=== PATIENT | female | born 1965 | race Caucasian/White ===

== ENCOUNTER → 2017-12-05 08:17 | Outpatient (CLI) | payer OTHER, SELFPAY ==
--- NOTE | 2017-12-05 08:19 | BI_ITS ---
MAMMOGRAPHY - BILATERAL SCREENING REASON FOR EXAM: Female, 52 years old. Routine annual screening examination. PERTINENT HISTORY: Non-contributory. TECHNIQUE: Digital bilateral breast wilbert (3D mammographic acquisition) in the CC and MLO projections. 2-D mediolateral oblique (MLO) and craniocaudad (CC) views of both breasts were obtained. CAD: Full Field Digital Mammography with Computer Added Detection was performed. COMPARISON: Comparison is made with prior abdomen examination dated May 12, 2016. FINDINGS: Breast Composition: The breasts are heterogeneously dense, which may obscure small masses. There are no dominant masses or suspicious calcifications. Stable bilateral benign-appearing axillary lymph nodes. No other significant abnormalities are identified. There has been no significant change since the prior study. BI/SCREENING MAMM (CAD), BILAT IMPRESSION: Stable bilateral screening mammogram. Yearly follow-up mammogram recommended. (A) ASSESSMENT CATEGORY: BIRADS Category 2: Benign. A letter regarding these results will be sent to the patient by the facility within 30 days. Approximately 10% of breast cancers are not detected by mammography. A normal mammogram should not delay biopsy of a clinically suspicious abnormality. [id number] Electronically Signed: Sylvester Coronel MD at 9:24 EDT Tel [phone], Service support ,
== END ==
PROVIDERS: Family Provider Internal Medicine; PCP Internal Medicine; Visit Provider Obstetrics & Gynecology
DX: Z12.31 Encounter for screening mammogram for malignant neoplasm of breast (principal)
CPT/HCPCS: 77063; 77067

== ENCOUNTER → 2018-09-09 13:57 | Outpatient (CLI) | payer OTHER, SELFPAY ==
--- NOTE | 2018-09-09 14:01 | BI_ITS ---
MAMMOGRAPHY - BILATERAL DIAGNOSTIC REASON FOR EXAM: Female, 53 years old. BILAT DX FOR RT BREAST PAIN PERTINENT HISTORY: TECHNIQUE: Digital bilateral breast wilbert (3D mammographic acquisition) in the CC and MLO projections. 2-D mediolateral oblique (MLO) and craniocaudad (CC) views of both breasts were obtained. CAD: Full Field Digital Mammography with Computer Added Detection was performed. COMPARISON: NO FAM HX - RT LOQ SORENESS/PAIN X 1 MONTH OCCASIONAL . FINDINGS: Breast Composition: The breasts are heterogeneously dense, which may obscure small masses. There is an asymmetric density in the upper outer aspect of the right breast for which further evaluation by ultrasound was performed. There are no suspicious calcifications. No other significant abnormalities are identified. BI/DIAG MAMM W/CAD, BILAT IMPRESSION: Stable bilateral diagnostic mammogram. One year follow-up recommended. (A) ASSESSMENT CATEGORY: BIRADS Category 0: Incomplete. Need additional imaging evaluation. A letter regarding these results will be sent to the patient by the facility within 30 days. Approximately 10% of breast cancers are not detected by mammography. A normal mammogram should not delay biopsy of a clinically suspicious abnormality. Electronically Signed: Yoselin Dixon, at 16:49 EDT Tel , Service support ,
--- NOTE | 2018-09-09 14:01 | US_ITS ---
STUDY: ULTRASOUND BREAST - RIGHT REASON FOR EXAM: Female, 53 years old. RT BREAST PAIN LOQ - PER EDI LATERAL ASPECT Tamp; MEDIAL DENSITY TECHNIQUE: Axial and longitudinal images of the RIGHT breast were performed with a high resolution ultrasound transducer. COMPARISON: None. FINDINGS: RIGHT Breast: There is a lesion #1 in the lower medial quadrant. The lesion measures 0.7 x 0.7 x 0.7 cm in size. Clock notation: 3 o'clock position. Distance from nipple: 0.5 cm. Posterior Enhancement: Yes. Posterior Shadowing: None. Margins: Sharp and smooth. Echogenicity: Anechoic. Compression effect on Shape: No change. There is a lesion #2 in the upper outer quadrant. The lesion measures 0.6 x 0.5 x 0.7 cm in size. Clock notation: 10 o'clock position. Distance from nipple: 8 cm. Posterior Enhancement: No. Posterior Shadowing: None. Margins: Indistinct but smooth. Echogenicity: Mixed echogenicity. Compression effect on Shape: No change. US/Breast Limited Unilateral IMPRESSION: There is a lesion #1 is a cyst. There is a lesion #2 is a probably benign lesion. Follow-up in 6 months is recommended. ASSESSMENT CATEGORY: BIRADS Category 3: Probably Benign - Short-Interval Follow-up Suggested. A letter regarding these results will be sent to the patient by the facility within 30 days. Electronically Signed: Yoselin Dixon, at 16:39 EDT Tel , Service support ,
== END ==
PROVIDERS: Family Provider Internal Medicine; PCP Internal Medicine; Referring Provider Obstetrics & Gynecology; Visit Provider Obstetrics & Gynecology
DX: N64.4 Mastodynia (principal)
CPT/HCPCS: 76642; 77066

== ENCOUNTER → 2018-11-25 07:45 | Outpatient (CLI) | payer OTHER, SELFPAY ==
--- NOTE | 2018-11-25 07:47 | US_ITS ---
STUDY: ULTRASOUND TRANSVAGINAL CLINICAL: Female, 53 years old. Dysfunctional uterine bleeding TECHNIQUE: Transvaginal COMPARISON: None. FINDINGS: Normal uterine size measuring 10.2 x 6.8 x 5.5 cm. There are no myometrial masses. Uterus is diffusely heterogeneous in echogenicity. The endometrium is thickened, measuring up to 17 mm. The endometrium is echogenic. There is a complex endometrial cystic focus extending into the myometrium of the fundus. . There is a cervical nabothian cyst. Normal right ovary, measuring 3.0 x 2.2 x 1.7 cm. There is a 2.3 x 1.4 x 1.5 cm right ovarian cyst. The left ovary was not visualized. There is no free fluid in the pelvis. Polycystic ovary disease: No. US/Transvaginal Non- IMPRESSION: Heterogeneously echogenic uterus. The endometrium is thickened, measuring up to 17 mm. There is an ill-defined complex cystic focus of the endometrium extending into the fundal myometrium. Finding is of unknown etiology or significance. There is a 2.3 x 1.4 x 1.5 cm right ovarian cyst. The left ovary was not visualized. Electronically Signed: Ricardo Khan MD at 20:44 EDT , Service support ,
--- NOTE | 2018-11-25 07:47 | US_ITS ---
STUDY: ULTRASOUND TRANSVAGINAL CLINICAL: Female, 53 years old. Dysfunctional uterine bleeding TECHNIQUE: Transvaginal COMPARISON: None. FINDINGS: Normal uterine size measuring 10.2 x 6.8 x 5.5 cm. There are no myometrial masses. Uterus is diffusely heterogeneous in echogenicity. The endometrium is thickened, measuring up to 17 mm. The endometrium is echogenic. There is a complex endometrial cystic focus extending into the myometrium of the fundus. . There is a cervical nabothian cyst. Normal right ovary, measuring 3.0 x 2.2 x 1.7 cm. There is a 2.3 x 1.4 x 1.5 cm right ovarian cyst. The left ovary was not visualized. There is no free fluid in the pelvis. Polycystic ovary disease: No. US/Pelvic (Non ) IMPRESSION: Heterogeneously echogenic uterus. The endometrium is thickened, measuring up to 17 mm. There is an ill-defined complex cystic focus of the endometrium extending into the fundal myometrium. Finding is of unknown etiology or significance. There is a 2.3 x 1.4 x 1.5 cm right ovarian cyst. The left ovary was not visualized. Electronically Signed: Ricardo Khan MD at 20:44 EDT , Service support ,
== END ==
PROVIDERS: Family Provider Internal Medicine; PCP Internal Medicine; Referring Provider Obstetrics & Gynecology; Visit Provider Obstetrics & Gynecology
DX: N93.8 Other specified abnormal uterine and vaginal bleeding (principal)
CPT/HCPCS: 76830; 76856; 93976

== ENCOUNTER → 2018-12-13 15:32 | Outpatient (CLI) | payer OTHER, SELFPAY ==
[2018-12-13 15:29] VITALS: BMI 31.0
[2018-12-13 17:19] LABS: Absolute Lymphocyte Count 1.37 X10^3/ul (0.83-4.51); Absolute Neutrophil Count 5.3 X10^3/uL (2.0-7.7); Basophil# 0.02 X10^3/uL; Basophil% 0.3 % (0-1); Eosinophil# 0.12 X10^3/uL; Eosinophils% 1.6 % (0-5); Hematocrit 36.7 % (37-47); Hemoglobin 12.6 g/dl (12.0-15.0); Lymphocyte # 1.37 X10^3/ul (4.0); Lymphocyte % 18.8 % (19-41); Mean Corp Hgb Conc 34.3 g/gl (32-36); Mean Corpuscular Volume 84.6 fL (81-99); Mean Platelet Vol. 9.4 fl (6.2-12.0); Monocyte# 0.51 X10^3/uL; Neutrophil # 5.26 X10^3/uL (2.7-7.7); Neutrophil % 72.2 % (47-70); POSITIVE COUNT NO; POSITIVE DIFFERENTIAL NO; POSITIVE MORPHOLOGY NO; Platelet Count 402 K/mm3 (150-450); RBC Distribution Width CV 12.9 % (11.6-14.6); RBC Distribution Width SD 39.2 fl (35.1-43.9); Red Blood Count 4.34 M/mm3 (4.2-5.4); White Blood Count 7.3 K/mm3 (4.4-11.0)
[2018-12-13 18:02] LABS: Thyroid Stim Hormone (TSH) 0.53 uIU/mL (0.358-3.74)
== END ==
PROVIDERS: Family Provider Internal Medicine; PCP Internal Medicine; Referring Provider Obstetrics & Gynecology; Visit Provider Obstetrics & Gynecology
DX: N92.0 Excessive and frequent menstruation with regular cycle (principal)
CPT/HCPCS: 36415; 84443; 85025

== ENCOUNTER 2019-01-20 09:56 | Day surgery (SDC) | payer OTHER, SELFPAY ==
[2018-12-13 15:29] VITALS: BMI 31.0
[2019-01-11 08:24] VITALS: BMI 31.0
--- NOTE | 2019-01-13 23:47 | HP.PCM_ITS ---
- Problem List (1) Abnormal uterine bleeding Status: Chronic Comment: plan d and c hysteroscopy symphion possible alyssa ablation History and Physical Date of Admission: 01/20/19 Intake Vital Signs 01/11/19 Height 5 ft 4.5 in 01/11/19 Weight: 181 lb 8 oz 01/11/19 Body Mass Index (BMI) 30.7 01/11/19 Blood Pressure 132/70 H Intake Visit Reasons: pre op-soap/folder Gardening Manager Required: No Is patient in pain?: No Allergies No Known Allergies Allergy (Verified 01/11/19 08:02) Medications hydrochlorothiazide 25 mg tablet 25 mg PO QDAY 07/08/17 [History Confirmed 01/11/19] naproxen 500 mg tablet 500 mg PO Q12H #30 tab 12/27/18 [Rx Confirmed 01/11/19] norethindrone acetate 5 mg tablet 5 mg PO BID #40 tab 01/10/19 [Rx Confirmed 01/11/19] Post menopausal: No Patient : No : No PFSH Surgical History H/O foot surgery (Acute) H/O mitral valve repair (Acute) History of tonsillectomy (Acute) Family History Mother Heart disease auto immune disease Grandfather Cancer stomach Social History (Updated 01/11/19 @ 08:24 by Rachna Kelly MD) Smoking Status: Never smoker alcohol intake: current details: social substance use type: does not use caffeine: Yes frequency: 3-4 times per week seatbelt use: always do you feel safe at home: Yes additional 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 she has heavy persistent bleeding. she has tried a mirena in the past and is on aygestin currently. Female Reproductive History Cycle Length: <21 Bleeding Duration: 10 Menopausal Symptoms: No night sweats Pregancy History 1 Elective abortions Hx Para 1 Spontaneous abortions Hx # Term Pregnancies Ectopic pregnancies Hx # Pregnancies Multiple births # of living children Past Pregnancies Del. Date Name GA/Weeks Outcome Route Bth Weight Gen Labor Lgth Anesthesia Del Locatn Provider FOB Unknown 1995 Vickie HERNANDEZ Const Constitutional: Denies fatigue, night sweats, weight gain or weight loss ENT ENT: Reports system reviewed and no additional complaints, except as docu Cardio Card: Denies chest pain Resp Resp: Denies cough or dyspnea GI GI: Reports as per HPI; denies abdominal pain, constipation, nausea or vomiting : Denies nipple discharge, urinary frequency, urinary incontinence, urinary hesitancy, urinary urgency, vaginal discharge, vaginal dryness, vaginal odor or vaginal itching Musc Musc: Denies joint pain, back pain or muscle weakness Skin Skin/Breast: Denies hair loss, change in hair, dry skin, breast lump, breast pain, breast skin changes or nipple discharge Neuro Neuro: Reports system reviewed and no additional complaints, except as docu Psych Psych: Reports system reviewed and no additional complaints, except as docu Endo Endo: Denies cold intolerance, excessive sweating, heat intolerance or increased thirst Yariel/Lymph Hematologic/Lymphatic: Denies easy bleeding, Denies easy bruising, Denies enlarged lymph nodes Exam Const General: cooperative, healthy appearing, comfortable, no acute distress, well developed Orientation: alert [facility] Head: normal to inspection, normocephalic Ears: hearing grossly normal bilaterally, external ears normal Nose: external nose normal, nares normal Face and sinus: normal facial exam Neck Neck: normal visual inspection, no lymphadenopathy Thyroid: thyroid normal Chest Chest palpation & inspection: normal inspection of the chest Resp Effort & Inspection: normal respiratory effort Auscultation: clear to auscultation bilaterally Cardio Rate: regular rate Rhythm: regular rhythm Heart Sounds: S1 normal, S2 normal GI Inspection: normal to inspection, non-distended Palpation: soft, no hepatosplenomegaly Musc Other: gross motor intact no deficits, full bilateral strength Skin General: no rashes or lesions noted Neuro General: alert, awake, moves all extremities, no focal motor deficits Motor: muscle tone normal throughout Extrem General: normal to inspection, no pedal edema Psych Appearance: grossly normal Mental Status: mental status grossly normal Affect: normal affect Speech and Movement: speech and movement normal Assessment & Plan Problems 1. Abnormal uterine bleeding N93.9 plan d and c hysteroscopy symphion possible alyssa ablation Plan plan d and c hysteroscopy discussed surgical risks including risks of anesthesia, infection, bleeding, injury to bowel, bladder or blood vessels, and patient wishes to proceed with surgery. discussed if abnormal pathology may need further surgery Coding Level of Care Code No Charge Diagnoses Abnormal uterine bleeding N93.9 UPDATE- I have seen the patient and performed any clinically relevant updates to the history and physical exam. Rachna Kelly MD
[2019-01-20] VITALS (7 sets, daily range): BP systolic 90–143; BP diastolic 56–69; PULSE 59–79; RESP 16; TEMP 36.5–37.4; O2SAT 92–99; BMI 30.8
[2019-01-20 11:03] LABS: Internal QC Validated? YES +Cl - CLEAR BKGD; Pregnancy, Serum, hCG Quali. NEGATIVE Negative
--- NOTE | 2019-01-20 11:41 | PCM.OPRPT ---
Problem List (1) Abnormal uterine bleeding Status: Chronic Comment: plan d and c hysteroscopy symphion possible hailey ablation Report of Operation Date of Procedure: 01/20/19 Pre-Operative Diagnosis: aub Post-Operative Diagnosis: same Surgery/Procedure Performed:: d and c hysteroscopy hailey ablation Description of Surgical Findings:: thickened lining Type of Anesthesia:: Local MAC Special Medications: none Specimen's removed: emc Drains: none Estimated Blood Loss (mL): 25 Fluids Replaced: crystalloid Description of Procedure: Patient was prepped and draped in a normal sterile fashion under MAC anesthesia. A weighted speculum was placed in the vagina and the anterior lip of the cervix was grasped with a single-tooth tenaculum. A paracervical block was placed with 1% lidocaine. Cervix was progressively dilated to allow passage of a 5 mm hysteroscope. The lining was fully visualized and noted to have thickened lining. Uterine sounded to 10 cm. Curettage was performed and moderate amount of tissue was removed, sent to pathology. The Hailey device was opened and the cavity length was found to be 5.5 cm. Device was inserted into the uterus and balloon inflated and device deployed. Integrity of the cavity was confirmed and a 2 minute treatment cycle was completed without complication. All instruments were removed from the vagina and excellent hemostasis was noted. Patient was awoken and taken to recovery in stable condition. Grafts/Implants Used: none - Complications none - Admit VTE Documentation VTE Present on Admission: No Multi Select Codes - Urinary/Genital Urinary/Genital CPT Codes: Other Procedure See Report - 12517
--- NOTE | 2019-01-20 11:55 | EMB_PTH ---
PATIENT: ARON JORGE LOC: [facility] U#:[id number] AGE/SX: 53/F ROOM: RE01/20/[address]: Dr. Rachna Kelly MD : 1965 BED: DIS: 01/20/2019 SPEC #: [id number] RECD: 01/20/19 12:24 STATUS: CRISTINA OPHELIA #: [id number] AV: 01/20/19 11:[address]: Rachna Kelly DEPT: SURGICAL PATHOLOGY RECD BY: Jonathan Mora ENTERED: 01/20/19 13:34 SP TYPE: ENDOM BX/C DEL DR: Dr. Janine Padilla MD Tissues: Endometrium, NOS Procedures: Surgery Specimen Level IV HEADER OPERATION: Hysteroscopy, D & C, Hailey ablation PRE-OP DIAGNOSIS: Abnormal uterine bleeding TISSUE SUBMITTED: Endometrial curettings MICROSCOPIC DIAGNOSIS Endometrium, curettings: Proliferative endometrium with simple hyperplasia without atypia. Rare fragments of polypoid endocervical tissue. Scant strips of benign superficial ectocervix. Chronic endometritis. AM:gail 01/21/19 MICROSCOPIC DESCRIPTION Slides are reviewed. GROSS DESCRIPTION Received in fixative is one container labeled with the patient's name and designated endometrial curettings. The specimen consists of multiple fragments of hemorrhagic soft tissue that in aggregate measure 7.5 x 3 x 0.3 cm. The entire specimen is submitted in three cassettes. / SJ:gail 01/20/19 TC: CPT: 26444
--- NOTE | 2019-01-20 12:03 | DCINST_ITS ---
Discharge Diet: No Restrictions Discharge Activity: Return to Normal Activity, May Shower, May Take a Tub Bath Allergies/Adverse Reactions: Allergies No Known Allergies Allergy (Verified 01/11/19 08:02) Medications to take at Discharge hydrochlorothiazide 25 mg tablet 25 mg PO QDAY 07/08/17 norethindrone acetate 5 mg tablet 5 mg PO BID #40 tab 01/10/19 Naproxen 500 mg PO Q12H PRN 01/13/19 Primary Care Physician: Janine Padilla MD [Primary Care Provider] - Test Results: Test results from this visit will be discussed in further detail at your follow- up appointment, if applicable. Please Follow Up With: Rachna Kelly MD - [phone]
== END 2019-01-20 13:59 | disposition home or self-care (01) ==
LOC: SDC 09:59 → AC 09:59
PROVIDERS: Family Provider Internal Medicine; PCP Internal Medicine; Referring Provider Obstetrics & Gynecology; Visit Provider Obstetrics & Gynecology
PROC: 0U5B8ZZ Destruction of Endometrium, Via Natural or Artificial Opening Endoscopic (ICD-10-PCS; CPT 58558; principal; 2019-01-20 11:40)
DX: N85.01 Benign endometrial hyperplasia (principal); N93.9 Abnormal uterine and vaginal bleeding, unspecified; I10 Essential (primary) hypertension; K21.9 Gastro-esophageal reflux disease without esophagitis; Z79.899 Other long term (current) drug therapy
CPT/HCPCS: 58353; 36415; 84703; 86850; 86900; 88305; J7120; J2405

== ENCOUNTER → 2019-08-22 16:46 | Outpatient (CLI) | payer OTHER, SELFPAY ==
--- NOTE | 2019-08-22 | EMB_PTH ---
PATIENT: ARON JORGE LOC: [facility] U#:[id number] AGE/SX: 59/F ROOM: RE08/22/[address]: RINA Olivier : 1965 BED: DIS: SPEC #: [id number] RECD: 08/22/19 16:32 STATUS: CRISTINA OPHELIA #: [id number] AV: 08/22/19 00:[address]: Nano Hercules NP DEPT: SURGICAL PATHOLOGY RECD BY: Jonathan Mora ENTERED: 08/23/19 08:11 SP TYPE: ENDOM BX/C DEL DR: Dr. Janine Padilla MD Tissues: Endometrium, NOS Procedures: Surgery Specimen Level IV HEADER OPERATION: Endometrial biopsy PRE-OP DIAGNOSIS: Abnormal uterine bleeding TISSUE SUBMITTED: Endometrial biopsy MICROSCOPIC DIAGNOSIS Endometrial biopsy: Scant strip of benign endometrial epithelium and superficial fragment of inactive endometrial tissue and mucous. Negative for hyperplasia. See comment. SJ:gail 08/24/19 COMMENT The specimen predominantly consists of mucoid tissue. Please make reference to previous specimen ([id number]) endometrium, curettings with diagnosis of proliferative endometrium with simple hyperplasia without atypia and rare fragments of polypoid endocervical tissue. MICROSCOPIC DESCRIPTION Slides are reviewed. GROSS DESCRIPTION Received is one container labeled with the patient's name and not further designated. The specimen consists of multiple irregular fragments of buchanan mucoid tissue that in aggregate measure 3 x 2.5 x 0.3 cm. The specimen is totally submitted in one cassette. / SJ:gail 08/23/19 TC:4 CPT: 71056
[2019-08-22 08:09] VITALS: BMI 30.2
== END ==
PROVIDERS: PCP Internal Medicine; Referring Provider Nurse Practitioner Women's Health; Visit Provider Nurse Practitioner Women's Health
DX: N93.9 Abnormal uterine and vaginal bleeding, unspecified (principal)
CPT/HCPCS: 88305

== ENCOUNTER → 2020-04-19 | Outpatient (CLI) | payer OTHER, SELFPAY ==
[2020-04-19 14:24] VITALS: BMI 30.6
--- NOTE | 2020-04-19 14:40 | EMB_PTH ---
PATIENT: ARON JORGE LOC: [facility] U#:[id number] AGE/SX: 54/F ROOM: RE04/19/[address]: RINA Olivier : 1965 BED: DIS: 04/19/2020 SPEC #: [id number] RECD: 04/19/20 16:11 STATUS: CRISTINA RERod #: [id number] AV: 04/19/20 14:[address]: Nano Hercules NP DEPT: SURGICAL PATHOLOGY RECD BY: Shaniqua Celestin ENTERED: 04/20/20 06:32 SP TYPE: ENDOM BX/C DEL DR: Dr. Janine Padilla MD Tissues: Endometrium, NOS Procedures: Surgery Specimen Level IV HEADER OPERATION: Endometrial biopsy PRE-OP DIAGNOSIS: PMB TISSUE SUBMITTED: Endometrial biopsy MICROSCOPIC DIAGNOSIS Endometrium, biopsy: Scant fragments of benign superficial endometrium and endocervix. AM:gail 04/23/20 MICROSCOPIC DESCRIPTION Slides are reviewed. GROSS DESCRIPTION Received is one container labeled with the patient's name and not further designated. The specimen consists of multiple fragments of hemorrhagic soft tissue that in aggregate measure 1 x 1 x 0.1 cm. The specimen is totally submitted in one cassette. / SJ:gail 04/20/20 TC:5 CPT: 43381
[2020-04-25 14:18] LABS: HPV APTIMA, High Risk Negative (Negative)
== END | disposition home or self-care (01) ==
LOC: LABSPEC 16:27
PROVIDERS: PCP Internal Medicine; Visit Provider Nurse Practitioner Women's Health
DX: Z12.4 Encounter for screening for malignant neoplasm of cervix (principal); N95.0 Postmenopausal bleeding
CPT/HCPCS: 87624; 88175; 88305; G0145

== ENCOUNTER → 2020-04-27 09:25 | Outpatient (CLI) | payer OTHER, SELFPAY ==
[2019-08-22 08:09] VITALS: BMI 30.2
[2020-04-19 14:24] VITALS: BMI 30.6
--- NOTE | 2020-04-27 09:26 | BI_ITS ---
MAMMOGRAPHY - BILATERAL DIAGNOSTIC REASON FOR EXAM: Female, 54 years old. Breast tenderness. PERTINENT HISTORY: Non-contributory. TECHNIQUE: Digital bilateral breast wilbert (3D mammographic acquisition) in the CC and MLO projections. 2-D mediolateral oblique (MLO) and craniocaudad (CC) views of both breasts were obtained. CAD: Full Field Digital Mammography with Computer Added Detection was performed. COMPARISON: Comparison is made with prior examination dated 09/09/2018. FINDINGS: Breast Composition: The breasts are heterogeneously dense, which may obscure small masses. There is a 1.1 cm x 1 cm well-defined nodule in the anterior slightly inferior medial region of the right breast. Correlation with ultrasound is recommended. Stable benign appearing bilateral axillary lymph nodes. No other significant abnormalities are identified. BI/DIAG MAMM W/CAD, BILAT IMPRESSION: 1.1 cm x 1 cm well-defined nodule in the right breast as described. Correlation with ultrasound is recommended. ASSESSMENT CATEGORY: BIRADS Category 0: Incomplete. Need additional imaging evaluation. A letter regarding these results will be sent to the patient by the facility within 30 days. Approximately 10% of breast cancers are not detected by mammography. A normal mammogram should not delay biopsy of a clinically suspicious abnormality. Electronically Signed: Sylvester Coronel, at 10:36 EST , Service support ,
--- NOTE | 2020-04-27 09:26 | US_ITS ---
STUDY: ULTRASOUND BREAST - right REASON FOR EXAM: Female, 54 years old. Abnormal screening mammogram. TECHNIQUE: Axial and longitudinal images of the breast were performed with a high resolution ultrasound transducer. # OF IMAGES: 31 COMPARISON: Comparison is made with prior mammogram dated 04/27/2020 and prior ultrasound of the right breast dated 09/09/2018. FINDINGS: Right Breast: There is a 1 cm x 1 cm x 0.7 cm cyst at the 3 o''clock position of the breast adjacent to the nipple. There is a 7 mm x 5 mm x 5 mm slightly irregular nodule with mixed echogenicity at the 10 o''clock position the breast at 7 cm from the nipple. Peripheral vascularity is seen. A biopsy is recommended for further evaluation. US/Breast Limited Unilateral IMPRESSION: 1 cm x 1 cm x 0.7 cm cyst adjacent to the areola. 7 mm x 5 mm x 5 mm slightly irregular nodule with vascularity at the 10 o''clock position of the breast at 7 cm from the nipple. A biopsy is recommended. ASSESSMENT CATEGORY: BIRADS Category 4: Suspicious - Biopsy Should Be Considered. A letter regarding these results will be sent to the patient by the facility within 30 days. Electronically Signed: Sylvester Coronel, at 11:38 EST , Service support ,
== END ==
PROVIDERS: PCP Internal Medicine; Referring Provider Nurse Practitioner Women's Health; Visit Provider Nurse Practitioner Women's Health
DX: N64.4 Mastodynia (principal); N63.10 Unspecified lump in the right breast, unspecified quadrant; N60.01 Solitary cyst of right breast
CPT/HCPCS: 76642; 77062; 77066; G0279

== ENCOUNTER → 2020-05-14 11:05 | Outpatient (CLI) | payer OTHER, SELFPAY ==
[2020-05-03 13:17] VITALS: BMI 30.3
--- NOTE | 2020-05-14 11:07 | US_ITS ---
ULTRASOUND GUIDED CORE BIOPSY REASON FOR EXAM: Female, 54 years old. RT BREAST MASS PERTINENT HISTORY: Questionable mass in the right breast COMPARISON: None. TECHNIQUE: (All elements of maximal sterile barrier technique followed, including US elements as applicable) Upon arrival to the breast imaging department the patient''s identification was confirmed and the RIGHT breast was marked according to time-out protocol. Ultrasound guided core biopsy and clip placement, to include potential risks and complications, was explained in full to the patient. Written and verbal consent were obtained prior to initiation of the procedure. The RIGHT breast was prepped and draped in standard sterile fashion and local anesthesia was obtained with 1% buffered lidocaine. A small dermatotomy was then made to introduce the core biopsy needle. Under ultrasound guidance multiple core samples were obtained and submitted in formalin for pathology. A titanium clip was then deployed into the biopsy cavity under ultrasound guidance. Upon completion of the procedure hemostasis was obtained and sterile dressing was applied. The patient tolerated the entire procedure without immediate complication and was discharged from the breast imaging department in good condition. US/US Breast Biopsy 1st Lesion IMPRESSION: Ultrasound guided core biopsy of a mass in the RIGHT breast without complication. Electronically Signed: Vikram Montana, at 13:36 EST Tel , Service support ,
--- NOTE | 2020-05-14 12:00 | BRBX_PTH ---
PATIENT: ARON JORGE LOC: [facility]#:[id number] AGE/SX: 59/F ROOM: RE05/14/[address]: Dr. Teresa Amin MD : 1965 BED: DIS: SPEC #: [id number] RECD: 05/14/20 13:22 STATUS: CRISTINA RERod #: [id number] AV: 05/14/20 12:[address]: Teresa Amin DEPT: SURGICAL PATHOLOGY RECD BY: Shaniqua Celestin ENTERED: 05/14/20 13:51 SP TYPE: BREAST BX OTHR DR: Dr. Janine Padilla MD Tissues: A - Breast, NOS Procedures: Surgery Specimen Level IV HEADER OPERATION: Right breast biopsy PRE-OP DIAGNOSIS: Right breast mass TISSUE SUBMITTED: Right breast biopsy ISCHEMIC TIME: 30 seconds FIXATION TIME: 7.5 hours MICROSCOPIC DIAGNOSIS Right breast mass, core biopsy: Fibrocystic change. Focal intraductal hyperplasia without atypia. No evidence of malignancy. AM:gail 05/15/20 MICROSCOPIC DESCRIPTION Slides are reviewed. GROSS DESCRIPTION Received in fixative is one container labeled with the patient's name and designated right breast. The specimen consists of multiple irregular fragments of buchanan soft tissue that in aggregate measure 2 x 1.5 x 0.2 cm. The specimen is totally submitted in one cassette. / AM:gail 05/14/20 TC:5 CPT: 29077
--- NOTE | 2020-05-14 12:32 | BI_ITS ---
MAMMOGRAPHY - UNILATERAL DIAGNOSTIC: RIGHT BREAST REASON FOR EXAM: Female, 54 years old. RT POST U/S BX CLIP PLACEMENT 2D MAMM PERTINENT HISTORY: Non-contributory. TECHNIQUE: Digital examination. Mediolateral oblique (MLO) and craniocaudad (CC) views of the breast were obtained. CAD: COMPARISON: Previous mammogram obtained on 04/27/2020 FINDINGS: Breast Composition: Dense There are no dominant masses or suspicious calcifications. No other significant abnormalities are identified. A biopsy localization clip is noted in the right breast at the 3 o''clock position BI/DIAG MAMM W/CAD, UNILAT IMPRESSION: Note noted is a localization clip in the lateral right breast at the 9 o''clock position from a recent ultrasound directed right breast biopsy. ASSESSMENT CATEGORY: Recently biopsied lesion awaiting biopsy results FOLLOW-UP RECOMMENDATION: Approximately 10% of breast cancers are not detected by mammography. A normal mammogram should not delay biopsy of a clinically suspicious abnormality. Electronically Signed: Vikram Montana, at 15:52 EST Tel , Service support ,
--- NOTE | 2020-05-14 12:41 | OP.PCM_ITS ---
Report of Operation Date of Procedure: 05/14/20 Pre-Operative Diagnosis: Right breast mass at 9:00 7 cm from the nipple Post-Operative Diagnosis: Same Surgery/Procedure Performed:: Ultrasound-guided right breast biopsy Type of Anesthesia:: Local Specimen's removed: Right breast mass 9 o'clock 7 cm from the nipple Estimated Blood Loss (mL): Minimal Description of Procedure: Procedure: Right ultrasound-guided core biopsy Indications: 54 year-old female with mixed echogenicity nodule at 9:00 in the right breast 7 centimeters from the nipple. Risk benefits were discussed the patient and she elected to proceed with ultrasound guided core biopsy with clip placement Description of procedure: Patient was brought into the ultrasound room in the right breast was marked. A timeout was completed verifying correct patient, procedure, site, specially, prior to beginning procedure. The right breast was prepped and draped in usual sterile fashion and using local anesthesia was obtained with 1% lidocaine with epi. The lesion was located with the ultrasound. Small incision was made with 11 blade to introduced the mammotome through the skin. Under ultrasound guidance multiple core samples were obtained using then 13-gauge mammotome and sent in formalin for pathology. The mammotome mammostar clip was then deployed into the biopsy cavity under ultrasound agnieszka nce and a picture was taken. Upon completion procedure hemostasis was obtained and a Steri-Strip and OpSite were placed. Patient was then taken to the mammography suite for clip verification. The clip was verified. The patient tolerated the procedure well and was discharged from the breast imaging department good condition. complications: none - Complications none
== END ==
PROVIDERS: PCP Internal Medicine; Referring Provider Surgery; Visit Provider Surgery
DX: N62 Hypertrophy of breast (principal); N63.10 Unspecified lump in the right breast, unspecified quadrant; N63.15 Unspecified lump in the right breast, overlapping quadrants
CPT/HCPCS: 19083; 77065; 88305

== ENCOUNTER 2020-10-15 08:14 | Outpatient (RCR) | payer OTHER, SELFPAY ==
[2020-05-03 13:17] VITALS: BMI 30.3
== END 2020-10-19 23:59 ==
LOC: NS 08:14
PROVIDERS: PCP Internal Medicine; Visit Provider Internal Medicine
DX: Z71.3 Dietary counseling and surveillance (principal); E66.9 Obesity, unspecified; Z68.30 Body mass index [BMI] 30.0-30.9, adult
CPT/HCPCS: 97802

== ENCOUNTER 2020-11-13 11:15 | Outpatient (RCR) | payer OTHER, SELFPAY ==
[2020-05-03 13:17] VITALS: BMI 30.3
== END 2020-11-19 23:59 ==
LOC: NS 11:15
PROVIDERS: PCP Internal Medicine; Visit Provider Internal Medicine
DX: Z71.3 Dietary counseling and surveillance (principal); E66.9 Obesity, unspecified; Z68.30 Body mass index [BMI] 30.0-30.9, adult
CPT/HCPCS: 97803

== ENCOUNTER 2020-12-18 08:30 | Outpatient (RCR) | payer OTHER, SELFPAY ==
[2020-05-03 13:17] VITALS: BMI 30.3
== END 2020-12-19 23:59 ==
LOC: NS 08:30
PROVIDERS: PCP Internal Medicine; Visit Provider Internal Medicine
DX: Z71.3 Dietary counseling and surveillance (principal); E66.9 Obesity, unspecified; Z68.30 Body mass index [BMI] 30.0-30.9, adult
CPT/HCPCS: 97803

== ENCOUNTER 2021-01-01 16:04 | Outpatient (RCR) | payer OTHER, SELFPAY ==
[2020-05-03 13:17] VITALS: BMI 30.3
== END 2021-01-19 23:59 ==
LOC: NS 16:04
PROVIDERS: PCP Internal Medicine; Visit Provider Internal Medicine
DX: Z71.3 Dietary counseling and surveillance (principal); E66.9 Obesity, unspecified; Z68.30 Body mass index [BMI] 30.0-30.9, adult
CPT/HCPCS: 97803

== ENCOUNTER 2021-02-11 08:30 | Outpatient (RCR) | payer OTHER, SELFPAY ==
[2020-05-03 13:17] VITALS: BMI 30.3
== END 2021-02-19 23:59 ==
LOC: NS 08:30
PROVIDERS: PCP Internal Medicine; Visit Provider Internal Medicine
DX: Z71.3 Dietary counseling and surveillance (principal); E66.9 Obesity, unspecified; Z68.30 Body mass index [BMI] 30.0-30.9, adult
CPT/HCPCS: 97803

== ENCOUNTER 2021-03-04 09:45 | Outpatient (RCR) | payer OTHER, SELFPAY ==
[2021-02-20 00:33] VITALS: BMI 30.3
== END 2021-03-21 23:59 ==
LOC: NS 09:45
PROVIDERS: PCP Internal Medicine; Visit Provider Internal Medicine
DX: Z71.3 Dietary counseling and surveillance (principal); E66.9 Obesity, unspecified; Z68.30 Body mass index [BMI] 30.0-30.9, adult
CPT/HCPCS: 97803

== ENCOUNTER → 2021-03-19 07:31 | Outpatient (CLI) | payer OTHER, SELFPAY ==
--- NOTE | 2021-03-19 07:34 | BI_ITS ---
MAMMOGRAPHY - BILATERAL SCREENING REASON FOR EXAM: Female, 55 years old. Routine annual screening examination. PERTINENT HISTORY: Grandmother with breast cancer. Prior right ultrasound-guided breast biopsy. TECHNIQUE: Digital bilateral breast ana maria (3D mammographic acquisition) in the CC and MLO projections. 2-D mediolateral oblique (MLO) and craniocaudad (CC) views of both breasts were obtained. CAD: Full Field Digital Mammography with Computer Added Detection was performed. COMPARISON: Comparison is made with prior study dated 05/14/2020 and 04/27/2020. FINDINGS: Breast Composition: The breasts are heterogeneously dense, which may obscure small masses. Stable 1.2 cm x 1.1 cm well-defined nodule in the slightly inferior medial retroareolar region of the right breast. A tissue clip marker is seen in the slightly upper lateral aspect of the right breast. No other significant abnormalities are identified. There has been no significant change since the prior study. BI/SCRN MAMM (CAD)W/ANA MARIA BILAT IMPRESSION: Stable bilateral screening mammogram. Yearly follow-up mammogram recommended. (A) ASSESSMENT CATEGORY: BIRADS Category 2: Benign. A letter regarding these results will be sent to the patient by the facility within 30 days. Approximately 10% of breast cancers are not detected by mammography. A normal mammogram should not delay biopsy of a clinically suspicious abnormality. [id number] Electronically Signed: Sylvester Coronel MD at 8:31 EDT , Service support ,
== END ==
PROVIDERS: PCP Internal Medicine; Referring Provider Obstetrics & Gynecology; Visit Provider Obstetrics & Gynecology
DX: Z12.31 Encounter for screening mammogram for malignant neoplasm of breast (principal)
CPT/HCPCS: 77063; 77067

== ENCOUNTER → 2021-04-03 | Outpatient (CLI) | payer OTHER, SELFPAY | END | disposition home or self-care (01) | LOC: LABSPEC 16:20 | PROVIDERS: PCP Internal Medicine; Referring Provider Nurse Practitioner Women's Health; Visit Provider Nurse Practitioner Women's Health | DX: N95.2 Postmenopausal atrophic vaginitis (principal) | CPT/HCPCS: 87070; 87205 ==

== ENCOUNTER 2021-04-16 10:30 | Outpatient (RCR) | payer OTHER, SELFPAY ==
[2021-03-22 00:26] VITALS: BMI 30.3
== END 2021-04-21 23:59 ==
LOC: NS 10:30
PROVIDERS: PCP Internal Medicine; Visit Provider Internal Medicine
DX: Z71.3 Dietary counseling and surveillance (principal); E66.9 Obesity, unspecified; Z68.30 Body mass index [BMI] 30.0-30.9, adult
CPT/HCPCS: 97803

== ENCOUNTER 2021-05-20 08:30 | Outpatient (RCR) | payer OTHER, SELFPAY ==
[2021-04-22 00:22] VITALS: BMI 30.3
== END 2021-05-21 23:59 ==
LOC: NS 08:30
PROVIDERS: PCP Internal Medicine; Visit Provider Internal Medicine
DX: Z71.3 Dietary counseling and surveillance (principal); E66.9 Obesity, unspecified; Z68.30 Body mass index [BMI] 30.0-30.9, adult
CPT/HCPCS: 97803

== ENCOUNTER 2021-06-11 09:27 | Outpatient (RCR) | payer OTHER, SELFPAY ==
[2021-05-22 00:27] VITALS: BMI 30.3
== END 2021-06-21 23:59 ==
LOC: NS 09:27
PROVIDERS: PCP Internal Medicine; Visit Provider Internal Medicine
DX: Z71.3 Dietary counseling and surveillance (principal); E66.9 Obesity, unspecified; Z68.30 Body mass index [BMI] 30.0-30.9, adult
CPT/HCPCS: 97803

== ENCOUNTER 2021-07-10 08:54 | Outpatient (CLI) | payer OTHER, SELFPAY ==
--- NOTE | 2021-07-10 09:03 | US_ITS ---
STUDY: ULTRASOUND BREAST - RIGHT REASON FOR EXAM: Female, 55 years old. Bilateral axillary prominence. TECHNIQUE: Axial and longitudinal images of the RIGHT breast were performed with a high resolution ultrasound transducer. # OF IMAGES: 23 COMPARISON: Comparison is made with prior mammogram done earlier today. FINDINGS: RIGHT Breast: There is a 9 mm x 14 mm x 2 mm benign-appearing lymph node in the right axilla. IMPRESSION: There is a 9 mm x 14 mm x 2 mm benign-appearing lymph node in the right axilla. ASSESSMENT CATEGORY: BIRADS Category 2: Benign. A letter regarding these results will be sent to the patient by the facility within 30 days. Electronically Signed: Sylvester Coronel MD at 10:36 EST , Service support , STUDY: ULTRASOUND BREAST - LEFT REASON FOR EXAM: Female, 55 years old. Palpable lump left breast. TECHNIQUE: Axial and longitudinal images of the LEFT breast were performed with a high resolution ultrasound transducer. # OF IMAGES: 23 COMPARISON: Comparison is made with prior mammogram done earlier today. FINDINGS: LEFT Breast: The palpable adenopathy in the left axilla corresponds to a 3.1 cm x 0.7 cm x 1.1 cm lymph node. Increased vascularity is seen. Biopsy recommended. US/Breast Limited Unilateral IMPRESSION: 3.1 cm x 0.7 cm x 1.1 cm left axillary lymph node. Biopsy is recommended. ASSESSMENT CATEGORY: BIRADS Category 4: Suspicious - Biopsy Should Be Considered. A letter regarding these results will be sent to the patient by the facility within 30 days. Electronically Signed: Sylvester Coronel MD at 10:37 EST , Service support ,
--- NOTE | 2021-07-10 09:03 | BI_ITS ---
MAMMOGRAPHY - BILATERAL DIAGNOSTIC REASON FOR EXAM: Female, 55 years old. Bilateral axillary swelling. PERTINENT HISTORY: Grandmother with breast cancer. The patient has history of prior ultrasound guided biopsy in the right breast. TECHNIQUE: Digital bilateral breast wilbert (3D mammographic acquisition) in the CC and MLO projections. 2-D mediolateral oblique (MLO) and craniocaudad (CC) views of both breasts were obtained. CAD: Full Field Digital Mammography with Computer Added Detection was performed. COMPARISON: Comparison is made with prior mammogram dated 03/19/2021 and 04/27/2020. FINDINGS: Breast Composition: The breasts are heterogeneously dense, which may obscure small masses. There are no dominant masses or suspicious calcifications. The previously seen well-defined nodule in the anterior slightly inferior medial aspect of the right breast has decreased in size. It presently measures 6 mm. Stable bilateral axillary lymph nodes. No other significant abnormalities are identified. BI/DIAG MAMM W/CAD, BILAT IMPRESSION: Interval decrease in size of the previously seen nodule in the inferior medial aspect of the right breast. With the patient''s history of bilateral axillary swelling, correlation with ultrasound is recommended. ASSESSMENT CATEGORY: BIRADS Category 0: Incomplete. Need additional imaging evaluation. A letter regarding these results will be sent to the patient by the facility within 30 days. Approximately 10% of breast cancers are not detected by mammography. A normal mammogram should not delay biopsy of a clinically suspicious abnormality. Electronically Signed: Sylvester Coronel MD at 9:59 EST , Service support ,
== END 2021-07-10 23:59 | disposition short-term general hospital (02) ==
LOC: OPBI 08:58
PROVIDERS: PCP Internal Medicine; Referring Provider Clinical Nurse Specialist; Visit Provider Clinical Nurse Specialist
DX: R92.8 Other abnormal and inconclusive findings on diagnostic imaging of breast (principal); R59.1 Generalized enlarged lymph nodes
CPT/HCPCS: 76642; 77062; 77066; G0279

== ENCOUNTER 2021-07-17 14:00 | Outpatient (RCR) | payer OTHER, SELFPAY ==
[2021-06-22 00:26] VITALS: BMI 30.3
== END 2021-07-22 23:59 ==
LOC: NS 14:00
PROVIDERS: PCP Internal Medicine; Visit Provider Internal Medicine
DX: Z71.3 Dietary counseling and surveillance (principal); E66.9 Obesity, unspecified; Z68.30 Body mass index [BMI] 30.0-30.9, adult
CPT/HCPCS: 97803

== ENCOUNTER 2021-08-07 10:25 | Outpatient (CLI) | payer OTHER, SELFPAY | END 2021-08-07 23:59 | disposition home or self-care (01) | LOC: LABSPEC 10:26 | PROVIDERS: PCP Internal Medicine; Visit Provider Physician Assistant | DX: R30.9 Painful micturition, unspecified (principal) | CPT/HCPCS: 87086; 87088; 87186 ==

== ENCOUNTER 2021-09-09 13:14 | Outpatient (RCR) | payer OTHER, SELFPAY ==
[2021-07-23 00:33] VITALS: BMI 30.3
== END 2021-09-09 14:46 | disposition home or self-care (01) ==
LOC: NS 13:14
PROVIDERS: PCP Internal Medicine; Referring Provider Internal Medicine; Visit Provider Internal Medicine
DX: Z71.3 Dietary counseling and surveillance (principal); E66.9 Obesity, unspecified; Z68.30 Body mass index [BMI] 30.0-30.9, adult
CPT/HCPCS: 97803

== ENCOUNTER 2022-03-15 10:07 | Inpatient (IN) | payer OTHER, SELFPAY ==
[2022-03-15] VITALS (25 sets, daily range): BP systolic 81–155; BP diastolic 60–112; PULSE 68–241; RESP 15–30; TEMP 36.6–36.7; O2SAT 93–99; BMI 30.6; BMI 29.6
--- NOTE | 2022-03-15 10:10 | NURSING ---
NO OLD EKGS
--- NOTE | 2022-03-15 10:18 | EKG12_ITS ---
Test Reason : RAPID HR Blood Pressure : / mmHG Vent. Rate : 161 BPM Atrial Rate : 161 BPM P-R Int : 000 ms QRS Dur : 098 ms QT Int : 248 ms P-R-T Axes : 000 012 150 degrees QTc Int : 405 ms Undetermined rhythm :Consider Atrial Fibrillation with PVC's Nonspecific ST abnormality Abnormal ECG Confirmed by GENEVA FLORES, DONTA ([id number]), editor continuity and script LORNE VAZQUEZ ([id number]) on 03/19/2022 9:23:11 AM Referred By: Confirmed By:DONTA BEAN MD
--- NOTE | 2022-03-15 10:19 | RAD_ITS ---
STUDY: X-RAY CHEST REASON FOR EXAM: Female, 56 years old. Atypical chest pain TECHNIQUE: Single AP portable view of the chest. COMPARISON: None. FINDINGS: EKG leads overlie the chest The lungs are clear and expanded. There is no demonstrated pleural abnormality. Sternal cerclage wires are present from a prior sternotomy. Normal mediastinum and mamie. Normal visualized pulmonary arteries. Normal visualized aortic arch and descending thoracic aorta. Normal visualized thoracic spine. Normal visualized ribs, clavicles, and shoulders. There is no demonstrated abnormality of the visualized soft tissue structures of the upper abdomen. RAD/Chest 1 View (Portable) IMPRESSION: No acute pulmonary process Electronically Signed: Davonte Alberts MD at 11:15 EDT ,
--- NOTE | 2022-03-15 10:19 | EKG12_ITS ---
Test Reason : RAPID HR Blood Pressure : / mmHG Vent. Rate : 123 BPM Atrial Rate : 123 BPM P-R Int : 048 ms QRS Dur : 100 ms QT Int : 332 ms P-R-T Axes : 000 003 203 degrees QTc Int : 475 ms Atrial fibrillation with PVC's Left ventricular hypertrophy with repolarization abnormality Inferior infarct , age undetermined Abnormal ECG Confirmed by ALKA FLORES, MORTEZA ([id number]), food expeditor LORNE VAZQUEZ ([id number]) on 03/18/2022 8:13:37 AM Referred By: Confirmed By:MORTEZA RUCKER MD
--- NOTE | 2022-03-15 10:20 | EKG12_ITS ---
Test Reason : RAPID HR Blood Pressure : / mmHG Vent. Rate : 210 BPM Atrial Rate : 116 BPM P-R Int : 000 ms QRS Dur : 122 ms QT Int : 194 ms P-R-T Axes : 000 008 259 degrees QTc Int : 362 ms Atrial fibrillation with periods of aberrancy Inferior infarct , age undetermined Abnormal ECG Confirmed by ALKA FLORES, MORTEZA ([id number]), slot editor LORNE VAZQUEZ ([id number]) on 03/18/2022 8:14:41 AM Referred By: Confirmed By:MORTEZA RUCKER MD
--- NOTE | 2022-03-15 10:34 | EDS_ITS ---
HPI History of Present Illness Chief Complaint: Shortness of Breath Informant: patient and spouse/S.O. Narrative Narrative: 56-year-old female presenting to the emergency room with a chief complaint of palpitations and sweating. Patient notes that she has felt some palpitations over the past 3 days. She has felt diaphoretic and weak with exertion. She notes that many years ago she had a mitral valve repair. She states that she has a history of hypertension and is on HCTZ. She has no history of dysrhythmias. No syncope or chest pain. [facility] Medical History Heart disease HTN (hypertension) Simple endometrial hyperplasia without atypia Urinary tract infection with hematuria Home Medications hydrochlorothiazide 25 mg tablet 25 mg PO QDAY 07/08/17 [History Last Taken 03/15/22] ascorbic acid (vitamin C) 500 mg tablet (Vitamin C) 1,000 mg PO DAILY 03/15/22 [History Last Taken 03/14/22] cholecalciferol (vitamin D3) 50 mcg (2,000 unit) capsule (Vitamin D3) 50 mcg PO DAILY 03/15/22 [History Last Taken 03/14/22] escitalopram oxalate 5 mg tablet 5 mg PO DAILY 03/15/22 [History Last Taken 03/15/22] tumeric 100 mg-guerline 150 mg-olive 50 mg-oreg 150 mg-caprylate capsule 1 cap PO DAILY 03/15/22 [History Last Taken 03/14/22] Allergy/AdvReac Type Severity Reaction Status Date / Time No Known Allergies Allergy Verified 04/03/21 13:17 Family History Mother Heart disease auto immune disease Grandfather Cancer stomach Grandmother Breast cancer Surgical History H/O dilation and curettage H/O foot surgery H/O mitral valve repair History of tonsillectomy Social History Smoking Status: Former smoker alcohol intake: current details: social substance use type: does not use caffeine: Yes frequency: 3-4 times per week seatbelt use: always do you feel safe at home: Yes additional social history: 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 [employer] ED Constitutional Constitutional ED: Denies chills or weight loss Eyes Eyes: Denies change in vision or diplopia ENT ENT ED: Denies ear pain, rhinorrhea or sore throat Cardiovascular Cardiovascular: Reports racing heartbeat; Denies chest pain, orthopnea or palpitations Respiratory/Chest Respiratory/Chest: Denies cough, dyspnea or orthopnea Gastrointestinal Gastrointestinal: Denies abdominal pain, diarrhea, nausea or vomiting Genitourinary Genitourinary ED: Denies dysuria, hematuria or urinary frequency Musculoskeletal Musculoskeletal: Denies arthralgias or myalgias Integumentary Denies abscess or rash Neurologic Neurologic: Denies headache(s) or weakness Psychiatric Psychiatric: Denies anxiety, depression, suicidal ideation or suicidal thoughts Endocrine Endocrinology: Denies polydipsia, polyphagia or polyuria Allergic/Immunologic Allergic/Immunologic ED: Denies mouth swelling, tongue swelling or urticaria EXAM Physical Exam Narrative Exam Narrative: Vital signs noted for heart rate of 241 Const Vital Signs: 03/15/22 10:08 03/15/22 10:10 03/15/22 10:12 Temperature 97.9 F Temperature Source Temporal Pulse Rate 241 H 223 H Respiratory Rate 30 H Respiratory Effort Normal Non-Labored Short of Breath Respiratory Depth Respiratory Pattern Tachypnea Blood Pressure 155/112 H Blood Pressure Mean 126 Pulse Ox 98 Oxygen Delivery Method Room Air 03/15/22 10:20 03/15/22 11:11 03/15/22 11:07 Temperature Temperature Source Pulse Rate 102 H 110 H Respiratory Rate 18 16 Respiratory Effort Normal Non-Labored Respiratory Depth Normal Respiratory Pattern Normal Blood Pressure 133/82 H 110/86 H Blood Pressure Mean 99 94 Pulse Ox 95 Oxygen Delivery Method Room Air Room Air 03/15/22 11:43 03/15/22 12:00 03/15/22 12:14 Temperature Temperature Source Pulse Rate 121 H 120 H 120 H Respiratory Rate 22 H 18 18 Respiratory Effort Respiratory Depth Respiratory Pattern Blood Pressure 110/86 H 119/60 119/60 Blood Pressure Mean 94 79 79 Pulse Ox 94 Oxygen Delivery Method Room Air Positive well nourished and well developed General Appearance ED: well developed HEENT Reports normocephalic, head/scalp atraumatic and moist mucous membranes Eyes PERRL and EOMs intact bilaterally Neck no lymphadenopathy, supple and no JVD Resp normal respiratory effort and clear to auscultation bilaterally Cardio regular rate and no murmurs Rate: tachycardic GI normal to inspection, nondistended, normoactive bowel sounds and non-tender Palpation: soft Back/Spine no CVA tenderness and normal ROM Extremity normal to inspection General Extremety ED: Negative for edema General Extremity: Negative for edema Neuro oriented x3 and CN's II-XII intact bilaterally Sensorium / Orientation: alert Motor Exam: strength 5/5 throughout Psych mental status grossly normal Mood & Affect: Negative for depressed or tearful Skin no rashes or lesions noted and no wounds Skin Narrative: Diaphoretic MDM MDM MDM Narrative Medical decision making narrative: CBC is normal. CMP shows a glucose of 111. Troponin is 12. TSH is 0.77. Magnesium 2 and potassium is 3.4. The patient was given Cardizem and aspirin. She was placed on a Cardizem drip. She is currently appears to be in atrial fibrillation with a ventricular rate of around 110 bpm. The patient will be administered Lovenox. Patient will be admitted into the hospital for further care return if worsening or concerns Lab Data Attestation: I reviewed the patient's lab results. Labs: Laboratory Results - last 24 hr 03/15/22 03/15/22 10:11 10:11 WBC 7.8 RBC 5.12 Hgb 15.4 H Hct 43.7 MCV 85.4 MCH 30.1 MCHC 35.2 RDW Std Deviation 38.2 RDW Coeff of Rachael 12.2 Plt Count 421 MPV 9.1 Immature Gran % (Auto) 0.300 Neut % (Auto) 49.1 Lymph % (Auto) 38.3 Lincoln % (Auto) 8.6 Eos % (Auto) 3.2 Baso % (Auto) 0.5 Absolute Neuts (auto) 3.8 Absolute Lymphs (auto) 2.97 Nucleated RBC % 0 Sodium 142 Potassium 3.4 L Chloride 106 Carbon Dioxide 27.0 Anion Gap 9 BUN 18 Creatinine 0.95 Estim Creat Clear Calc 57.78 Est GFR (MDRD) Af Amer 78 Est GFR (MDRD) Non-Af 65 BUN/Creatinine Ratio 18.9 Glucose 111 H Calcium 9.7 Magnesium 2.0 Total Bilirubin 0.50 AST 16 ALT 32 Alkaline Phosphatase 87 Troponin I High Sens 12 Total Protein 8.1 Albumin 4.1 Globulin 4.0 Albumin/Globulin Ratio 1.0 TSH 0.77 Radiography Diagnostic Testing: Clinical Impression(s) from Imaging Studies Chest X-Ray 03/15/22 10:19 IMPRESSION: No acute pulmonary process Electronically Signed: Davonte Alberts MD at 11:15 EDT Reading Location ID and State: [address] [place] [address] , Service support , EKG Initial EKG: Attestation: I personally reviewed and interpreted this EKG as follows: Comments: Supraventricular rhythm at a rate of 210 bpm. It is polymorphic in nature. Follow-up EKG: Attestation: I personally reviewed and interpreted this EKG as follows: Comments: Tachycardic rhythm with a ventricular rate of 123 bpm with PVCs noted. Discharge Plan Dx/Rx/DC Orders Clinical Impression: Atrial fibrillation, new onset, H/O mitral valve repair, HTN (hypertension) Disposition Disposition: Acute Care Hospital [facility]
[2022-03-15 10:41] LABS: Absolute Lymphocyte Count 2.97 X10^3/uL (0.83-4.51); Absolute Neutrophil Count 3.8 X10^3/uL (2.0-7.7); Basophil# 0.04 X10^3/uL; Basophil% 0.5 % (0-1); Eosinophil# 0.25 X10^3/uL; Eosinophils% 3.2 % (0-5); Hematocrit 43.7 % (37-47); Hemoglobin 15.4 g/dL (12.0-15.0); Lymphocyte # 2.97 X10^3/ul (0.83-4.51); Lymphocyte % 38.3 % (19-41); Mean Corp Hgb Conc 35.2 g/dL (32-36); Mean Corpuscular Hgb 30.1 pg (27.0-32.0); Mean Corpuscular Volume 85.4 fL (81-99); Mean Platelet Vol. 9.1 fl (6.2-12.0); Monocyte# 0.67 X10^3/uL; Monocyte% 8.6 % (0-10); NRBC Flagged by Analyzer 0 % (0-5); Neutrophil # 3.81 X10^3/uL (2.7-7.7); Neutrophil % 49.1 % (47-70); Platelet Count 421 K/mm3 (150-450); RBC Distribution Width CV 12.2 % (11.6-14.6); RBC Distribution Width SD 38.2 fl (35.1-43.9); Red Blood Count 5.12 M/mm3 (4.2-5.4); White Blood Count 7.8 K/mm3 (4.4-11.0)
[2022-03-15] MEDS: dilTIAZem 25 MG/5 ML Vial 10 MG IV BOLUS (10:45)
[2022-03-15] MEDS: Aspirin 325 MG Tablet PO (10:49)
[2022-03-15 11:01] LABS: AST(SGOT) 16 U/L (15-37); Alanine Aminotransfer ALT/SGPT 32 U/L (13-56); Albumin, Serum 4.1 g/dL (3.2-5.0); Alkaline Phosphatase 87 U/L (45-117); Anion Gap 9 (5-15); BUN 18 mg/dL (7-18); BUN/Creat Ratio 18.9 RATIO (10-20); Calcium,Total 9.7 mg/dL (8.5-10.1); Chloride 106 mmol/L (98-107); Creatinine, Serum 0.95 mg/dL (0.55-1.02); EST Glomerular Filtration Rate 65 mL/min (>60); Est Glom Filt Rate - Afr Amer 78 mL/min (>60); Estimated Creatinine Clearance 57.78 ml/min; Glucose 111 mg/dL (74-106); Potassium 3.4 mmol/L (3.5-5.1); Protein, Total 8.1 g/dL (6.4-8.2); Sodium Level 142 mmol/L (136-145); Thyroid Stim Hormone (TSH) 0.77 uIU/mL (0.358-3.74); Troponin-I HS 12 pg/mL (3.0-54.0)
--- NOTE | 2022-03-15 11:45 | EKG12_ITS ---
Test Reason : REPEAT Blood Pressure : / mmHG Vent. Rate : 120 BPM Atrial Rate : 122 BPM P-R Int : 000 ms QRS Dur : 104 ms QT Int : 332 ms P-R-T Axes : 188 000 -89 degrees QTc Int : 469 ms Atrial fibrillation with PVC's Inferior infarct , age undetermined Abnormal ECG Confirmed by ALKA FLORES, MORTEZA ([id number]), script editor LORNE VAZQUEZ ([id number]) on 03/18/2022 8:15:05 AM Referred By: Confirmed By:MORTEZA RUCKER MD
--- NOTE | 2022-03-15 13:15 | HP.PCM.HOS_ITS ---
HPI - General General Date of Admission: 03/15/22 Date of Service: 03/15/22 Chief Complaint: shortness of breath, palpitations HPI Narrative ARON JORGE, is a 56 F with a PMH as outlined who presents via the ED on 03.15.2022 with a complaitn of shortness of breath and palpitations. She had noted the palpitations over the past 3 days and had associated sweating and diaphoresis. SHe denied any dizziness, fever or chills, nausea, vomiting or diarrhea. Review of systems was otherwise negative. Heart rate in the ED was initially in the 220s and she was found to be in SVT. She received adenosine and ended to the Valsalva maneuver. Heart rate subsequently came downwards and she was found to be in A. fib. Vitals in the ED at time of review were BP of 119/60, MN of 120, and RR of 18. She was saturating at 94% on room air. CBC was unremarkable, and BMP was significant for potassium of 3.4. CXR showed no acute cardiopulmonary process and EKG showed afib with HR of 110. She is being admitted to be managed for new onset afib. She was started on Cardizem drip in the ED. [facility] Medical History Heart disease HTN (hypertension) Simple endometrial hyperplasia without atypia Urinary tract infection with hematuria Home Medications hydrochlorothiazide 25 mg tablet 25 mg PO QDAY 07/08/17 [History Last Taken 03/15/22] ascorbic acid (vitamin C) 500 mg tablet (Vitamin C) 1,000 mg PO DAILY 03/15/22 [History Last Taken 03/14/22] cholecalciferol (vitamin D3) 50 mcg (2,000 unit) capsule (Vitamin D3) 50 mcg PO DAILY 03/15/22 [History Last Taken 03/14/22] escitalopram oxalate 5 mg tablet 5 mg PO DAILY 03/15/22 [History Last Taken 03/15/22] tumeric 100 mg-guerline 150 mg-olive 50 mg-oreg 150 mg-caprylate capsule 1 cap PO DAILY 03/15/22 [History Last Taken 03/14/22] Allergy/AdvReac Type Severity Reaction Status Date / Time No Known Allergies Allergy Verified 04/03/21 13:17 Family History Mother Heart disease auto immune disease Grandfather Cancer stomach Grandmother Breast cancer Surgical History H/O dilation and curettage H/O foot surgery H/O mitral valve repair History of tonsillectomy Social History Smoking Status: Former smoker alcohol intake: current details: social substance use type: does not use caffeine: Yes frequency: 3-4 times per week seatbelt use: always do you feel safe at home: Yes 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 [employer] Review of Systems ROS Unobtainable: Denies due to encephalopathy Constitutional Constitutional: Denies anorexia, chills, fatigue, fever(s), malaise or weakness Eyes Eyes: Denies change in vision ENT HEENT: Denies dysphagia, ear pain or headache(s) Cardiovascular Cardiovascular: Reports chest pain, dyspnea on exertion, palpitations and rapid heart rate; Denies edema, lightheadedness, orthopnea, paroxysmal nocturnal dyspnea or syncope Respiratory/Chest Respiratory/Chest: Reports dyspnea, shortness of breath at rest and shortness of breath with exertion; Denies cough, excessive phlegm production, hemoptysis, productive cough or wheezing Gastrointestinal Gastrointestinal: Denies abdominal pain, nausea or vomiting Genitourinary Genitourinary: Denies burning urination Musculoskeletal Musculoskeletal: Denies arthralgias Neurologic Neurologic: Denies confusion, focal weakness, headache(s), seizures or syncope Psychiatric Psychiatric: Denies anxiety Vital Signs Vital Signs Vital Signs: 03/15/22 10:08 03/15/22 10:10 03/15/22 10:12 Temperature 97.9 F Temperature Source Temporal Pulse Rate 241 H 223 H Respiratory Rate 30 H Respiratory Effort Normal Non-Labored Short of Breath Respiratory Depth Respiratory Pattern Tachypnea Blood Pressure 155/112 H Blood Pressure Mean 126 Pulse Ox 98 Oxygen Delivery Method Room Air 03/15/22 10:20 03/15/22 11:11 03/15/22 11:07 Temperature Temperature Source Pulse Rate 102 H 110 H Respiratory Rate 18 16 Respiratory Effort Normal Non-Labored Respiratory Depth Normal Respiratory Pattern Normal Blood Pressure 133/82 H 110/86 H Blood Pressure Mean 99 94 Pulse Ox 95 Oxygen Delivery Method Room Air Room Air 03/15/22 11:43 03/15/22 12:00 03/15/22 12:14 Temperature Temperature Source Pulse Rate 121 H 120 H 120 H Respiratory Rate 22 H 18 18 Respiratory Effort Respiratory Depth Respiratory Pattern Blood Pressure 110/86 H 119/60 119/60 Blood Pressure Mean 94 79 79 Pulse Ox 94 Oxygen Delivery Method Room Air Weight Weight: 178 lb 5.663 oz Body Mass Index (BMI) 30.6 Physical Exam Const alert, oriented x3, no apparent distress, average body habitus, healthy appearing and well nourished General Appearance: cooperative HEENT normocephalic, head/scalp atraumatic, hearing grossly normal bilaterally and moist oral mucous membranes Mouth: oral and palatal mucosa normal Eyes PERRL, EOMs intact bilaterally and conjunctivae normal Neck no lymphadenopathy and supple Resp normal respiratory effort, no retractions, no use of accessory muscles and clear to auscultation bilaterally Cardio S1 normal heart sound, S2 normal heart sound and no murmurs Cardio Narrative: afib with RVR GI normal to inspection, nondistended, normoactive bowel sounds, soft to palpation and non-tender Extremity normal to inspection, full ROM and no clubbing, cyanosis or edema Neuro oriented x3, CN's II-XII intact bilaterally, moves all extremities and no focal motor deficits Sensorium / Orientation: awake and alert Psych affect normal Results Lab / Micro Data Result Diagrams: 03/15/22 10:11 03/15/22 10:11 Labs: Laboratory Results - last 24 hr 03/15/22 10:11: WBC 7.8, RBC 5.12, Hgb 15.4 H, Hct 43.7, MCV 85.4, MCH 30.1, MCHC 35.2, RDW Std Deviation 38.2, RDW Coeff of Rachael 12.2, Plt Count 421, MPV 9.1, Immature Gran % (Auto) 0.300, Neut % (Auto) 49.1, Lymph % (Auto) 38.3, [place] % (Auto) 8.6, Eos % (Auto) 3.2, Baso % (Auto) 0.5, Absolute Neuts (auto) 3.8, Absolute Lymphs (auto) 2.97, Nucleated RBC % 0 03/15/22 10:11: Sodium 142, Potassium 3.4 L, Chloride 106, Carbon Dioxide 27.0, Anion Gap 9, BUN 18, Creatinine 0.95, Estim Creat Clear Calc 57.78, Est GFR (MDRD) Af Amer 78, Est GFR (MDRD) Non-Af 65, BUN/Creatinine Ratio 18.9, Glucose 111 H, Calcium 9.7, Magnesium 2.0, Total Bilirubin 0.50, AST 16, ALT 32, Alkaline Phosphatase 87, Troponin I High Sens 12, Total Protein 8.1, Albumin 4.1, Globulin 4.0, Albumin/Globulin Ratio 1.0, TSH 0.77 Radiology Impression Chest X-Ray 03/15/22 10:19 IMPRESSION: No acute pulmonary process Electronically Signed: Davonte Alberts MD at 11:15 EDT Reading Location ID and State: [address] [place] [address] , Service support , Assessment & Plan Assessment/Plan (1) Atrial fibrillation, new onset: PLAN: Plan #New onset afib * HR was in the 200s on admission; was initially in SVT, and had a valsalva maneuver with HR coming down to the 80s and 90s * EKG showed new onset afib with RVR> Had mitral valve repair ~ 20-25 years ago due to leaking valve * was given a dose of lovenox in the ED * check TSH and magnesium * check 2D echo * start on PO metoprolol * anticoagulate with therapeutic lovenox for now * titrate cardizem dose to maintain HR <110 * #Hypertension;on HCTZ #History of mitral valve repair * ~ 20-25 years ago due to leaking valve * 2D echo ordered to evaluate for mitral stenosis contributing to new onset afib * #Depression: on escitalopram DVT prophylaxis: lovenox-therapeutic Code status: full code * Patient counseled extensively about different types of CODE STATUS including full code, DNR CCA and DNR CCA. Patient elects to be full code. * Total [id number] time 16 minutes. Charges/Coding Visit Charges Inpatient E&M: 03449 Init Hosp L3 Procedures Hospitalists Procedures: 02087 Advncd Care Plan 30 Min
[2022-03-15] MEDS: Enoxaparin 80 MG/0.8 ML Syringe SC (13:48)
--- NOTE | 2022-03-15 14:09 | ECHOD_ITS ---
Reason For Study: Afib/Flutter Procedure This was a 2D Doppler, Color Flow transthoracic echocardiogram. Exam performed portable in patient room. Left Ventricle Normal LV size. The estimated ejection fraction is 35 %. There is moderate global hypokinesis of the left ventricle. Right Ventricle Normal RV size. Normal systolic function. Atria The left atrium is moderately enlarged. Normal right atrium. Mitral Valve Status post mitral valve repair with annuloplasty ring. Tricuspid Valve Normal tricuspid valve. Mild tricuspid valve insufficiency. Pulmonary artery systolic pressure is 25 mmHg. Aortic Valve Trisinus/trileaflet aortic valve. Pulmonic Valve Normal pulmonic valve. Great Vessels Normal aortic root. The pulmonary artery is normal size. Normal inferior vena cava. Pericardium/Pleural No pericardial effusion. MMode/2D Measurements & Calculations LVIDd: 4.6 cm IVSd: 1.2 cm Ao root diam: 3.0 cm LVIDs: 3.2 cm LVPWd: 1.0 cm LA dimension: 4.8 cm RVDd: 3.0 cm FS: 30.4 % LAV(MOD-bp): 114.5 ml LA A4 area: 28.0 cm2 RA A4 area: 22.0 cm2 LAV(MOD-bp) Indexed: 62.4 ml/m2 LAV(MOD-sp2): 119.0 ml LAV(MOD-sp4): 95.3 ml Doppler Measurements & Calculations MV E max dinh: 139.6 cm/sec Lat Peak E' Dinh: 66.5 cm/sec Ao V2 max: 103.7 cm/sec E/E' lat: 2.1 Ao max P.4 mmHg LV V1 max: 63.2 cm/sec MR max dinh: 473.4 cm/sec PA V2 max: 85.9 cm/sec LV V1 max P.6 mmHg MR max P.6 mmHg MR mean dinh: 366.2 cm/sec MR mean P.9 mmHg MR VTI: 136.1 cm TR max dinh: 236.6 cm/sec TR max P.7 mmHg ECHO/Echo Complete Interpretation Summary Status post mitral valve repair with annuloplasty ring. Normal LV size. The estimated ejection fraction is 35 %. There is moderate global hypokinesis of the left ventricle. The left atrium is moderately enlarged. Ordering Physician: Fabi Arora Referring Physician: Janine Padilla Performed By: Antelmo Rebolledo RCS
[2022-03-15 15:04] LABS: Troponin-I HS 14 pg/mL (3.0-54.0)
[2022-03-15] MEDS: Potassium Chloride Oral Tablet 20 MEQ 40 MEQ PO (15:34)
[2022-03-15 16:52] LABS: Troponin-I HS 15 pg/mL (3.0-54.0)
[2022-03-16] VITALS (17 sets, daily range): BP systolic 88–121; BP diastolic 62–99; PULSE 60–120; RESP 16–20; TEMP 36.6–37.1; O2SAT 92–96
[2022-03-16] MEDS: Enoxaparin 80 MG/0.8 ML Syringe SC ×2 (05:11→18:20)
[2022-03-16 05:50] LABS: Absolute Neutrophil Count 3.2 X10^3/uL (2.0-7.7); Basophil# 0.03 X10^3/uL; Basophil% 0.5 % (0-1); Eosinophils% 3.3 % (0-5); Hematocrit 38.3 % (37-47); Hemoglobin 12.7 g/dL (12.0-15.0); Lymphocyte % 36.2 % (19-41); Mean Corp Hgb Conc 33.2 g/dL (32-36); Mean Corpuscular Hgb 28.7 pg (27.0-32.0); Mean Corpuscular Volume 86.5 fL (81-99); Monocyte# 0.46 X10^3/uL; Monocyte% 7.6 % (0-10); NRBC Flagged by Analyzer 0 % (0-5); Neutrophil # 3.16 X10^3/uL (2.7-7.7); Neutrophil % 52.1 % (47-70); Platelet Count 332 K/mm3 (150-450); RBC Distribution Width CV 12.4 % (11.6-14.6); RBC Distribution Width SD 39.1 fl (35.1-43.9); Red Blood Count 4.43 M/mm3 (4.2-5.4); White Blood Count 6.1 K/mm3 (4.4-11.0)
[2022-03-16 07:04] LABS: Anion Gap 9 (5-15); BUN 15 mg/dL (7-18); BUN/Creat Ratio 20.9 RATIO (10-20); Calcium,Total 9.1 mg/dL (8.5-10.1); Chloride 107 mmol/L (98-107); Creatinine, Serum 0.72 mg/dL (0.55-1.02); EST Glomerular Filtration Rate 90 mL/min (>60); Est Glom Filt Rate - Afr Amer 109 mL/min (>60); Estimated Creatinine Clearance 76.24 ml/min; Glucose 92 mg/dL (74-106); Potassium 3.7 mmol/L (3.5-5.1); Sodium Level 139 mmol/L (136-145)
[2022-03-16] MEDS: 0.9% Saline Lock 10 ML Syringe IV (08:15)
[2022-03-16] MEDS: Cholecalciferol (VIT D3) 25 MCG TABLET (1,000 UNITS) 50 MCG PO (08:17)
[2022-03-16] MEDS: Metoprolol Tartrate 25 MG Tablet PO ×2 (08:17→20:10)
[2022-03-16] MEDS: Ascorbic Acid 500 MG Tablet 1000 MG PO (08:18)
[2022-03-16] MEDS: hydroCHLOROthiazide 25 MG Tablet PO (08:18)
[2022-03-16] MEDS: Escitalopram Oxalate 10 MG Tablet 5 MG PO (08:19)
--- NOTE | 2022-03-16 10:02 | PN.HOSP_ITS ---
Subjective Subjective Patient seen and examined. She felt well and had no complaints. was by her bedside. Palpitations have resolved, and she denies any chest pain, dizziness, lightheadedness, nausea or vomiting. Review of systems is otherwise negative. Objective Data Objective Data Vital Signs: Vital Signs Temp Pulse Resp BP Pulse Ox O2 Del Method 98.6 F 90 17 121/99 H 96 Room Air 03/16/22 05:00 03/16/22 08:17 03/16/22 08:00 03/16/22 08:00 03/16/22 08:00 03/16/22 08:00 Oxygen Delivery Method Room Air Weight: 172 lb 9.951 oz Body Mass Index (BMI) 29.6 Intake & Output: Intake and Output for Last 24 Hours 03/14/22 03/15/22 03/16/22 23:59 23:59 23:59 Intake Total 774.34 / 1194.34 491.17 / 491.17 Balance 774.34 / 1194.34 491.17 / 491.17 Lab / Micro Data Result Diagrams: 03/16/22 04:50 03/16/22 04:50 Labs: Laboratory Results - last 24 hr 03/15/22 10:11: WBC 7.8, RBC 5.12, Hgb 15.4 H, Hct 43.7, MCV 85.4, MCH 30.1, MCHC 35.2, RDW Std Deviation 38.2, RDW Coeff of Rachael 12.2, Plt Count 421, MPV 9.1, Immature Gran % (Auto) 0.300, Neut % (Auto) 49.1, Lymph % (Auto) 38.3, [place] % (Auto) 8.6, Eos % (Auto) 3.2, Baso % (Auto) 0.5, Absolute Neuts (auto) 3.8, Absolute Lymphs (auto) 2.97, Nucleated RBC % 0 03/15/22 10:11: Sodium 142, Potassium 3.4 L, Chloride 106, Carbon Dioxide 27.0, Anion Gap 9, BUN 18, Creatinine 0.95, Estim Creat Clear Calc 57.78, Est GFR (M DRD) Af Amer 78, Est GFR (MDRD) Non-Af 65, BUN/Creatinine Ratio 18.9, Glucose 111 H, Calcium 9.7, Magnesium 2.0, Total Bilirubin 0.50, AST 16, ALT 32, Alkaline Phosphatase 87, Troponin I High Sens 12, Total Protein 8.1, Albumin 4.1, Globulin 4.0, Albumin/Globulin Ratio 1.0, TSH 0.77 03/15/22 10:11: TSH Cancelled 03/15/22 14:35: Troponin I High Sens 14 03/15/22 16:08: Troponin I High Sens 15 03/16/22 04:50: WBC 6.1, RBC 4.43, Hgb 12.7, Hct 38.3, MCV 86.5, MCH 28.7, MCHC 33.2 D, RDW Std Deviation 39.1, RDW Coeff of Rachael 12.4, Plt Count 332, MPV 9.0, Immature Gran % (Auto) 0.300, Neut % (Auto) 52.1, Lymph % (Auto) 36.2, [place] % (Auto) 7.6, Eos % (Auto) 3.3, Baso % (Auto) 0.5, Absolute Neuts (auto) 3.2, Absolute Lymphs (auto) 2.20, Nucleated RBC % 0 03/16/22 04:50: Sodium 139, Potassium 3.7, Chloride 107, Carbon Dioxide 23.0, Anion Gap 9, BUN 15, Creatinine 0.72, Estim Creat Clear Calc 76.24, Est GFR (MDRD) Af Amer 109, Est GFR (MDRD) Non-Af 90, BUN/Creatinine Ratio 20.9 H, Glucose 92, Calcium 9.1 Radiography Diagnostic Testing: Radiology Impression Chest X-Ray 03/15/22 10:19 IMPRESSION: No acute pulmonary process Electronically Signed: Davonte Alberts MD at 11:15 EDT Reading Location ID and State: [facility] , Service support , Physical Exam Const alert, oriented x3, no apparent distress, average body habitus, healthy appearing and well nourished General Appearance: cooperative HEENT normocephalic, head/scalp atraumatic, hearing grossly normal bilaterally and moist oral mucous membranes Eyes PERRL, EOMs intact bilaterally and conjunctivae normal Neck no lymphadenopathy and supple Resp normal respiratory effort, no retractions, no use of accessory muscles and clear to auscultation bilaterally Cardio regular rate, regular rhythm, S1 normal heart sound, S2 normal heart sound and no murmurs GI normal to inspection, nondistended, normoactive bowel sounds, soft to palpation and non-tender Extremity normal to inspection, full ROM and no clubbing, cyanosis or edema Neuro oriented x3, CN's II-XII intact bilaterally, moves all extremities and no focal motor deficits Sensorium / Orientation: awake and alert Motor Exam: strength 5/5 throughout Psych affect normal Assessment & Plan Assessment/Plan (1) Atrial fibrillation, new onset: PLAN: Plan #New onset afib * now converted to NSR. * dc cardizem drip * start on PO metoprolol 25mg bid * continue therapeutic lovenox * 2D echo ordered and pending- to be done tomorrow * #Hypertension;on HCTZ #History of mitral valve repair * ~ 20-25 years ago due to leaking valve * 2D echo ordered to evaluate for mitral stenosis contributing to new onset afib * #Depression: on escitalopram DVT prophylaxis: lovenox-therapeutic Code status: full code * Anticipate dc home tomorrow after echo has been reviewed Charges/Coding Visit Charges Inpatient E&M: 10986 Subs Hosp L2
[2022-03-16] MEDS: FLU VACC QS2022-23(6MOS UP)/PF 60 MCG/0.5 ML SYRINGE IM (10:46)
[2022-03-17 03:00] VITALS: BP 114/88; PULSE 105; RESP 18; TEMP 36.6; O2SAT 97
[2022-03-17 04:08] VITALS: PULSE 102
[2022-03-17 05:25] LABS: Absolute Lymphocyte Count 1.54 X10^3/uL (0.83-4.51); Absolute Neutrophil Count 3.7 X10^3/uL (2.0-7.7); Basophil# 0.04 X10^3/uL; Basophil% 0.6 % (0-1); Eosinophil# 0.26 X10^3/uL; Eosinophils% 4.2 % (0-5); Hematocrit 38.8 % (37-47); Hemoglobin 13.2 g/dL (12.0-15.0); Lymphocyte # 1.54 X10^3/ul (0.83-4.51); Mean Corpuscular Hgb 28.9 pg (27.0-32.0); Mean Corpuscular Volume 84.9 fL (81-99); Mean Platelet Vol. 8.7 fl (6.2-12.0); Monocyte# 0.56 X10^3/uL; Monocyte% 9.1 % (0-10); NRBC Flagged by Analyzer 0 % (0-5); Neutrophil # 3.74 X10^3/uL (2.7-7.7); Neutrophil % 60.8 % (47-70); Platelet Count 307 K/mm3 (150-450); RBC Distribution Width CV 12.1 % (11.6-14.6); RBC Distribution Width SD 36.9 fl (35.1-43.9); Red Blood Count 4.57 M/mm3 (4.2-5.4); White Blood Count 6.2 K/mm3 (4.4-11.0)
[2022-03-17] MEDS: Enoxaparin 80 MG/0.8 ML Syringe SC (05:42)
[2022-03-17 05:56] LABS: Anion Gap 9 (5-15); BUN 16 mg/dL (7-18); BUN/Creat Ratio 20.2 RATIO (10-20); Calcium,Total 9.1 mg/dL (8.5-10.1); Chloride 106 mmol/L (98-107); Creatinine, Serum 0.79 mg/dL (0.55-1.02); EST Glomerular Filtration Rate 80 mL/min (>60); Est Glom Filt Rate - Afr Amer 96 mL/min (>60); Estimated Creatinine Clearance 69.48 ml/min; Glucose 99 mg/dL (74-106); Potassium 3.9 mmol/L (3.5-5.1); Sodium Level 141 mmol/L (136-145)
[2022-03-17 07:34] VITALS: PULSE 118
[2022-03-17 08:20] VITALS: BP 118/98; PULSE 118; RESP 16; TEMP 37.2; O2SAT 95
[2022-03-17 08:21] VITALS: BP 118/98; PULSE 118
[2022-03-17] MEDS: Cholecalciferol (VIT D3) 25 MCG TABLET (1,000 UNITS) 50 MCG PO (08:21)
[2022-03-17] MEDS: Metoprolol Tartrate 25 MG Tablet PO (08:21)
[2022-03-17] MEDS: Escitalopram Oxalate 10 MG Tablet 5 MG PO (08:21)
[2022-03-17] MEDS: Ascorbic Acid 500 MG Tablet 1000 MG PO (08:21)
[2022-03-17] MEDS: hydroCHLOROthiazide 25 MG Tablet PO (08:22)
--- NOTE | 2022-03-17 09:37 | EKG12_ITS ---
Test Reason : Blood Pressure : / mmHG Vent. Rate : 115 BPM Atrial Rate : 000 BPM P-R Int : 000 ms QRS Dur : 104 ms QT Int : 344 ms P-R-T Axes : 000 007 -86 degrees QTc Int : 475 ms Atrial fibrillation with PVC's Nonspecific ST and T wave abnormality Abnormal ECG When compared with ECG of 15-MAR-2022 11:51, MANUAL COMPARISON REQUIRED, DATA IS UNCONFIRMED Confirmed by ALKA FLORES, MORTEZA ([id number]), script editor LORNE VAZQUEZ ([id number]) on 03/18/2022 1:08:42 PM Referred By: Confirmed By:MORTEZA RUCKER MD
--- NOTE | 2022-03-17 10:56 | DCINST_ITS ---
Discharge Instructions Diet Discharge Diet: Low fat / Low cholesterol Activity Discharge Activity: Return to Normal Activity Dressing / Incision Call your doctor if you observe: Shortness of breath, Dizziness, Chest pain and Increased palpitations (irregular heartbeat) Follow Up Care Test Results: Test results from this visit will be discussed in further detail at your follow- up appointment, if applicable. Discharge Plan Admission Admit Date/Time: 03/15/22 13:23 Primary Reason for Your Visit: New onset a.fib Attending Provider: Jonathon Dallas Primary Care Provider: Janine Padilla Consulting Providers: Fabi Arora Discharge Orders/Prescriptions Prescriptions: New metoprolol tartrate 25 mg Tablet 25 mg PO BID 30 Days Qty: 60 0RF Eliquis 5 mg tablet 5 mg PO BID Qty: 60 0RF lisinopril 10 mg tablet 10 mg PO DAILY Qty: 30 0RF Continued escitalopram oxalate 5 mg tablet 5 mg PO DAILY Label Comments: Take 1 tablet by mouthConce daily. ascorbic acid (vitamin C) [Vitamin C] 500 mg Tablet 1,000 mg PO DAILY cholecalciferol (vitamin D3) [Vitamin D3] 50 mcg (2,000 unit) Capsule 50 mcg PO DAILY hrbvcxv-ezju-jbgdq-oreg-capryl 100 mg-150 mg- 50 mg-150 mg Capsule 1 cap PO DAILY Discontinued hydrochlorothiazide 25 mg tablet 25 mg PO QDAY Referrals / Follow Up: Wilber Serrato [Other] - Within 2 Weeks (Cardiology [facility]) Janine Padilla MD [Primary Care Provider] - In 1 Week Disposition Disposition (needs filled in before D/C Order can be placed): Home, Self Care
--- NOTE | 2022-03-17 11:10 | CASEMGMT ---
RN CM Face to Face with patient for initial transition planning/care coordination assessment. RN CM introduced self and role at [facility]. Patient lying in bed, alert and oriented. Patient willing to participate in assessment and is able to answer all questions appropriately. Care providers, pharmacy, and demographics verified. Patient wishes to discharge home, denies need for home health at this time. Patient states she has no further needs or concerns at this time. CM to follow for discharge planning needs that may arise. PCP: Valerie Specialists: Jhonathan [place] [facility] Preferred Pharmacy: [facility] Insurance: [employer] Prescription Benefit: yes Living Will/HPOA: yes, Jontahon Morris LNOK: Living Arrangements: Patient lives with in a single story home with 2 steps to enter. Patient states she is independent at home. Transportation: self, DME/HHC: patient denies DME or previous HHC. Disposition Plan: Patient to discharge home with family support and follow-up plans in place. Awilda NIX, RN, CM
--- NOTE | 2022-03-17 11:43 | PHA.DC.MC ---
Addendum entered and electronically signed by Idalmis Delgadillo 03/17/22 14:39: Additional medications started at discharge. StudentDianna, returned to room to primary counselor on following medications. Hydrochlorothiazide discontinued. 1. APIXABAN 5MG PO BID 2. LISINOPRIL 10MG PO DAILY Original Note: Pharmacy Service has performed discharge medication reconciliation and counseling for this patient. 1. METOPROLOL TARTRATE 25MG PO BID The patient's discharge medication list was reviewed for discrepancies and discrepancies were resolved. Home Medications hydrochlorothiazide 25 mg tablet 25 mg PO QDAY 07/08/17 ascorbic acid (vitamin C) 500 mg tablet (Vitamin C) 1,000 mg PO DAILY 03/15/22 cholecalciferol (vitamin D3) 50 mcg (2,000 unit) capsule (Vitamin D3) 50 mcg PO DAILY 03/15/22 escitalopram oxalate 5 mg tablet 5 mg PO DAILY 03/15/22 tumeric 100 mg-guerline 150 mg-olive 50 mg-oreg 150 mg-caprylate capsule 1 cap PO DAILY 03/15/22 metoprolol tartrate 25 mg tablet 25 mg PO BID 30 days #60 tabs 03/17/22 The patient was counseled on the following discharge medications and changes in medications for homegoing were reviewed. The Reason for Use, instructions for use, and potential side effects were reviewed for all new medications. The patient's questions regarding all of their medications were answered. The patient was able to verbally demonstrate an understanding of their discharge medications. Patient counseled by pharmacy general managerDianna.
[2022-03-17 13:50] VITALS: BP 150/93; PULSE 112; RESP 16; TEMP 36.4; O2SAT 96
--- NOTE | 2022-03-17 14:17 | DS.PCM_ITS ---
Documented by User: Winifred López NP, MARKELL-C 03/17/22 14:22 Providers Date of Admission: 03/15/22 Date of Discharge: 03/17/22 Primary Care Physician: Dr. Janine Padilla MD Reason For Visit: NEW ONSET AFIB Diagnosis Discharge Diagnosis (1) Atrial fibrillation, new onset: Status: Acute Code(s): I48.91 - Unspecified atrial fibrillation Medications at Discharge Home Medications ascorbic acid (vitamin C) 500 mg tablet (Vitamin C) 1,000 mg PO DAILY 03/15/22 cholecalciferol (vitamin D3) 50 mcg (2,000 unit) capsule (Vitamin D3) 50 mcg PO DAILY 03/15/22 escitalopram oxalate 5 mg tablet 5 mg PO DAILY 03/15/22 tumeric 100 mg-guerline 150 mg-olive 50 mg-oreg 150 mg-caprylate capsule 1 cap PO DAILY 03/15/22 apixaban 5 mg tablet (Eliquis) 5 mg PO BID #60 tabs 03/17/22 lisinopril 10 mg tablet 10 mg PO DAILY #30 tabs 03/17/22 metoprolol tartrate 25 mg tablet 25 mg PO BID 30 days #60 tabs 03/17/22 Hospital Course Operations None Procedures 2-D Echocardiogram Summary of Care Provided Hospital Course: Patient is a 56-year-old female admitted 03/15/2022 due to palpitations. 1. New onset atrial fibrillation-initially placed on Cardizem drip. Converted to normal sinus rhythm. Enzymes negative. TSH normal. Continue metoprolol 25 mg twice daily. Initiated on Eliquis 5 mg twice daily. Follow-up with primary high school social studies tutor as outpatient. 2. Cardiomyopathy-likely related to A. fib. Echo with EF 35%. Prior echo 2 years ago with EF 64%. Continue lisinopril and beta-balbina at discharge. Patient spoke with her primary high school social studies tutor, Dr. Wilber Serrato at [facility] who will continue follow-up as outpatient. 3. Hypertension-hydrochlorothiazide discontinued. Continue lisinopril, metoprolol. 4. History of mitral valve repair-appears stable per echo. Patient's primary high school social studies tutor at [facility] states patient can be on Eliquis which was initiated per above. 5. Depression-on escitalopram. Patient seen and examined prior to discharge. Physical assessment as noted below. Patient is stable for discharge with follow up recommendations as noted above. This patient was seen by RINA Quiroga under the supervision of Dr. Dallas. Time spent examining patient, reviewing data and subsequent management of care: 26 minutes Physical Exam Const alert, oriented x3 and no apparent distress Orientation / Consciousness: awake, oriented to person, oriented to place and oriented to time HEENT normocephalic and moist oral mucous membranes Eyes PERRL, EOMs intact bilaterally and conjunctivae normal Neck no lymphadenopathy Resp normal respiratory effort and clear to auscultation bilaterally Cardio regular rate, regular rhythm and no murmurs Peripheral Pulses: pulses 2+ throughout GI normal to inspection, nondistended, normoactive bowel sounds, non-tender and non-distended Extremity normal to inspection Skin no rashes or lesions noted Lesions: no lesions Rashes: no rashes Trauma: no lacerations or abrasions Neuro CN's II-XII intact bilaterally, no focal motor deficits, no sensory deficits noted and deep tendon reflexes 2+ bilaterally Psych mental status grossly normal and affect normal Weight / BMI Weight Weight: 172 lb 9.951 oz Body Mass Index (BMI) 29.6 ABG / Lab / Microbiology Data Result Diagrams: 03/17/22 05:03 03/17/22 05:03 Laboratory: Laboratory Results - last 24 hr 03/17/22 05:03: WBC 6.2, RBC 4.57, Hgb 13.2, Hct 38.8, MCV 84.9, MCH 28.9, MCHC 34.0, RDW Std Deviation 36.9, RDW Coeff of Rachael 12.1, Plt Count 307, MPV 8.7, Immature Gran % (Auto) 0.300, Neut % (Auto) 60.8, Lymph % (Auto) 25.0, [place] % (Auto) 9.1, Eos % (Auto) 4.2, Baso % (Auto) 0.6, Absolute Neuts (auto) 3.7, Absolute Lymphs (auto) 1.54, Nucleated RBC % 0 03/17/22 05:03: Sodium 141, Potassium 3.9, Chloride 106, Carbon Dioxide 26.0, Anion Gap 9, BUN 16, Creatinine 0.79, Estim Creat Clear Calc 69.48, Est GFR (MDRD) Af Amer 96, Est GFR (MDRD) Non-Af 80, BUN/Creatinine Ratio 20.2 H, Glucose 99, Calcium 9.1 Radiography Diagnostic Testing: Radiology Impression Echocardiogram 03/15/22 14:09 Interpretation Summary Status post mitral valve repair with annuloplasty ring. Normal LV size. The estimated ejection fraction is 35 %. There is moderate global hypokinesis of the left ventricle. The left atrium is moderately enlarged. Ordering Physician: Fabi Arora Referring Physician: Janine Padilla Performed By: Antelmo Rebolledo RCS D/C Instructions Discharge Diet: Low fat / Low cholesterol Call your doctor if you observe: Shortness of breath, Dizziness, Chest pain and Increased palpitations (irregular heartbeat) Meaningful Use Info Meaningful Use Diagnoses (Choose all that apply): None applicable Discharge Plan Admission Admit Date/Time: 03/15/22 13:23 Primary Reason for Your Visit: New onset a.fib Attending Provider: Jonathon Dallas Primary Care Provider: Janine Padilla Consulting Providers: Fabi Aorra Discharge Orders/Prescriptions Prescriptions: New metoprolol tartrate 25 mg Tablet 25 mg PO BID 30 Days Qty: 60 0RF Eliquis 5 mg tablet 5 mg PO BID Qty: 60 0RF lisinopril 10 mg tablet 10 mg PO DAILY Qty: 30 0RF Continued escitalopram oxalate 5 mg tablet 5 mg PO DAILY Label Comments: Take 1 tablet by mouthConce daily. ascorbic acid (vitamin C) [Vitamin C] 500 mg Tablet 1,000 mg PO DAILY cholecalciferol (vitamin D3) [Vitamin D3] 50 mcg (2,000 unit) Capsule 50 mcg PO DAILY kyguvpw-vudg-tqcmy-oreg-capryl 100 mg-150 mg- 50 mg-150 mg Capsule 1 cap PO DAILY Discontinued hydrochlorothiazide 25 mg tablet 25 mg PO QDAY Referrals / Follow Up: Wilber Serrato [Other] - Within 2 Weeks (Cardiology [facility]) Janine Padilla MD [Primary Care Provider] - In 1 Week Disposition Disposition (needs filled in before D/C Order can be placed): Home, Self Care Documented by User: Dr. Jonathon Dallas DO 03/17/22 19:04 Providers Date of Admission: 03/15/22 Reason For Visit: NEW ONSET AFIB Diagnosis Discharge Diagnosis (1) Atrial fibrillation, new onset: Status: Acute Code(s): I48.91 - Unspecified atrial fibrillation Medications at Discharge Home Medications ascorbic acid (vitamin C) 500 mg tablet (Vitamin C) 1,000 mg PO DAILY 03/15/22 cholecalciferol (vitamin D3) 50 mcg (2,000 unit) capsule (Vitamin D3) 50 mcg PO DAILY 03/15/22 escitalopram oxalate 5 mg tablet 5 mg PO DAILY 03/15/22 tumeric 100 mg-guerline 150 mg-olive 50 mg-oreg 150 mg-caprylate capsule 1 cap PO DAILY 03/15/22 apixaban 5 mg tablet (Eliquis) 5 mg PO BID #60 tabs 03/17/22 lisinopril 10 mg tablet 10 mg PO DAILY #30 tabs 03/17/22 metoprolol tartrate 25 mg tablet 25 mg PO BID 30 days #60 tabs 03/17/22 ABG / Lab / Microbiology Data Result Diagrams: 03/17/22 05:03 03/17/22 05:03 Discharge Plan Admission Admit Date/Time: 03/15/22 13:23 Primary Reason for Your Visit: New onset a.fib Attending Provider: Jonathon Dallas Primary Care Provider: Janine Padilla Consulting Providers: Fabi Arora Discharge Orders/Prescriptions Prescriptions: New metoprolol tartrate 25 mg Tablet 25 mg PO BID 30 Days Qty: 60 0RF Eliquis 5 mg tablet 5 mg PO BID Qty: 60 0RF lisinopril 10 mg tablet 10 mg PO DAILY Qty: 30 0RF Continued escitalopram oxalate 5 mg tablet 5 mg PO DAILY Label Comments: Take 1 tablet by mouthConce daily. ascorbic acid (vitamin C) [Vitamin C] 500 mg Tablet 1,000 mg PO DAILY cholecalciferol (vitamin D3) [Vitamin D3] 50 mcg (2,000 unit) Capsule 50 mcg PO DAILY vosjayo-jgsm-jfula-oreg-capryl 100 mg-150 mg- 50 mg-150 mg Capsule 1 cap PO DAILY Discontinued hydrochlorothiazide 25 mg tablet 25 mg PO QDAY Referrals / Follow Up: Wilber Serrato [Other] - Within 2 Weeks (Cardiology [facility]) Janine Padilla MD [Primary Care Provider] - In 1 Week Disposition Disposition (needs filled in before D/C Order can be placed): Home, Self Care Charges/Coding Addendum Addendum: Patient was seen and examined independently of Winifred López today, her echocardiogram resulted in showing a decreased ejection fraction today, this was discussed with the patient, she would prefer to follow-up with her current high school social studies tutor as an outpatient. On examination she appeared in good health and spirits, she does not appear to be in any distress. Vital signs as documented. Skin warm and dry and without overt rashes. Neck without JVD, thyroid appears normal, trachea is midline, neck is supple. Lungs clear, normal air movement was noted. Heart exam notable for regular rhythm, normal sounds and absence of murmurs, rubs or gallops. Abdomen unremarkable and without evidence of organomegaly, masses, or abdominal aortic enlargement, bowel sounds are present in all 4 quadrants, no abdominal tenderness was noted. Extremities nonedematous, no cyanosis was noted, no clubbing was noted. Neuro: Cranial nerves II through XII are grossly intact, no focal motor deficits were noted, sensation to light touch and pinprick is intact, motor exam 5/5 throughout. Psych: Patient is alert and oriented x3, she does not appear anxious or depressed, she does not appear agitated. 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 Total clinical time spent by myself addressing the patient's medical issues, reviewing the data, and collaborating with patient's care team: 45-minute Visit Charges Inpatient E&M: [id number] Disch Hosp
--- NOTE | 2022-03-17 14:30 | CASEMGMT ---
Pt to be sent home on Eliquis at discharge and call to [facility] to check coverage/co-pay. Per pharmacist, pt's co-pay is $150.76. This RN CM to room to speak with pt regarding same and she was already discharged. Message left with pt's personal cell VM regarding access to coupon cards or to call this RN CM back for any further questions/concerns. SStconnie CRAIG CM
== END 2022-03-17 14:36 | disposition home or self-care (01) | DRG 310 ==
LOC: ED 12:33 → PCU 14:00
PROVIDERS: Admitting Provider Student in an Organized Health Care Education/Training Program; Emergency Provider Emergency Medicine; PCP Internal Medicine; Visit Provider Internal Medicine
DX: I48.91 Unspecified atrial fibrillation (principal); I42.9 Cardiomyopathy, unspecified; I47.1 Supraventricular tachycardia; I10 Essential (primary) hypertension; F32.A Depression, unspecified; Z23 Encounter for immunization; Z79.01 Long term (current) use of anticoagulants; Z79.899 Other long term (current) drug therapy; Z87.891 Personal history of nicotine dependence
CPT/HCPCS: 36415; 71045; 80048; 80053; 83735; 84443; 84484; 85025; 93005; 93306; 99285; 90686; A4216; J0153

== ENCOUNTER → 2022-07-31 | Outpatient (CLI) | payer BC, OTHER, SELFPAY ==
--- NOTE | 2022-07-31 10:17 | BI_ITS ---
MAMMOGRAPHY - BILATERAL SCREENING REASON FOR EXAM: Female, 56 years old. Routine annual screening examination. PERTINENT HISTORY: Grandmother with breast cancer. Prior right ultrasound-guided breast biopsies. TECHNIQUE: Digital bilateral breast ana maria (3D mammographic acquisition) in the CC and MLO projections. 2-D mediolateral oblique (MLO) and craniocaudad (CC) views of both breasts were obtained. CAD: Full Field Digital Mammography with Computer Added Detection was performed. COMPARISON: Comparison is made with prior study dated 03/11/2021 and 07/10/2021. FINDINGS: Breast Composition: The breasts are heterogeneously dense, which may obscure small masses. There are no dominant masses or suspicious calcifications. The previously seen nodular density in the inferior medial aspect of the right breast is not seen at this time. Stable benign appearing axillary lymph nodes. No other significant abnormalities are identified. BI/SCRN MAMM (CAD)W/ANA MARIA BILAT IMPRESSION: Stable bilateral screening mammogram. Yearly follow-up mammogram recommended. (A) ASSESSMENT CATEGORY: BIRADS Category 2: Benign. A letter regarding these results will be sent to the patient by the facility within 30 days. Approximately 10% of breast cancers are not detected by mammography. A normal mammogram should not delay biopsy of a clinically suspicious abnormality. [id number] Electronically Signed: Sylvester Coronel MD at 12:19 EST ,
== END | disposition home or self-care (01) ==
PROVIDERS: PCP Internal Medicine; Visit Provider Obstetrics & Gynecology
DX: Z12.31 Encounter for screening mammogram for malignant neoplasm of breast (principal)
CPT/HCPCS: 77063; 77067

== ENCOUNTER → 2023-10-21 | Outpatient (CLI) | payer BC, SELFPAY ==
--- NOTE | 2023-10-21 07:26 | BI_ITS ---
MAMMOGRAPHY - BILATERAL SCREENING REASON FOR EXAM: Female, 58 years old. Routine annual screening examination. PERTINENT HISTORY: Grandmother with breast cancer. Prior right ultrasound-guided breast biopsy. TECHNIQUE: Digital bilateral breast ana maria (3D mammographic acquisition) in the CC and MLO projections. 2-D mediolateral oblique (MLO) and craniocaudad (CC) views of both breasts were obtained. CAD: Full Field Digital Mammography with Computer Added Detection was performed. COMPARISON: Comparison is made with prior study dated July 31, 2022 and July 10, 2021. FINDINGS: Breast Composition: The breasts are heterogeneously dense, which may obscure small masses. There are no dominant masses or suspicious calcifications. A tissue clip marker is once again seen in the upper lateral aspect of the right breast. Stable benign-appearing bilateral axillary lymph nodes. No other significant abnormalities are identified. There has been no significant change since the prior study. BI/SCRN MAMM (CAD)W/ANA MARIA BILAT IMPRESSION: Stable bilateral screening mammogram. Yearly follow-up mammogram recommended. (A) ASSESSMENT CATEGORY: BIRADS Category 2: Benign. A letter regarding these results will be sent to the patient by the facility within 30 days. Approximately 10% of breast cancers are not detected by mammography. A normal mammogram should not delay biopsy of a clinically suspicious abnormality. [id number] Electronically Signed: Sylvester Coronel MD at 8:41 EDT ,
== END | disposition home or self-care (01) ==
LOC: OPBI 07:26
PROVIDERS: PCP Internal Medicine; Referring Provider Obstetrics & Gynecology; Visit Provider Obstetrics & Gynecology
DX: Z12.31 Encounter for screening mammogram for malignant neoplasm of breast (principal)
CPT/HCPCS: 77063; 77067

== ENCOUNTER → 2025-06-06 | Outpatient (CLI) | payer OTHER, SELFPAY ==
--- NOTE | 2025-06-06 15:30 | BI_ITS ---
EXAM: SCRN MAMM (CAD)W/ANA MARIA BILAT DATE: 06/06/2025 CLINICAL HISTORY: F, Age 59 y/o , SCREEN FOR BREAST CANCER Grandmother with breast cancer. Prior right ultrasound-guided breast biopsy. TECHNIQUE: Procedure Code: [id number] Modality: MG Procedure: SCRN MAMM (CAD)W/ANA MARIA BILAT COMPARISON: Prior exam(s) dated October 21, 2023.. FINDINGS: TISSUE DENSITY: The breasts are heterogeneously dense, which may obscure small masses. Bilateral Breast Mammographic Findings: No significant masses, calcifications or other abnormalities are identified. A tissue clip marker is once again seen in the upper lateral aspect of the right breast. Stable small fat containing bilateral axillary lymph nodes. No suspicious masses, areas of developing architectural distortion, or suspicious calcifications. There has been no significant interval change. BI/SCRN MAMM (CAD)W/ANA MARIA BILAT IMPRESSION: Stable bilateral screening mammogram. OVERALL FINAL ASSESSMENT BI-RADS 2: BENIGN RECOMMENDATION: Routine annual follow-up in 1 Year Additional Recommendation none A letter with findings and recommendations will be mailed to the patient. Reading Location: [id number]
--- OUTSIDE RECORDS SUMMARY | 2025-06-06 20:23 | XMS RPT_ITS | CCD ---
Author Organization [facility] Care Team Providers Care Protection Manager Name Role Phone Marvel Edwards MD Primary Care Provider Wilber Serrato MD Unavailable Dr. Marvel Edwards Primary Care Provider Dr. Marvel Edwards Referring Provider SAGRARIO Rees Attending Provider Dr. Will Mireles Emergency Provider Dr. Fabi Arora Admit Provider Dr. Fabi Arora Attending Provider Dr. Fabi Arora Other Provider Dr. Dilip Munson Attending Provider Marvel Edwards MD Primary Care Provider Wilber Serrato MD L Unavailable Marvel Edwards MD Primary Care Provider Wilber Serrato MD L Unavailable Rojelio FLORES Wilber L Unavailable Marvel Edwards MD Primary Care Provider Korina Orellana PA-C Unavailable [phone] Older PAINT STRIPPER.KELLEE, Maddison Unavailable Fransisca Rust PA-C Unavailable MoVitaliy bermeo Attending Unavailable Marvel Edwards Referring Unavailable Marvel Edwards Primary Care Unavailable Marvel Edwards Primary Care Unavailable Elisa Alarcon Attending Unavailable Marvel Edwards Referring Unavailable WILBER SERRATO Attending Unavailable WILBER SERRATO Referring Unavailable GANTA, MARVEL Primary Care Unavailable WILBER SERRATO Referring Unavailable GANTA, MARVEL Primary Care Unavailable WILBER SERRATO Referring Unavailable GANTA, MARVEL Primary Care Unavailable GANTA, MARVEL Primary Care Unavailable WILBER SERRATO Referring Unavailable GANTA, MARVEL Referring Unavailable GANTA, MARVEL Primary Care Unavailable GANTA, MARVEL Primary Care Unavailable GANTA, MARVEL Attending Unavailable GANTA, MARVEL Attending Unavailable GANTA, MARVEL Primary Care Unavailable GANTA, MARVEL Attending Unavailable GANTA, MARVEL Primary Care Unavailable SELF Referring Unavailable GANTA, MARVEL Attending Unavailable GANTA, MARVEL Primary Care Unavailable Allergies Allergy Classification Reported Allergen(s) Allergy Type Date of Onset Reaction(s) Facility (20 sources) environmental [Other] Propensity to adverse reactions [facility] Work Phone: (19 sources) Seasonal allergy; Translations: [SEASONAL ALLERGIES] Allergy to substance Other: See Comments [facility] Work Phone: Medications Current Medications Medication Drug Class(es) Dates Sig (Normalized) Sig (Original) acetaminophen 325 mg oral tablet (19 sources) Start: 04-04-2022 End: 09-21-2023 take 2 tablets by mouth every six hours as needed acetaminophen (TYLENOL) 325 mg tablet Take 2 tablets by mouth every 6 hours as needed for pain. 0 04/04/2022 09/21/2023 Discontinued Comment on above: Take 2 tablets by mo [facility] every 6 hours as needed for pain. albendazole 200 mg oral tablet (2 sources) Antihelminthic Start: 11-23-2024 albendazole (ALBENZA) 200 mg tablet Take 2 pills with food. Repeat in 2-3 weeks to kill all the eggs, all household contacts to be treated. May crush or chew. 6 tablet 2 11/23/2024 Active amoxicillin 500 mg oral capsule (20 sources) Penicillin-class Antibacterial Start: 10-24-2022 amoxicillin (AMOXIL) 500 mg capsule TAKE 4 CAPSULES BY MOUTH 1/2 TO 1 HOUR PRIOR TO DENTAL APPOINTMENT 10/24/2022 Active Comment on above: TAKE 4 CAPSULES BY M OUTH 1/2 TO 1 HOUR PRIOR TO DENTAL APPOINTMENT amoxicillin 875 mg / clavulanate 125 mg oral tablet (5 sources) Penicillin-class Antibacterial Start: 02-09-2023 End: 02-16-2023 take 1 tablet by mouth twice daily amoxicillin-clavul anic acid (AUGMENTIN) 875-125 mg per tablet Indications: Otitis media, unspecified laterality, unspecified otitis media type Take 1 tablet by mouth twice daily for 7 days. 14 tablet 0 02/09/2023 02/16/2023 Active Start: 04-03-2019 End: 04-13-2019 take 1 tablet by mouth twice daily Amoxicillin-Pot Clavulanate (Augmentin) 875-125 mg tablet Discontinued 1 TABLET PO TWICE A DAY 10 04April 03, 2019 12:00am April 13, 2019 12:07am Comment on above: Take 1 tablet by marilee twice daily for 7 days. apixaban 5 mg oral tablet (20 sources) Factor Xa Inhibitor Start: 03-17-2022 End: 03-03-2024 take 1 tablet by mouth twice daily apixaban (ELIQUIS) 5 mg tab(s) Take 1 tablet by mouth two times a day. 180 tablet 3 03/03/2024 Active Comment on above: Take 5 mg by mouth t wice daily. Take 1 tablet by amrilee twice daily. ascorbic acid 500 mg oral tablet (8 sources) Vitamin C Start: 03-15-2022 take 2 tablets by mouth once daily Ascorbic Acid (Vitamin C) (Vitamin C) 500 mg Tablet Active 1000 MG PO DAILY March 15, 2022 12:00am take 500 mg by mouth once daily Ascorbic Acid (VITAMIN C) 500 mg chew Take 500 mg by mouth once daily. 0 Suspended Comment on above: Take 500 mg by mouth once daily. carvedilol 6.25 mg oral tablet (14 sources) alpha-Adrenergi c Shayna, beta-Adrenergic Shayna Start: 03-03-20 End: 11-24-19 take 1 tablet by mouth twice daily carvedilol (COREG) 6.25 mg tablet TAKE 1 TABLET BY MOUTH TWICE A DAY 180 tablet 2 11/23/2024 Active cholecalciferol 0.05 mg oral capsule (20 sources) Vitamin D Start: 03-15-20 take 1 capsule by mouth once daily Cholecalciferol (Vitamin D3) (Vitamin D3) 50 mcg (2,000 unit) Capsule Active 50 MCG PO DAILY March 15, 2022 12:00am End: 08-21-2023 take 1 tablet by mouth once daily cholecalciferol (VITAMIN D3) 50 mcg (2,000 unit) tablet Take 2,000 Units by mouth once daily. 0 08/21/2023 Discontinued cholecalciferol (D3 DOTS) 50 mcg (2,000 unit) tablet Take 2,000 Units by mouth once daily. 0 Suspended Comment on above: Take 2,000 Units by mouth once daily. eszopiclone 1 mg oral tablet (1 source) Start: 2021 End: 2021 take 1 tablet by mouth once daily at bedtime eszopiclone (LUNESTA) 1 mg tab Indications: Adjustment insomnia Take 1 tablet by mouth daily at bedtime for 14 days. 14 tablet 0 11/15/2021 11/29/2021 Active Comment on above: Take 1 tablet by marilee th daily at bedtime for 14 days. glucosamine sulfate 500 mg oral capsule (1 source) Start: 2022 take 500 mg by mouth once daily Glucosamine Sulfate Active 500 MG PO DAILY September 16, 2022 12:00am administer with a meal hydroCHLOROthiazide 12.5 mg oral capsule (20 sources) Thiazide Diuretic Start: 2023 End: 2024 take 1 capsule by mouth once daily hydroCHLOROthiazide 12.5 mg capsule Take 1 capsule by mouth once daily. 90 capsule 3 11/23/2024 Active Start: 07-08-2017 End: 03-17-2022 take 25 mg by mouth once daily Hydrochlorothiazide Discontinued 25 MG PO daily July 08, 2017 1:00am March 17, 2022 2:15pm Comment on above: Take 1 tablet by marilee th once daily. Take 1 capsule by mo [facility] once daily. lactobacillus combination no.4 (PROBIOTIC) 3 billion cell cap (3 sources) Start: 03-10-2023 End: 08-21-2023 lactobacillus combination no.4 (PROBIOTIC) 3 billion cell cap Indications: Yeast infection Take by mouth. 0 03/10/2023 08/21/2023 Discontinued Start: 03-10-2023 lactobacillus combination no.4 (PROBIOTIC) 3 billion cell cap Indications: Yeast infection Take by mouth. 0 03/10/2023 Active Comment on above: Take by mouth. pantoprazole 20 mg delayed release oral tablet (13 sources) Proton Pump Inhibitor Start: 2 End: 3 take 1 tablet by mouth once daily Pantoprazole (Protonix) 20 mg tablet,delayed release (DR/EC) Active 20 MG PO DAILY September 16, 2022 12:00am Start: 04-04-2022 take 1 tablet by marilee th once daily pantoprazole DR (PROTONIX) 40 mg tablet Take 1 tablet by mouth once daily. 45 tablet 0 04/04/2022 Active Comment on above: Take 1 tablet by marilee th once daily. perflutren lipid microspheres 1.3 mL in NaCl (PF) 0.9% 10 mL injection (DEFINITY) (20 sources) Start: 10-17-2022 End: 01-16-2024 perflutren lipid microspheres 1.3 mL in NaCl (PF) 0.9% 10 mL injection (DEFINITY) Start: 07-24-2022 End: 10-23-2023 perflutren lipid microsphere s 1.3 mL in NaCl (PF) 0.9% 10 mL injection (DEFINITY) rosuvastatin calcium 5 mg oral tablet (14 sources) HMG-CoA Reductase Inhibitor Start: 03-03-2024 End: 10-03-2024 take 0.5 tablet by mouth once daily at bedtime rosuvastatin (CRESTOR) 5 mg tablet Take 0.5 tablets by mouth daily at bedtime. 60 tablet 3 10/03/2024 Active semaglutide (OZEMPIC) 0.25 mg or 0.5 mg (2 mg/3 mL) pen (6 sources) Start: 07-04-2024 End: 10-02-2024 inject 0.5 mg by subcutaneous injection every week semaglutide (OZEMPIC) 0.25 mg or 0.5 mg (2 mg/3 mL) pen Inject 0.5 mg subcutaneously one time a week. 9 mL 07/04/2024 10/02/2024 Active Start: 03-28-2024 End: 07-04-2024 semaglutide (OZEMPIC) 0.25 m g or 0.5 mg (2 mg/3 mL) pen Indications: Class 1 obesity without serious comorbidity with body mass index (BMI) of 31.0 to 31.9 in adult, unspecified obesity type Inject 0.25 mg subcutaneously one time a week. 3 mL 2 03/28/2024 07/04/2024 Discontinued Start: 03-28-2024 End: 09-24-2024 semaglutide (OZEMPIC) 0.25 m g or 0.5 mg (2 mg/3 mL) pen Indications: Class 1 obesity without serious comorbidity with body mass index (BMI) of 31.0 to 31.9 in adult, unspecified obesity type Inject 0.25 mg subcutaneously one time a week. 3 mL 2 03/28/2024 09/24/2024 Active semaglutide (OZEMPIC) 1 mg/dose (4 mg/3 mL) pen (6 sources) Start: 10-03-2024 End: 04-01-2025 inject 1 mg by subcutaneous injection every week semaglutide (OZEMPIC) 1 mg/dose (4 mg/3 mL) pen Inject 1 mg subcutaneously one time a week. 9 mL 1 10/03/2024 04/01/2025 Active 125 ml sodium chloride 9 mg/ml prefilled syringe (20 sources) Start: 07-24-2022 End: 01-16-2024 sodium chloride 0.9 % (flush) 10 mL (BD POSIFLUSH) tirzepatide (MOUNJARO) 2.5 mg/0.5 mL pen injector (4 sources) Start: 05-25-2023 End: 08-21-2023 inject 2.5 mg by subcutaneous injection every week tirzepatide (MOUNJARO) 2.5 mg/0.5 mL pen injector Inject 2.5 mg subcutaneously one time a week. 4 Each 2 05/25/2023 08/21/2023 Discontinued Start: 05-25-2023 inject 2.5 mg by sub cutaneous injection every week tirzepatide (MOUNJARO) 2.5 mg/0.5 mL pen injector Inject 2.5 mg subcutaneously one time a week. 4 Each 2 05/25/2023 Active Start: 03-17-2023 End: 05-24-2023 inject 2.5 mg by subcutaneous injection every week tirzepatide (MOUNJARO) 2.5 mg/0.5 mL pen injector Inject 2.5 mg subcutaneously one time a week. 4 Each 2 03/17/2023 05/24/2023 Discontinued Start: 03-17-2023 inject 2.5 mg by sub cutaneous injection every week tirzepatide (MOUNJARO) 2.5 mg/0.5 mL pen injector Inject 2.5 mg subcutaneously one time a week. 4 Each 2 03/17/2023 Active Comment on above: Inject 2.5 mg subcut aneously one time a week. triamcinolone acetonide 1 mg/ml topical cream (7 sources) Corticosteroid Start: 07-30-19 End: 08-21-19 triamcinolone acetonide (KENALOG) 0.1 % cream Indications: Dermatitis Apply 1 application to affected area three times daily. Apply to affected area. 80 g 0 07/30/2022 08/21/2023 Discontinued Comment on above: Apply 1 application to affected area three times daily. Apply to affected area. Rkoqsyg-Jhja-Uqqup-Or eg-Capryl (3 sources) Start: 03-15-20 take 1 capsule by mouth once daily Vjygqkg-Rvlq-Hmows-O reg-Capryl Active 1 CAP PO DAILY March 14, 2022 11:00pm Start: 03-15-2022 take 1 capsule by mouth once daily Sdvkity-Lawj-Renat-Oreg-Capryl Active 1 CAP PO DAILY March 15, 2022 12:00am Completed/Discontinued Medications Medication Drug Class(es) Dates Sig (Normalized) Sig (Original) doxycycline hyclate 50 mg oral tablet (4 sources) Tetracycline-cla ss Drug Start: 07-08-2017 End: 12-13-2018 take 50 mg by mouth once Doxycycline Hyclate Discontinued 50 MG PO ONCE July 08, 2017 1:00am December 13, 2018 2:57pm escitalopram 5 mg oral tablet (20 sources) Serotonin Reuptake Inhibitor Start: 11-15-2021 End: 12-18-2022 take 5 mg by mouth once daily Escitalopram Oxalate Discontinued 5 MG PO DAILY March 15, 2022 12:00am September 16, 2022 1:33pm Comment on above: Take 1 tablet by marilee th once daily. estradiol 0.1 mg/ml vaginal cream (4 sources) Estrogen Start: 04-03-2021 End: 05-27-2021 Estradiol Discontinued 0 VAGINAL .COMPLEX 42.5 April 03, 2021 12:00am May 27, 2021 10:47am small amount as directed vaginal every other day X 4 weeks then twice a week; furosemide 20 mg oral tablet (2 sources) Loop Diuretic Start: 04-09-2022 take 1 tablet by mouth once daily furosemide (LASIX) 20 mg tablet Take 1 tablet by mouth once daily. Take for 3 days 3 tablet 0 04/09/2022 Active Comment on above: Take 1 tablet by marilee once daily. Take for 3 days iv contrast (will be provided with radiology test) (14 sources) Start: 03-28-2022 End: 12-18-2022 iv contrast (will be provided with radiology test) MRI Cardiac w/Qflow Inject, intravenously, once for 1 dose. No IV access, insert saline lock prior to the beginning of sedation, infusion, injection of imaging exam. Discontinue saline lock post exam. If Pt has a central line or IVAD, may access for administration according to line specific nursing protocol. Once exam is complete flush line and de-access according to line specific nursing protocol in the MR contrast administration guidelines link 1 Each 0 03/28/2022 12/18/2022 Discontinued (Course of therapy completed) Start: 03-28-2022 iv contrast (w ill be provided with radiology test) MRI Cardiac w/Qflow Inject, intravenously, once for 1 dose. No IV access, insert saline lock prior to the beginning of sedation, infusion, injection of imaging exam. Discontinue saline lock post exam. If Pt has a central line or IVAD, may access for administration according to line specific nursing protocol. Once exam is complete flush line and de-access according to line specific nursing protocol in the MR contrast administration guidelines link 1 Each 0 03/28/2022 Suspended Start: 03-28-2022 iv contrast (w ill be provided with radiology test) MRI Cardiac w/Qflow Inject, intravenously, once for 1 dose. No IV access, insert saline lock prior to the beginning of sedation, infusion, injection of imaging exam. Discontinue saline lock post exam. If Pt has a central line or IVAD, may access for administration according to line specific nursing protocol. Once exam is complete flush line and de-access according to line specific nursing protocol in the MR contrast administration guidelines link 1 Each 0 03/28/2022 Active Comment on above: MRI Cardiac w/Qflow Inject, intravenously, once for 1 dose. No IV access, insert saline lock prior to the beginning of sedation, infusion, injection of imaging exam. Discontinue saline lock post exam. If Pt has a central line or IVAD, may access for administration according to line specific nursing protocol. Once exam is complete flush line and de-access according to line specific nursing protocol in the MR contrast administration guidelines link Lactobacillus Combination No.8 (Adult Probiotic) 3 billion cell capsule (4 sources) Start: End: take 3 capsules by mouth once daily Lactobacillus Combination No.8 (Adult Probiotic) 3 billion cell capsule Discontinued 3000 MMU CELLS PO DAILY May 03, 2020 12:00am April 03, 2021 12:17pm administer with a meal Start: 05-03-2020 End: 04-03-2021 take 3 capsules by mouth once daily Lactobacillus Combination No.8 (Adult Probiotic) 3 billion cell capsule Discontinued 3000 MMU CELLS PO DAILY May 03, 2020 1:00am April 03, 2021 1:17pm administer with a meal levonorgestrel 0.096216 mg/hr intrauterine system (4 sources) Progestin, Progestin-containing Intrauterine Device Start: 2017 End: 12-13-2018 Levonorgestrel (Mirena) 20 mcg/24 hr (5 years) intrauterine device Discontinued 1 INSERT INTRA-UTER ONCE 2017 1:00am December 13, 2018 2:57pm lisinopril 10 mg oral tablet (7 sources) Angiotensin Converting Enzyme Inhibitor Start: 03-17-2022 End: 09-16-2022 take 10 mg by mouth once daily Lisinopril Discontinued 10 MG PO DAILY March 17, 2022 12:00am September 16, 2022 1:33pm Comment on above: Take 10 mg by mouth once daily. 24 hr metoprolol succinate 25 mg extended release oral tablet (20 sources) beta-Adrenergic Shayna Start: 04-04-2022 End: 03-28-2024 take 1 tablet by mouth twice daily metoprolol succinate ER (TOPROL XL) 25 mg 24 hr tablet Take 1 tablet by mouth two times a day. 180 tablet 3 02/09/2024 03/28/2024 Discontinued (Other) Start: 03-17-2022 take 25 mg by mouth twice arminda y Metoprolol Tartrate Active 25 MG PO TWICE A DAY 60 30 Leyla 26th, 2022 12:00am Comment on above: Take 25 mg by mouth twice daily. Take 1 tablet by marilee th twice daily. Take 1 tablet by marilee th two times a day. Multivitamin preparation (4 sources) Start: 05-03-2020 End: 04-03-2021 take 1 tablet by mouth once daily Multivitamin Discontinued 1 TABLET PO DAILY May 03, 2020 12:00am April 03, 2021 12:17pm Start: 05-03-2020 End: 04-03-2021 take 1 tablet by mouth once daily Multivitamin Discontinued 1 TABLET PO DAILY May 03, 2020 1:00am April 03, 2021 1:17pm naproxen 500 mg oral tablet (8 sources) Nonsteroidal Anti-inflammatory Drug Start: 12-27-2018 End: 02-07-2019 take 500 mg by mouth every twelve hours at mealtime Naproxen Discontinued 500 MG PO Q12H January 13, 2019 11:04am February 07, 2019 10:19am administer with food or milk nitrofurantoin, macrocrystals 25 mg / nitrofurantoin, monohydrate 75 mg oral capsule (4 sources) Nitrofuran Antibacterial Start: 08-07-2021 End: 08-12-2021 take 1 capsule by mouth every twelve hours at mealtime Nitrofurantoin Monohyd/M-Cryst (Macrobid) 100 mg capsule Discontinued 100 MG PO Q12H 10 August 07, 2021 1:00am August 12, 2021 1:03am must administer with a meal/food norethindrone 0.35 mg oral tablet (20 sources) Start: 02-07-2019 End: 04-19-2020 take 1 tablet by mouth once daily Norethindrone (Contraceptive) (Scarlet) 0.35 mg tablet Discontinued 0.35 MG PO daily February 07, 2019 12:00am April 19, 2020 2:23pm start day 1 of menstrual cycle Start: 2017 End: 02-07-2019 take 1 tablet by mouth twice daily Norethindrone Acetate (Aygestin) 5 mg tablet Discontinued 5 MG PO TWICE A DAY 40 January 10, 2019 8:45am February 07, 2019 10:19am potassium chloride 10 meq extended release oral tablet (2 sources) Start: 04-09-2022 take 1 tablet by mouth once daily potassium chloride (K-TAB) 10 mEq tablet Take 1 tablet by mouth once daily. 3 tablet 0 04/09/2022 Active Comment on above: Take 1 tablet by mouth once daily. tranexamic acid 650 mg oral tablet (4 sources) Antifibrinolytic Agent Start: 11-10-2018 End: 12-13-2018 Tranexamic Acid (Lysteda) 650 mg tablet Discontinued 1300 MG PO THREE TIMES A DAY November 10, 2018 12:00am December 13, 2018 2:58pm Ujhhyoyi-Pbpa-La joj-Flcf-Dqzsj (1 source) Start: 03-15-2022 End: 09-16-2022 take 1 capsule by mouth once daily Jdyfgsrv-Aokf-Zcqg f-Xjqz-Urvsp Discontinued 1 CAP PO DAILY March 15, 2022 12:00am September 16, 2022 1:31pm Problems Active Problems Problem Classification Problem Date Documented Da te Episodic/Chronic Adjustment disorders (20 sources) Adjustment disorder with anxious mood; Translations: [Adjustment disorder with anxiety] Onset: 2 Chronic Allergic reactions (1 source) Inflammatory dermatosis; Translations: [Dermatitis, unspecified] Episodic Anxiety disorders (1 source) Mixed anxiety and depressive disorder; Translations: [Other specified anxiety disorders] Chronic Cardiac dysrhythmias (20 sources) Atrial fibrillation; Translations: [Unspecified atrial fibrillation] Onset: 2 Chronic Digestive congenital anomalies (20 sources) 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; Translations: [Anomalies of gallbladder, bile ducts, and liver] Onset: 5 12-19-2004 Chronic Disorders of lipid metabolism (5 sources) Hyperlipidemia; Translations: [Hyperlipidemia, unspecified] Onset: 5 Chronic Esophageal disorders (20 sources) Gastroesophageal reflux disease; Translations: [Gastro-esophageal reflux disease without esophagitis] Onset: 1 08-19-2010 Chronic Essential hypertension (20 sources) Benign essential hypertension; Translations: [Essential (primary) hypertension] Onset: 7 Chronic Gastritis and duodenitis (6 sources) Gastritis; Translations: [Gastritis, unspecified, without bleeding] Episodic Headache; including migraine (20 sources) Migraine; Translations: [Migraine] Onset: 0 11-09-2003 Chronic Heart valve disorders (20 sources) Rheumatic mitral valve disease, unspecified; Translations: [Mitral valve disorders] Onset: 4 11-09-2003 Chronic Immunizations and screening for infectious disease (3 sources) Viral screening status; Translations: [Encounter for screening for other viral diseases] Onset: 5 03-28-2024 Episodic Menopausal disorders (4 sources) Atrophic vaginitis; Translations: [Postmenopausal atrophic vaginitis] 04-03-2021 Chronic Mood disorders (20 sources) Depressive disorder; Translations: [Depression] Onset: 2 04-02-2022 Chronic Other and ill-defined heart disease (4 sources) Heart disease; Translations: [Heart disease, unspecified] 05-14-2020 Chronic Other female genital disorders (4 sources) Simple endometrial glandular hyperplasia without atypia; Translations: [Benign endometrial hyperplasia] 05-14-2020 Chronic Other female genital disorders (4 sources) Abnormal uterine bleeding; Translations: [Abnormal uterine and vaginal bleeding, unspecified] 02-13-2019 Chronic Other gastrointestinal disorders (20 sources) Dysphagia, unspecified; Translations: [Dysphagia, unspecified] 01-16-2009 Episodic Other infections; including parasitic (1 source) Helminth infection; Translations: [Helminthiasis, unspecified] 11-23-2024 Episodic Other inflammatory condition of skin (2 sources) Pruritus ani; Translations: [Pruritus ani] 11-04-2024 Episodic Other inflammatory condition of skin (1 source) Anogenital pruritus, unspecified; Translations: [Perineal itching, female] Onset: 5 Episodic Other nutritional; endocrine; and metabolic disorders (3 sources) Obesity; Translations: [Class 1 obesity without serious comorbidity with body mass index (BMI) of 31.0 to 31.9 in adult, unspecified obesity type] 03-28-2024 Chronic Other nutritional; endocrine; and metabolic disorders (1 source) Obese class I; Translations: [Obesity (BMI 30.0-34.9)] 10-03-2024 Chronic Other nutritional; endocrine; and metabolic disorders (1 source) Body mass index (BMI) 33.0-33.9, adult; Translations: [Class 1 obesity with serious comorbidity and body mass index (BMI) of 33.0 to 33.9 in adult, unspecified obesity type] Onset: 5 Chronic Other nutritional; endocrine; and metabolic disorders (1 source) Weight gain; Translations: [Abnormal weight gain] 01-27-2023 Episodic Other screening for suspected conditions (not mental disorders or infectious disease) (7 sources) Patient encounter status; Translations: [Encounter for screening for lipoid disorders] 01-27-2023 Episodic Other upper respiratory infections (1 source) Upper respiratory infection; Translations: [Acute upper respiratory infection, unspecified] 01-27-2023 Episodic Otitis media and related conditions (2 sources) Dysfunction of bilateral eustachian tubes; Translations: [Unspecified Eustachian tube disorder, bilateral] 01-27-2023 Episodic Lena-; endo-; and myocarditis; cardiomyopathy (except that caused by tuberculosis or sexually transmitted disease) (3 sources) Cardiomyopathy; Translations: [Cardiomyopathy, unspecified] Chronic Lena-; endo-; and myocarditis; cardiomyopathy (except that caused by tuberculosis or sexually transmitted disease) (1 source) Idiopathic myocarditis; Translations: [Isolated myocarditis] Episodic Residual codes; unclassified (4 sources) History of operative procedure on foot; Translations: [Other specified postprocedural states] 05-03-2020 Episodic Residual codes; unclassified (3 sources) Other specified postprocedural states; Translations: [Personal history of surgery to heart and great vessels, presenting hazards to health] Onset: 5 Episodic Thyroid disorders (20 sources) Non-toxic uninodular goiter; Translations: [Nontoxic single thyroid nodule] Onset: 9 03-05-2009 Chronic Unclassified (1 source) Class 1 obesity with serious comorbidity and body mass index (BMI) of 33.0 to 33.9 in adult, unspecified obesity type; Translations: [Class 1 obesity with serious comorbidity and body mass index (BMI) of 33.0 to 33.9 in adult, unspecified obesity type] Onset: 5 Urinary tract infections (4 sources) Urinary tract infectious disease; Translations: [Urinary tract infection, site not specified] 08-07-2021 Episodic Past or Other Problems Problem Classification Problem Date Documented Da te Episodic/Chronic Fluid and electrolyte disorders (20 sources) Hypokalemia; Translations: [Hypokalemia] Onset: 07-04-2019 07-04-2019 Episodic Miscellaneous mental health disorders (20 sources) Acute insomnia; Translations: [Adjustment insomnia] Onset: 12-13-2021 Episodic Other aftercare (1 source) Other halfway (current) drug therapy; Translations: [Medication management] Onset: 06-30-2024 Episodic Other gastrointestinal disorders (20 sources) Dysphagia; Translations: [Dysphagia] Onset: 09-23-2006 09-23-2006 Episodic Other infections; including parasitic (1 source) Helminthiasis, unspecified; Translations: [Worm infection] Onset: 11-23-2024 Episodic Other inflammatory condition of skin (1 source) Pruritus ani; Translations: [Anal itching] Onset: 11-23-2024 Episodic Other skin disorders (20 sources) Acne; Translations: [Other acne] Onset: 09-23-2006 09-23-2006 Episodic Residual codes; unclassified (20 sources) History of repair of mitral valve; Translations: [Other specified postprocedural states] Onset: 04-02-2022 04-02-2022 Episodic Unclassified (1 source) Patient encounter status 08-09-2024 Results Test Name Value Interpretation Reference Range Facility [facility] 03-29-2025 CNOV Office Visit (INTMWS ) ARON JORGE ([id number]) 1965 F Date Time Provider Department 03/29/25 8:00 AM MARVEL EDWARDS INTMWS During your visit today, we recorded the following information about you: Pulse Respiration Blood pressure Weight 83/minute 16/minute 120/82 77.4 kg Marvel Edwards MD 03/29/2025 8:33 AM Signed We discussed your blood pressure: - Your junior designer increased your Carvedilol (Coreg) dosage from 6.25 mg to 12.5 mg to better manage your blood pressure. Please continue taking this medication as prescribed. - Your blood pressure readings have improved, and you are tolerating the new dosage well so far. Monitor for any side effects such as fatigue or sluggishness, and let me know if you experience any issues. We discussed your weight loss and exercise: - You have lost 20 pounds, going from 187 lbs to 168 lbs, which is excellent progress. This weight loss is likely contributing to your improved health. - Continue using semaglutide (Ozempic) as prescribed. A refill has been sent to your pharmacy. - Keep up your running routine as you train for your 5K. Incorporating strength training into your exercise regimen is also recommended to build muscle. We discussed your perineal itching: - The itching has improved since your last visit, and there are no signs of parasites. Hydrocortisone cream has been helping when needed. - I recommend discussing this issue with your lead cashier during your upcoming appointment. Mention that we treated for parasites but suspect the itching may be related to lichen sclerosus or menopause. - If your lead cashier does not prescribe estrogen cream, I can send a prescription for you. A pea-sized amount applied locally may help with perineal itching and vaginal dryness. We discussed your ear: - I examined your ear and found no wax buildup or other issues. A small hair may have been causing irritation, but your ears are otherwise healthy. We discussed your medications: - Continue taking Eliquis, Coreg, hydrochlorothiazide, and Crestor as prescribed. - Your migraines have resolved, which may be a benefit of menopause. Next steps: - Follow up with your lead cashier to address the perineal itching and discuss the potential use of estrogen cream. - Continue monitoring your blood pressure and overall health. Let me know if you experience any new or worsening symptoms. Marvel Edwards MD 03/29/2025 10:23 AM Signed Reason for Visit Follow up LISA Rivera is a 59-year-old female with a history of HTN, presenting for evaluation of back pain and pruritus. Aron reports experiencing back pain for the past 2 months, which she attributes to wearing a non-custom white coat at work. She believes the coat's design causes uneven weight distribution, leading to strain on her shoulders and trapezius muscles. The pain typically begins about 2 hours after wearing the coat and subsides when she removes it. She denies any associated neck pain. She also reports perianal pruritus, which she initially suspected was due to a parasitic infection. She was previously treated with albendazole, but the pruritus persists, albeit less severe. She denies observing any worms and notes that the pruritus is not constant, sometimes not bothering her at all during the night. She occasionally applies hydrocortisone cream for relief. Aron has a history of HTN and recently had a follow-up with her junior designer, who increased her carvedilol dosage from 6.25 mg to 12.5 mg due to elevated blood pressure readings. She has been on the new dosage for 2 days and reports her blood pressure is great today. She denies any side effects from the medication change. She is also on Eliquis, hydrochlorothiazide, and Crestor. She has lost 20 lbs with the help of semaglutide and is currently training for a 5K run. She expresses a desire to maintain her weight loss and reports increased energy levels. She denies any current issues with migraines, attributing their resolution to menopause. She also mentions experiencing vaginal dryness. SOCIAL HISTORY[1] Past medical history, appointments, medications, allergies reviewed. Pertinent Lab/Diagnostic Studies are reviewed and discussed today Current Outpatient Medications: carvedilol (COREG) 12.5 mg tablet hydroCHLOROthiazide 12.5 mg capsule rosuvastatin (CRESTOR) 5 mg tablet apixaban (ELIQUIS) 5 mg tab(s) semaglutide (OZEMPIC) 1 mg/dose (4 mg/3 mL) pen albendazole (ALBENZA) 200 mg tablet amoxicillin (AMOXIL) 500 mg capsule Health Maintenance HIV Screening Pneumococcal Vaccine: 50+(1 of 1 - PCV) Mammogram Screening Influenza Vaccine(1)@ Review Of Systems Constitutional: (+) weight loss Neck: (-) neck pain Genitourinary: (+) perineal pruritus, (+) vaginal dryness Musculoskeletal: (+) back pain, (+) shoulder pain Neurological: (- (more content not included)... Normal [facility] CNOVon 03-27-2025 CNOV Office Visit (MICHAEL ) ARON JORGE ([id number]) 1965 F Date Time Provider Department 03/27/25 1:15 PM WILBER SERRATO During your visit today, we recorded the following information about you: Pulse Respiration Blood pressure Weight 85/minute 16/minute 147/89 76.3 kg Height 1.626 m Wilber Serrato MD 03/27/2025 5:38 PM Signed [facility] Department of Cardiovascular Medicine SECTION OF CARDIOVASCULAR IMAGING OUTPATIENT VISIT DATE 03/27/2025 OUTPATIENT VISIT TYPE ESTABLISHED Recording using Cocodril[employer] Dog software for draft documentation of the visit was discussed with the patient/authorized phlebotomy services representative; all questions welcomed and answered. Patient/authorized phlebotomy services representative agreed to proceed PRIMARY CARE PHYSICIAN: Marvel Edwards [address] [place] [id number] CHIEF COMPLAINT: HISTORY OF PRESENT ILLNESS: The patient is a 59-year-old female with a history of hypertension and atrial flutter presenting for routine follow-up. Hypertension: She reports that her blood pressure remains higher than she would like, with recent home readings around 130-132 mmHg. She mentions losing 20 pounds and taking Ozempic, although she is unsure why her blood pressure has not lowered further. She confirms she takes carvedilol and continues to wonder if she should remain on hydrochlorothiazide. She is currently training for a 5K at the end of March in [place] after a long break from running, using an balbina to pace herself. She states she feels well during her training. Post flutter ablation approximately three years ago and says her atrial flutter has been ?pretty good.? She remains on Eliquis for stroke prevention and does not describe any recent worsening of her flutter symptoms. She believes her symptoms have improved over time and is hopeful that continued exercise will help maintain that improvement. PAST CARDIAC HISTORY: She has been seen in the past for MVP s/p Mvr (1999), paroxsymal afib/AFL s/p ablation (03/2022). PAST MEDICAL HISTORY Diagnosis Date Allergic rhinitis, cause unspecified Allergic rhinitis Atrial flutter (HCC) Dysphagia, unspecified(237.20) Essential hypertension, benign Migraine, unspecified, without mention of intractable migraine without mention of status migrainosus History of Migraines Mitral valve disorders(424.0) PAST SURGICAL HISTORY Procedure Laterality Date DELIVERY ONLY , low cervical COLONOSCOPY FLX DX W/COLLJ SPEC WHEN PFRMD 02/08/2018 Colonoscopy EGD TRANSORAL BIOPSY SINGLE/MULTIPLE 03/30/09 GASTROESOPHAG REFLX TEST W/TELEMTRY PH ELTRD 03/30/09 pyloritek negative HEART SURGERY HX HYSTEROSCOPY WBX WWO D AND C ANDOR POLYPECTOMY 01/20/2019 INSERTION OF IUD 06/10/2011 PAST SURGICAL HISTORY OF 1999 Mitral valve repair-1999 SCOPE, PLANTAR FASCIOTOMY 06/2012 THYROID LEFT FINE NEEDLE ASPIRATION 03/26/09 U/S FNA left lobe thyroid TONSILLECTOMY PRIMARY/SECONDARY Tonsillectomy SOCIAL HISTORY SOCIAL HISTORY[1] FAMILY HISTORY Problem Relation Age of Onset Osteoporosis Mother Asthma Mother Heart Mother 71 Hypertension Father ALLERGIES: ALLERGIES Allergen Reactions Seasonal Allergies Other: See Comments Environmental- Sinus symptoms MEDICATIONS: hydroCHLOROthiazide 12.5 mg capsule Take 1 capsule by mouth once daily. semaglutide (OZEMPIC) 1 mg/dose (4 mg/3 mL) pen Inject 1 mg subcutaneously one time a week. rosuvastatin (CRESTOR) 5 mg tablet Take 0.5 tablets by mouth daily at bedtime. apixaban (ELIQUIS) 5 mg tab(s) Take 1 tablet by mouth two times a day. carvedilol (COREG) 12.5 mg tablet Take 1 tablet by mouth two times a day. albendazole (ALBENZA) 200 mg tablet Take 2 pills with food. Repeat in 2-3 weeks to kill all the eggs, all household contacts to be treated. May crush or chew. (Patient not taking: Reported on 03/27/2025) amoxicillin (AMOXIL) 500 mg capsule TAKE 4 CAPSULES BY MOUTH 1/2 TO 1 HOUR PRIOR TO DENTAL APPOINTMENT (Patient not taking: Reported on 03/27/2025) PHYSICAL EXAMINATION: BP 147/89 (BP Site: Right Arm, BP Position: Sitting, BP Cuff Size: Regular Adult) Pulse 85 Resp 16 Ht 162.6 cm (5' 4) Wt 76.3 kg (168 lb 4.8 oz) LMP 06/07/2011 SpO2 98% BMI 28.89 kg/m? General: Well appearing, in no acute distress, speaking in complete sentences. Lungs: Clear to auscultation bilaterally, no wheezing or rhonchi. Heart: Regular rhythm, PMI not displaced, S1, S2 normal, no S3, no S4, no heaves, no rub and no murmur. Abdomen: Soft, nontender, bowel sounds normal, no palpable organomegaly, no bruits. Extremities: No peripheral edema . Grade 2/4 distal pulses bilaterally. Neuro: Oriented to person, place and time, alert, cooperative, gait coordinated. CARDIOVASCULAR MEDICINE TEST (more content not included)... Normal [facility] ECHOon 03-27-2025 Echocardiography Echocardiography Report: Transthoracic Echo [facility] J1-5 Date of service: 03/27/2025 9:44:58 AM CARE PROVIDER Ordering physician: WILBER SERRATO Exam indication: MV repair 07/02/1999 Technologist: Lena Hartley RDCS Fellow: Anthony Lugo MD Interpreting physician: Jozef Leal MD PATIENT: Name: ARON JORGE : 1965 Age: 59 years Gender: F Previous cardiovascular interventions: Mitral valve repair (07/02/1999) Primary rhythm: sinus. Secondary rhythm: PVC. Height: 163.80 cm BSA: 1.89 m Weight: 78.29 kg BMI: 29.2 kg/m Heart rate 76 bpm Blood pressure 145/89 mmHg Color Doppler was utilized to interrogate the cardiac valves assessed and spectral Doppler was utilized to determine the flow velocities and pressure gradients reported in this exam. MEASUREMENTS: Value Indexed Normal Max aortic dimension 3.3 cm Ao < 3.8 Left atrial volume 132 ml (biplane A-L) 72 ml/m Jannie <= 34 LV ID (diastole) 4.6 cm (2D) 2.46 cm/m LV ID (systole) 3.1 cm (2D) 1.65 cm/m IVS, leaflet tips 1.4 cm (2D) Posterior wall thickness 1.3 cm (2D) Left ventricular mass 239 g (2D) 126 g/m LV stroke volume 64 ml (2D biplane) LV end diastolic volume 115 ml (2D biplane) 61.0 ml/m 29<=EDVi<62 LV end systolic volume 51 ml (2D biplane) 26.9 ml/m Ejection Fraction 56 % (2D biplane) EF > 54 FINDINGS: LEFT VENTRICLE The left ventricle is normal in size. Left ventricular systolic function is normal. Left ventricular diastolic function was not evaluated due to mitral valve surgery. Wall Motion: The basal inferior segment and basal inferoseptal segment are mildly hypokinetic. All remaining scored segments are normal. RIGHT VENTRICLE The right ventricle is normal in size. Right ventricular systolic function is normal. RV systolic tissue Doppler velocity is 9.0 cm/s. Tricuspid annular displacement is 1.3 cm. Estimated right ventricular systolic pressure is 27 mmHg consistent with normal pulmonary artery pressures. Estimated right atrial pressure is 3 mmHg based on IVC assessment. LEFT ATRIUM The left atrial cavity is severely dilated. Pulmonary Veins: The pulmonary venous pattern showed normal systolic flow. RIGHT ATRIUM The right atrial cavity is normal in size (RA area = 18.6 cm ). Inferior Vena Cava: The inferior vena cava appears normal measuring 1.50 cm. The vessel decreases greater than 50 percent with inspiration. MITRAL VALVE Post mitral valve repair. Norberto Mitral Ring size #36. There is moderate mitral annular calcification observed posterior. There is mild (1+) mitral valve regurgitation. The peak valve gradient is 10 mmHg. The mean valve gradient is 4 mmHg. TRICUSPID VALVE There is mild (1+) tricuspid valve regurgitation. There is no thickening. The hepatic venous pattern showed blunted systolic flow. AORTIC VALVE There is no aortic valve regurgitation. Tricuspid aortic valve. There is mild thickening. PULMONIC VALVE The pulmonic valve cusps are structurally normal. There is trace (trace - 1+) pulmonic valve regurgitation. AORTA The visualized aorta is normal in size. Measurements - Sinus: 3.3 cm. Mid ascending aorta 3.3 cm. PULMONARY ARTERIES The pulmonary arteries are unseen or not interrogated. INTERATRIAL SEPTUM There is no evidence of intracardiac shunting as detected by Doppler. INTERVENTRICULAR SEPTUM There is abnormal motion of the interventricular septum secondary to prior cardiac surgery. There is no flow through the interventricular septum as detected by Doppler. PERICARDIUM There is no pericardial effusion. There is an epicardial fat pad. CONCLUSIONS: - Exam indication: MV repair 07/02/1999 - The left ventricle is normal in size. Left ventricular systolic function is normal. EF = 56 5% (2D biplane) - The right ventricle is normal in size. Right ventricular systolic function is normal. - The left atrial cavity is severely dilated. - Post mitral valve repair. Norberto Mitral Ring (size #36). There is mild (1+) mitral valve regurgitation. The peak gradient is 10 mmHg and the mean gradient is 4 mmHg. HR= 74 bpm. Prior peak/mean gradients were 9/3 mmHg, HR= 70 bpm. Resection of left lateral posterior scallop of the posterior mitral leaflet and sliding posterior leaflet annuloplasty as well as annuloplasty with a 36mm Norberto ring. - Exam was compared with the prior echocardiographic exam performed on 03/03/2024. Stable mitral valve gradients. * * * Final * * * [facility] Image : [id number] ISUID Normal [facility] Lipid 1996 panelon 5 Cholesterol [Mass/Vol] 172 mg/dL Normal <200 [facility] Comment on above: Order Comment: Speci men Type: BLOOD SPECIMENOrdering Facility: [facility] Address: [address] [place] [address] Result Comment: <200 mg/dL, Desirable 200-239 mg/dL, Borderline high >239 mg/dL, High Performed By: #### 2 4331-1 ####[facility] [id number] [address] [address] [place] Cholesterol in HDL [Mass/Vol] 49 mg/dL Normal >39 [facility] Comment on above: Order Comment: Speci men Type: BLOOD SPECIMENOrdering Facility: [facility] Address: [address] [place] [address] Result Comment: 40-5 9 mg/dL, Acceptable >59 mg/dL, High: Negative risk factor for coronary heart disease <40 mg/dL, Low: Positive risk factor for coronary heart disease Performed By: #### 2 4331-1 ####[facility] [id number] [address] [address] [place] Cholesterol in LDL [Mass/Vol] 88 mg/dL Normal <100 [facility] Comment on above: Order Comment: Speci men Type: BLOOD SPECIMENOrdering Facility: [facility] Address: [address] [place] [address] Result Comment: <100 mg/dL, Optimal 100-129 mg/dL, Near optimal/above optimal 130-159 mg/dL, Borderline high 160-189 mg/dL, High >189 mg/dL, Very high Secondary prevention optimal LDL Cholesterol levels are recommended to be <70 mg/dL LDL cholesterol is calculated using the Glez-NIH equation. Performed By: #### 2 4331-1 ####[facility] [id number] [address] [place] Cholesterol in LDL/Cholesterol in HDL [Mass ratio] 1.80 {ratio} Normal <2.54 [facility] Comment on above: Order Comment: Speci men Type: BLOOD SPECIMENOrdering Facility: [facility] Address: [address] [place] [address] Result Comment: Dave duenas: 1. National Cholesterol Education Program ATP III Guideline At-A-Glance Quick Desk Reference: National Heart, Lung, and Blood Luke. National Institutes of Health. 2001: NIH Publication No. 01-3305. 2. An International Atherosclerosis Society position paper: global recommendations for the management of dyslipidemia: executive summary, Atherosclerosis. 2014: 232(2):410-413. Performed By: #### 2 4331-1 ####[facility] [id number] [place] [address] [place] Cholesterol in VLDL [Mass/Vol] 33 mg/dL High <30 [facility] Comment on above: Order Comment: Speci men Type: BLOOD SPECIMENOrdering Facility: [facility] Address: [address] [place] [address] Performed By: #### 2 4331-1 ####[facility] [id number] [place] [id number] [place] Cholesterol non HDL [Mass/Vol] 123 mg/dL Normal <130 [facility] Comment on above: Order Comment: Speci men Type: BLOOD SPECIMENOrdering Facility: [facility] Address: [address] [place] [address] Result Comment: <130 mg/dL, Optimal 130-159 mg/dL, Near optimal/above optimal 160-189 mg/dL, Borderline high 190-219 mg/dL, High >219 mg/dL, Very high Secondary prevention optimal non HDL Cholesterol levels are recommended to be <100 mg/dL Performed By: #### 2 4331-1 ####[facility] [id number] [place] [address] [place] Cholesterol.total/Cho lesterol in HDL [Mass ratio] 3.51 {ratio} Normal <5.10 [facility] Comment on above: Order Comment: Speci men Type: BLOOD SPECIMENOrdering Facility: [facility] Address: [address] [place] [address] Performed By: #### 2 4331-1 ####[facility] [id number] [address] [place] FASTING TIME 12 hrs Normal [facility] Comment on above: Order Comment: Speci men Type: BLOOD SPECIMENOrdering Facility: [facility] Address: [address] [place] [address] Performed By: #### 2 4331-1 ####[facility] [id number] [place] [address] [place] Triglyceride [Mass/Vol] 209 mg/dL High <150 [facility] Comment on above: Order Comment: Speci men Type: BLOOD SPECIMENOrdering Facility: [facility] Address: [address] [place] [address] Result Comment: <150 mg/dL, Normal 150-199 mg/dL, Borderline high 200-499 mg/dL, High >499 mg/dL, Very high Performed By: #### 2 4331-1 ####[facility] [id number] [place] [id number] [facility] Bette 01-17-2025 CNPN Telephone (JDIMN) ARON JORGE ([id number]) 1965 F Date Time Provider Department 01/17/25 ANIRUDH SERRATO During your visit today, we recorded the following information about you: Brionna Dukes 01/17/2025 4:50 PM Signed [employer] APPROVAL: Allergies As of Date: 01/17/2025 Noted Allergy Reaction SEASONAL ALLERGIES 08/21/2023 14 - Other: See Comments Comments: Environmental- Sinus symptoms Date Reviewed: 11/23/2024 Reviewed by: Lali Ortega LPN - Fully Assessed Prescriptions as of 01/17/2025 - carvedilol (COREG) 6.25 mg tablet TAKE 1 TABLET BY MOUTH TWICE A DAY - albendazole (ALBENZA) 200 mg tablet Take 2 pills with food. Repeat in 2-3 weeks to kill all the eggs, all household contacts to be treated. May crush or chew. - hydroCHLOROthiazide 12.5 mg capsule Take 1 capsule by mouth once daily. - semaglutide (OZEMPIC) 1 mg/dose (4 mg/3 mL) pen Inject 1 mg subcutaneously one time a week. - rosuvastatin (CRESTOR) 5 mg tablet Take 0.5 tablets by mouth daily at bedtime. - apixaban (ELIQUIS) 5 mg tab(s) Take 1 tablet by mouth two times a day. 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] 03/05/2009 GERD (gastroesophageal reflux disease) [K21.9] 08/19/2010 Hypokalemia [E87.6] 07/04/2019 Adjustment disorder with anxious mood [F43.22] 12/13/2021 Adjustment insomnia [F51.02] 12/13/2021 Atrial fibrillation (HCC) [I48.91] 03/31/2022 Atrial flutter (HCC) [I48.92] 04/02/2022 Depression [F32.A] 04/02/2022 S/P MVR (mitral valve repair) [Z98.890] 04/02/2022 Encounter Status:Closed by BRIONNA DUKES on 01/17/25 [facility] CNOVon 11-23-2024 CNOV Office Visit (INTMWS ) ARON JORGE ([id number]) 1965 F Date Time Provider Department 11/23/24 8:00 AM MARVEL EDWARDS INTMWS During your visit today, we recorded the following information about you: Pulse Blood pressure Weight Height 98/minute 135/82 78.3 kg 1.638 m Marvel Edwards MD 11/23/2024 4:01 PM Signed Reason for Visit Follow up anal bp , weight and anal itching HPI Aron is a 59-year-old female with a history of HTN, obesity, and atrial fibrillation, presenting for follow-up. Aron reports resuming hydrochlorothiazide 12.5 mg approximately 4 weeks ago using a previous prescription. She has been monitoring her blood pressure and notes readings consistently around 130/80 mmHg. She expresses concern about her blood pressure and mentions feeling stressed about it. She is currently on semaglutide 1 mg and has lost 15 lbs over the past 6 months. She reports increased energy levels and is engaging in regular exercise, walking 3 days a week with her . She denies any significant side effects from semaglutide, except for occasional diarrhea when consuming unhealthy foods such as hot dogs and jordanian fries. Aron is also on Crestor 5 mg for cholesterol management and Eliquis for atrial fibrillation. She reports that her atrial fibrillation is well-controlled and not as bothersome as before her ablation. She denies any current episodes of atrial fibrillation. Additionally, Aron reports experiencing pruritus ani, particularly at night, for which she submitted a stool sample for testing approximately 2 weeks ago. She denies any bleeding or significant hemorrhoids, but mentions occasional hemorrhoids without regular bleeding. She has 3 indoor cats. Social History Tobacco Use Smoking status: Former Current packs/day: 0.00 Average packs/day: 1.5 packs/day for 6.0 years (9.0 ttl pk-yrs) Types: Cigarettes Start date: 11/08/1982 Quit date: 11/08/1988 Years since quittin.0 Smokeless tobacco: Never Vaping Use Vaping status: Never Used Substance Use Topics Alcohol use: Yes Comment: OCCASIONALLY Drug use: No Past medical history, appointments, medications, allergies reviewed. Pertinent Lab/Diagnostic Studies are reviewed and discussed today Current Outpatient Medications: semaglutide (OZEMPIC) 1 mg/dose (4 mg/3 mL) pen rosuvastatin (CRESTOR) 5 mg tablet carvedilol (COREG) 6.25 mg tablet apixaban (ELIQUIS) 5 mg tab(s) albendazole (ALBENZA) 200 mg tablet hydroCHLOROthiazide 12.5 mg capsule amoxicillin (AMOXIL) 500 mg capsule Health Maintenance HIV Screening Pneumococcal Vaccine: 50+(1 of 1 - PCV) BP Controlled (<130/80) Mammogram Screening@ Review Of Systems Constitutional: (+) weight loss, (+) increased energy Gastrointestinal: (+) diarrhea, (+) anal pruritus, (-) rectal bleeding, (-) constipation, (-) painful defecation, (-) rectal mass sensation Psychiatric: (+) anxiety Physical Exam BP 135/82 Pulse 98 Ht 163.8 cm (5' 4.5) Wt 78.3 kg (172 lb 9.6 oz) LMP 06/07/2011 SpO2 98% BMI 29.17 kg/m? GENERAL: NAD, alert and oriented. SKIN: Unremarkable, no rash or skin lesions. HEAD: Normocephalic. EYES: PERRLA, EOMI, conjunctiva clear. EARS: External ears normal, canals clear, TM's normal. NOSE/SINUSES: Nares normal. Septum midline. OROPHARYNX: Lips, mucosa, and tongue normal, good dentition. No oral lesions noted. NECK: Supple, no lymphadenopathy, normal thyroid, no carotid bruits. LUNGS: Clear to auscultation bilaterally, no wheezes/rhonchi/rales. HEART: Regular rate and rhythm, no murmurs. No ectopy. EXTREMITIES: Normal, no deformities, no skin discoloration, no edema. ABDOMEN: Soft, non-tender, no masses. Normal bowel sounds. RECTAL: Good rectal tone, no hemorrhoids, excoriations noted at the 12 o'clock position of the anal verge. NEURO: Awake, alert and oriented x3, cranial nerves II-XII grossly intact, normal gait, no involuntary motions. Labs: (June) Lipid panel: No abnormalities noted. Assessment and Plan 1. Essential hypertension, benign (I10) Blood pressure readings have stabilized around 130-135/80-82 mmHg after resuming hydrochlorothiazide 12.5 mg daily. - Continue hydrochlorothiazide 12.5 mg daily; refill provided. - Monitor hydration status due to diuretic use. - Follow-up in 4 months. - Ordered BMP to monitor electrolytes, particularly potassium and sodium levels, to be done within the next 3 months. 2. Class 1 obesity with serious comorbidity and body mass index (BMI) of 33.0 to 33.9 in adult, unspecified obesity type (E66.811) Weight loss of 15 lbs over 6 months with semaglutide 1 mg and regular exercise. BMI has decreased, contributing to improved blood pressure control. - Continue semaglutide 1 mg. - Maintain current exercise regimen. 3. Paroxysmal atrial fibrillation (HCC) (I48.0) Currently asympto (more content not included)... Normal [facility] O+P Spec Microon 11-19-2024 Ova and parasites identified LM Nom (Unsp spec) OVA AND PARASITE EXAM: No Parasites Seen Normal [facility] Comment on above: Performed By: #### 6 73-4 ####[facility] LABCLIA [id number] [place] [id number] [facility] [place] CNPTerri 11-03-2024 CNPN Telephone (INTMWS) ARON JORGE ([id number]) 1965 F Date Time Provider Department 11/03/24 MARVEL EDWARDS INTWS During your visit today, we recorded the following information about you: Cynthia Hopson, RAFA 11/03/2024 1:22 PM Signed Pt called in and reports she has had anal itching for a while now, but it only happens at night. She states she went on to trips to [place] one in the summer and one in the fall and a cruise in April. She wanted to know if the provider could do a test to rule out parasites before her appointment on 11/23/24. Please call and advise. Marvel Edwards MD 11/04/2024 10:12 AM Signed Please notify that labs are ordered for stool She needs to get then done Marvel Baum MD, Jane, MA 11/04/2024 11:22 AM Signed Patient notified. Adam Grace 11/21/2024 5:22 PM Signed Addended by: ADAM GRACE on: 11/21/2024 05:22 PM Modules accepted: Orders Adam Grace 11/21/2024 5:26 PM Signed Addended by: ADAM GRACE on: 11/21/2024 05:26 PM Modules accepted: Orders Allergies As of Date: 11/03/2024 Noted Allergy Reaction SEASONAL ALLERGIES 08/21/2023 14 - Other: See Comments Comments: Environmental- Sinus symptoms Date Reviewed: 10/03/2024 Reviewed by: Cathleen Rodriguez MA - Fully Assessed Reason for Visit: Patient Update [1234] Patient Question [1477] Orders [681] Primary Visit Diagnosis:Anal itching [L29.0] Order(s):OVA + PARA MICROSCOPIC [SQOVAP] Order #: [id number]. #:[id number] EXTRA ECOFIX CONTAINER PERFORMABLE [[id number]] Order #: [id number] FUTURE EXTRA JESUS-BEN CONTAINER PERFORMABLE [[id number]] Order #: [id number] FUTURE EXTRA JESUS-BEN CONTAINER PERFORMABLE [[id number]] Order #: [id number]. #:[id number] STERILE CONTAINER PERFORMABLE [[id number]] Order #: [id number] FUTURE STERILE CONTAINER PERFORMABLE [[id number]] Order #: [id number]. #:[id number] Prescriptions as of 11/21/2024 - semaglutide (OZEMPIC) 1 mg/dose (4 mg/3 mL) pen Inject 1 mg subcutaneously one time a week. - rosuvastatin (CRESTOR) 5 mg tablet Take 0.5 tablets by mouth daily at bedtime. - carvedilol (COREG) 6.25 mg tablet Take 1 tablet by mouth two times a day. - apixaban (ELIQUIS) 5 mg tab(s) Take 1 tablet by mouth two times a day. 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] 03/05/2009 GERD (gastroesophageal reflux disease) [K21.9] 08/19/2010 Hypokalemia [E87.6] 07/04/2019 Adjustment disorder with anxious mood [F43.22] 12/13/2021 Adjustment insomnia [F51.02] 12/13/2021 Atrial fibrillation (HCC) [I48.91] 03/31/2022 Atrial flutter (HCC) [I48.92] 04/02/2022 Depression [F32.A] 04/02/2022 S/P MVR (mitral valve repair) [Z98.890] 04/02/2022 Encounter Status:Closed by LAUREN OCHOA on 11/04/24 [facility] CNOVon 10-03-2024 CNOV Office Visit (INTMWS ) ARON JORGE ([id number]) 1965 F Date Time Provider Department 10/03/24 9:00 AM MARVEL EDWARDS INTJosé MiguelWS During your visit today, we recorded the following information about you: Pulse Respiration Blood pressure Weight 90/minute 16/minute 147/90 81.1 kg Marvel Edwards MD 10/03/2024 9:37 AM Signed Reason for Visit Weight management HPI Aron is a 59-year-old female with a history of obesity and HTN, presenting for follow-up on weight management and blood pressure control. Aron is currently on Ozempic 0.5 mg for weight management and reports stabilization of her weight. She notes a side effect of occasional constipation, which she manages by increasing water intake. She also observes a decrease in appetite for the first 5 days after each injection, followed by an increase in hunger during the last 2 days of the week. To address this, she has been monitoring her diet more closely for the past 2 weeks, ensuring adequate protein intake in the morning and increasing vegetable consumption. She denies any other side effects from Ozempic. Aron is also on carvedilol for blood pressure management and reports home readings typically around 130 mmHg. She attributes any fluctuations to her stressful job and expresses a preference for medication management over lifestyle changes until she retires in approximately 5 years. Social History Tobacco Use Smoking status: Former Current packs/day: 0.00 Average packs/day: 1.5 packs/day for 6.0 years (9.0 ttl pk-yrs) Types: Cigarettes Start date: 11/08/1982 Quit date: 11/08/1988 Years since quittin.9 Smokeless tobacco: Never Vaping Use Vaping status: Never Used Substance Use Topics Alcohol use: Yes Comment: OCCASIONALLY Drug use: No Past medical history, appointments, medications, allergies reviewed. Pertinent Lab/Diagnostic Studies are reviewed and discussed today Current Outpatient Medications: carvedilol (COREG) 6.25 mg tablet rosuvastatin (CRESTOR) 5 mg tablet apixaban (ELIQUIS) 5 mg tab(s) amoxicillin (AMOXIL) 500 mg capsule semaglutide (OZEMPIC) 1 mg/dose (4 mg/3 mL) pen Health Maintenance Anxiety Screening HIV Screening Pneumococcal Vaccine: 50+(1 of 1 - PCV) BP Controlled (<130/80) Mammogram Screening@ Review Of Systems Gastrointestinal: (+) constipation Physical Exam BP 147/90 Pulse 90 Resp 16 Wt 81.1 kg (178 lb 12.8 oz) LMP 06/07/2011 SpO2 96% BMI 30.22 kg/m? GENERAL: NAD, alert and oriented. SKIN: Unremarkable, no rash or skin lesions. HEAD: Normocephalic. EYES: PERRLA, EOMI, conjunctiva clear. EARS: External ears normal, canals clear, TM's normal. NOSE/SINUSES: Nares normal. Septum midline. OROPHARYNX: Lips, mucosa, and tongue normal, good dentition. No oral lesions noted. NECK: Supple, no lymphadenopathy, normal thyroid, no carotid bruits. LUNGS: Clear to auscultation bilaterally, no wheezes/rhonchi/rales. HEART: Regular rate and rhythm, no murmurs. No ectopy. EXTREMITIES: Normal, no deformities, no skin discoloration, no edema. NEURO: Awake, alert and oriented x3, cranial nerves II-XII grossly intact, normal gait, no involuntary motions. Assessment and Plan 1. Essential hypertension, benign (I10) Blood pressure readings are slightly elevated today. Patient is currently on carvedilol for blood pressure management and reports home readings around 130 mmHg. Stress from work is a contributing factor. - Continue carvedilol. - Monitor blood pressure at home regularly. - Recheck blood pressure during next visit in 3 months. 2. Obesity (BMI 30.0-34.9) (E66.811) Currently on Ozempic 0.5 mg with stabilized weight. Reports mild constipation as a side effect. Patient has been monitoring diet, focusing on protein and vegetables. - Increase Ozempic to 1 mg. - Consider Metamucil for constipation management. - Follow-up in 3 months to assess weight and side effects. 3. Encounter for screening examination for other mental health and behavioral disorders (Z13.39) Voice recognition software was used to compose this office note. Please excuse any unintended typographical errors. Recording using [employer] software for draft documentation of the visit was discussed with the patient/authorized phlebotomy services representative; all questions welcomed and answered. Patient/authorized phlebotomy services representative agreed to proceed Marvel Diamond MD, MD 10/03/2024 9:29 AM Signed We discussed your weight management and use of Ozempic: - You are currently taking Ozempic 0.5 mg weekly. We decided to increase the dose to 1 mg weekly to support further weight loss. This prescription has been sent to your pharmacy for a 6-month supply. - You mentioned occasional constipation as a side effect. To help manage this, you can try increasing your water intake and consider using Metamucil if needed. (more content not included)... Normal [facility] Urgent Care Visit Reporton 0 08-25-2024 Urgent Care Visit Report [facility] [address], [address] [place] [address] OFFICE VISIT Date of Service: 08/25/24 MR#: [id number] Acct: [id number] Name: ARON JORGE Rep #: [id number] : 1965 Provider: RINA Avila Age/Sex: 59/F Location: [facility] Status: Signed Intake Vital Signs 09/16/22 13:35 08/25/24 09:45 Height 5 ft 4 in 5 ft 4 in Weight: 180 lb 6 oz BMI 30.9 BP 122/76 H Position Sitting Pulse 82 Temp 98.2 F Temp Source Oral Pulse Oximetry (%) 98 Oxygen Delivery Method room air Intake Visit Reasons: CONCERN FOR FLU Accompanied by: Self Allergies No Known Allergies Allergy (Verified 08/25/24 09:53) Medications ???Medication ???Instructions ???Recorded ???Confirmed ???Type apixaban 5 mg tablet (Eliquis) 5 mg PO BID #60 tabs 03/17/2212/14 Rx benzonatate 100 mg capsule 200 mg (2 x 100 mg) PO TID PRN PRN 08/25/24 08/25/24 Rx cough 4 days #18 caps carvedilol 6.25 mg tablet 6.25 mg PO BID 08/25/24 08/25/24 H istory rosuvastatin 5 mg tablet 2.5 mg PO QHS 08/25/24 08/25/24 Hi story Nurse's Note: Patient has slight fever, head is stuffed up, Candido ear pain and fatigue. Patient also has BA and coughing some with a RN. Patient states this started at the end of the weekend. [facility] Medical History (Updated 08/25/24 @ 10:02 by RINA Coon) Flu-like symptoms Atrial fibrillation, new onset Urinary tract infection with hematuria Heart disease HTN (hypertension) Simple endometrial hyperplasia without atypia Surgical History (Updated 09/16/22 @ 13:35 by Winifred Hendrickson) H/O cardiac radiofrequency ablation H/O dilation and curettage H/O foot surgery History of tonsillectomy H/O mitral valve repair Family History Mother Heart disease auto immune disease Grandfather Cancer stomach Grandmother Breast cancer Social History Smoking Status: Former smoker alcohol intake: current details: social substance use type: does not use caffeine: Yes frequency: 3-4 times per week seatbelt use: always do you feel safe at home: Yes additional social history: 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 ROS: As noted in HPI Physical Exam: VITALS: Reviewed. GEN: Healthy appearing, well-developed, NAD. PSYCH: AOx3. Normal memory, mood, and affect. HEENT -Eyes: -No discharge or redness; -Ears: -Mouth and throat: Moist mucous membranes. NECK: CV: Regular rate and rhythm LUNGS: Normal respiratory effort. Lungs clear bilaterally. SKIN: Warm, well perfused. No skin rashes or abnormal lesions noted. MSK: Normal gait. NEURO: Ambulating with no limitations. Normal muscle strength and tone. No focal deficits. Coding Level of Care Code Off vis,est,level 3 Diagnoses Flu-like symptoms R68.89 Assessment and Plan Assessment and Plan (1) Flu-like symptoms: Status: Acute Plan: Discussed with patient that symptoms seem most likely viral in origin, most likely influenza A. As symptoms have been ongoing for 5 days no testing was done at this time. Patient was given a prescription for Tessalon Perles and instructed that symptoms will probably last another 2-4 days. She will otherwise use OTC treatments as needed for symptomatic relief. 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 CNOVon 07-04-2024 CNOV Office Visit (INTMWS ) ARON JORGE ([id number]) 1965 F Date Time Provider Department 07/04/24 8:40 AM MARVEL EDWARDS During your visit today, we recorded the following information about you: Pulse Respiration Blood pressure Weight 87/minute 16/minute 130/80 81.2 kg Marvel Edwards MD 07/04/2024 9:12 AM Signed Reason for Visit Patient presents with: F/U HTN 3 Month: and weight loss rubén Jorge is a 58 year old female who presents here today for Above Complaints.. Health Maintenance Anxiety Screening Hepatitis C Screening HIV Screening BP Controlled (<130/80) Mammogram Screening Influenza Vaccine(1) Covid-19 Vaccine( season) HPI This is a 58-year-old woman with a past medical history of essential hypertension, atrial fibrillation, reflux, hypokalemia, migraine and insomnia. She has a history of hypertension and is currently taking metoprolol and hydrochlorothiazide. 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 She acknowledges the need to manage her stress better and is open to making lifestyle changes. She was changed to coreg 6.25 mgs, she felt a little dizzy initially but did not have too many issues on it later. She is doing fairly well. Her most recent laboratory work was in August, which revealed an LDL level of 169 mg/dL. She is not currently on any lipid-lowering medications but is open to starting treatment if necessary. She has gained weight over the past year and previously took Mounjaro for weight management but discontinued it due to insurance coverage issues. She exercises once a week, including swimming and cycling. She would like to get on the mounjaro for weight loss. 07/04/24: She was started on the Ozempic in March and has lost 5 pounds since then, her bp is better controlled, she feels much much better. Notes the food noise has stopped finally in her. Initially had somegi upset but now that is not a concern to her. No problem-specific Assessment AND Plan notes found for this encounter. PAST MEDICAL HISTORY Diagnosis Date Allergic rhinitis, cause unspecified Allergic rhinitis Atrial flutter (HCC) Dysphagia, unspecified(787.20) Essential hypertension, benign Migraine, unspecified, without mention of intractable migraine without mention of status migrainosus History of Migraines Mitral valve disorders(424.0) PAST SURGICAL HISTORY Procedure Laterality Date DELIVERY ONLY , low cervical COLONOSCOPY FLX DX W/COLLJ SPEC WHEN PFRMD 02/08/2018 Colonoscopy EGD TRANSORAL BIOPSY SINGLE/MULTIPLE 03/30/09 GASTROESOPHAG REFLX TEST W/TELEMTRY PH ELTRD 03/30/09 pyloritek negative HEART SURGERY HX HYSTEROSCOPY WBX WWO D AND C ANDOR POLYPECTOMY 01/20/2019 INSERTION OF IUD 06/10/2011 PAST SURGICAL HISTORY OF 1999 Mitral valve repair-1999 SCOPE, PLANTAR FASCIOTOMY 06/2012 THYROID LEFT FINE NEEDLE ASPIRATION 03/26/09 U/S FNA left lobe thyroid TONSILLECTOMY PRIMARY/SECONDARY Tonsillectomy FAMILY HISTORY Problem Relation Age of Onset Osteoporosis Mother Asthma Mother Heart Mother 71 Hypertension Father Social History Tobacco Use Smoking status: Former Current packs/day: 0.00 Average packs/day: 1.5 packs/day for 6.0 years (9.0 ttl pk-yrs) Types: Cigarettes Start date: 11/08/1982 Quit date: 11/08/1988 Years since quittin.6 Smokeless tobacco: Never Vaping Use Vaping status: Never Used Substance Use Topics Alcohol use: Yes Comment: OCCASIONALLY Drug use: No Past medical history, appointments, medications, allergies reviewed. Pertinent Lab/Diagnostic Studies are reviewed and discussed today Current Outpatient Medications: semaglutide (OZEMPIC) 0.25 mg or 0.5 mg (2 mg/3 mL) pen carvedilol (COREG) 6.25 mg tablet rosuvastatin (CRESTOR) 5 mg tablet apixaban (ELIQUIS) 5 mg tab(s) amoxicillin (AMOXIL) 500 mg capsule Review of Systems CONSTITUTIONAL: No fevers, chills night sweats, unintended weight loss CARDIOVASCULAR: No chest pain, dyspnea, palpitations, orthopnea, PND, ankle edema. PULM: No dyspnea, unexplained cough. GI: No dysphagia/odynophagia, problematic reflux, constipation, diarrhea, changes in stool habits, hematochezia, melena. : No new urinary complaints, including dysuria, gross hematuria or pyuria. NEURO: No new balance problems, peripheral weakness/paresthesias or numbness of concern. Physical Exam BP 130/80 Pulse 87 Resp 16 Wt 81.2 kg (179 lb) LMP 06/07/2011 SpO2 98% BMI 30.25 kg/m? General appearance: Well appearing, alert, in no acute distress, well nourished. Skin: Skin color, texture, turgor normal, no suspicious rashes or lesions Head: Normocephalic, no masses, lesions, tenderness or abnormalities Eyes: Anicteric sclera. Pupils are equally r (more content not included)... Normal [facility] CBC panel Auto (Bld)on 06-30 Erythrocyte distribution width (RBC) [Ratio] 11.9 % Normal 11.5-15.0 [facility] Comment on above: Order Comment: Speci men Type: BLOOD SPECIMENOrdering Facility: [facility] Address: [address] [place] [address] Performed By: #### 5 8410-2 ####[facility] [id number] [address] [place] Hematocrit (Bld) [Volume fraction] 39.8 % Normal 36.0-46.0 [facility] Comment on above: Order Comment: Speci men Type: BLOOD SPECIMENOrdering Facility: [facility] Address: [address] [place] [address] Performed By: #### 5 8410-2 ####[facility] [id number] [address] [place] Hemoglobin (Bld) [Mass/Vol] 13.5 g/dL Normal 11.5-15.5 [facility] Comment on above: Order Comment: Speci men Type: BLOOD SPECIMENOrdering Facility: [facility] Address: [address] [place] [address] Performed By: #### 5 8410-2 ####[facility] [id number] [place] [address] [place] MCH (RBC) [Entitic mass] 28.7 pg Normal 26.0-34.0 [facility] Comment on above: Order Comment: Speci men Type: BLOOD SPECIMENOrdering Facility: [facility] Address: [address] [place] [address] Performed By: #### 5 8410-2 ####[facility] NGUYEN [id number] [place] [address] [place] MCHC (RBC) [Mass/Vol] 33.9 g/dL Normal 30.5-36.0 [facility] Comment on above: Order Comment: Speci men Type: BLOOD SPECIMENOrdering Facility: [facility] Address: [address] [place] [address] Performed By: #### 5 8410-2 ####[facility] ORANGEJOSEPHINERickie [id number] [place] [address] [place] MCV (RBC) [Entitic vol] 84.7 fL Normal 80.0-100.0 [facility] Comment on above: Order Comment: Speci men Type: BLOOD SPECIMENOrdering Facility: [facility] Address: [address] [place] [address] Performed By: #### 5 8410-2 ####[facility] ORANGEJOSEPHINERickie [id number] [place] [address] [place] Nucleated RBC (Bld) [#/Vol] 10*3/uL Normal <0.01 [facility] Comment on above: Order Comment: Speci men Type: BLOOD SPECIMENOrdering Facility: [facility] Address: [address] [place] [address] Performed By: #### 5 8410-2 ####[facility] ORANGENCLIA [id number] [place] [address] [place] Platelet mean volume (Bld) [Entitic vol] 8.6 fL Low 9.0-12.7 [facility] Comment on above: Order Comment: Speci men Type: BLOOD SPECIMENOrdering Facility: [facility] Address: [address] [place] [address] Performed By: #### 5 8410-2 ####[facility] NICOLASAWNCLIA [id number] [place] [address] [place] Platelets (Bld) [#/Vol] 337 10*3/uL Normal 150-400 [facility] Comment on above: Order Comment: Speci men Type: BLOOD SPECIMENOrdering Facility: [facility] Address: [address] [place] [address] Performed By: #### 5 8410-2 ####[facility] ORANGENCLIA [id number] [place] [address] [place] RBC (Bld) [#/Vol] 4.70 10*6/uL Normal 3.90-5.20 [facility] Comment on above: Order Comment: Speci men Type: BLOOD SPECIMENOrdering Facility: [facility] Address: [address] [place] [address] Performed By: #### 5 8410-2 ####[facility] ORANGENCLIA [id number] [place] [address] [place] WBC (Bld) [#/Vol] 6.81 10*3/uL Normal 3.70-11.00 [facility] Comment on above: Order Comment: Speci men Type: BLOOD SPECIMENOrdering Facility: [facility] Address: [address] [place] [address] Performed By: #### 5 8410-2 ####[facility] ORANGENCLIA [id number] [place] [address] [place] Comprehensive metabolic 2000 panelon 06-30-2024 Albumin [Mass/Vol] 4.7 g/dL Normal 3.9-4.9 [facility] Comment on above: Order Comment: Speci men Type: BLOOD SPECIMENOrdering Facility: [facility] Address: [address] [place] [address] Performed By: #### 2 4323-8 ####[facility] ORANGEJOSEPHINELIA [id number] [place] [address] [place] ALP [Catalytic activity/Vol] 86 U/L Normal 34-123 [facility] Comment on above: Order Comment: Speci men Type: BLOOD SPECIMENOrdering Facility: [facility] Address: [address] [place] [address] Performed By: #### 2 4323-8 ####[facility] SYSTEMSWNCLIA [id number] [place] [address] [place] ALT [Catalytic activity/Vol] 22 U/L Normal 7-38 [facility] [facility] Comment on above: Order Comment: Speci men Type: BLOOD SPECIMENOrdering Facility: [facility] Address: [address] [place] [address] Performed By: #### 2 4323-8 ####[facility] ORANGENCLIA [id number] [place] [address] [place] Anion gap [Moles/Vol] 10 mmol/L Normal 8-15 [facility] Comment on above: Order Comment: Speci men Type: BLOOD SPECIMENOrdering Facility: [facility] Address: [address] [place] [address] Performed By: #### 2 4323-8 ####[facility] ORANGENCLIA [id number] [place] [address] [place] AST [Catalytic activity/Vol] 17 U/L Normal 13-35 [facility] Comment on above: Order Comment: Speci men Type: BLOOD SPECIMENOrdering Facility: [facility] Address: [address] [place] [address] Performed By: #### 2 4323-8 ####[facility] ORANGENCLIA [id number] [place] [address] [place] Bilirubin [Mass/Vol] 0.3 mg/dL Normal 0.2-1.3 [facility] Comment on above: Order Comment: Speci men Type: BLOOD SPECIMENOrdering Facility: [facility] Address: [address] [place], [place] [id number] Performed By: #### 2 4323-8 ####[facility] HOMAWNCLIA [id number] [place] [address] [place] Calcium [Mass/Vol] 9.9 mg/dL Normal 8.5-10.2 [facility] Comment on above: Order Comment: Speci men Type: BLOOD SPECIMENOrdering Facility: [facility] Address: [address] [place] [address] Performed By: #### 2 4323-8 ####[facility] ORANGENCLIA [id number] [place] [address] [place] Chloride [Moles/Vol] 103 mmol/L Normal 98-107 [facility] Comment on above: Order Comment: Speci men Type: BLOOD SPECIMENOrdering Facility: [facility] Address: [address] [place] [address] Performed By: #### 2 4323-8 ####[facility] ORANGENCLIA [id number] [place] [address] [place] CO2 [Moles/Vol] 25 mmol/L Normal 22-30 [facility] Comment on above: Order Comment: Speci men Type: BLOOD SPECIMENOrdering Facility: [facility] Address: [address] [place] [address] Performed By: #### 2 4323-8 ####[facility] SYSTEMSWNCLIA [id number] [place] [address] [place] Creatinine [Mass/Vol] 0.73 mg/dL Normal 0.58-0.96 [facility] Comment on above: Order Comment: Speci men Type: BLOOD SPECIMENOrdering Facility: [facility] Address: [address] [place] [address] Performed By: #### 2 4323-8 ####[facility] [id number] [place] [address] [place] Creatinine and Glomerular filtration rate.predicted panel (S/P/Bld) 96 mL/min/1.73m??? Normal >=60 [facility] Comment on above: Order Comment: Kiersten hines Type: BLOOD SPECIMENOrdering Facility: [facility] Address: [address] [place] [address] Result Comment: Shaunna mated Glomerular Filtration Rate (eGFR) is calculated using the 2020 CKD-EPI creatinine equation. This equation utilizes serum creatinine, sex, and age as parameters. The creatinine assay has traceable calibration to isotope dilution-mass spectrometry. Refer to KDIGO guidelines for clinical interpretation. In patients with unstable renal function, e.g. those with acute kidney injury, the eGFR may not accurately reflect actual GFR. Performed By: #### 2 4323-8 ####[facility] [id number] [place] [address] [place] Glucose [Mass/Vol] 101 mg/dL High 74-99 [facility] Comment on above: Order Comment: Kiersten hines Type: BLOOD SPECIMENOrdering Facility: [facility] Address: [address] [place] [address] Result Comment: The [place] Diabetes [employer] (ADA) provides guidance for cutoff values for fasting glucose and random glucose. The ADA defines fasting as no caloric intake for at least 8 hours. Fasting plasma glucose results between 100 to 125 mg/dL indicate increased risk for diabetes (prediabetes). Fasting plasma glucose results greater than or equal to 126 mg/dL meet the criteria for diagnosis of diabetes. In the absence of unequivocal hyperglycemia, results should be confirmed by repeat testing. In a patient with classic symptoms of hyperglycemia or hyperglycemic crisis, random plasma glucose results greater than or equal to 200 mg/dL meet the criteria for diagnosis of diabetes. Reference: Standards of Medical Care in Diabetes 2016, [place] [employer]. Diabetes Care. 2016.39(Suppl 1). Performed By: #### 2 4323-8 ####[facility] [id number] [place] [id number] [place] Potassium [Moles/Vol] 4.3 mmol/L Normal 3.7-5.1 [facility] Comment on above: Order Comment: Speci men Type: BLOOD SPECIMENOrdering Facility: [facility] Address: [address] [place] [address] Performed By: #### 2 4323-8 ####[facility] ORANGENCMIKAYLAA [id number] [place] [address] [place] Protein [Mass/Vol] 7.5 g/dL Normal 6.3-8.0 [facility] Comment on above: Order Comment: Speci men Type: BLOOD SPECIMENOrdering Facility: [facility] Address: [address] [place] [address] Performed By: #### 2 4323-8 ####[facility] ORANGENCLIA [id number] [place] [address] [place] Sodium [Moles/Vol] 138 mmol/L Normal 136-144 [facility] Comment on above: Order Comment: Speci men Type: BLOOD SPECIMENOrdering Facility: [facility] Address: [address] [place] [address] Performed By: #### 2 4323-8 ####[facility] ORANGENCLIA [id number] [place] [address] [place] Urea nitrogen [Mass/Vol] 12 mg/dL Normal 7-21 [facility] Comment on above: Order Comment: Speci men Type: BLOOD SPECIMENOrdering Facility: [facility] Address: [address] [place] [address] Performed By: #### 2 4323-8 ####[facility] ORANGENCLIA [id number] [place] [address] [place] HCV Ab Ser Qlon 06-30-2024 HCV Ab Ql (S) Negative Normal Negative [facility] Comment on above: Order Comment: Speci men Type: BLOOD SPECIMENOrdering Facility: [facility] Address: [address] [place] [address] Result Comment: The result suggests no evidence of active infection with Hepatitis C virus. Should recent infection be suspected, repeat testing may be considered 4-6 weeks after this draw. Performed By: #### 1 6128-1 ####[facility] LABCLIA [id number] [place] [address] [place] Lipid 1996 panelon 5 Cholesterol [Mass/Vol] 155 mg/dL Normal <200 [facility] Comment on above: Order Comment: Speci men Type: BLOOD SPECIMENOrdering Facility: [facility] Address: [address] [place] [address] Result Comment: <200 mg/dL, Desirable 200-239 mg/dL, Borderline high >239 mg/dL, High Performed By: #### 2 4331-1 ####[facility] LABCLIA [id number] [address] [id number] [place] [address] [place] Cholesterol in HDL [Mass/Vol] 52 mg/dL Normal >39 [facility] Comment on above: Order Comment: Speci men Type: BLOOD SPECIMENOrdering Facility: [facility] Address: [address] [place] [address] Result Comment: 40-5 9 mg/dL, Acceptable >59 mg/dL, High: Negative risk factor for coronary heart disease <40 mg/dL, Low: Positive risk factor for coronary heart disease Performed By: #### 2 4331-1 ####[facility] LABCLIA [id number] [address] [id number] [address] Cholesterol in LDL [Mass/Vol] 75 mg/dL Normal <100 [facility] Comment on above: Order Comment: Speci men Type: BLOOD SPECIMENOrdering Facility: [facility] Address: [address] [place] [address] Result Comment: <100 mg/dL, Optimal 100-129 mg/dL, Near optimal/above optimal 130-159 mg/dL, Borderline high 160-189 mg/dL, High >189 mg/dL, Very high Secondary prevention optimal LDL Cholesterol levels are recommended to be < 70 mg/dL Performed By: #### 2 4331-1 ####[facility] LABCLIA [id number] [address] [id number] [place] [address] [place] Cholesterol in LDL/Cholesterol in HDL [Mass ratio] 1.44 {ratio} Normal <2.54 [facility] Comment on above: Order Comment: Lennyi men Type: BLOOD SPECIMENOrdering Facility: [facility] Address: [address] [place] [address] Result Comment: Refe rence: 1. National Cholesterol Education Program ATP III Guideline At-A-Glance Quick Desk Reference: National Heart, Lung, and Blood Luke. National Institutes of Health. 2001: NIH Publication No. 01-3305. 2. An International Atherosclerosis Society position paper: global recommendations for the management of dyslipidemia: executive summary, Atherosclerosis. 2014: 232(2):410-413. Performed By: #### 2 4331-1 ####[facility] LABCLIA [id number] [address] [id number] [place] [address] [place] Cholesterol in VLDL [Mass/Vol] 28 mg/dL Normal <30 [facility] Comment on above: Order Comment: Lennyi men Type: BLOOD SPECIMENOrdering Facility: [facility] Address: [address] [place] [address] Performed By: #### 2 4331-1 ####[facility] LABCLIA [id number] [address] [id number] [address] [facility] Cholesterol non HDL [Mass/Vol] 103 mg/dL Normal <130 [facility] Comment on above: Order Comment: Speci men Type: BLOOD SPECIMENOrdering Facility: [facility] Address: [address] [place] [address] Result Comment: <130 mg/dL, Optimal 130-159 mg/dL, Near optimal/above optimal 160-189 mg/dL, Borderline high 190-219 mg/dL, High >219 mg/dL, Very high Secondary prevention optimal non HDL Cholesterol levels are recommended to be <100 mg/dL Performed By: #### 2 4331-1 ####[facility]CL[facility] [id number] [address] [id number] [place] [address] [place] Cholesterol.total/Cho lesterol in HDL [Mass ratio] 2.98 {ratio} Normal <5.10 [facility] Comment on above: Order Comment: Speci men Type: BLOOD SPECIMENOrdering Facility: [facility] Address: [address] [place] [address] Performed By: #### 2 4331-1 ####[facility] LABCLIA [id number] [address] [id number] [place] [address] [place] FASTING TIME 12 hrs Normal [facility] Comment on above: Order Comment: Speci men Type: BLOOD SPECIMENOrdering Facility: [facility] Address: [address] [place] [address] Performed By: #### 2 4331-1 ####[facility] LABCLIA [id number] [address] [address] [facility] [id number] [address] [place] Triglyceride [Mass/Vol] 139 mg/dL Normal <150 [facility] Comment on above: Order Comment: Speci men Type: BLOOD SPECIMENOrdering Facility: [facility] Address: [facility] [place] [address] Result Comment: <150 mg/dL, Normal 150-199 mg/dL, Borderline high 200-499 mg/dL, High >499 mg/dL, Very high Performed By: #### 2 4331-1 ####[facility] LABCLIA [id number] [address] [id number] [place] [address] [place] Lipid 1996 panelon 4 Cholesterol [Mass/Vol] 262 mg/dL High NINF - 200 mg/dL [facility] Comment on above: <200 mg/dL, Desirabl e 200-239 mg/dL, Borderline high >239 mg/dL, High Cholesterol in HDL [Mass/Vol] 51 mg/dL 39 - PINF mg/dL [facility] Comment on above: 40-59 mg/dL, Accepta ble >59 mg/dL, High: Negative risk factor for coronary heart disease <40 mg/dL, Low: Positive risk factor for coronary heart disease Cholesterol in LDL [Mass/Vol] 180 mg/dL High NINF - 100 mg/dL [facility] Comment on above: <100 mg/dL, Optimal 100-129 mg/dL, Near optimal/above optimal 130-159 mg/dL, Borderline high 160-189 mg/dL, High >189 mg/dL, Very high Secondary prevention optimal LDL Cholesterol levels are recommended to be < 70 mg/dL Cholesterol in LDL/Cholesterol in HDL [Mass ratio] 3.53 {ratio} High NINF - 2.[address] [facility] Comment on above: Reference: 1. National Cholesterol Education Program ATP III Guideline At-A-Glance Quick Desk Reference: National Heart, Lung, and Blood Luke. National Institutes of Health. 2001: [facility] Publication No. 01-3305. 2. An International Atherosclerosis Society position paper: global recommendations for the management of dyslipidemia: executive summary, Atherosclerosis. 2014: 232(2):410-413. Cholesterol in VLDL [Mass/Vol] 31 mg/dL High NINF - 30 mg/dL [facility] Cholesterol non HDL [Mass/Vol] 211 mg/dL High NINF - 130 mg/dL [facility] Comment on above: <130 mg/dL, Optimal 130-159 mg/dL, Near optimal/above optimal 160-189 mg/dL, Borderline high 190-219 mg/dL, High >219 mg/dL, Very high Secondary prevention optimal non HDL Cholesterol levels are recommended to be <100 mg/dL Cholesterol.total/Cho lesterol in HDL [Mass ratio] 5.14 {ratio} High NINF - 5.[address] [facility] Fasting Time [address] [facility] Interpretation and review of laboratory results Abnormal [facility] Triglyceride [Mass/Vol] 157 mg/dL High NINF - 150 mg/dL [facility] Comment on above: <150 mg/dL, Normal 150-199 mg/dL, Borderline high 200-499 mg/dL, High >499 mg/dL, Very high [facility] CBC W Auto Differential pane l (Bld)on 01-27-2023 Basophils (Bld) [#/Vol] 0.03 10*3/uL <0.11 k/uL [facility] Basophils/100 WBC (Bld) 0.4 % [facility] Differential cell count method Nom (Bld) Auto [facility] Eosinophils (Bld) [#/Vol] 0.12 10*3/uL <0.46 k/uL [facility] Eosinophils/100 WBC (Bld) 1.6 % [facility] Erythrocyte distribution width (RBC) [Ratio] 12.4 % 11.5 - 15.0 % [facility] Hematocrit (Bld) [Volume fraction] 39.3 % 36.0 - 46.0 % [facility] Hemoglobin (Bld) [Mass/Vol] 13.5 g/dL 11.5 - 15.5 g/dL [facility] Immature granulocytes (Bld) [#/Vol] 0.04 10*3/uL <0.10 k/uL [facility] Immature granulocytes/100 WBC (Bld) 0.5 % [facility] Lymphocytes (Bld) [#/Vol] 1.01 10*3/uL 1.00 - 4.00 k/uL [facility] Lymphocytes/100 WBC (Bld) 13.3 % [facility] MCH (RBC) [Entitic mass] 29.2 pg 26.0 - 34.[address] [facility] MCHC (RBC) [Mass/Vol] 34.4 g/dL 30.5 - 36.0 g/dL [facility] MCV (RBC) [Entitic vol] 84.9 fL 80.0 - 100.[address] [facility] Monocytes (Bld) [#/Vol] 0.55 10*3/uL <0.87 k/uL [facility] Monocytes/100 WBC (Bld) 7.3 % [facility] Neutrophils (Bld) [#/Vol] 5.82 10*3/uL 1.45 - 7.50 k/uL [facility] Neutrophils/100 WBC (Bld) 76.9 % [facility] Nucleated RBC (Bld) [#/Vol] <0.01 k/uL [facility] Nucleated RBC/100 WBC (Bld) [Ratio] 0.0 /[address] [facility] Platelet mean volume (Bld) [Entitic vol] 9.1 fL 9.0 - 12.[address] [facility] Platelets (Bld) [#/Vol] 305 10*3/uL 150 - 400 k/uL [facility] RBC (Bld) [#/Vol] 4.63 10*6/uL 3.90 - 5.2 0 m/uL [facility] WBC (Bld) [#/Vol] 7.57 10*3/uL 3.70 - 11. 00 k/uL [facility] Comprehensive metabolic 2000 panelon 01-27-2023 Albumin [Mass/Vol] 4.7 g/dL 3.9 - 4.9 g/dL [facility] ALP [Catalytic activity/Vol] 112 U/L 34 - 123 U/L [facility] ALT [Catalytic activity/Vol] 20 U/L 7 - 38 U/L [facility] Anion gap [Moles/Vol] 12 mmol/L 9 - 18 mmol/L [facility] AST [Catalytic activity/Vol] 23 U/L 13 - 35 U/L [facility] Bilirubin [Mass/Vol] 0.4 mg/dL 0.2 - 1 .3 mg/dL [facility] Calcium [Mass/Vol] 9.9 mg/dL 8.5 - 10. 2 mg/dL [facility] Chloride [Moles/Vol] 102 mmol/L 97 - 10 5 mmol/L [facility] CO2 [Moles/Vol] 24 mmol/L 22 - 30 mmol/L [facility] Creatinine [Mass/Vol] 0.74 mg/dL 0.58 - 0.96 mg/dL [facility] Estimated Glomerular Filtration Rate 95 mL/min/1.73m >=60 mL/min/1.73m [facility] Glucose [Mass/Vol] 91 mg/dL 74 - 99 mg/dL [facility] Potassium [Moles/Vol] 4.5 mmol/L 3.7 - 5.1 mmol/L [facility] Protein [Mass/Vol] 7.9 g/dL 6.3 - 8.0 g/dL [facility] Sodium [Moles/Vol] 138 mmol/L 136 - 144 mmol/L [facility] Urea nitrogen [Mass/Vol] 10 mg/dL 7 - 21 mg/dL [facility] Lipid 1996 panelon 3 Cholesterol [Mass/Vol] 262 mg/dL High <200 mg/dL [facility] Cholesterol in HDL [Mass/Vol] 53 mg/dL >39 mg/dL [facility] Cholesterol in LDL [Mass/Vol] 169 mg/dL High <100 mg/dL [facility] Cholesterol in LDL/Cholesterol in HDL [Mass ratio] 3.19 {ratio} High <2.[address] [facility] Cholesterol in VLDL [Mass/Vol] 40 mg/dL High <30 mg/dL [facility] Cholesterol non HDL [Mass/Vol] 209 mg/dL High <130 mg/dL [facility] Cholesterol.total/Cho lesterol in HDL [Mass ratio] 4.94 {ratio} <5.[address] [facility] Fasting Time [address] [facility] Triglyceride [Mass/Vol] 202 mg/dL High <150 mg/dL [facility] TSH BLDon 01-27-2023 TSH Qn 1.110 m[IU]/L 0.270 - 4.200 mIU/L [facility] No Panel Informationon 03-[address] [facility] Absolute lymphocyte counton 03-17-2022 Lymphocytes Auto (Unsp spec) [#/Vol] 1.54 10*3/uL 0.83-4.51 [facility] Work Phone: Basophil percentageon 2021 Basophils/100 WBC (Bld) 0.6 % 0-1 [facility] Work Phone: Chloride [Moles/Vol] 106 mmol/L 98-107 [facility] Work [facility]: [phone] Eosinophils/100 WBC (Bld) 4.2 % 0-5 [facility] Work Phone: Glucose [Mass/Vol] 99 mg/dL 74-106 [facility] Work Phone: [phone] Neutrophils (Bld) [#/Vol] 3.7 10*3/uL 2.0-7.7 [facility] Work Phone: [phone] Neutrophils/100 WBC (Bld) 60.8 % 47-70 [facility] Work Phone: [phone] Potassium [Moles/Vol] 3.9 mmol/L 3.5-5.1 [facility] Work Phone: [phone] Sodium [Moles/Vol] 141 mmol/L 136-145 [facility] Work Phone: [phone] WBC (Bld) [#/Vol] 6.2 10*3/uL 4.4-11.0 [facility] Work Phone: [phone] Blood erythrocytes count (nu mber/volume)on 03-17-2022 RBC (Bld) [#/Vol] 4.57 10*6/uL 4.2-5.4 [facility] Work Phone: [phone] Blood hemoglobin measurement (mass/volume)on 03-17-2022 Hemoglobin (Bld) [Mass/Vol] 13.2 g/dL 12.0-15.0 [facility] Work Phone: [phone] Blood lymphocytes/100 leukoc yteson 03-17-2022 Lymphocytes/100 WBC (Bld) 25.0 % 19-41 [facility] Work Phone: [phone] Blood monocytes/100 leukocyt eson 03-17-2022 Monocytes/100 WBC (Bld) 9.1 % 0-10 [facility] Work Phone: Blood platelet mean volumeon 03-17-2022 Platelet mean volume (Bld) [Entitic vol] 8.7 fL 6.2-12.0 [facility] Work Phone: Determination of erythrocyte mean corpuscular volume (MCV)on 03-17-2022 MCV (RBC) [Entitic vol] 84.9 fL 81-99 [facility] Work Phone: Hematocrit Auto (Bld) [Volum e fraction]on 03-17-2022 Hematocrit (Bld) [Volume fraction] 38.8 % 37-47 [facility] Work Phone: Laboratory - Chemistry and C hemistry - challengeon 03-17-2022 CO2 [Moles/Vol] 26.0 mmol/L 21.0-32.0 [facility] Work Phone: Urea nitrogen/Creatinine [Mass ratio] 20.2 mg/mg 10-20 [facility] Work Phone: Laboratory - Hematology and Cell countson 03-17-2022 Erythrocyte distribution width (RBC) [Entitic vol] 36.9 fL 35.1-43.9 [facility] Work Phone: Erythrocyte distribution width (RBC) [Ratio] 12.1 % 11.6-14.6 [facility] Work Phone: Immature granulocytes/100 WBC (Bld) 0.300 % 0.0-0.9 [facility] Work Phone: Comment on above: IG% - Immature Granu locytes (promyelocytes, myelocytes and metamyelocytes) > 1% indicates that a LEFT SHIFT is Present. MCH (RBC) [Entitic mass] 28.9 pg 27.0-32.0 [facility] Work Phone: Nucleated RBC/100 WBC (Bld) [Ratio] 0 % 0-5 [facility] Work Phone: MCHC Auto (RBC) [Mass/Vol]on 03-17-2022 MCHC (RBC) [Mass/Vol] 34.0 g/dL 32-36 [facility] Work Phone: No Panel Informationon 03-17 Estimated Creatinine Clearance Calc 69.48 ml/min [facility] Work Phone: Estimated GFR (MDRD) Amer 96 mL/min >60 [facility] Work Phone: Comment on above: GFR Calc Estimated GFR (MDRD) Non-Af Amer 80 mL/min >60 [facility] Work Phone: Comment on above: Non- GFR Calc Platelets bldon 03-17-2022 Platelets (Bld) [#/Vol] 307 10*3/uL 150-450 [facility] Work Phone: Serum or plasma calcium renny urement (mass/volume)on 03-17-2022 Calcium [Mass/Vol] 9.1 mg/dL 8.5-10.1 [facility] Work Phone: Serum or plasma creatinine m easurement (mass/volume)on 03-17-2022 Creatinine [Mass/Vol] 0.79 mg/dL 0.55-1.02 [facility] Work Phone: Comment on above: The validity of the calculated GFR & GFRAA in patients over 70 years has not been determined. Clinical correlation is essential. Serum or plasma urea nitroge n measurement (mass/volume)on 03-17-2022 Urea nitrogen [Mass/Vol] 16 mg/dL 7-18 [facility] Work Phone: Thin prep Papanicolaou smear with manual screeningon 03-17-2022 Thin prep Papanicolaou smear with manual screening 9 5-15 [facility] Work Phone: Absolute lymphocyte counton 03-15-2022 Lymphocytes Auto (Unsp spec) [#/Vol] 2.97 10*3/uL 0.83-4.51 [facility] Work Phone: Basophil percentageon 2021 Basophils/100 WBC (Bld) 0.5 % 0-1 [facility] Work Phone: [phone] Bilirubin [Mass/Vol] 0.50 mg/dL 0.20-1.[address] [facility] Work Phone: [phone] Comment on above: For patients on eltr ombopag therapy, use of [facility] TBIL is not recommended. Chloride [Moles/Vol] 106 mmol/L 98-[address] [facility] Work Phone: [phone] Eosinophils/100 WBC (Bld) 3.2 % 0-5 [facility] Work Phone: [phone] Glucose [Mass/Vol] 111 mg/dL 74-106 [facility] Work Phone: Comment on above: Fasting Glucose resu lt from 100 to 125 mg/dL suggests IMPAIRED HOMEOSTASIS per A.D.A. criteria. Neutrophils (Bld) [#/Vol] 3.8 10*3/uL 2.0-7.7 [facility] Work Phone: Neutrophils/100 WBC (Bld) 49.1 % 47-70 [facility] Work Phone: [phone] Potassium [Moles/Vol] 3.4 mmol/L 3.5-5.1 [facility] Work Phone: Protein [Mass/Vol] 8.1 g/dL 6.4-8.2 [facility] Work Phone: [phone] Sodium [Moles/Vol] 142 mmol/L 136-145 [facility] Work Phone: [phone] WBC (Bld) [#/Vol] 7.8 10*3/uL 4.4-11.0 [facility] Work Phone: Blood erythrocytes count (nu mber/volume)on 03-15-2022 RBC (Bld) [#/Vol] 5.12 10*6/uL 4.2-5.4 [facility] Work Phone: Blood hemoglobin measurement (mass/volume)on 03-15-2022 Hemoglobin (Bld) [Mass/Vol] 15.4 g/dL 12.0-15.0 [facility] Work Phone: Blood lymphocytes/100 leukoc yteson 03-15-2022 Lymphocytes/100 WBC (Bld) 38.3 % 19-41 [facility] Work Phone: Blood monocytes/100 leukocyt eson 03-15-2022 Monocytes/100 WBC (Bld) 8.6 % 0-10 [facility] Work Phone: Blood platelet mean volumeon 03-15-2022 Platelet mean volume (Bld) [Entitic vol] 9.1 fL 6.2-12.0 [facility] Work Phone: Determination of erythrocyte mean corpuscular volume (MCV)on 03-15-2022 MCV (RBC) [Entitic vol] 85.4 fL 81-99 [facility] Work Phone: Hematocrit Auto (Bld) [Volum e fraction]on 03-15-2022 Hematocrit (Bld) [Volume fraction] 43.7 % 37-47 [facility] Work Phone: Laboratory - Chemistry and C hemistry - challengeon 03-15-2022 ALP [Catalytic activity/Vol] 87 U/L 45-117 [facility] Work Phone: ALT [Catalytic activity/Vol] 32 U/L 13-56 [facility] Work Phone: CO2 [Moles/Vol] 27.0 mmol/L 21.0-32.0 [facility] Work Phone: Globulin (S) [Mass/Vol] 4.0 g/dL 2.2-4.2 [facility] Work Phone: Magnesium [Mass/Vol] 2.0 mg/dL 1.6-2.[address] [facility] Work Phone: Urea nitrogen/Creatinine [Mass ratio] 18.9 mg/mg 10-20 [facility] Work Phone: Laboratory - Hematology and Cell countson 03-15-2022 Erythrocyte distribution width (RBC) [Entitic vol] 38.2 fL 35.1-43.9 [facility] Work Phone: Erythrocyte distribution width (RBC) [Ratio] 12.2 % 11.6-14.6 [facility] Work Phone: Immature granulocytes/100 WBC (Bld) 0.300 % 0.0-0.9 [facility] Work Phone: Comment on above: IG% - Immature Granu locytes (promyelocytes, myelocytes and metamyelocytes) > 1% indicates that a LEFT SHIFT is Present. MCH (RBC) [Entitic mass] 30.1 pg 27.0-32.0 [facility] Work Phone: Nucleated RBC/100 WBC (Bld) [Ratio] 0 % 0-5 [facility] Work Phone: MCHC Auto (RBC) [Mass/Vol]on 03-15-2022 MCHC (RBC) [Mass/Vol] 35.2 g/dL 32-36 [facility] Work Phone: No Panel Informationon 03-15 Troponin I High Sensitivity 15 pg/mL 3.0-54.0 [facility] Work Phone: Comment on above: Please Note: New Mabel t Units and Gender Specific Reference Ranges. For more information see Policy Stat Procedure [facility] High Sensitivity Troponin (TNIH) and attachments. Estimated Creatinine Clearance Calc 57.78 ml/min [facility] Work Phone: Estimated GFR (MDRD) Amer 78 mL/min >60 [facility] Work Phone: Comment on above: GFR Calc Estimated GFR (MDRD) Non-Af Amer 65 mL/min >60 [facility] Work Phone: Comment on above: Non- GFR Calc Thyroid Stimulating Hormone (TSH) 0.77 uIU/mL 0.358-3.74 [facility] Work Phone: Troponin I High Sensitivity 12 pg/mL 3.0-54.0 [facility] Work Phone: Comment on above: Please Note: New Mabel t Units and Gender Specific Reference Ranges. For more information see Policy Stat Procedure [facility] High Sensitivity Troponin (TNIH) and attachments. Platelets bldon 03-15-2022 Platelets (Bld) [#/Vol] 421 10*3/uL 150-450 [facility] Work Phone: Serum or plasma albumin renny urement (mass/volume)on 03-15-2022 Albumin [Mass/Vol] 4.1 g/dL 3.2-5.0 [facility] Work Phone: Serum or plasma albumin/glob ulin mass ratioon 03-15-2022 Albumin/Globulin [Mass ratio] 1.0 {ratio} 0.9-2.4 [facility] Work Phone: Serum or plasma calcium renny urement (mass/volume)on 03-15-2022 Calcium [Mass/Vol] 9.7 mg/dL 8.5-10.1 [facility] Work Phone: Serum or plasma creatinine m easurement (mass/volume)on 03-15-2022 Creatinine [Mass/Vol] 0.95 mg/dL 0.55-1.02 [facility] Work Phone: Comment on above: The validity of the calculated GFR & GFRAA in patients over 70 years has not been determined. Clinical correlation is essential. Serum or plasma urea nitroge n measurement (mass/volume)on 03-15-2022 Urea nitrogen [Mass/Vol] 18 mg/dL 7-18 [facility] Work Phone: Thin prep Papanicolaou smear with manual screeningon 03-15-2022 Thin prep Papanicolaou smear with manual screening 16 U/L 15-37 [facility] Work Phone: Thin prep Papanicolaou smear with manual screening 9 5-15 [facility] Work Phone: Vital Signs Date Time Vital Sign Value Performing Clinician Facility 11-23-2024 07:59-0400 Body height 163.8 cm Marvel Edwards MD Work Phone: [facility] 11-23-2024 07:59-0400 Body mass index (BMI) [Ratio] 29.17 kg/m2 Marvel Edwarsd MD Work Phone: [facility] 11-23-2024 07:59-0400 Body weight 78.29 kg Marvel Edwards MD Work Phone: [facility] 11-23-2024 07:59-0400 Diastolic blood pressure 82 mm[Hg] Marvel Edwards MD Work Phone: [facility] 11-23-2024 07:59-0400 Heart rate 98 /min Marvel Edwards MD Work Phone: [facility] 11-23-2024 07:59-0400 SaO2% (BldA) [Mass fraction] 98 % Marvel Edwards MD Work Phone: [facility] 11-23-2024 07:59-0400 Systolic blood pressure 135 mm[Hg] Marvel Edwards MD Work Phone: [facility] 10-03-2024 09:05-0400 Diastolic blood pressure 90 mm[Hg] Marvel Edwards MD Work Phone: [facility] 10-03-2024 09:05-0400 Heart rate 90 /min Marvel Edwards MD Work Phone: [facility] 10-03-2024 09:05-0400 Systolic blood pressure 147 mm[Hg] Marvel Edwards MD Work Phone: [facility] 10-03-2024 09:04-0400 Body mass index (BMI) [Ratio] 30.22 kg/m2 Marvel Edwards MD Work Phone: [facility] 10-03-2024 09:04-0400 Body weight 81.1 kg Marvel Edwards MD Work Phone: [facility] 10-03-2024 09:04-0400 Respiratory rate 16 /min Marvel Edwards MD Work Phone: [facility] 10-03-2024 09:04-0400 SaO2% (BldA) [Mass fraction] 96 % Marvel Edwards MD Work Phone: [facility] 07-04-2024 08:40-0500 Body mass index (BMI) [Ratio] 30.25 kg/m2 Marvel Edwards MD Work Phone: [facility] 07-04-2024 08:40-0500 Body weight 81.19 kg Marvel Edwards MD Work Phone: [facility] 07-04-2024 08:40-0500 Diastolic blood pressure 80 mm[Hg] Marvel Edwards MD Work Phone: [facility] 07-04-2024 08:40-0500 Heart rate 87 /min Marvel Edwards MD Work Phone: [facility] 07-04-2024 08:40-0500 Respiratory rate 16 /min Marvel Edwards MD Work Phone: [facility] 07-04-2024 08:40-0500 SaO2% (BldA) [Mass fraction] 98 % Marvel Edwards MD Work Phone: [facility] 07-04-2024 08:40-0500 Systolic blood pressure 130 mm[Hg] Marvel Edwards MD Work Phone: [facility] 03-28-2024 08:31-0400 Body height 163.8 cm Marvel Edwards MD Work Phone: [facility] 03-28-2024 08:31-0400 Body mass index (BMI) [Ratio] 31.6 kg/m2 Marvel Edwards MD Work Phone: [facility] 03-28-2024 08:31-0400 Body weight 84.82 kg Marvel Edwards MD Work Phone: [facility] 03-28-2024 08:31-0400 Diastolic blood pressure 80 mm[Hg] Marvel Edwards MD Work Phone: [facility] 03-28-2024 08:31-0400 Heart rate 76 /min Marvel Edwards MD Work Phone: [facility] 03-28-2024 08:31-0400 Respiratory rate 16 /min Marvel Edwards MD Work Phone: [facility] 03-28-2024 08:31-0400 Systolic blood pressure 134 mm[Hg] Marvel Edwards MD Work Phone: [facility] 03-03-2024 10:37-0400 Diastolic blood pressure 105 mm[Hg] Wilber Serrato MD Work Phone: [facility] Comment on above: hi 03-03-2024 10:37-0400 Heart rate 81 /min Wilber Serrato MD Work Phone: [facility] 03-03-2024 10:37-0400 Systolic blood pressure 160 mm[Hg] Wilber Serrato MD Work Phone: [facility] Comment on above: hi 03-03-2024 10:31-0400 Body height 163.8 cm Wilber Serrato MD Work Phone: [facility] 03-03-2024 10:31-0400 Body mass index (BMI) [Ratio] 30.42 kg/m2 Wilber Serrato MD Work Phone: [facility] 03-03-2024 10:31-0400 Body weight 81.65 kg Wilber Serrato MD Work Phone: [facility] 03-03-2024 10:31-0400 SaO2% (BldA) [Mass fraction] 98 % Wilber Serrato MD Work Phone: [facility] 09-21-2023 07:17-0400 Body height 163.8 cm Korina Orellana PA-C Work Phone: [facility] 09-21-2023 07:17-0400 Body temperature 98.6 [degF] Korina Orellana PA-C Work Phone: [facility] 09-21-2023 07:17-0400 Body weight 83.46 kg Korina Denbow PA-C Work Phone: [facility] 09-21-2023 07:17-0400 Diastolic blood pressure 76 mm[Hg] Korina Denbow PA-C Work Phone: [facility] 09-21-2023 07:17-0400 Heart rate 81 /min Korina Denbow PA-C Work Phone: [facility] 09-21-2023 07:17-0400 Respiratory rate 12 /min Korina Denbow PA-C Work Phone: [facility] 09-21-2023 07:17-0400 SaO2% (BldA) [Mass fraction] 98 % Korina Denbow PA-C Work Phone: [facility] 09-21-2023 07:17-0400 Systolic blood pressure 128 mm[Hg] Korina Denbow PA-C Work Phone: [facility] 08-21-2023 08:32-0500 Diastolic blood pressure 90 mm[Hg] Korina Denbow PA-C Work Phone: [facility] 08-21-2023 08:32-0500 Systolic blood pressure 136 mm[Hg] Korina Denbow PA-C Work Phone: [facility] 08-21-2023 08:00-0500 Body height 163.8 cm Korina Denbow PA-C Work Phone: [facility] 08-21-2023 08:00-0500 Body temperature 98.71 [degF] Korina Denbow PA-C Work Phone: [facility] 08-21-2023 08:00-0500 Body weight 83.46 kg Korina Denbow PA-C Work Phone: [facility] 08-21-2023 08:00-0500 Heart rate 80 /min Korina Denbow PA-C Work Phone: [facility] 08-21-2023 08:00-0500 Respiratory rate 12 /min Korina Denbow PA-C Work Phone: [facility] 08-21-2023 08:00-0500 SaO2% (BldA) [Mass fraction] 98 % Korina Denbow PA-C Work Phone: [facility] 01-27-2023 09:29-0400 Body height 163.8 cm Korina Denbow PA-C Work Phone: [facility] 01-27-2023 09:29-0400 Body temperature 98.49 [degF] Korina Denbow PA-C Work Phone: [facility] 01-27-2023 09:29-0400 Body weight 84.82 kg Korina Denbow PA-C Work Phone: [facility] 01-27-2023 09:29-0400 Diastolic blood pressure 76 mm[Hg] Korina Denbow PA-C Work Phone: [facility] 01-27-2023 09:29-0400 Heart rate 78 /min Korina Denbow PA-C Work Phone: [facility] 01-27-2023 09:29-0400 Respiratory rate 12 /min Korina Denbow PA-C Work Phone: [facility] 01-27-2023 09:29-0400 SaO2% (BldA) [Mass fraction] 97 % Korina Denbow PA-C Work Phone: [facility] 01-27-2023 09:29-0400 Systolic blood pressure 136 mm[Hg] Korina Denbow PA-C Work Phone: [facility] 12-18-2022 09:06-0400 Body height 163.8 cm Wilber Serrato MD Work Phone: [facility] 12-18-2022 09:06-0400 Body weight 83.46 kg Wilber Serrato MD Work Phone: [facility] 12-18-2022 09:06-0400 Diastolic blood pressure 74 mm[Hg] Wilber Serrato MD Work Phone: [facility] 12-18-2022 09:06-0400 Heart rate 88 /min Wilber Serrato MD Work Phone: [facility] 12-18-2022 09:06-0400 Respiratory rate 12 /min Wilber Serrato MD Work Phone: [facility] 12-18-2022 09:06-0400 SaO2% (BldA) [Mass fraction] 98 % Wilber Serrato MD Work Phone: [facility] 12-18-2022 09:06-0400 Systolic blood pressure 122 mm[Hg] Wilber Serrato MD Work Phone: [facility] 07-30-2022 09:23-0500 Diastolic blood pressure 72 mm[Hg] Marvel Edwards MD Work Phone: [facility] 07-30-2022 09:23-0500 Systolic blood pressure 130 mm[Hg] Marvel Edwards MD Work Phone: [facility] 07-30-2022 08:46-0500 Body height 167.6 cm Marvel Edwards MD Work Phone: [facility] 07-30-2022 08:46-0500 Body temperature 98.29 [degF] Marvel Edwards MD Work Phone: [facility] 07-30-2022 08:46-0500 Body weight 82.1 kg Marvel Edwards MD Work Phone: [facility] 07-30-2022 08:46-0500 Heart rate 94 /min Marvel Edwards MD Work Phone: [facility] 07-30-2022 08:46-0500 Respiratory rate 12 /min Marvel Edwards MD Work Phone: [facility] 07-30-2022 08:46-0500 SaO2% (BldA) [Mass fraction] 100 % Marvel Edwards MD Work Phone: [facility] 03-31-2022 13:47-0400 Body height 163.8 cm Mri (I-Stat/1.5t) [facility] 03-31-2022 13:47-0400 Body weight 78.47 kg Mri (I-Stat/1.5t) [facility] 03-31-2022 13:47-0400 Diastolic blood pressure 78 mm[Hg] Mri (I-Stat/1.5t) [facility] 03-31-2022 13:47-0400 Heart rate 90 /min Mri (I-Stat/1.5t) [facility] 03-31-2022 13:47-0400 Systolic blood pressure 130 mm[Hg] Mri (I-Stat/1.5t) [facility] 03-27-2022 08:56-0400 Body weight 78.65 kg Marvel Edwards MD Work Phone: [facility] 03-27-2022 08:56-0400 Diastolic blood pressure 80 mm[Hg] Marvel Edwards MD Work Phone: [facility] 03-27-2022 08:56-0400 Heart rate 94 /min Marvel Edwards MD Work Phone: [facility] 03-27-2022 08:56-0400 Respiratory rate 16 /min Marvel Edwards MD Work Phone: [facility] 03-27-2022 08:56-0400 SaO2% (BldA) [Mass fraction] 96 % Marvel Edwards MD Work Phone: [facility] 03-27-2022 08:56-0400 Systolic blood pressure 128 mm[Hg] Marvel Edwards MD Work Phone: [facility] 03-17-2022 13:50-0400 Body temperature 97.5 [degF] Dr. Marvel Edwards Work Phone: [facility] Work Phone: 03-17-2022 13:50-0400 Diastolic blood pressure 93 mm[Hg] Dr. Marvel Edwards Work Phone: [facility] Work Phone: 03-17-2022 13:50-0400 Heart rate 112 /min Dr. Marvel Edwards Work Phone: [facility] Work Phone: 03-17-2022 13:50-0400 Respiratory rate 16 /min Dr. Marvel Edwards Work Phone: [facility] Work Phone: 03-17-2022 13:50-0400 SaO2% (BldA) [Mass fraction] 96 % Dr. Marvel Edwards Work Phone: [facility] Work Phone: 03-17-2022 13:50-0400 Systolic blood pressure 150 mm[Hg] Dr. Marvel Edwards Work Phone: [facility] Work Phone: 03-15-2022 14:14-0400 Body height 162.[address] Marvel Edwards Work Phone: [facility] Work Phone: 03-15-2022 14:14-0400 Body mass index (BMI) [Ratio] 29.6 kg/m2 Dr. Marvel Edwards Work Phone: [facility] Work Phone: 03-15-2022 14:14-0400 Body weight 78.[address] Marvel Edwards Work Phone: [facility] Work Phone: 03-15-2022 13:49-0400 Body temperature 97.9 [degF] Dr. Marvel Edwards Work Phone: [facility] Work Phone: 03-15-2022 13:49-0400 Diastolic blood pressure 60 mm[Hg] Dr. Marvel Edwards Work Phone: [facility] Work Phone: 03-15-2022 13:49-0400 Heart rate 120 /min Dr. Marvel Edwards Work Phone: [facility] Work Phone: 03-15-2022 13:49-0400 Respiratory rate 18 /min Dr. Marvel Edwards Work Phone: [facility] Work Phone: 03-15-2022 13:49-0400 SaO2% (BldA) [Mass fraction] 94 % Dr. Marvel Edwards Work Phone: [facility] Work Phone: 03-15-2022 13:49-0400 Systolic blood pressure 119 mm[Hg] Dr. Marvel Edwards Work Phone: [facility] Work Phone: 03-15-2022 10:08-0400 Body height 162.[address] Marvel Edwards Work Phone: [facility] Work Phone: 03-15-2022 10:08-0400 Body mass index (BMI) [Ratio] 30.6 kg/m2 Dr. Marvel Edwards Work Phone: [facility] Work Phone: 03-15-2022 10:08-0400 Body weight 80.[address] Marvel Edwards Work Phone: [facility] Work Phone: 12-01-2021 09:42-0400 Body temperature 98.7 [degF] Dr. Marvel Edwards Work Phone: [facility] Work Phone: 12-01-2021 09:42-0400 Diastolic blood pressure 72 mm[Hg] Dr. Marvel Edwards Work Phone: [facility] Work Phone: 12-01-2021 09:42-0400 Heart rate 84 /min Dr. Marvel Edwards Work Phone: [facility] Work Phone: 12-01-2021 09:42-0400 Respiratory rate 16 /min Dr. Marvel Edwards Work Phone: [facility] Work Phone: 12-01-2021 09:42-0400 SaO2% (BldA) [Mass fraction] 98 % Dr. Marvel Edwards Work Phone: [facility] Work Phone: 12-01-2021 09:42-0400 Systolic blood pressure 124 mm[Hg] Dr. Marvel Edwards Work Phone: [facility] Work Phone: 10-11-2021 12:09-0400 Diastolic blood pressure 87 mm[Hg] Maddison Older PAINT STRIPPER.MINING ANALYST Work Phone: [facility] 10-11-2021 12:09-0400 Heart rate 80 /min Maddison Older PAINT STRIPPER.MINING ANALYST Work Phone: [facility] 10-11-2021 12:09-0400 Systolic blood pressure 135 mm[Hg] Maddison Older PAINT STRIPPER.MINING ANALYST Work Phone: [facility] 10-11-2021 11:28-0400 Body weight 76.66 kg Maddison Older PAINT STRIPPER.MINING ANALYST Work Phone: [facility] 10-11-2021 11:28-0400 Respiratory rate 16 /min PAINT STRIPPER.MINING ANALYST Work Phone: [facility] Encounters Encounter Date Encounter Type Care Provider Facility Start: 03-30-2025 ambulatory [facility] Facility:[facility] Start: 03-29-2025 End: 03-29-2025 ambulatory SELF Facility:[facility] Start: 03-27-2025 End: 03-27-2025 ambulatory WILBER SERRATO Facility:[facility] Start: 03-27-2025 End: 03-27-2025 ambulatory WILBER SERRATO Facility:[facility] Start: 03-27-2025 End: 03-27-2025 ambulatory [facility] Facility:[facility] Start: 01-17-2025 End: 01-17-2025 Telephone encounter Anirudh Serrato MD Work Phone: Cardiology Start: 11-23-2024 End: 11-23-2024 Office outpatient visit 15 minutes Marvel Edwards MD Work Phone: [facility] [place] Comment on above: Class 1 obesity with serious comorbidity and body mass index (BMI) of 33.0 to 33.9 in adult, unspecified obesity type (Primary Dx); Essential hypertension, benign; Paroxysmal atrial fibrillation (HCC); Anal itching; Worm infection Start: 11-23-2024 End: 11-23-2024 ambulatory [facility] Facility:[facility] Start: 11-22-2024 End: 11-23-2024 Refill Wilber Serrato MD Work Phone: Cardiology Comment on above: Refill Request Start: 11-03-2024 End: 11-04-2024 Telephone encounter Marvel Edwards MD Work Phone: [facility] Comment on above: Patient Update; Ambreen ent Question; Orders Start: 10-03-2024 End: 10-03-2024 Office outpatient visit 25 minutes Marvel Edwards MD Work Phone: [facility] Comment on above: Essential hypertensi on, benign (Primary Dx); Obesity (BMI 30.0-34.9); Encounter for screening examination for other mental health and behavioral disorders Start: 10-03-2024 End: 10-03-2024 Refill Wilber Serrato MD Work Phone: Cardiology Comment on above: Refill Request Start: 08-25-2024 End: 08-25-2024 ambulatory [facility] Facility:[facility] Start: 08-09-2024 End: 09-09-2024 ambulatory Marvel Edwards MD Work Phone: [facility] Start: 07-04-2024 End: 07-04-2024 ambulatory [facility] Facility:[facility] Start: 07-04-2024 End: 07-04-2024 Office outpatient visit 25 minutes Marvel Edwards MD Work Phone: [facility] [place] Comment on above: Primary hypertension (Primary Dx); Class 1 obesity with serious comorbidity and body mass index (BMI) of 31.0 to 31.9 in adult, unspecified obesity type Start: 06-30-2024 End: 06-30-2024 ambulatory [facility] Facility:[facility] Start: 06-21-2024 End: 06-24-2024 ambulatory Marvel Edwards MD Work Phone: Internal Medicine [facility] Start: 06-17-2024 End: 06-17-2024 ambulatory Marvel Edwards MD Work Phone: [facility] [place] Comment on above: Semaglutide - increa se dosage and prescription renewal Start: 03-28-2024 End: 03-28-2024 Office outpatient visit 25 minutes Marvel Edwards MD Work Phone: [facility] [place] Comment on above: Essential hypertensi on, benign (Primary Dx); Encounter for immunization; Hyperlipidemia, unspecified hyperlipidemia type; Need for hepatitis C screening test; Encounter for screening for HIV; Class 1 obesity without serious comorbidity with body mass index (BMI) of 31.0 to 31.9 in adult, unspecified obesity type Start: 03-03-2024 End: 03-31-2024 Patient encounter procedure Wilber Serrato MD Work Phone: Cardiology Comment on above: S/P mitral valve rep air (Primary Dx); Mixed hyperlipidemia; Essential hypertension Refill Request Start: 02-09-2024 End: 02-09-2024 Refill Karen Stafford APRN.CNP Work Phone: Internal [facility] Comment on above: Refill Request Start: 10-21-2023 End: 10-21-[address] [facility] Work Phone: Start: 10-21-2023 End: 10-21-[address] [facility] Work Phone: Start: 10-01-2023 Orders Only Wilber deng MD Work Phone: Cardiology Comment on above: S/P MVR (mitral valv e repair) (Primary Dx) Start: 09-21-2023 End: 09-21-2023 Patient encounter procedure Korina Orellana PA-C Work Phone: [facility] [place] Comment on above: Essential hypertensi on, benign (Primary Dx) Start: 09-02-2023 ambulatory Marvel Chua Work Phone: Internal Medicine [facility] Start: 08-21-2023 End: 08-21-2023 Patient encounter procedure Korina ZABALA-C Work Phone: [facility] [place] Comment on above: Essential hypertensi on, benign (Primary Dx); S/P MVR (mitral valve repair); Typical atrial flutter (HCC) Start: 05-24-2023 Refill Korina ZABALA-C Work Phone: [facility] [place] Comment on above: Refill Request Start: 04-05-2023 Refill Hilary Migue POWELL N.CNP Work Phone: [facility] Comment on above: Refill Request Start: 02-06-2023 ambulatory Korina ZABALA-C Work Phone: [facility] Comment on above: Left Ear Ache Start: 01-27-2023 End: 01-27-2023 Patient encounter procedure Korina ZABALA-Keyonna Work Phone: Internal [facility] [place] Comment on above: Upper respiratory tr act infection, unspecified type (Primary Dx); ETD (Eustachian tube dysfunction), bilateral; Essential hypertension, benign; S/P MVR (mitral valve repair); Weight gain; Screening for lipid disorders Start: 12-18-2022 End: 12-18-2022 Patient encounter procedure Wilber Serrato MD Work Phone: Cardiology Comment on above: S/P MVR (mitral valv e repair) (Primary Dx) Start: 07-31-2022 End: 07-31-[address] [facility] Work Phone: Start: 07-31-2022 End: 07-31-[address] [facility] Start: 07-30-2022 End: 07-30-2022 Patient encounter procedure Marvel Edwards MD Work Phone: Internal Medicine [place] Comment on above: Annual physical exam (Primary Dx); Essential hypertension, benign; Typical atrial flutter (HCC); Gastroesophageal reflux disease without esophagitis; Depression with anxiety; Dermatitis Start: 07-24-2022 Orders Only Wilber deng MD Work Phone: Cardiology Comment on above: Essential hypertensi on, benign (Primary Dx) Start: 05-16-2022 Refill Marvel Chua Work Phone: Internal Medicine [place] Comment on above: Med Change Request Start: 04-14-2022 Orders Only Roxana Rao nd PAINT STRIPPER.MINING ANALYST Work Phone: Cardiology Comment on above: Persistent atrial fi brillation (HCC) (Primary Dx) Start: 04-09-2022 Telephone encounter Eliel Hurtado Adult Psychology Comment on above: Abstract (Patient [facility]u [facility]) Start: 04-08-2022 E-mail encounter jania m caregiver [facility] Provider [email or web address] Start: 04-08-2022 Patient encounter procedure [facility] Provider [employer] [facility] Comment on above: Appointment Start: 04-07-2022 ambulatory Roxana cordero RN Work Phone: [facility] Start: 04-07-2022 Telephone encounter Vikram bravo MD Work Phone: Cardiology Comment on above: Post Dc Program Call - Urgent Follow Up Phone Call ([facility] 1st attempt/) Transition Of Care ( TCM Initial Hospital Discharge [facility] on 04-04-22, 2nd Attempt) Start: 04-04-2022 Telephone encounter Hilary Camarena APRN.MINING ANALYST Work Phone: Cardiology Comment on above: Medication Problem Start: 03-31-2022 End: 03-31-2022 Subsequent hospital visit by physician Mri Main J (I-Stat/1.5t) MRI J Comment on above: Cardiomyopathy, unsp ecified type (HCC) [I42.9] Start: 03-28-2022 Telephone encounter Eliel Hurtado Adult Psychology Comment on above: Consult (Patient Out reach [facility]) Cardiomyopathy, unsp ecified type (HCC) Start: 03-27-2022 End: 03-27-2022 Patient encounter procedure Marvel Edwards MD Work Phone: Internal Medicine [place] Comment on above: Grief reaction (Prim karly Dx); Atrial fibrillation, unspecified type (HCC); Cardiomyopathy, unspecified type (HCC); Essential hypertension, benign Start: 03-17-2022 Non-patient / Non-visit Dr. Porter Edwards Work Phone: [facility] Start: 03-16-2022 Non-patient / Non-visit Dr. Porter Edwards Work Phone: [facility] Start: 03-15-2022 End: 03-17-2022 Evaluation and management of inpatient Dr. Marvel Edwards Work Phone: [facility] Start: 02-21-2022 Refill Maddison Carrillo PAINT STRIPPER .MINING ANALYST Work Phone: Internal Medicine [place] Comment on above: Refill Request Start: 02-10-2022 [facility] (Vis it Summary) [facility] Provider External-Non[facility] Comment on above: COVID-19 Start: 02-10-2022 External Contact [facility] Provider EXTERNAL-NON [facility] Start: 12-29-2021 Refill Jennifer Older PAINT STRIPPER .MINING ANALYST Work Phone: Internal Medicine [place] Comment on above: Refill Request Start: 12-13-2021 End: 12-13-2021 Distance Health Jennifer Older PAINT STRIPPER.MINING ANALYST Work Phone: Internal Medicine [place] Comment on above: Adjustment disorder with anxious mood (Primary Dx); Adjustment insomnia Start: 12-01-2021 End: 12-01-[address] Marvel Edwards Work Phone: [facility] Start: 11-15-2021 End: 11-15-2021 [facility] Jennifer Older PAINT STRIPPER.MINING ANALYST Work Phone: Internal Medicine [place] Comment on above: Adjustment disorder with anxious mood (Primary Dx); Adjustment insomnia Start: 10-11-2021 End: 10-11-2021 Patient encounter procedure Maddison Carrillo APRN.MINING ANALYST Work Phone: Internal Medicine [place] Comment on above: Annual physical exam (Primary Dx); Essential hypertension, benign; Hyperlipidemia, unspecified hyperlipidemia type; Nontoxic uninodular goiter Start: 09-24-2021 ambulatory Marvel Chua Work Phone: Internal Medicine [facility] [place] Procedures Date Procedure Procedure Detail Performing Clinician Start: 06-30-2024 Lipid 1995 panel - Serum or Plasma Marvel Edwards MD Work Phone: Start: 03-03-2024 Lipid 1996 panel - Serum or Plasma Wilber Serrato MD Work Phone: Start: 10-21-2023 Screening mammography Start: 01-27-2023 Lipid 1996 panel - Serum or Plasma Hilary Camarena PAINT STRIPPERAnthonyMINING ANALYST Work Phone: Start: 07-31-2022 End: 07-31-2022 Screening mammography Start: 03-31-2022 Cardiac mri w/wo contrast & further seq Mando Soto MD Work Phone: Start: 03-15-2022 Plain chest X-ray Dr. Marvel Edwards Work Phone: Start: 10-11-2021 Adult depression screening assessment Maddison Carrillo PAINT STRIPPER.MINING ANALYST Work Phone: Start: 07-10-2021 Mammography Marvel Edwards MD Work Phone: Start: 10-03-2020 Adult depression screening assessment Marvel Edwards MD Work Phone: Start: 02-08-2018 Colonoscopy Marvel Edwards MD Work Phone: H/O: surgery H/O dilation and curettage Dr. Marvel Edwards Work Phone: History of tonsillectomy History of tonsi llectomy Dr. Marvel Edwards Work Phone: Plan of Treatment Date Care Activity Detail Author Start: 10-12-2031 Urine microalbumin profile [facility] Start: 06-30-2029 Lipid panel Lipid Screening [facility] Start: 03-03-2029 Lipid panel Lipid Screening [facility] Start: 02-09-2028 Colonoscopy COLONOSCOPY [facility] Start: 02-09-2028 COLORECTAL CANCER SCREENING COLORECTAL CANCER SCREENING [facility] Start: 02-09-2028 Screening for malign ant neoplasm of colon [facility] Start: 01-28-2028 Lipid 1996 panel - S amina or Plasma Lipid Screening [facility] Start: 01-28-2028 Lipid panel Lipid Screening [facility] Start: 01-28-2028 LIPID SCREEN LIPID SCREEN [facility] Start: 06-30-2027 Diabetes Screening Diabetes Screenin g [facility] Start: 03-05-2027 HPV Testing HPV Testing [facility] Start: 03-05-2027 Screening for malign ant neoplasm of cervix HPV Testing [facility] Start: 03-04-2027 Pap Testing Pap Testing [facility] Start: 03-04-2027 Screening for malign ant neoplasm of cervix [facility] Start: 09-27-2026 LIPID SCREEN LIPID SCREEN [facility] Start: 08-30-2026 Diabetes Screening Diabetes Screenin g [facility] Start: 01-27-2026 DIABETES SCREEN DIABETES SCREEN [facility] Start: 01-27-2026 Diabetes Screening Diabetes Screenin [facility] Start: 11-23-2025 Annual PCP Team Newspaper Delivery Counselor soy Disease Visit Annual PCP Team Chronic Disease Visit [facility] Start: 10-05-2025 LIPID SCREEN LIPID SCREEN [facility] Start: 10-03-2025 Annual PCP Team Newspaper Delivery Counselor soy Disease Visit Annual PCP Team Chronic Disease Visit [facility] Start: 10-03-2025 Anxiety Screening Anxiety Screening [facility] Start: 07-04-2025 Annual PCP Team Newspaper Delivery Counselor soy Disease Visit Annual PCP Team Chronic Disease Visit [facility] Start: 04-04-2025 DIABETES SCREEN DIABETES SCREEN [facility] Start: 03-31-2025 DIABETES SCREEN DIABETES SCREEN [facility] Start: 03-29-2025 End: 03-29-2025 Patient encounter procedure 03/29/2025 8:00 AM EDT Office Visit [facility] [address] [place] [id number] Marvel Edwards MD [address] [place] [id number] 4 month follow up [facility] [place] Comment on above: 4 month follow up Start: 03-28-2025 Annual PCP Team Newspaper Delivery Counselor soy Disease Visit Annual PCP Team Chronic Disease Visit [facility] Start: 03-28-2025 Covid-19 Vaccine ( season) Covid-19 Vaccine ( season) [facility] Comment on above: Postponed from 02/20 (Declined at this time) Start: 03-03-2025 End: 06-02-2025 Lipid 1996 panel - Serum or Plasma LIPID PANEL BASIC Lab Routine Mixed hyperlipidemia Expected: 03/03/2025, Expires: 06/02/[address] [facility] Comment on above: Expected: 03/03/2025 , Expires: 06/02/2025 Start: 02-20-2025 Influenza vaccination Influenza Vacc ine (#1) [facility] Start: 11-23-2024 End: 02-22-2025 Basic metabolic 2000 panel - Serum or Plasma BASIC METABOLIC PANEL Lab Routine Essential hypertension, benign Expected: 11/23/2024, Expires: 02/22/2025 [facility] Work Phone: Comment on above: Expected: 11/23/2024 , Expires: 02/22/2025 Start: 11-23-2024 End: 11-23-2024 Patient encounter procedure 11/23/2024 8:00 AM EDT Office Visit [facility] [place] [address] [place] [id number] Marvel Edwards MD [address] [place] [address] 7 wk follow up [facility] Comment on above: 7 wk follow up Start: 10-03-2024 End: 10-03-2024 Patient encounter procedure 10/03/2024 9:00 AM EDT Office Visit [facility] [address] [place] [address] Marvel Edwards MD [address] [place] [id number] 3 month follow up [facility] Comment on above: 3 month follow up Start: 09-27-2024 DIABETES SCREEN DIABETES SCREEN [facility] Start: 09-20-2024 Annual PCP Team Newspaper Delivery Counselor soy Disease Visit Annual PCP Team Chronic Disease Visit [facility] Start: 09-20-2024 BP Controlled (<130/80) BP Controlle d (<130/80) [facility] Start: 08-20-2024 Annual PCP Team Newspaper Delivery Counselor soy Disease Visit Annual PCP Team Chronic Disease Visit [facility] Start: 07-04-2024 End: 07-04-2024 Patient encounter procedure 07/04/2024 8:40 AM EST Office Visit [facility] [place] [address] [place] [address] Marvel Edwards MD [address] [place] [id number] 3 mo follow up;routine [facility] [place] Comment on above: 3 mo follow up;mellissa carpio Start: 06-28-2024 End: 09-27-2024 Comprehensive metabolic 2000 panel - Serum or Plasma COMPREHENSIVE METABOLIC PANEL Lab Routine Essential hypertension, benign Hyperlipidemia, unspecified hyperlipidemia type Expected: 06/28/2024, Expires: 09/27/[address] [facility] Comment on above: Expected: 06/28/2024 , Expires: 09/27/2024 Start: 06-28-2024 End: 09-27-2024 Hepatitis C virus Ab [Presence] in Serum HEPATITIS C ANTIBODY IA WITH CONFIRMATION Lab Routine Need for hepatitis C screening test Expected: 06/28/2024, Expires: 09/27/[address] [facility] Comment on above: Expected: 06/28/2024 , Expires: 09/27/2024 Start: 06-28-2024 End: 09-27-2024 Lipid 1996 panel - Serum or Plasma LIPID PANEL BASIC Lab Routine Hyperlipidemia, unspecified hyperlipidemia type Expected: 06/28/2024, Expires: 09/27/2024 [facility] Work Phone: Comment on above: Expected: 06/28/2024 , Expires: 09/27/2024 Start: 06-24-2024 End: 06-24-2024 ambulatory 06/24/2024 12:00 PM EST Results Only [facility] Draw Station [address] [place] [id number] [facility] Draw Station Start: 06-21-2024 End: 09-20-2024 CBC panel - Blood by Automated count COMPLETE BLOOD COUNT Lab Routine Medication management Expected: 06/21/2024, Expires: 09/20/2024 [facility] Work Phone: Comment on above: Expected: 06/21/2024 , Expires: 09/20/2024 Start: 03-28-2024 End: 06-27-2024 HIV 1+2 Ab [Presence] in Serum or Plasma by Immunoassay HIV 1/2 COMBO WITH REFLEX TO DIFFERENTIATION Lab Routine Encounter for screening for HIV Expected: 03/28/2024, Expires: 06/27/[address] [facility] Comment on above: Expected: 03/28/2024 , Expires: 06/27/2024 Start: 03-28-2024 End: 03-28-2024 Patient encounter procedure 03/28/2024 8:40 AM EDT Office Visit [facility] [address] [place] [address] Marvel Edwards MD [address] [place] [address] 6 month follow up - BP [facility] Comment on above: 6 month follow up - BP Start: 03-10-2024 Annual PCP Team Newspaper Delivery Counselor soy Disease Visit Annual PCP Team Chronic Disease Visit [facility] Start: 03-10-2024 BP Controlled (<130/80) BP Controlle d (<130/80) [facility] Start: 03-10-2024 Hepatitis C Screening Hepatitis C [facility] Comment on above: Postponed from 08/05 (Declined at this time) Start: 03-10-2024 Hepatitis C screening Hepatitis C [facility] Comment on above: Postponed from 08/05 (Declined at this time) Start: 03-10-2024 HIV Screening HIV Screening [facility] Comment on above: Postponed from 08/05 (Declined at this time) Start: 03-10-2024 HIV screening HIV Screening [facility] Comment on above: Postponed from 08/05 (Declined at this time) Start: 03-03-2024 End: 03-03-2024 ambulatory 03/03/2024 9:00 AM EDT Results Only Cardiology [address] [id number] 1 YR F/U Cardiology Comment on above: 1 YR F/U Start: 03-03-2024 End: 03-03-2024 Patient encounter procedure Vascular Medicine Comment on above: 1 YR F/U Start: 02-21-2024 Covid-19 Vaccine ( season) Covid-19 Vaccine () [facility] Start: 02-21-2024 Influenza vaccination C [facility] Start: 01-28-2024 ANNUAL PCP TEAM BLACK LEATHER BUFFER SOY DISEASE VISIT ANNUAL PCP TEAM CHRONIC DISEASE VISIT [facility] Start: 12-20-2023 Influenza vaccination Influenza Vacc ine (#1) [facility] Comment on above: Postponed from 02/20 (Declined at this time) Start: 12-19-2023 BP CONTROLLED (<130/80) BP CONTROLLE D (<130/80) [facility] Start: 10-30-2023 Covid-19 Vaccine () Covid-19 Vaccine () [facility] Start: 10-06-2023 DIABETES SCREEN DIABETES SCREEN [facility] Start: 08-21-2023 End: 11-20-2023 Basic metabolic 2000 panel - Serum or Plasma BASIC METABOLIC PNL Lab Routine Essential hypertension, benign Expected: 08/21/2023, Expires: 11/20/2023 [facility] Work Phone: Comment on above: Expected: 08/21/2023 , Expires: 11/20/2023 Start: 08-21-2023 End: 11-20-2023 CBC W Auto Differential panel - Blood CBC + DIFF Lab Routine Essential hypertension, benign Expected: 08/21/2023, Expires: 11/20/2023 [facility] Work Phone: Comment on above: Expected: 08/21/2023 , Expires: 11/20/2023 Start: 07-31-[address] [facility] Start: 07-31-2023 Screening for malign ant neoplasm of breast Mammogram Screening [facility] Start: 07-30-2023 ANNUAL PCP TEAM BLACK LEATHER BUFFER SOY DISEASE VISIT ANNUAL PCP TEAM CHRONIC DISEASE VISIT [facility] Start: 05-16-2023 ANNUAL PCP TEAM BLACK LEATHER BUFFER SOY DISEASE VISIT ANNUAL PCP TEAM CHRONIC DISEASE VISIT [facility] Start: 05-16-2023 BP CONTROLLED (<130/80) BP CONTROLLE D (<130/80) [facility] Start: 03-27-2023 ANNUAL PCP TEAM BLACK LEATHER BUFFER SOY DISEASE VISIT ANNUAL PCP TEAM CHRONIC DISEASE VISIT [facility] Start: 02-20-2023 Covid-19 Vaccine ( season) Covid-19 Vaccine () [facility] Start: 02-20-2023 Influenza vaccination INFLUENZA (#1) [facility] Start: 12-13-2022 ANNUAL PCP TEAM BLACK LEATHER BUFFER SOY DISEASE VISIT ANNUAL PCP TEAM CHRONIC DISEASE VISIT [facility] Start: 11-15-2022 ANNUAL PCP TEAM BLACK LEATHER BUFFER SOY DISEASE VISIT ANNUAL PCP TEAM CHRONIC DISEASE VISIT [facility] Start: 10-11-2022 Adult depression screening assessment DEPRESSION SCREENING [facility] Start: 10-11-2022 ANNUAL PCP TEAM BLACK LEATHER BUFFER SOY DISEASE VISIT ANNUAL PCP TEAM CHRONIC DISEASE VISIT [facility] Start: 10-11-2022 HEPATITIS C SCREENING HEPATITIS C SC KIMMY [facility] Comment on above: Postponed from 08/05 (Declined at this time) Start: 10-11-2022 HIV SCREENING HIV SCREENING [facility] Comment on above: Postponed from 08/05 (Declined at this time) Start: 07-10-2022 Mammography MAMMOGRAM [facility] Start: 06-25-2022 ANNUAL PCP TEAM BLACK LEATHER BUFFER SOY DISEASE VISIT ANNUAL PCP TEAM CHRONIC DISEASE VISIT [facility] Start: 06-22-2022 HPV TESTING HPV TESTING [facility] Start: 06-22-2022 PAP TESTING PAP TESTING [facility] Start: 03-17-2022 Patient discharge [facility] Work Phone: Start: 03-16-2022 Care planning and pr oblem solving actions [facility] Work Phone: Start: 03-15-2022 Care planning and pr oblem solving actions [facility] Work Phone: Start: 03-15-2022 End: 03-15-2022 Following clinical pathway protocol [facility] Work Phone: Start: 03-15-2022 Assessment of risk o f venous thromboembolism [facility] Work Phone: Start: 03-15-2022 Insertion of cathete r into peripheral vein [facility] Work Phone: Start: 03-15-2022 Me[address] intake and output [facility] Work Phone: Start: 03-15-2022 Providing care accor ding to standard [facility] Work Phone: Start: 03-15-2022 Provision of activit y privileges [facility] Work Phone: Start: 03-15-2022 Referral to occupati onal therapist [facility] Work Phone: Start: 03-15-2022 Referral to service [facility] Work Phone: Start: 03-15-2022 [facility] Work Phone: Start: 03-15-2022 Verification routine [facility] Work Phone: Start: 03-15-2022 Admission procedure [facility] Work Phone: Start: 02-20-2022 Influenza vaccination C [facility] Start: 10-03-2021 Adult depression screening assessment DEPRESSION SCREENING [facility] Start: 09-24-2021 End: 11-24-2021 Basic metabolic 2000 panel - Serum or Plasma BASIC METABOLIC PNL Lab Routine Essential hypertension, benign Expected: 09/24/2021, Expires: 11/24/2021 [facility] Work Phone: Comment on above: Expected: 09/24/2021 , Expires: 11/24/2021 Start: 09-24-2021 End: 11-24-2021 LIPID PANEL BASIC LIPID PANEL BASIC Lab Routine Essential hypertension, benign Expected: 09/24/2021, Expires: 11/24/2021 [facility] Work Phone: Comment on above: Expected: 09/24/2021 , Expires: 11/24/2021 Start: 09-24-2021 End: 11-24-2021 SCHEDULE LAB TESTING SCHEDULE LAB TESTING Lab Routine Expected: 09/24/2021, Expires: 11/24/2021 [facility] Work Phone: Comment on above: Expected: 09/24/2021 , Expires: 11/24/2021 Start: 08-18-2021 COVID-19 VACCINE (4 - Booster for Moderna series) COVID-19 VACCINE (4 - Booster for Moderna series) [facility] Start: 06-22-2021 DEPRESSION ASSESSMENT DEPRESSION ASS ESSMENT [facility] Start: 06-12-2021 COVID-19 VACCINE (4 - Booster for Moderna series) COVID-19 VACCINE (4 - Booster for Moderna series) [facility] Start: 08-19-2020 Urine microalbumin profile DTAP,TDAP,TD (2 - Td or Tdap) [facility] Start: 02-02-2019 BP CONTROLLED (<130/80) BP CONTROLLE D (<130/80) [facility] Start: 2016 Pneumococcal Vaccine : 50+ (1 of 1 - PCV) Pneumococcal Vaccine: 50+ (1 of 1 - PCV) [facility] Start: 2011 COLOGUARD (FIT-DNA) COLOGUARD (FIT-D NA) [facility] Start: [address] COLONOGRAPHY [facility] Start: 2011 FECAL OCCULT BLOOD FECAL OCCULT BLOO D [facility] Start: 2011 Screening for malign ant neoplasm of colon [facility] Start: 2011 SIGMOIDOSCOPY SIGMOIDOSCOPY [facility] Start: 1984 Anxiety Screening Anxiety Screening [facility] Start: 1984 HEPATITIS C SCREENING HEPATITIS C [facility] Start: 1984 Hepatitis C screening Hepatitis C [facility] Start: 1984 HIV SCREENING HIV SCREENING [facility] Start: 1984 HIV screening HIV Screening [facility] Start: 1966 HEPATITIS B (1 of 3 - 3-dose series) HEPATITIS B (1 of 3 - 3-dose series) [facility] Basic metabolic 2000 panel - Serum or Plasma BASIC METABOLIC PNL Lab Routine Essential hypertension, benign 09/27/2021 7:02 AM EDT [facility] Work Phone: End: 04-27-2023 Cardiac mri for velocity flow mapping MRI CARDIAC VELOCITY FLOW MAP Radiology Routine Cardiomyopathy, unspecified type (HCC) 1 Occurrences starting 03/28/2022 until 04/27/2023 [facility] Work Phone: Comment on above: 1 Occurrences starti ng 03/28/2022 until 04/27/2023 End: 04-27-2023 Cardiac mri w/wo contrast & further seq MRI CARDIAC MORPH FUNC WO/W IVCON Radiology Routine Cardiomyopathy, unspecified type (HCC) 1 Occurrences starting 03/28/2022 until 04/27/2023 [facility] Work Phone: Comment on above: 1 Occurrences starti ng 03/28/2022 until 04/27/2023 End: 09-08-2025 DBT Breast - bilateral screening NAZANIN SCREENING W ANA MARIA Radiology Routine Encounter for screening mammogram for breast cancer 1 Occurrences starting 08/09/2024 until 09/08/2025 [facility] Work Phone: Comment on above: 1 Occurrences starti ng 08/09/2024 until 09/08/2025 End: 04-14-2023 ECG COMPLETE ECG COMPLETE ECG Routine Persistent atrial fibrillation (HCC) 1 Occurrences starting 04/14/2022 until 04/14/2023 [facility] Work Phone: Comment on above: 1 Occurrences starti ng 04/14/2022 until 04/14/2023 End: 09-30-2024 ECG COMPLETE ECG COMPLETE ECG Routine S/P MVR (mitral valve repair) 1 Occurrences starting 10/01/2023 until 09/30/2024 [facility] Work Phone: Comment on above: 1 Occurrences starti ng 10/01/2023 until 09/30/2024 ECG COMPLETE ECG COMPLETE ECG Routine Mixed hyperlipidemia 1 Occurrences starting 03/03/[address] [facility] Comment on above: 1 Occurrences starti ng 03/03/2024 End: 07-24-2023 Echocardiography ECHO Cardiology Routine Essential hypertension, benign 1 Occurrences starting 07/24/2022 until 07/24/2023 [facility] Work Phone: Comment on above: 1 Occurrences starti ng 07/24/2022 until 07/24/2023 End: 09-30-2024 Echocardiography ECHO Cardiology Routine S/P MVR (mitral valve repair) 1 Occurrences starting 10/01/2023 until 09/30/2024 [facility] Work Phone: Comment on above: 1 Occurrences starti ng 10/01/2023 until 09/30/2024 End: 03-03-2025 Echocardiography ECHO Cardiology Routine Mixed hyperlipidemia 1 Occurrences starting 03/03/2024 until 03/03/2025 [facility] Work Phone: Comment on above: 1 Occurrences starti ng 03/03/2024 until 03/03/2025 LIPID PANEL BASIC LIPID PANEL BA SIC Lab Routine Essential hypertension, benign 09/27/2021 7:02 AM EDT [facility] Work Phone: End: 10-01-2024 MG Breast Screening NAZANIN SCREENING Radiology Routine Encounter for screening mammogram for breast cancer 1 Occurrences starting 09/02/2023 until 10/01/2024 [facility] Work Phone: Comment on above: 1 Occurrences starti ng 09/02/2023 until 10/01/2024 Ova and parasites identified in Unspecified specimen by Light microscopy OVA + PARA MICROSCOPIC Microbiology Routine Anal itching Ordered: 11/04/2024 [facility] Work Phone: Comment on above: Ordered: 11/04/2024 Patient referral [facility] Work Phone: End: 11-10-2022 Us soft tissue head & neck real time imge docm US THYROID/PARATHYROID Radiology Routine Nontoxic uninodular goiter 1 Occurrences starting 10/11/2021 until 11/10/2022 [facility] Work Phone: Comment on above: 1 Occurrences starti ng 10/11/2021 until 11/10/2022 [facility] Immunizations Immunization Date Immunization Notes Care Provider Fa [facility] 03-28-2024 influenza, seasonal, injectable Marvel Edwards MD Work Phone: [facility] 03-28-2024 influenza virus vaccine, unspecified formulation Anirudh Serrato MD Work Phone: [facility] 09-04-2023 COVID-19 vaccine, ag e 12+ yr, bivalent (MODERNA) Korina Orellana PA-C Work Phone: [facility] Work Phone: 04-04-2022 COVID-19 booster vaccine, age 12+ yr, bivalent (PFIZER-BIONTECH) Hilary Camarena PAINT STRIPPER.MINING ANALYST Work Phone: [facility] 03-16-2022 influenza, injectabl e, quadrivalent, preservative free [facility] 03-16-2022 influenza, seasonal, injectable Dr. Marvel Edwards Work Phone: [facility] 03-16-2022 influenza virus vaccine, unspecified formulation Hilary Camarena PAINT STRIPPER.MINING ANALYST Work Phone: [facility] 10-11-2021 tetanus toxoid, redu dominick diphtheria toxoid, and acellular pertussis vaccine, adsorbed Maddison Carrillo PAINT STRIPPER.MINING ANALYST Work Phone: [facility] 04-24-2020 zoster vaccine recombinant Marvel Edwards MD Work Phone: [facility] Work Phone: 02-21-2020 zoster vaccine recombinant Marvel Edwards MD Work Phone: [facility] Work Phone: 03-31-2018 influenza, injectabl e, quadrivalent, contains preservative Marvel Edwards MD Work Phone: [facility] Work Phone: 01-28-2017 hepatitis A vaccine, adult dosage Marvel Edwards MD Work Phone: [facility] Work Phone: 01-28-2017 measles, mumps and rubella virus vaccine Marvel Edwards MD Work Phone: [facility] Work Phone: 01-28-2017 typhoid vaccine, unspecified formulation Marvel Edwards MD Work Phone: [facility] Work Phone: 08-19-2010 tetanus toxoid, redu dominick diphtheria toxoid, and acellular pertussis vaccine, adsorbed Marvel Edwards MD Work Phone: [facility] Payers Date Payer Category Payer Self-pay [id number] 2024 Unknown [id number] 2022 Unknown [id number] 2011 Private Health Insurance [employer] A ETNA CHOICE POS II [id number] 2011-Present [phone] [address] [place] [address] POS [id number] 2011 Private Health Insurance [id number] Private Health Insurance [employer] [id number] Unknown [facility] *DO NOT USE* [id number] Unknown ANTHEM [id number] Unknown [id number] Unknown [id number] Social History Date Type Detail Facility Start: 04-02-2011 End: 03-03-2024 Tobacco smoking status NHIS Ex-smoker [facility] Start: 11-08-1982 End: 11-08-1988 History of tobacco use Current smoker [facility] Start: 11-08-1982 End: 11-08-1988 History of tobacco use Cigarette Smoker [facility] Start: 07-23-2021 End: 10-03-2024 Alcohol intake Current drinker of alcohol (finding) [facility] Start: 07-23-2021 End: 12-18-2022 Alcohol intake [facility] Start: 06-24-2021 History SDOH Alcohol Frequency [address] [facility] Start: 06-24-2021 History SDOH Alcohol Std Drinks [address] [facility] Start: 1965 Sex Assigned At Not on file [facility] Start: 09-17-2021 End: 05-16-2022 Exposure to SARS-CoV-2 (event) Not sure [facility] Work Phone: Start: 04-02-2011 End: 03-03-2024 Tobacco use and exposure Smokeless tobacco non-user [facility] Start: 03-15-2022 End: 09-16-2022 Tobacco smoking status NHIS Unknown if ever smoked [facility] Start: 01-13-2019 Non-smoker [facility] Start: 1965 Sex Assigned At Female [facility] Start: 06-24-2021 End: 12-18-2022 Social connection and isolation panel [facility] In a typical week, h ow many times do you talk on the telephone with family, friends, or neighbors? Patient refused [facility] Are you now , , , , never or living with a partner? Refused [facility] How often to you hav e a drink containing alcohol? 2-4 times a month [facility] Do you feel stress - tense, restless, nervous, or anxious, or unable to sleep at night because your mind is troubled all the time - these days [OSQ] To some extent [facility] (I/We) worried wheth er (my/our) food would run out before (I/we) got money to buy more. DK or Refused [facility] Goals Date Patient Goal Desired Activity /State Functional Status Date Assessment Result Facility 04-04-2022 Are you deaf, or do you have serious difficulty hearing No 04/04/2022 11:00 AM Denys Alonso RN No [facility] 04-04-2022 Are you blind, or do you have serious difficulty seeing, even when wearing glasses No 04/04/2022 11:00 AM Denys Alonso RN No [facility] 04-04-2022 Do you have serious difficulty walking or climbing stairs No 04/04/2022 11:00 AM Denys Alonso RN No [facility] 04-04-2022 Do you have difficul ty dressing or bathing No 04/04/2022 11:00 AM Denys Alonso RN No [facility] 04-04-2022 Because of a physica l, mental, or emotional condition, do you have difficulty doing errands alone such as visiting a physician's office or shopping No 04/04/2022 11:00 AM Denys Alonso RN No [facility] 03-17-2022 Functional status Up ad rowdy [facility] Work Phone: 03-16-2022 Functional status Assistive Devices None [facility] Work Phone: Mental Status Date Assessment Result Facility 04-04-2022 Because of a physica l, mental, or emotional condition, do you have serious difficulty concentrating, remembering, or making decisions No 04/04/2022 11:00 AM Denys Alonso RN No [facility] 03-17-2022 Cognitive function Voice/Name [facility] Work Phone: 03-15-2022 Cognitive function Level Of Cons ciousness Awake;Alert;Appropriate;Fol lows Commands [facility] Work Phone: Clinical Notes 10-11-2021 to 03-29-2025 Telephone Encounter - Brionna Dukes - 01/17/2025 4:49 PM EDTTelephone Encounter - Brionna Dukes - 01/17/2025 4:49 PM EDTAddendum Note - Marvel Edwards MD - 11/23/2024 4:01 PM EDT Note Date & Type Note Facility 03-29-2025 Note HNO ID: [id number] Author: MARVEL EDWARDS MD Service: ? Author Type: Physician Type: Progress Notes Filed: 03/29/2025 10:23 Note Text: Reason for Visit Follow up LISA Rivera is a 59-year-old female with a history of HTN, presenting for evaluation of back pain and pruritus. Aron reports experiencing back pain for the past 2 months, which she attributes to wearing a non-custom white coat at work. She believes the coat's design causes uneven weight distribution, leading to strain on her shoulders and trapezius muscles. The pain typically begins about 2 hours after wearing the coat and subsides when she removes it. She denies any associated neck pain. She also reports perianal pruritus, which she initially suspected was due to a parasitic infection. She was previously treated with albendazole, but the pruritus persists, albeit less severe. She denies observing any worms and notes that the pruritus is not constant, sometimes not bothering her at all during the night. She occasionally applies hydrocortisone cream for relief. Aron has a history of HTN and recently had a follow-up with her junior designer, who increased her carvedilol dosage from 6.25 mg to 12.5 mg due to elevated blood pressure readings. She has been on the new dosage for 2 days and reports her blood pressure is great today. She denies any side effects from the medication change. She is also on Eliquis, hydrochlorothiazide, and Crestor. She has lost 20 lbs with the help of semaglutide and is currently training for a 5K run. She expresses a desire to maintain her weight loss and reports increased energy levels. She denies any current issues with migraines, attributing their resolution to menopause. She also mentions experiencing vaginal dryness. SOCIAL HISTORY[1] Past medical history, appointments, medications, allergies reviewed. Pertinent Lab/Diagnostic Studies are reviewed and discussed today Current Outpatient Medications: carvedilol (COREG) 12.5 mg tablet hydroCHLOROthiazide 12.5 mg capsule rosuvastatin (CRESTOR) 5 mg tablet apixaban (ELIQUIS) 5 mg tab(s) semaglutide (OZEMPIC) 1 mg/dose (4 mg/3 mL) pen albendazole (ALBENZA) 200 mg tablet amoxicillin (AMOXIL) 500 mg capsule Health Maintenance HIV Screening Pneumococcal Vaccine: 50+(1 of 1 - PCV) Mammogram Screening Influenza Vaccine(1)@ Review Of Systems Constitutional: (+) weight loss Neck: (-) neck pain Genitourinary: (+) perineal pruritus, (+) vaginal dryness Musculoskeletal: (+) back pain, (+) shoulder pain Neurological: (-) migraines Physical Exam BP 120/82 Pulse 83 Resp 16 Wt 77.4 kg (170 lb 9.6 oz) LMP 06/07/2011 BMI 29.28 kg/m? GENERAL: NAD, alert and oriented. SKIN: Unremarkable, no rash or skin lesions. HEAD: Normocephalic. NECK: Supple, no lymphadenopathy, normal thyroid, no carotid bruits. LUNGS: Clear to auscultation bilaterally, no wheezes/rhonchi/rales. HEART: Regular rate and rhythm, no murmurs. No ectopy. EXTREMITIES: Normal, no deformities, no skin discoloration, no edema. NEURO: Awake, alert and oriented x3, cranial nerves II-XII grossly intact, normal gait, no involuntary motions. Labs: - Ova and parasite examination: Negative. Assessment and Plan 1. Paroxysmal atrial fibrillation (HCC) (I48.0) No current symptoms of atrial fibrillation; heart rate is within normal limits. - Continue Eliquis as prescribed. 2. Essential hypertension, benign (I10) Reviewed cardiology notes from this week; carvedilol increased from 6.25 mg to 12.5 mg with good initial response and no adverse effects reported. - Continue carvedilol 12.5 mg as adjusted by cardiology. - Continue hydrochlorothiazide and Crestor as prescribed. - Continue semaglutide for weight management; refill provided. - Encouraged ongoing exercise and weight management. 3. Perineal itching, female (L29.3) Parasitic infection ruled out; symptoms may be related to lichen sclerosus or menopausal changes. - Advised patient to discuss symptoms with MEDICAL SOCIOLOGIST at upcoming appointment. - Discussed potential use of topical estrogen cream if recommended by MEDICAL SOCIOLOGIST. 4. Need for vaccination (Z23) Voice recognition software was used to compose this office note. Please excuse any unintended typographical errors. Recording using [employer] software for draft documentation of the visit was discussed with the patient/authorized phlebotomy services representative; all questions welcomed and answered. Patient/authorized phlebotomy services representative agreed to proceed Marvel Edwards MD [1] Social History Tobacco Use Smoking status: Former Current packs/day: 0.00 Average packs/day: 1.5 packs/day for 6.0 years (9.0 ttl pk-yrs) Types: Cigarettes Start date: 11/08/1982 Quit date: 11/08/1988 Years since quittin.4 Smokeless tobacco: Never Vaping Use Vaping status: Never Used Substance Use Topics Alcohol use: Yes Comment: OCCASIONALLY Drug use: No [facility] 03-27-2025 Note HNO ID: [id number] Author: WILBER SERRATO MD Service: ? Author Type: Physician Type: Progress Notes Filed: 03/27/2025 17:38 Note Text: [facility] Department of Cardiovascular Medicine SECTION OF CARDIOVASCULAR IMAGING OUTPATIENT VISIT DATE 03/27/2025 OUTPATIENT VISIT TYPE ESTABLISHED Recording using Coc[employer] software for draft documentation of the visit was discussed with the patient/authorized phlebotomy services representative; all questions welcomed and answered. Patient/authorized phlebotomy services representative agreed to proceed PRIMARY CARE PHYSICIAN: Marvel Edwards [address] [place] [address] CHIEF COMPLAINT: HISTORY OF PRESENT ILLNESS: The patient is a 59-year-old female with a history of hypertension and atrial flutter presenting for routine follow-up. Hypertension: She reports that her blood pressure remains higher than she would like, with recent home readings around 130-132 mmHg. She mentions losing 20 pounds and taking Ozempic, although she is unsure why her blood pressure has not lowered further. She confirms she takes carvedilol and continues to wonder if she should remain on hydrochlorothiazide. She is currently training for a 5K at the end of March in [place] after a long break from running, using an balbina to pace herself. She states she feels well during her training. Post flutter ablation approximately three years ago and says her atrial flutter has been ?pretty good.? She remains on Eliquis for stroke prevention and does not describe any recent worsening of her flutter symptoms. She believes her symptoms have improved over time and is hopeful that continued exercise will help maintain that improvement. PAST CARDIAC HISTORY: She has been seen in the past for MVP s/p Mvr (1999), paroxsymal afib/AFL s/p ablation (03/2022). PAST MEDICAL HISTORY Diagnosis Date Allergic rhinitis, cause unspecified Allergic rhinitis Atrial flutter (HCC) Dysphagia, unspecified(787.20) Essential hypertension, benign Migraine, unspecified, without mention of intractable migraine without mention of status migrainosus History of Migraines Mitral valve disorders(424.0) PAST SURGICAL HISTORY Procedure Laterality Date DELIVERY ONLY , low cervical COLONOSCOPY FLX DX W/COLLJ SPEC WHEN PFRMD 02/08/2018 Colonoscopy EGD TRANSORAL BIOPSY SINGLE/MULTIPLE 03/30/09 GASTROESOPHAG REFLX TEST W/TELEMTRY PH ELTRD 03/30/09 pyloritek negative HEART SURGERY HX HYSTEROSCOPY WBX WWO D AND C ANDOR POLYPECTOMY 01/20/2019 INSERTION OF IUD 06/10/2011 PAST SURGICAL HISTORY OF 1999 Mitral valve repair-1999 SCOPE, PLANTAR FASCIOTOMY 06/2012 THYROID LEFT FINE NEEDLE ASPIRATION 03/26/09 U/S FNA left lobe thyroid TONSILLECTOMY PRIMARY/SECONDARY Tonsillectomy SOCIAL HISTORY SOCIAL HISTORY[1] FAMILY HISTORY Problem Relation Age of Onset Osteoporosis Mother Asthma Mother Heart Mother 71 Hypertension Father ALLERGIES: ALLERGIES Allergen Reactions Seasonal Allergies Other: See Comments Environmental- Sinus symptoms MEDICATIONS: hydroCHLOROthiazide 12.5 mg capsule Take 1 capsule by mouth once daily. semaglutide (OZEMPIC) 1 mg/dose (4 mg/3 mL) pen Inject 1 mg subcutaneously one time a week. rosuvastatin (CRESTOR) 5 mg tablet Take 0.5 tablets by mouth daily at bedtime. apixaban (ELIQUIS) 5 mg tab(s) Take 1 tablet by mouth two times a day. carvedilol (COREG) 12.5 mg tablet Take 1 tablet by mouth two times a day. albendazole (ALBENZA) 200 mg tablet Take 2 pills with food. Repeat in 2-3 weeks to kill all the eggs, all household contacts to be treated. May crush or chew. (Patient not taking: Reported on 03/27/2025) amoxicillin (AMOXIL) 500 mg capsule TAKE 4 CAPSULES BY MOUTH 1/2 TO 1 HOUR PRIOR TO DENTAL APPOINTMENT (Patient not taking: Reported on 03/27/2025) PHYSICAL EXAMINATION: BP 147/89 (BP Site: Right Arm, BP Position: Sitting, BP Cuff Size: Regular Adult) Pulse 85 Resp 16 Ht 162.6 cm (5' 4) Wt 76.3 kg (168 lb 4.8 oz) LMP 06/07/2011 SpO2 98% BMI 28.89 kg/m? General: Well appearing, in no acute distress, speaking in complete sentences. Lungs: Clear to auscultation bilaterally, no wheezing or rhonchi. Heart: Regular rhythm, PMI not displaced, S1, S2 normal, no S3, no S4, no heaves, no rub and no murmur. Abdomen: Soft, nontender, bowel sounds normal, no palpable organomegaly, no bruits. Extremities: No peripheral edema . Grade 2/4 distal pulses bilaterally. Neuro: Oriented to person, place and time, alert, cooperative, gait coordinated. 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 Left ventricular systolic function is normal. EF = 56 ? 5% (2D biplane) - The right ventricle (more content not included)... [facility] 01-17-2025 Telephone encounter Note Images from the original note were not included. ELIQUIS APPROVAL: [facility] 01-17-2025 Miscellaneous Notes Images from the original note were not included. ELIQUIS APPROVAL: documented in this encounter [facility] 11-23-2024 Note Addended by: MARVEL EDWARDS on: 11/23/2024 04:01 PM Modules accepted: Level of Service [facility] 11-23-2024 Miscellaneous Notes Addended by: MARVEL EDWARDS on: 11/23/2024 04:01 PM Modules accepted: Level of Service documented in this encounter [facility] 11-23-2024 Telephone encounter Note /Call from patient requesting refill. / Requested Prescriptions Pending Prescriptions Disp Refills carvedilol (COREG) 6.25 mg tablet [Pharmacy Med Name: CARVEDILOL 6.25 MG TABLET] 180 tablet 2 Sig: TAKE 1 TABLET BY MOUTH TWICE A DAY Patient last seen 03/03/[address] [facility] Work Phone: 11-23-2024 Miscellaneous Notes /Call from patient requesting refill. / Requested Prescriptions Pending Prescriptions Disp Refills carvedilol (COREG) 6.25 mg tablet [Pharmacy Med Name: CARVEDILOL 6.25 MG TABLET] 180 tablet 2 Sig: TAKE 1 TABLET BY MOUTH TWICE A DAY Patient last seen 03/03/2024 Mera Deleon documented in this encounter [facility] 11-23-2024 Instructions Marvel Edwards MD - 11/23/2024 8:35 AM EDT We discussed your blood pressure: - Continue taking Hydrochlorothiazide 12.5 mg daily as it is helping to maintain your blood pressure. A refill has been sent to your pharmacy. - Your blood pressure readings have improved, with recent measurements around 135/82. This is a good range, but please continue monitoring your blood pressure at home. - Stay hydrated while taking Hydrochlorothiazide, especially as you continue to lose weight. - I would like you to complete blood work (BMP) within the next 3 months to monitor your potassium and sodium levels. You do not need to schedule a visit for this; just complete the lab work. We discussed your weight loss and semaglutide: - You have lost 15 pounds over the past 6 months, which is excellent progress. Keep up the good work with your walking routine 3 days a week. - Continue taking Semaglutide 1 mg as prescribed. It is working well for you, and you are tolerating it with minimal side effects. Avoid foods that trigger gastrointestinal symptoms, such as hot dogs, cheese, and fried foods. We discussed your concerns about anal itching: - I performed an exam and did not find any hemorrhoids, rash, or other abnormalities. There are some excoriations (skin irritation) likely caused by scratching. - I prescribed Albendazole 400 mg (6 pills). Take 2 pills with food now and repeat in 2 weeks to treat for possible pinworms. This medication is safe and should address the itching if pinworms are the cause. - If symptoms persist after completing the treatment, please let me know. Follow-up plan: - Schedule your next visit in 4 months for a routine follow-up. - Complete blood work (BMP) within the next 3 months to monitor your potassium and sodium levels. - If you experience any new or worsening symptoms, please contact the office. documented in this encounter [facility] 11-23-2024 Note HNO ID: [id number] Author: MARVEL EDWARDS MD Service: ? Author Type: Physician Type: Progress Notes Filed: 11/23/2024 16:01 Note Text: Reason for Visit Follow up anal bp , weight and anal itching HPI Aron is a 59-year-old female with a history of HTN, obesity, and atrial fibrillation, presenting for follow-up. Aron reports resuming hydrochlorothiazide 12.5 mg approximately 4 weeks ago using a previous prescription. She has been monitoring her blood pressure and notes readings consistently around 130/80 mmHg. She expresses concern about her blood pressure and mentions feeling stressed about it. She is currently on semaglutide 1 mg and has lost 15 lbs over the past 6 months. She reports increased energy levels and is engaging in regular exercise, walking 3 days a week with her . She denies any significant side effects from semaglutide, except for occasional diarrhea when consuming unhealthy foods such as hot dogs and jordanian fries. Aron is also on Crestor 5 mg for cholesterol management and Eliquis for atrial fibrillation. She reports that her atrial fibrillation is well-controlled and not as bothersome as before her ablation. She denies any current episodes of atrial fibrillation. Additionally, Aron reports experiencing pruritus ani, particularly at night, for which she submitted a stool sample for testing approximately 2 weeks ago. She denies any bleeding or significant hemorrhoids, but mentions occasional hemorrhoids without regular bleeding. She has 3 indoor cats. Social History Tobacco Use Smoking status: Former Current packs/day: 0.00 Average packs/day: 1.5 packs/day for 6.0 years (9.0 ttl pk-yrs) Types: Cigarettes Start date: 11/08/1982 Quit date: 11/08/1988 Years since quittin.0 Smokeless tobacco: Never Vaping Use Vaping status: Never Used Substance Use Topics Alcohol use: Yes Comment: OCCASIONALLY Drug use: No Past medical history, appointments, medications, allergies reviewed. Pertinent Lab/Diagnostic Studies are reviewed and discussed today Current Outpatient Medications: semaglutide (OZEMPIC) 1 mg/dose (4 mg/3 mL) pen rosuvastatin (CRESTOR) 5 mg tablet carvedilol (COREG) 6.25 mg tablet apixaban (ELIQUIS) 5 mg tab(s) albendazole (ALBENZA) 200 mg tablet hydroCHLOROthiazide 12.5 mg capsule amoxicillin (AMOXIL) 500 mg capsule Health Maintenance HIV Screening Pneumococcal Vaccine: 50+(1 of 1 - PCV) BP Controlled (<130/80) Mammogram Screening@ Review Of Systems Constitutional: (+) weight loss, (+) increased energy Gastrointestinal: (+) diarrhea, (+) anal pruritus, (-) rectal bleeding, (-) constipation, (-) painful defecation, (-) rectal mass sensation Psychiatric: (+) anxiety Physical Exam BP 135/82 Pulse 98 Ht 163.8 cm (5' 4.5) Wt 78.3 kg (172 lb 9.6 oz) LMP 06/07/2011 SpO2 98% BMI 29.17 kg/m? GENERAL: NAD, alert and oriented. SKIN: Unremarkable, no rash or skin lesions. HEAD: Normocephalic. EYES: PERRLA, EOMI, conjunctiva clear. EARS: External ears normal, canals clear, TM's normal. NOSE/SINUSES: Nares normal. Septum midline. OROPHARYNX: Lips, mucosa, and tongue normal, good dentition. No oral lesions noted. NECK: Supple, no lymphadenopathy, normal thyroid, no carotid bruits. LUNGS: Clear to auscultation bilaterally, no wheezes/rhonchi/rales. HEART: Regular rate and rhythm, no murmurs. No ectopy. EXTREMITIES: Normal, no deformities, no skin discoloration, no edema. ABDOMEN: Soft, non-tender, no masses. Normal bowel sounds. RECTAL: Good rectal tone, no hemorrhoids, excoriations noted at the 12 o'clock position of the anal verge. NEURO: Awake, alert and oriented x3, cranial nerves II-XII grossly intact, normal gait, no involuntary motions. Labs: (June) Lipid panel: No abnormalities noted. Assessment and Plan 1. Essential hypertension, benign (I10) Blood pressure readings have stabilized around 130-135/80-82 mmHg after resuming hydrochlorothiazide 12.5 mg daily. - Continue hydrochlorothiazide 12.5 mg daily; refill provided. - Monitor hydration status due to diuretic use. - Follow-up in 4 months. - Ordered BMP to monitor electrolytes, particularly potassium and sodium levels, to be done within the next 3 months. 2. Class 1 obesity with serious comorbidity and body mass index (BMI) of 33.0 to 33.9 in adult, unspecified obesity type (E66.811) Weight loss of 15 lbs over 6 months with semaglutide 1 mg and regular exercise. BMI has decreased, contributing to improved blood pressure control. - Continue semaglutide 1 mg. - Maintain current exercise regimen. 3. Paroxysmal atrial fibrillation (HCC) (I48.0) Currently asymptomatic; well-controlled on Eliquis and Coreg. - Continue Eliquis and Coreg. 4. Anal itching (L29.0) Worm infection (B83.9) No hemorrhoids or visible rash on examination; excoriations noted. Differential diagnosis includes pinworm infection. - Prescr (more content not included)... [facility] 11-23-2024 History of Present illness Narrative Reason for Visit Follow up anal bp , weight and anal itching HPI Aron is a 59-year-old female with a history of HTN, obesity, and atrial fibrillation, presenting for follow-up. Aron reports resuming hydrochlorothiazide 12.5 mg approximately 4 weeks ago using a previous prescription. She has been monitoring her blood pressure and notes readings consistently around 130/80 mmHg. She expresses concern about her blood pressure and mentions feeling stressed about it. She is currently on semaglutide 1 mg and has lost 15 lbs over the past 6 months. She reports increased energy levels and is engaging in regular exercise, walking 3 days a week with her . She denies any significant side effects from semaglutide, except for occasional diarrhea when consuming unhealthy foods such as hot dogs and jordanian fries. Aron is also on Crestor 5 mg for cholesterol management and Eliquis for atrial fibrillation. She reports that her atrial fibrillation is well-controlled and not as bothersome as before her ablation. She denies any current episodes of atrial fibrillation. Additionally, Aron reports experiencing pruritus ani, particularly at night, for which she submitted a stool sample for testing approximately 2 weeks ago. She denies any bleeding or significant hemorrhoids, but mentions occasional hemorrhoids without regular bleeding. She has 3 indoor cats. Social History Tobacco Use Smoking status: Former Current packs/day: 0.00 Average packs/day: 1.5 packs/day for 6.0 years (9.0 ttl pk-yrs) Types: Cigarettes Start date: 11/08/1982 Quit date: 11/08/1988 Years since quittin.0 Smokeless tobacco: Never Vaping Use Vaping status: Never Used Substance Use Topics Alcohol use: Yes Comment: OCCASIONALLY Drug use: No Past medical history, appointments, medications, allergies reviewed. Pertinent Lab/Diagnostic Studies are reviewed and discussed today Current Outpatient Medications: semaglutide (OZEMPIC) 1 mg/dose (4 mg/3 mL) pen rosuvastatin (CRESTOR) 5 mg tablet carvedilol (COREG) 6.25 mg tablet apixaban (ELIQUIS) 5 mg tab(s) albendazole (ALBENZA) 200 mg tablet hydroCHLOROthiazide 12.5 mg capsule amoxicillin (AMOXIL) 500 mg capsule Health Maintenance HIV Screening Pneumococcal Vaccine: 50+(1 of 1 - PCV) BP Controlled (<130/80) Mammogram Screening@ Review Of Systems Constitutional: (+) weight loss, (+) increased energy Gastrointestinal: (+) diarrhea, (+) anal pruritus, (-) rectal bleeding, (-) constipation, (-) painful defecation, (-) rectal mass sensation Psychiatric: (+) anxiety Physical Exam BP 135/82 Pulse 98 Ht 163.8 cm (5' 4.5) Wt 78.3 kg (172 lb 9.6 oz) LMP 06/07/2011 SpO2 98% BMI 29.17 kg/m GENERAL: NAD, alert and oriented. SKIN: Unremarkable, no rash or skin lesions. HEAD: Normocephalic. EYES: PERRLA, EOMI, conjunctiva clear. EARS: External ears normal, canals clear, TM's normal. NOSE/SINUSES: Nares normal. Septum midline. OROPHARYNX: Lips, mucosa, and tongue normal, good dentition. No oral lesions noted. NECK: Supple, no lymphadenopathy, normal thyroid, no carotid bruits. LUNGS: Clear to auscultation bilaterally, no wheezes/rhonchi/rales. HEART: Regular rate and rhythm, no murmurs. No ectopy. EXTREMITIES: Normal, no deformities, no skin discoloration, no edema. ABDOMEN: Soft, non-tender, no masses. Normal bowel sounds. RECTAL: Good rectal tone, no hemorrhoids, excoriations noted at the 12 o'clock position of the anal verge. NEURO: Awake, alert and oriented x3, cranial nerves II-XII grossly intact, normal gait, no involuntary motions. Labs: (June) Lipid panel: No abnormalities noted. Assessment and Plan 1. Essential hypertension, benign (I10) Blood pressure readings have stabilized around 130-135/80-82 mmHg after resuming hydrochlorothiazide 12.5 mg daily. - Continue hydrochlorothiazide 12.5 mg daily; refill provided. - Monitor hydration status due to diuretic use. - Follow-up in 4 months. - Ordered BMP to monitor electrolytes, particularly potassium and sodium levels, to be done within the next 3 months. 2. Class 1 obesity with serious comorbidity and body mass index (BMI) of 33.0 to 33.9 in adult, unspecified obesity type (E66.811) Weight loss of 15 lbs over 6 months with semaglutide 1 mg and regular exercise. BMI has decreased, contributing to improved blood pressure control. - Continue semaglutide 1 mg. - Maintain current exercise regimen. 3. Paroxysmal atrial fibrillation (HCC) (I48.0) Currently asymptomatic; well-controlled on Eliquis and Coreg. - Continue Eliquis and Coreg. 4. Anal itching (L29.0) Worm infection (B83.9) No hemorrhoids or visible rash on examination; excoriations noted. Differential diagnosis includes pinworm infection. - Prescribed albendazole 400 mg, 2 tablets to be taken with food, repeat dose in 1-2 weeks. - Monitor for resolution of symptoms. Voice recognition software was used to compose this office note. Please excuse any unintended typographical errors. Recording using [employer] software for draft documentation of the visit was discussed with the patient/authorized phlebotomy services representative; all questions welcomed and answered. Patient/authorized phlebotomy services representative agreed to proceed Marvel Edwards MD documented in this encounter [facility] 11-04-2024 Telephone encounter Note Patient notified. [facility] 11-04-2024 Miscellaneous Notes Patient notified. Please notify that labs are ordered for stool She needs to get then done Marvel Baum MD Pt called in and reports she has had anal itching for a while now, but it only happens at night. She states she went on to trips to [place] one in the summer and one in the fall and a cruise in April. She wanted to know if the provider could do a test to rule out parasites before her appointment on 11/23/24. Please call and advise. documented in this encounter [facility] 11-04-2024 Telephone encounter Note Please notify that labs are ordered for stool She needs to get then done Marvel Baum MD [facility] 11-03-2024 Telephone encounter Note Pt called in and reports she has had anal itching for a while now, but it only happens at night. She states she went on to trips to [place] one in the summer and one in the fall and a cruise in April. She wanted to know if the provider could do a test to rule out parasites before her appointment on 11/23/24. Please call and advise. [facility] 10-03-2024 Telephone encounter Note Call from patient requesting refill. Requested Prescriptions Pending Prescriptions Disp Refills rosuvastatin (CRESTOR) 5 mg tablet 60 tablet 3 Sig: Take 0.5 tablets by mouth daily at bedtime. Patient last seen 03/03/2024 Brionna Dukes [facility] 10-03-2024 Miscellaneous Notes Call from patient requesting refill. Requested Prescriptions Pending Prescriptions Disp Refills rosuvastatin (CRESTOR) 5 mg tablet 60 tablet 3 Sig: Take 0.5 tablets by mouth daily at bedtime. Patient last seen 03/03/2024 Brionna Dukes documented in this encounter [facility] 10-03-2024 Instructions Marvel Edwards MD - 10/03/2024 9:29 AM EDT We discussed your weight management and use of Ozempic: - You are currently taking Ozempic 0.5 mg weekly. We decided to increase the dose to 1 mg weekly to support further weight loss. This prescription has been sent to your pharmacy for a 6-month supply. - You mentioned occasional constipation as a side effect. To help manage this, you can try increasing your water intake and consider using Metamucil if needed. - You noted that Ozempic helps reduce your appetite for the first few days after the injection, and you have been focusing on eating more protein and vegetables. Please continue these dietary habits to support your progress. - We will reassess your progress and any side effects at your next visit in 3 months. We discussed your blood pressure: - Your blood pressure was slightly elevated today. You are currently taking Carvedilol for your heart and blood pressure. - Please monitor your blood pressure periodically at home and let us know if it consistently remains high. - We will recheck your blood pressure at your next visit in 3 months. Follow-Up: - Your next appointment is in 3 months to evaluate your weight, blood pressure, and response to the increased Ozempic dose. documented in this encounter [facility] 10-03-2024 Note HNO ID: [id number] Author: MARVEL EDWARDS MD Service: ? Author Type: Physician Type: Progress Notes Filed: 10/03/2024 09:37 Note Text: Reason for Visit Weight management HPI Aron is a 59-year-old female with a history of obesity and HTN, presenting for follow-up on weight management and blood pressure control. Aron is currently on Ozempic 0.5 mg for weight management and reports stabilization of her weight. She notes a side effect of occasional constipation, which she manages by increasing water intake. She also observes a decrease in appetite for the first 5 days after each injection, followed by an increase in hunger during the last 2 days of the week. To address this, she has been monitoring her diet more closely for the past 2 weeks, ensuring adequate protein intake in the morning and increasing vegetable consumption. She denies any other side effects from Ozempic. Aron is also on carvedilol for blood pressure management and reports home readings typically around 130 mmHg. She attributes any fluctuations to her stressful job and expresses a preference for medication management over lifestyle changes until she retires in approximately 5 years. Social History Tobacco Use Smoking status: Former Current packs/day: 0.00 Average packs/day: 1.5 packs/day for 6.0 years (9.0 ttl pk-yrs) Types: Cigarettes Start date: 11/08/1982 Quit date: 11/08/1988 Years since quittin.9 Smokeless tobacco: Never Vaping Use Vaping status: Never Used Substance Use Topics Alcohol use: Yes Comment: OCCASIONALLY Drug use: No Past medical history, appointments, medications, allergies reviewed. Pertinent Lab/Diagnostic Studies are reviewed and discussed today Current Outpatient Medications: carvedilol (COREG) 6.25 mg tablet rosuvastatin (CRESTOR) 5 mg tablet apixaban (ELIQUIS) 5 mg tab(s) amoxicillin (AMOXIL) 500 mg capsule semaglutide (OZEMPIC) 1 mg/dose (4 mg/3 mL) pen Health Maintenance Anxiety Screening HIV Screening Pneumococcal Vaccine: 50+(1 of 1 - PCV) BP Controlled (<130/80) Mammogram Screening@ Review Of Systems Gastrointestinal: (+) constipation Physical Exam BP 147/90 Pulse 90 Resp 16 Wt 81.1 kg (178 lb 12.8 oz) LMP 06/07/2011 SpO2 96% BMI 30.22 kg/m? GENERAL: NAD, alert and oriented. SKIN: Unremarkable, no rash or skin lesions. HEAD: Normocephalic. EYES: PERRLA, EOMI, conjunctiva clear. EARS: External ears normal, canals clear, TM's normal. NOSE/SINUSES: Nares normal. Septum midline. OROPHARYNX: Lips, mucosa, and tongue normal, good dentition. No oral lesions noted. NECK: Supple, no lymphadenopathy, normal thyroid, no carotid bruits. LUNGS: Clear to auscultation bilaterally, no wheezes/rhonchi/rales. HEART: Regular rate and rhythm, no murmurs. No ectopy. EXTREMITIES: Normal, no deformities, no skin discoloration, no edema. NEURO: Awake, alert and oriented x3, cranial nerves II-XII grossly intact, normal gait, no involuntary motions. Assessment and Plan 1. Essential hypertension, benign (I10) Blood pressure readings are slightly elevated today. Patient is currently on carvedilol for blood pressure management and reports home readings around 130 mmHg. Stress from work is a contributing factor. - Continue carvedilol. - Monitor blood pressure at home regularly. - Recheck blood pressure during next visit in 3 months. 2. Obesity (BMI 30.0-34.9) (E66.811) Currently on Ozempic 0.5 mg with stabilized weight. Reports mild constipation as a side effect. Patient has been monitoring diet, focusing on protein and vegetables. - Increase Ozempic to 1 mg. - Consider Metamucil for constipation management. - Follow-up in 3 months to assess weight and side effects. 3. Encounter for screening examination for other mental health and behavioral disorders (Z13.39) Voice recognition software was used to compose this office note. Please excuse any unintended typographical errors. Recording using ambient iHandle software for draft documentation of the visit was discussed with the patient/authorized phlebotomy services representative; all questions welcomed and answered. Patient/authorized phlebotomy services representative agreed to proceed Marvel Edwards MD [facility] 10-03-2024 History of Present illness Narrative Reason for Visit Weight management HPI Aron is a 59-year-old female with a history of obesity and HTN, presenting for follow-up on weight management and blood pressure control. Aron is currently on Ozempic 0.5 mg for weight management and reports stabilization of her weight. She notes a side effect of occasional constipation, which she manages by increasing water intake. She also observes a decrease in appetite for the first 5 days after each injection, followed by an increase in hunger during the last 2 days of the week. To address this, she has been monitoring her diet more closely for the past 2 weeks, ensuring adequate protein intake in the morning and increasing vegetable consumption. She denies any other side effects from Ozempic. Aron is also on carvedilol for blood pressure management and reports home readings typically around 130 mmHg. She attributes any fluctuations to her stressful job and expresses a preference for medication management over lifestyle changes until she retires in approximately 5 years. Social History Tobacco Use Smoking status: Former Current packs/day: 0.00 Average packs/day: 1.5 packs/day for 6.0 years (9.0 ttl pk-yrs) Types: Cigarettes Start date: 11/08/1982 Quit date: 11/08/1988 Years since quittin.9 Smokeless tobacco: Never Vaping Use Vaping status: Never Used Substance Use Topics Alcohol use: Yes Comment: OCCASIONALLY Drug use: No Past medical history, appointments, medications, allergies reviewed. Pertinent Lab/Diagnostic Studies are reviewed and discussed today Current Outpatient Medications: carvedilol (COREG) 6.25 mg tablet rosuvastatin (CRESTOR) 5 mg tablet apixaban (ELIQUIS) 5 mg tab(s) amoxicillin (AMOXIL) 500 mg capsule semaglutide (OZEMPIC) 1 mg/dose (4 mg/3 mL) pen Health Maintenance Anxiety Screening HIV Screening Pneumococcal Vaccine: 50+(1 of 1 - PCV) BP Controlled (<130/80) Mammogram Screening@ Review Of Systems Gastrointestinal: (+) constipation Physical Exam BP 147/90 Pulse 90 Resp 16 Wt 81.1 kg (178 lb 12.8 oz) LMP 06/07/2011 SpO2 96% BMI 30.22 kg/m GENERAL: NAD, alert and oriented. SKIN: Unremarkable, no rash or skin lesions. HEAD: Normocephalic. EYES: PERRLA, EOMI, conjunctiva clear. EARS: External ears normal, canals clear, TM's normal. NOSE/SINUSES: Nares normal. Septum midline. OROPHARYNX: Lips, mucosa, and tongue normal, good dentition. No oral lesions noted. NECK: Supple, no lymphadenopathy, normal thyroid, no carotid bruits. LUNGS: Clear to auscultation bilaterally, no wheezes/rhonchi/rales. HEART: Regular rate and rhythm, no murmurs. No ectopy. EXTREMITIES: Normal, no deformities, no skin discoloration, no edema. NEURO: Awake, alert and oriented x3, cranial nerves II-XII grossly intact, normal gait, no involuntary motions. Assessment and Plan 1. Essential hypertension, benign (I10) Blood pressure readings are slightly elevated today. Patient is currently on carvedilol for blood pressure management and reports home readings around 130 mmHg. Stress from work is a contributing factor. - Continue carvedilol. - Monitor blood pressure at home regularly. - Recheck blood pressure during next visit in 3 months. 2. Obesity (BMI 30.0-34.9) (E66.811) Currently on Ozempic 0.5 mg with stabilized weight. Reports mild constipation as a side effect. Patient has been monitoring diet, focusing on protein and vegetables. - Increase Ozempic to 1 mg. - Consider Metamucil for constipation management. - Follow-up in 3 months to assess weight and side effects. 3. Encounter for screening examination for other mental health and behavioral disorders (Z13.39) Voice recognition software was used to compose this office note. Please excuse any unintended typographical errors. Recording using [employer] software for draft documentation of the visit was discussed with the patient/authorized phlebotomy services representative; all questions welcomed and answered. Patient/authorized phlebotomy services representative agreed to proceed Marvel Edwards MD documented in this encounter [facility] 08-09-2024 Note Patient Outreach (IN TMWS) -------- ARON JORGE ([id number]) 1965 F Date Time Provider Department 08/09/24 MARVEL EDWARDS During your visit today, we recorded the following information about you: Allergies As of Date: 08/09/2024 Noted Allergy Reaction SEASONAL ALLERGIES 08/21/2023 14 - Other: See Comments Comments: Environmental- Sinus symptoms Date Reviewed: 07/04/2024 Reviewed by: Candace Solorio LPN - Fully Assessed Visit Diagnosis:Encounter for screening mammogram for breast cancer [Z12.31] Order(s):[facility] [[id number]] Order #: [id number] FUTURE Prescriptions as of 09/09/2024 - semaglutide (OZEMPIC) 0.25 mg or 0.5 mg (2 mg/3 mL) pen Inject 0.5 mg subcutaneously one time a week. - carvedilol (COREG) 6.25 mg tablet Take 1 tablet by mouth two times a day. - rosuvastatin (CRESTOR) 5 mg tablet Take 0.5 tablets by mouth daily at bedtime. - apixaban (ELIQUIS) 5 mg tab(s) Take 1 tablet by mouth two times a day. 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] 12/19/2004 Essential hypertension, benign [I10] 09/23/2006 ACNE NEC [L70.8] 09/23/2006 DYSPHAGIA [787.2] 09/23/2006 DYSPHAGIA NOS [R13.10] Nontoxic Uninodular Goiter [E04.1] 03/05/2009 GERD (gastroesophageal reflux disease) [K21.9] 08/19/2010 Hypokalemia [E87.6] 07/04/2019 Adjustment disorder with anxious mood [F43.22] 12/13/2021 Adjustment insomnia [F51.02] 12/13/2021 Atrial fibrillation (HCC) [I48.91] 03/31/2022 Atrial flutter (HCC) [I48.92] 04/02/2022 Depression [F32.A] 04/02/2022 S/P MVR (mitral valve repair) [Z98.890] 04/02/2022 Encounter Status:Closed by Glasses[employer]USER on 09/09/24 [facility] 07-04-2024 Note HNO ID: [id number] Author: MARVEL EDWARDS MD Service: ? Author Type: Physician Type: Progress Notes Filed: 07/04/2024 09:12 Note Text: Reason for Visit Patient presents with: F/U HTN 3 Month: and weight loss med Aron Jorge is a 58 year old female who presents here today for Above Complaints.. Health Maintenance Anxiety Screening Hepatitis C Screening HIV Screening BP Controlled (<130/80) Mammogram Screening Influenza Vaccine(1) Covid-19 Vaccine( season) HPI This is a 58-year-old woman with a past medical history of essential hypertension, atrial fibrillation, reflux, hypokalemia, migraine and insomnia. She has a history of hypertension and is currently taking metoprolol and hydrochlorothiazide. 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 She acknowledges the need to manage her stress better and is open to making lifestyle changes. She was changed to coreg 6.25 mgs, she felt a little dizzy initially but did not have too many issues on it later. She is doing fairly well. Her most recent laboratory work was in August, which revealed an LDL level of 169 mg/dL. She is not currently on any lipid-lowering medications but is open to starting treatment if necessary. She has gained weight over the past year and previously took Mounjaro for weight management but discontinued it due to insurance coverage issues. She exercises once a week, including swimming and cycling. She would like to get on the mounjaro for weight loss. 07/04/24: She was started on the Ozempic in March and has lost 5 pounds since then, her bp is better controlled, she feels much much better. Notes the food noise has stopped finally in her. Initially had somegi upset but now that is not a concern to her. No problem-specific Assessment AND Plan notes found for this encounter. PAST MEDICAL HISTORY Diagnosis Date Allergic rhinitis, cause unspecified Allergic rhinitis Atrial flutter (HCC) Dysphagia, unspecified(787.20) Essential hypertension, benign Migraine, unspecified, without mention of intractable migraine without mention of status migrainosus History of Migraines Mitral valve disorders(424.0) PAST SURGICAL HISTORY Procedure Laterality Date DELIVERY ONLY , low cervical COLONOSCOPY FLX DX W/COLLJ SPEC WHEN PFRMD 02/08/2018 Colonoscopy EGD TRANSORAL BIOPSY SINGLE/MULTIPLE 03/30/09 GASTROESOPHAG REFLX TEST W/TELEMTRY PH ELTRD 03/30/09 pyloritek negative HEART SURGERY HX HYSTEROSCOPY WBX WWO D AND C ANDOR POLYPECTOMY 01/20/2019 INSERTION OF IUD 06/10/2011 PAST SURGICAL HISTORY OF 1999 Mitral valve repair-1999 SCOPE, PLANTAR FASCIOTOMY 06/2012 THYROID LEFT FINE NEEDLE ASPIRATION 03/26/09 U/S FNA left lobe thyroid TONSILLECTOMY PRIMARY/SECONDARY Tonsillectomy FAMILY HISTORY Problem Relation Age of Onset Osteoporosis Mother Asthma Mother Heart Mother 71 Hypertension Father Social History Tobacco Use Smoking status: Former Current packs/day: 0.00 Average packs/day: 1.5 packs/day for 6.0 years (9.0 ttl pk-yrs) Types: Cigarettes Start date: 11/08/1982 Quit date: 11/08/1988 Years since quittin.6 Smokeless tobacco: Never Vaping Use Vaping status: Never Used Substance Use Topics Alcohol use: Yes Comment: OCCASIONALLY Drug use: No Past medical history, appointments, medications, allergies reviewed. Pertinent Lab/Diagnostic Studies are reviewed and discussed today Current Outpatient Medications: semaglutide (OZEMPIC) 0.25 mg or 0.5 mg (2 mg/3 mL) pen carvedilol (COREG) 6.25 mg tablet rosuvastatin (CRESTOR) 5 mg tablet apixaban (ELIQUIS) 5 mg tab(s) amoxicillin (AMOXIL) 500 mg capsule Review of Systems CONSTITUTIONAL: No fevers, chills night sweats, unintended weight loss CARDIOVASCULAR: No chest pain, dyspnea, palpitations, orthopnea, PND, ankle edema. PULM: No dyspnea, unexplained cough. GI: No dysphagia/odynophagia, problematic reflux, constipation, diarrhea, changes in stool habits, hematochezia, melena. : No new urinary complaints, including dysuria, gross hematuria or pyuria. NEURO: No new balance problems, peripheral weakness/paresthesias or numbness of concern. Physical Exam BP 130/80 Pulse 87 Resp 16 Wt 81.2 kg (179 lb) LMP 06/07/2011 SpO2 98% BMI 30.25 kg/m? General appearance: Well appearing, alert, in no acute distress, well nourished. Skin: Skin color, texture, turgor normal, no suspicious rashes or lesions Head: Normocephalic, no masses, lesions, tenderness or abnormalities Eyes: Anicteric sclera. Pupils are equally round and reactive to light. Extraocular movements are intact. Lungs: Lungs clear to auscultation. No wheezing, rhonchi, rales Heart: RRR without murmur, gallop, or rubs. Extremities: No deformities, edema, skin discoloration, clubbing or cyanosis. Good capill (more content not included)... [facility] 07-04-2024 History of Present illness Narrative Reason for Visit Patient presents with: F/U HTN 3 Month: and weight loss med Aron Jorge is a 58 year old female who presents here today for Above Complaints.. Health Maintenance Anxiety Screening Hepatitis C Screening HIV Screening BP Controlled (<130/80) Mammogram Screening Influenza Vaccine(1) Covid-19 Vaccine( season) HPI This is a 58-year-old woman with a past medical history of essential hypertension, atrial fibrillation, reflux, hypokalemia, migraine and insomnia. She has a history of hypertension and is currently taking metoprolol and hydrochlorothiazide. 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 She acknowledges the need to manage her stress better and is open to making lifestyle changes. She was changed to coreg 6.25 mgs, she felt a little dizzy initially but did not have too many issues on it later. She is doing fairly well. Her most recent laboratory work was in August, which revealed an LDL level of 169 mg/dL. She is not currently on any lipid-lowering medications but is open to starting treatment if necessary. She has gained weight over the past year and previously took Mounjaro for weight management but discontinued it due to insurance coverage issues. She exercises once a week, including swimming and cycling. She would like to get on the mounjaro for weight loss. 07/04/24: She was started on the Ozempic in March and has lost 5 pounds since then, her bp is better controlled, she feels much much better. Notes the food noise has stopped finally in her. Initially had somegi upset but now that is not a concern to her. No problem-specific Assessment & Plan notes found for this encounter. PAST MEDICAL HISTORY Diagnosis Date Allergic rhinitis, cause unspecified Allergic rhinitis Atrial flutter (HCC) Dysphagia, unspecified(787.20) Essential hypertension, benign Migraine, unspecified, without mention of intractable migraine without mention of status migrainosus History of Migraines Mitral valve disorders(424.0) PAST SURGICAL HISTORY Procedure Laterality Date DELIVERY ONLY , low cervical COLONOSCOPY FLX DX W/COLLJ SPEC WHEN PFRMD 02/08/2018 Colonoscopy EGD TRANSORAL BIOPSY SINGLE/MULTIPLE 03/30/09 GASTROESOPHAG REFLX TEST W/TELEMTRY PH ELTRD 03/30/09 pyloritek negative HEART SURGERY HX HYSTEROSCOPY WBX WWO D AND C ANDOR POLYPECTOMY 01/20/2019 INSERTION OF IUD 06/10/2011 PAST SURGICAL HISTORY OF 1999 Mitral valve repair-1999 SCOPE, PLANTAR FASCIOTOMY 06/2012 THYROID LEFT FINE NEEDLE ASPIRATION 03/26/09 U/S FNA left lobe thyroid TONSILLECTOMY PRIMARY/SECONDARY <AGE 12 Tonsillectomy FAMILY HISTORY Problem Relation Age of Onset Osteoporosis Mother Asthma Mother Heart Mother 71 Hypertension Father Social History Tobacco Use Smoking status: Former Current packs/day: 0.00 Average packs/day: 1.5 packs/day for 6.0 years (9.0 ttl pk-yrs) Types: Cigarettes Start date: 11/08/1982 Quit date: 11/08/1988 Years since quittin.6 Smokeless tobacco: Never Vaping Use Vaping status: Never Used Substance Use Topics Alcohol use: Yes Comment: OCCASIONALLY Drug use: No Past medical history, appointments, medications, allergies reviewed. Pertinent Lab/Diagnostic Studies are reviewed and discussed today Current Outpatient Medications: semaglutide (OZEMPIC) 0.25 mg or 0.5 mg (2 mg/3 mL) pen carvedilol (COREG) 6.25 mg tablet rosuvastatin (CRESTOR) 5 mg tablet apixaban (ELIQUIS) 5 mg tab(s) amoxicillin (AMOXIL) 500 mg capsule Review of Systems CONSTITUTIONAL: No fevers, chills night sweats, unintended weight loss CARDIOVASCULAR: No chest pain, dyspnea, palpitations, orthopnea, PND, ankle edema. PULM: No dyspnea, unexplained cough. GI: No dysphagia/odynophagia, problematic reflux, constipation, diarrhea, changes in stool habits, hematochezia, melena. : No new urinary complaints, including dysuria, gross hematuria or pyuria. NEURO: No new balance problems, peripheral weakness/paresthesias or numbness of concern. Physical Exam BP 130/80 Pulse 87 Resp 16 Wt 81.2 kg (179 lb) LMP 06/07/2011 SpO2 98% BMI 30.25 kg/m General appearance: Well appearing, alert, in no acute distress, well nourished. Skin: Skin color, texture, turgor normal, no suspicious rashes or lesions Head: Normocephalic, no masses, lesions, tenderness or abnormalities Eyes: Anicteric sclera. Pupils are equally round and reactive to light. Extraocular movements are intact. Lungs: Lungs clear to auscultation. No wheezing, rhonchi, rales Heart: RRR without murmur, gallop, or rubs. Extremities: No deformities, edema, skin discoloration, clubbing or cyanosis. Good capillary refill. ASSESSMENT/PLAN: 1. Primary hypertension - ICD9: 401.9, ICD10: I10 (primary diagnosis) - Controlled - Recommend home blood pressure monitoring, to bring results to next visit - Encouraged sodium restriction, DASH or Mediterranean diet - Recommend regular aerobic exercise 2. Class 1 obesity with serious comorbidity and body mass index (BMI) of 31.0 to 31.9 in adult, unspecified obesity type - ICD9: 278.00, V85.31, ICD10: E66.811, Z68.31 Weight decreasing on Ozempic, We will increase the medication to 0.5 mg, as she is not losing as much weight now that in the past. Marvel Edwards MD documented in this encounter [facility] 06-21-2024 Note Patient Outreach (IN [facility]) -------- ARON JORGE ([id number]) 1965 F Date Time Provider Department 06/21/24 MARVEL EDWARDS During your visit today, we recorded the following information about you: Allergies As of Date: 06/21/2024 Noted Allergy Reaction SEASONAL ALLERGIES 08/21/2023 14 - Other: See Comments Comments: Environmental- Sinus symptoms Date Reviewed: 03/28/2024 Reviewed by: Korina Proctor MA - Fully Assessed Visit Diagnosis:Medication management [Z79.899] Order(s):COMPLETE BLOOD COUNT [CB] Order #: [id number] FUTURE Prescriptions as of 06/24/2024 - semaglutide (OZEMPIC) 0.25 mg or 0.5 mg (2 mg/3 mL) pen Inject 0.25 mg subcutaneously one time a week. - carvedilol (COREG) 6.25 mg tablet Take 1 tablet by mouth two times a day. - rosuvastatin (CRESTOR) 5 mg tablet Take 0.5 tablets by mouth daily at bedtime. - apixaban (ELIQUIS) 5 mg tab(s) Take 1 tablet by mouth two times a day. 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] 12/19/2004 Essential hypertension, benign [I10] 09/23/2006 ACNE NEC [L70.8] 09/23/2006 DYSPHAGIA [787.2] 09/23/2006 DYSPHAGIA NOS [R13.10] Nontoxic Uninodular Goiter [E04.1] 03/05/2009 GERD (gastroesophageal reflux disease) [K21.9] 08/19/2010 Hypokalemia [E87.6] 07/04/2019 Adjustment disorder with anxious mood [F43.22] 12/13/2021 Adjustment insomnia [F51.02] 12/13/2021 Atrial fibrillation (HCC) [I48.91] 03/31/2022 Atrial flutter (HCC) [I48.92] 04/02/2022 Depression [F32.A] 04/02/2022 S/P MVR (mitral valve repair) [Z98.890] 04/02/2022 Encounter Status:Closed by [employer] on 06/24/24 [facility] 03-28-2024 History of Present illness Narrative Reason for Visit Patient presents with: 6 mo followup Aron Jorge is a 58 year old female who presents here today for Above Complaints.. Health Maintenance Anxiety Screening Hepatitis C Screening HIV Screening BP Controlled (<130/80) Mammogram Screening Influenza Vaccine(1) Covid-19 Vaccine( season) HPI This is a 58-year-old woman with a past medical history of essential hypertension, atrial fibrillation, reflux, hypokalemia, migraine and insomnia. She has a history of hypertension and is currently taking metoprolol and hydrochlorothiazide. 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 She acknowledges the need to manage her stress better and is open to making lifestyle changes. She was changed to coreg 6.25 mgs, she felt a little dizzy initially but did not have too many issues on it later. She is doing fairly well. Her most recent laboratory work was in August, which revealed an LDL level of 169 mg/dL. She is not currently on any lipid-lowering medications but is open to starting treatment if necessary. She has gained weight over the past year and previously took Mounjaro for weight management but discontinued it due to insurance coverage issues. She exercises once a week, including swimming and cycling. She would like to get on the mounjaro for weight loss No problem-specific Assessment & Plan notes found for this encounter. PAST MEDICAL HISTORY Diagnosis Date Allergic rhinitis, cause unspecified Allergic rhinitis Atrial flutter (HCC) Dysphagia, unspecified(787.20) Essential hypertension, benign Migraine, unspecified, without mention of intractable migraine without mention of status migrainosus History of Migraines Mitral valve disorders(424.0) PAST SURGICAL HISTORY Procedure Laterality Date DELIVERY ONLY , low cervical COLONOSCOPY FLX DX W/COLLJ SPEC WHEN PFRMD 02/08/2018 Colonoscopy EGD TRANSORAL BIOPSY SINGLE/MULTIPLE 03/30/09 GASTROESOPHAG REFLX TEST W/TELEMTRY PH ELTRD 03/30/09 pyloritek negative HEART SURGERY HX HYSTEROSCOPY WBX WWO D AND C ANDOR POLYPECTOMY 01/20/2019 INSERTION OF IUD 06/10/2011 PAST SURGICAL HISTORY OF 2000 Mitral valve repair-1999 SCOPE, PLANTAR FASCIOTOMY 06/2012 THYROID LEFT FINE NEEDLE ASPIRATION 03/26/09 U/S FNA left lobe thyroid TONSILLECTOMY PRIMARY/SECONDARY <AGE 12 Tonsillectomy FAMILY HISTORY Problem Relation Age of Onset Osteoporosis Mother Asthma Mother Heart Mother 71 Hypertension Father Social History Tobacco Use Smoking status: Former Current packs/day: 0.00 Average packs/day: 1.5 packs/day for 6.0 years (9.0 ttl pk-yrs) Types: Cigarettes Start date: 11/08/1982 Quit date: 11/08/1988 Years since quittin.4 Smokeless tobacco: Never Vaping Use Vaping status: Never Used Substance Use Topics Alcohol use: Yes Comment: OCCASIONALLY Drug use: No Past medical history, appointments, medications, allergies reviewed. Pertinent Lab/Diagnostic Studies are reviewed and discussed today Current Outpatient Medications: carvedilol (COREG) 6.25 mg tablet apixaban (ELIQUIS) 5 mg tab(s) rosuvastatin (CRESTOR) 5 mg tablet metoprolol succinate ER (TOPROL XL) 25 mg 24 hr tablet hydroCHLOROthiazide 12.5 mg capsule amoxicillin (AMOXIL) 500 mg capsule Review of Systems CONSTITUTIONAL: No fevers, chills night sweats, unintended weight loss CARDIOVASCULAR: No chest pain, dyspnea, palpitations, orthopnea, PND, ankle edema. PULM: No dyspnea, unexplained cough. GI: No dysphagia/odynophagia, problematic reflux, constipation, diarrhea, changes in stool habits, hematochezia, melena. : No new urinary complaints, including dysuria, gross hematuria or pyuria. NEURO: No new balance problems, peripheral weakness/paresthesias or numbness of concern. Physical Exam BP 134/80 Pulse 76 Resp 16 Ht 163.8 cm (5' 4.5) Wt 84.8 kg (187 lb) LMP 06/07/2011 BMI 31.60 kg/m General appearance: Well appearing, alert, in no acute distress, well nourished. Skin: Skin color, texture, turgor normal, no suspicious rashes or lesions Head: Normocephalic, no masses, lesions, tenderness or abnormalities Eyes: Anicteric sclera. Pupils are equally round and reactive to light. Extraocular movements are intact. Lungs: Lungs clear to auscultation. No wheezing, rhonchi, rales Heart: RRR without murmur, gallop, or rubs. Extremities: No deformities, edema, skin discoloration, clubbing or cyanosis. Good capillary refill. ASSESSMENT/PLAN: 1. Essential hypertension, benign - ICD9: 401.1, ICD10: I10 (primary diagnosis) - Improving control, we discussed having a target of 130 or less, and the need to add hctz, if her log of bp shows she is more in the 140 during the day time. - Recommend home blood pressure monitoring, to bring results to next visit - Encouraged sodium restriction, DASH or Mediterranean diet - Recommend regular aerobic exercise - COMPREHENSIVE METABOLIC PANEL 2. Encounter for immunization - ICD9: V03.89, ICD10: Z23 - INFLUENZA VACCINE, AGE 6MO-64YR, TRIVALENT (AFLURIA, FLULAVAL, FLUVIRIN, FLUZONE) 3. Hyperlipidemia, unspecified hyperlipidemia type - ICD9: 272.4, ICD10: E78.5 - Controlled - Counseled on healthy diet and regular exercise - LIPID PANEL BASIC - COMPREHENSIVE METABOLIC PANEL - HEPATITIS C ANTIBODY IA WITH CONFIRMATION - HIV 1/2 COMBO WITH REFLEX TO DIFFERENTIATION 6. Class 1 obesity without serious comorbidity with body mass index (BMI) of 31.0 to 31.9 in adult, unspecified obesity type - ICD9: 278.00, V85.31, ICD10: E66.811, Z68.31 - SEMAGLUTIDE 0.25 MG OR 0.5 MG (2 MG/3 ML) SUBCUTANEOUS PEN INJECTOR Marvel Edwards MD documented in this encounter [facility] 03-03-2024 History of Present illness Narrative Images from the original note were not included. [facility] Department of Cardiovascular Medicine SECTION OF CARDIOVASCULAR IMAGING OUTPATIENT VISIT DATE 03/03/2024 OUTPATIENT VISIT TYPE ESTABLISHED PRIMARY CARE PHYSICIAN: Marvel Edwards [address] [place] [address] REFERRING PHYSICIAN: Geovanni Serrato [address] [address] CHIEF COMPLAINT: HISTORY OF PRESENT ILLNESS: Patient is a 58-year-old female presenting for follow-up. She reports feeling generally well but experiences occasional palpitations, occurring less than once a month and lasting for a short duration before resolving spontaneously. She has a history of hypertension and is currently taking metoprolol and hydrochlorothiazide. 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 She acknowledges the need to manage her stress better and is open to making lifestyle changes. Her most recent laboratory work was in August, which revealed an LDL level of 169 mg/dL. She is not currently on any lipid-lowering medications but is open to starting treatment if necessary. She has gained weight over the past year and previously took Mounjaro for weight management but discontinued it due to insurance coverage issues. She exercises once a week, including swimming and cycling. PAST CARDIAC HISTORY: She has been seen in the past for MVP s/p Mvr (1999), paroxsymal afib/AFL s/p ablation (03/2022). PAST MEDICAL HISTORY No date: Allergic rhinitis, cause unspecified Comment: Allergic rhinitis No date: Atrial flutter (HCC) No date: Dysphagia, unspecified(787.20) No date: Essential hypertension, benign No date: Migraine, unspecified, without mention of intractable migraine without mention of status migrainosus Comment: History of Migraines No date: Mitral valve disorders(424.0) PAST SURGICAL HISTORY No date: DELIVERY ONLY Comment: , low cervical 02/08/2018: COLONOSCOPY FLX DX W/COLLJ SPEC WHEN PFRMD Comment: Colonoscopy 03/30/09: EGD TRANSORAL BIOPSY SINGLE/MULTIPLE 03/30/09: GASTROESOPHAG REFLX TEST W/TELEMTRY PH ELTRD Comment: pyloritek negative No date: HEART SURGERY HX 01/20/2019: HYSTEROSCOPY WBX WWO D AND C ANDOR POLYPECTOMY 06/10/2011: INSERTION OF IUD 1999: PAST SURGICAL HISTORY OF Comment: Mitral valve repair-06/2012: SCOPE, PLANTAR FASCIOTOMY 03/26/09: THYROID LEFT FINE NEEDLE ASPIRATION Comment: U/S FNA left lobe thyroid No date: TONSILLECTOMY PRIMARY/SECONDARY <AGE 13 Comment: Tonsillectomy SOCIAL HISTORY Social History Tobacco Use Smoking status: Former Current packs/day: 0.00 Average packs/day: 1.5 packs/day for 6.0 years (9.0 ttl pk-yrs) Types: Cigarettes Start date: 11/08/1982 Quit date: 11/08/1988 Years since quittin.3 Smokeless tobacco: Never Vaping Use Vaping status: Never Used Substance Use Topics Alcohol use: Yes Comment: OCCASIONALLY Drug use: No FAMILY HISTORY Problem Relation Age of Onset Osteoporosis Mother Asthma Mother Heart Mother 71 Hypertension Father ALLERGIES: ALLERGIES Allergen Reactions Seasonal Allergies Other: See Comments Environmental- Sinus symptoms MEDICATIONS: metoprolol succinate ER (TOPROL XL) 25 mg 24 hr tablet Take 1 tablet by mouth two times a day. hydroCHLOROthiazide 12.5 mg capsule Take 1 capsule by mouth once daily. amoxicillin (AMOXIL) 500 mg capsule TAKE 4 CAPSULES BY MOUTH 1/2 TO 1 HOUR PRIOR TO DENTAL APPOINTMENT carvedilol (COREG) 6.25 mg tablet Take 1 tablet by mouth two times a day. rosuvastatin (CRESTOR) 5 mg tablet Take 0.5 tablets by mouth daily at bedtime. PHYSICAL EXAMINATION: BP 160/105 Pulse 81 Ht 163.8 cm (5' 4.5) Wt 81.6 kg (180 lb) LMP 06/07/2011 SpO2 98% BMI 30.42 kg/m General: Well appearing, in no acute distress, speaking in complete sentences. Lungs: Clear to auscultation bilaterally, no wheezing or rhonchi. Heart: Regular rhythm, PMI not displaced, S1, S2 normal, no S3, no S4, no heaves, no rub and no murmur. Abdomen: Soft, nontender, bowel sounds normal, no palpable organomegaly, no bruits. Extremities: No peripheral edema . Grade 2/4 distal pulses bilaterally. Neuro: Oriented to person, place and time, alert, cooperative, gait coordinated. CARDIOVASCULAR MEDICINE TESTING: Last ECHO Result Conclusion ECHO Collected: 03/03/2024 8:10 AM (Final result) Impression: CONCLUSIONS: - Exam indication: MV repair (1999) - The left ventricle is normal in size. Left ventricular systolic function is normal. EF = 56 5% (2D biplane) - The right ventricle is normal in size. Right ventricular systolic function is normal. - The left atrial cavity is severely dilated. - Post mitral valve repair. mitral valve annuloplasty ring. There is mild (1+) mitral valve regurgitation. The peak gradient is 9 mmHg and the mean gradient is 3 mmHg. Prior MV gradients of 11/4mmHg. Today's gradients were obtained at a HR of 70 bpm. - Exam was compared with the prior echocardiographic exam performed on 12/18/2022. Similar overall findings. * * * Final * * * ECG: NSR I have personally reviewed the Electrocardiogram and Echocardiogram. ASSESSMENT and PLAN: # Mixed hyperlipidemia (E78.2) LDL cholesterol was 169 mg/dL in August, which is above the target of less than 100 mg/dL. Patient is not currently on lipid-lowering medication. - Ordered lipid panel. - Start a low dose of a statin medication to help lower your cholesterol. This will be sent to your pharmacy. - Follow-up with primary care physician in March to monitor response to treatment and adjust dosage if necessary. Hypertension -Discontinue Metoprolol and start Carvedilol (Coreg) 6.25 mg twice daily for better blood pressure control. You may work with your primary doctor to adjust the dose every 2-3 weeks as needed, potentially increasing to 12.5 mg and then to 25 mg twice daily. - Continue to monitor your blood pressure and aim to keep it within the normal range (systolic blood pressure between 120-129 mmHg and diastolic blood pressure around 70 mmHg). - Continue your current exercise routine and consider adding an extra day of exercise per week if possible. - You have a follow-up appointment with your primary care doctor in March. Please inform them of the medication changes. - Your next appointment with me is scheduled for one year from now. Hx of MV repair. Stable echo results. Yearly echo. CONTACT INFORMATION: Geovanni Serrato MD documented in this encounter [facility] 02-09-2024 Telephone encounter Note Prescription Refill Information The patient has been identified by name and date of : Yes Caregiver verified no other encounters exist for this prescription request: Yes Caregiver confirmed with patient/requestor that no other refills are due, in the near future, with this provider at this time: Yes The last office visit in the department: 09/21/23 Does the patient have a future office visit with this provider/department: Yes 03/28/24 Requested Prescriptions Pending Prescriptions Disp Refills metoprolol succinate ER (TOPROL XL) 25 mg 24 hr tablet 180 tablet 3 Sig: Take 1 tablet by mouth two times a day. Elisa Jorge LPN February 09, 2024 11:[address] [facility] 02-09-2024 Miscellaneous Notes Prescription Refill Information The patient has been identified by name and date of : Yes Caregiver verified no other encounters exist for this prescription request: Yes Caregiver confirmed with patient/requestor that no other refills are due, in the near future, with this provider at this time: Yes The last office visit in the department: 09/21/23 Does the patient have a future office visit with this provider/department: Yes 03/28/24 Requested Prescriptions Pending Prescriptions Disp Refills metoprolol succinate ER (TOPROL XL) 25 mg 24 hr tablet 180 tablet 3 Sig: Take 1 tablet by mouth two times a day. Elisa Jorge LPN February 09, 2024 11:26 AM documented in this encounter [facility] 09-21-2023 History of Present illness Narrative CC: Patient presents with: Follow Up: elevated blood pressures HPI Aron Jorge is a 58 year old female who presents today for 4 wk elevated BP after initiating HCTZ. LV on was 08/21/23. Ms. Jorge indicates a history of hypertension and states that she is feeling well and denies any symptoms referable to elevated blood pressure. Specifically denies headache, chest pain, palpitations, dyspnea, and peripheral edema. Patient admits to having side effects of urinating more frequently (which is to be expected). She endorses sporadic aerobic exercise (yoga, aerobic). She watches their diet for sodium, low fat and low cholesterol most of the time. Last 3 Encounter BP Readings: Date: BP: 09/21/2023 128/76 08/21/2023 136/90 03/10/2023 122/68 REVIEW OF SYSTEMS See HPI All other systems negative. PAST MEDICAL HISTORY Diagnosis Date Allergic rhinitis, cause unspecified Allergic rhinitis Atrial flutter (HCC) Dysphagia, unspecified(787.20) Essential hypertension, benign Migraine, unspecified, without mention of intractable migraine without mention of status migrainosus History of Migraines Mitral valve disorders(424.0) PAST SURGICAL HISTORY Procedure Laterality Date DELIVERY ONLY , low cervical COLONOSCOPY FLX DX W/COLLJ SPEC WHEN PFRMD 02/08/2018 Colonoscopy EGD TRANSORAL BIOPSY SINGLE/MULTIPLE 03/30/09 GASTROESOPHAG REFLX TEST W/TELEMTRY PH ELTRD 03/30/09 pyloritek negative HEART SURGERY HX HYSTEROSCOPY WBX WWO D AND C ANDOR POLYPECTOMY 01/20/2019 INSERTION OF IUD 06/10/2011 PAST SURGICAL HISTORY OF 2000 Mitral valve repair-1999 SCOPE, PLANTAR FASCIOTOMY 06/2012 THYROID LEFT FINE NEEDLE ASPIRATION 03/26/09 U/S FNA left lobe thyroid TONSILLECTOMY PRIMARY/SECONDARY <AGE 13 Tonsillectomy ALLERGIES Seasonal Allergies MEDICATIONS hydroCHLOROthiazide 12.5 mg capsule^Take 1 capsule by mouth once daily.^Disp: 90 capsule^Rfl: 3 metoprolol succinate ER (TOPROL XL) 25 mg 24 hr tablet^Take 1 tablet by mouth two times a day.^Disp: 180 tablet^Rfl: 3 apixaban (ELIQUIS) 5 mg tab(s)^Take 1 tablet by mouth twice daily.^Disp: 180 tablet^Rfl: 3 amoxicillin (AMOXIL) 500 mg capsule^TAKE 4 CAPSULES BY MOUTH 1/2 TO 1 HOUR PRIOR TO DENTAL APPOINTMENT^Disp: ^Rfl: acetaminophen (TYLENOL) 325 mg tablet^Take 2 tablets by mouth every 6 hours as needed for pain.^Disp: ^Rfl: FAMILY HISTORY Problem Relation Age of Onset Osteoporosis Mother Asthma Mother Heart Mother 71 Hypertension Father Social History Tobacco Use Smoking status: Former Packs/day: 1.50 Years: 6.00 Additional pack years: 0.00 Total pack years: 9.00 Types: Cigarettes Quit date: 11/08/1988 Years since quittin.8 Smokeless tobacco: Never Vaping Use Vaping Use: Never used Substance Use Topics Alcohol use: Yes Comment: OCCASIONALLY Drug use: No PHYSICAL EXAM BP 128/76 (BP Site: Left Arm, BP Position: Sitting, BP Cuff Size: Large Adult) Pulse 81 Temp 37 C (98.6 F) Resp 12 Ht 163.8 cm (5' 4.5) Wt 83.5 kg (184 lb) LMP 06/07/2011 SpO2 98% BMI 31.10 kg/m General Appearance: well appearing, in no acute distress, alert Psych: mood and affect broad and appropriate Skin: Skin color, texture, turgor normal for age Lungs: Lungs clear to auscultation. No wheezing, rhonchi, rales. Heart: RRR without murmur, gallop, or rubs. Extremities: No gross deformities, significant edema, skin discoloration, clubbing or cyanosis. Neurological: Gait normal. No focal neurological deficits. Sensation grossly intact. ASSESSMENT/PLAN: 1. Essential hypertension, benign - ICD9: 401.1, ICD10: I10 - Controlled - Continue current medications - Recommend home blood pressure monitoring, to bring results to next visit - Encouraged sodium restriction, DASH or Mediterranean diet - Recommend regular aerobic exercise F/u 6 months routine issues (HTN, cardiac hx) Prescription instructions reviewed with patient as applicable. Potential red flag symptoms discussed with the patient. Reviewed appropriate action plan to take if red flag symptoms occur. Patient agreeable to treatment plan. Korina Orellana PA-C documented in this encounter [facility] 08-21-2023 History of Present illness Narrative CC: Patient presents with: Follow Up: wants covid vaccine HTN HPI Aron Jorge is a 58 year old female who presents today for routine follow-up and for COVID-vaccine. Last visit was on 03/10/2023. HTN: Ms. Jorge indicates a history of hypertension and states that she is feeling well and denies any symptoms referable to elevated blood pressure. Specifically denies headache, chest pain, palpitations, dyspnea, and peripheral edema. Patient denies any side effects of her medication(s) and is compliant with their regimen. Checks BP at home intermittently - usually ~128-130/80s. Used to be on HCTZ in the past but said it was no longer needed after her cardiac ablation. Endorses regular aerobic exercise typically, but has not been witih increased stress of work. Sometimes watches their diet for sodium, low fat and low cholesterol most of the time. Last 3 Encounter BP Readings: Date: BP: 08/21/2023 150/98 03/10/2023 122/68 01/27/2023 136/76 Atrial flutter: status post cardiac ablation in 04/[address] Razo. Echo performed when she saw cardiology in 12/12, and confirmed EF of 53 +/- 5%. No recent palpitations. Status post Dacron mitral valve repair in 1999: Sees Dr. Serrato (cardiology at [facility]) ~Q2 years and is on Eliquis 5 mg BID Eczema- occasional flares, on elbows. Surpringly hasn't had any flares despite increased stress. Sees Dr. Amanda at [facility], as needed for this as well as skin checks Was on Mounjaro for about 3-4 months, and was effective with weight loss (~10 lbs). REVIEW OF SYSTEMS See HPI All other systems negative. PAST MEDICAL HISTORY Diagnosis Date Allergic rhinitis, cause unspecified Allergic rhinitis Atrial fibrillation (HCC) Atrial flutter (HCC) Dysphagia, unspecified(787.20) Essential hypertension, benign Migraine, unspecified, without mention of intractable migraine without mention of status migrainosus History of Migraines Mitral valve disorders(424.0) PAST SURGICAL HISTORY Procedure Laterality Date DELIVERY ONLY , low cervical COLONOSCOPY FLX DX W/COLLJ SPEC WHEN PFRMD 02/08/2018 Colonoscopy EGD TRANSORAL BIOPSY SINGLE/MULTIPLE 03/30/09 GASTROESOPHAG REFLX TEST W/TELEMTRY PH ELTRD 03/30/09 pyloritek negative HEART SURGERY HX HYSTEROSCOPY WBX WWO D AND C ANDOR POLYPECTOMY 01/20/2019 INSERTION OF IUD 06/10/2011 PAST SURGICAL HISTORY OF 1999 Mitral valve repair-1999 SCOPE, PLANTAR FASCIOTOMY 06/2012 THYROID LEFT FINE NEEDLE ASPIRATION 03/26/09 U/S FNA left lobe thyroid TONSILLECTOMY PRIMARY/SECONDARY <AGE 13 Tonsillectomy ALLERGIES Environmental [Other] MEDICATIONS metoprolol succinate ER (TOPROL XL) 25 mg 24 hr tablet^Take 1 tablet by mouth two times a day.^Disp: 180 tablet^Rfl: 3 apixaban (ELIQUIS) 5 mg tab(s)^Take 1 tablet by mouth twice daily.^Disp: 180 tablet^Rfl: 3 amoxicillin (AMOXIL) 500 mg capsule^TAKE 4 CAPSULES BY MOUTH 1/2 TO 1 HOUR PRIOR TO DENTAL APPOINTMENT^Disp: ^Rfl: acetaminophen (TYLENOL) 325 mg tablet^Take 2 tablets by mouth every 6 hours as needed for pain.^Disp: ^Rfl: tirzepatide (MOUNJARO) 2.5 mg/0.5 mL pen injector^Inject 2.5 mg subcutaneously one time a week.^Disp: 4 Each^Rfl: 2 lactobacillus combination no.4 (PROBIOTIC) 3 billion cell cap^Take by mouth.^Disp: ^Rfl: triamcinolone acetonide (KENALOG) 0.1 % cream^Apply 1 application to affected area three times daily. Apply to affected area.^Disp: 80 g^Rfl: 0 cholecalciferol (VITAMIN D3) 50 mcg (2,000 unit) tablet^Take 2,000 Units by mouth once daily.^Disp: ^Rfl: FAMILY HISTORY Problem Relation Age of Onset Osteoporosis Mother Asthma Mother Heart Mother 71 Hypertension Father Social History Tobacco Use Smoking status: Former Packs/day: 1.50 Years: 6.00 Additional pack years: 0.00 Total pack years: 9.00 Types: Cigarettes Quit date: 11/08/1988 Years since quittin.8 Smokeless tobacco: Never Vaping Use Vaping Use: Never used Substance Use Topics Alcohol use: Yes Comment: OCCASIONALLY Drug use: No PHYSICAL EXAM BP 136/90 Pulse 80 Temp 37.1 C (98.7 F) Resp 12 Ht 163.8 cm (5' 4.5) Wt 83.5 kg (184 lb) LMP 06/07/2011 SpO2 98% BMI 31.10 kg/m General Appearance: well appearing, in no acute distress, alert Psych: mood and affect broad and appropriate Skin: Skin color, texture, turgor normal for age Lungs: Lungs clear to auscultation. No wheezing, rhonchi, rales. Heart: RRR without murmur, gallop, or rubs. Extremities: No gross deformities, significant edema, skin discoloration, clubbing or cyanosis. Neurological: Gait normal. No focal neurological deficits. Sensation grossly intact. ASSESSMENT/PLAN: 1. Essential hypertension, benign - ICD9: 401.1, ICD10: I10 (primary diagnosis) A little too high for liking, possibly related to increased stress lately-however patient reports she is not sure if there is an end in sight. Will go ahead and add back in 12.5 mg HCTZ, and reassess BP in 4 weeks - Recommend home blood pressure monitoring, to bring results to next visit - Encouraged sodium restriction, DASH or Mediterranean diet - Recommend regular aerobic exercise - CBC + DIFF - BASIC METABOLIC PNL - HYDROCHLOROTHIAZIDE 12.5 MG CAPSULE 2. S/P MVR (mitral valve repair) - ICD9: V45.89, ICD10: Z98.890 Continue current management per cardiology 3. Typical atrial flutter (HCC) - ICD9: 427.32, ICD10: I48.3 See above Follow-up 4 weeks BP, discuss labs Prescription instructions reviewed with patient as applicable. Potential red flag symptoms discussed with the patient. Reviewed appropriate action plan to take if red flag symptoms occur. Patient agreeable to treatment plan. Korina Orellana PA-C documented in this encounter [facility] 05-25-2023 Miscellaneous Notes Patient has been identified by name and date of : No Patient phones for refill(s): Requested Prescriptions Pending Prescriptions Disp Refills tirzepatide (MOUNJARO) 2.5 mg/0.5 mL pen injector 4 Each 2 Sig: Inject 2.5 mg subcutaneously one time a week. Date of last office visit in primary care: 03/10/2023 Date of next office visit in primary care: Visit date not found Last 2 Encounter Wt Readings: Date: Wt: 03/10/2023 84.8 kg (187 lb) 01/27/2023 84.8 kg (187 lb) Previous labs/tests for medication: Diabetes: Hemoglobin A1C (%) Date Value 03/31/2022 5.3 07/01/2019 5.4 Please advise. Thank you. Ladi Mathews. documented in this encounter [facility] 04-06-2023 Miscellaneous Notes Patient calling to check the status of her refill request. documented in this encounter [facility] 01-27-2023 History of Present illness Narrative Subjective HPI Aron Jorge is a 57 year old female who presents today for CC of presents today for ear pain (bilaterally), thick PND, that started 2 days ago. C/o Fullness/pressure in maxillary region. Used to have ear issues as a child, but non recurrent as an adult. +general fatigue. Denies fevers/chills, body aches. Pt has tried fluticasone nasal- uses it PRN. Has had rather significant weight gain per pt over the course of the past year and a half (about two lbs). Notes a lot of it occurred after ablation for atrial flutter in the fall. Denies any skin/hair/nail changes, changes in bowel movements, heat or cold intolerance, mood fluctuations, heart palpitations, or LE edema. ALLERGIES Allergen Reactions Environmental [Othe* ACTIVE PROBLEM LIST Migraine Mitral Valve Repair Other and Unspecified Mitral Valve Diseases Congenital Anomalies of Gallbladder, Bile Ducts, and Liver Essential Hypertension, Benign Other Acne Dysphagia Dysphagia, Unspecified(567.66) Nontoxic Uninodular Goiter Gerd (Gastroesophageal Reflux Disease) Hypokalemia Adjustment Disorder With Anxious Mood Adjustment Insomnia Atrial Fibrillation (Hcc) Atrial Flutter (Hcc) Depression S/P Mvr (Mitral Valve Repair) Family History Problem Relation Age of Onset Osteoporosis Mother Asthma Mother Heart Mother 71 Hypertension Father Social History Tobacco Use Smoking status: Former Packs/day: 1.50 Years: 6.00 Total pack years: 9.00 Types: Cigarettes Quit date: 11/08/1988 Years since quittin.2 Smokeless tobacco: Never Vaping Use Vaping Use: Never used Substance Use Topics Alcohol use: Yes Alcohol/week: 1.7 standard drinks of alcohol Comment: OCCASIONALLY Drug use: No Review of Systems Constitutional: Positive for unexpected weight change. Negative for chills and fever. Objective BP 136/76 (BP Site: Left Arm, BP Position: Sitting, BP Cuff Size: Large Adult) Pulse 78 Temp 36.9 C (98.5 F) Resp 12 Ht 163.8 cm (5' 4.5) Wt 84.8 kg (187 lb) LMP 06/07/2011 SpO2 97% BMI 31.60 kg/m Physical Exam Constitutional: General: She is not in acute distress. Appearance: She is well-developed. She is not toxic-appearing. HENT: Nose: Congestion present. No rhinorrhea. Right Turbinates: Swollen. Left Turbinates: Swollen. Right Sinus: Maxillary sinus tenderness present. No frontal sinus tenderness. Left Sinus: Maxillary sinus tenderness present. No frontal sinus tenderness. Mouth/Throat: Mouth: Mucous membranes are moist. Pharynx: No oropharyngeal exudate or posterior oropharyngeal erythema. Eyes: Conjunctiva/sclera: Conjunctivae normal. Right eye: Right conjunctiva is not injected. Left eye: Left conjunctiva is not injected. Cardiovascular: Rate and Rhythm: Normal rate and regular rhythm. Heart sounds: Normal heart sounds. No murmur heard. Pulmonary: Effort: Pulmonary effort is normal. Breath sounds: No decreased breath sounds, wheezing or rhonchi. Skin: General: Skin is warm and dry. ASSESSMENT/PLAN: 1. Upper respiratory tract infection, unspecified type - ICD9: 465.9, ICD10: J06.9 (primary diagnosis) - Discussed viral etiology and rationale for treatment. - Symptomatic treatment with prn analgesia - Supportive care with fluids and rest 2. ETD (Eustachian tube dysfunction), bilateral - ICD9: 381.81, ICD10: H69.93 No evidence of active infection on exam; PE findings and clinical presentation consistent with eustachian tube dysfunction, likely secondary to underlying nasal congestion/recent sinus issues. Advise consistent use of nasal spray (flonase) & an antihistamine (ie cetirizine). If no contraindications, can also use systemic decongestant, such as Sudafed behind the counter (corcidin is a safe, yet slightly less effective, alternative in blood pressure patients). Encourage performing autoinsufflation maneuver several times throughout the course of the day (plug and blow). 3. Essential hypertension, benign - ICD9: 401.1, ICD10: I10 Borderline today. We will follow-up to address routine issues in 2 weeks. - Continue current medications - Recommend home blood pressure monitoring, to bring results to next visit - Encouraged sodium restriction, DASH or Mediterranean diet - Recommend regular aerobic exercise - TSH BLD - CBC + DIFF - COMP METABOLIC PANEL 4. S/P MVR (mitral valve repair) - ICD9: V45.89, ICD10: Z98.890 CCM on Eliquis and f/u with Dr. Serrato (cardiology) as planned 5. Weight gain - ICD9: 783.1, ICD10: R63.5 About 20 pounds of weight gain within the last year and a half. Thyroid labs ordered per patient request to further evaluate. - TSH BLD 6. Screening for lipid disorders - ICD9: V77.91, ICD10: Z13.220 Routine screening labs ordered to further evaluate. Will discuss at upcoming routine appt. - LIPID PANEL BASIC Prescription instructions reviewed with patient as applicable. Potential red flag symptoms discussed with the patient. Reviewed appropriate action plan to take if red flag symptoms occur. Patient agreeable to treatment plan. Korina Orellana PA-C documented in this encounter [facility] 12-18-2022 Instructions Altagracia Mckay MD - 12/18/2022 10:01 AM EDT Please get your echocardiogram as scheduled today. Please limit your alcohol intake and control your weight, as these are risk factors that make atrial fibrillation recur/harder to control. documented in this encounter [facility] 12-18-2022 History of Present illness Narrative Images from the original note were not included. [facility] Department of Cardiovascular Medicine SECTION OF IMAGING CARDIOLOGY OUTPATIENT VISIT DATE December 17, 2022 OUTPATIENT VISIT TYPE ESTABLISHED PRIMARY CARE PHYSICIAN: Marvel Edwards [address] [place] [address] REFERRING PHYSICIAN: Geovanni Serrato [id number] [facility] [id number] CHIEF COMPLAINT: Follow-up HISTORY OF PRESENT ILLNESS: Ms. Jorge is a 57 year old female with PMH of MVP s/p Mvr (1999), paroxsymal afib/AFL s/p ablation on DOAC who presents today for a cardiovascular medicine follow-up visit. Had new onset AF in 02/2023 with SOB. She had COVID a month prior. She was started on metoprolol and Eliquis. At that time, TTE showed EF of 35%. Recommended to undergo LHC but deferred to discuss with Dr. Serrato. Then she was hospitalized 03/2022 for symptomatic AFL and AF with 1:1 conduction that started during an outpatient CMR. Underwent AFL/AF ablation with Dr. Renee on 04/03/22. TTE during hospitalization with EF of 48% decreased from 64% prior in the setting of her tachycardia. ANGELA with 1-2+ MR. Since last hospitalization, she reports occasional dyspnea. 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 Has occasional feelings of weird with odd sensations in her chest. Last episode was 2 months ago. This feels different than her prior episodes of afib/AFL. No bleeding issues on the Eliquis. No TONE, abdominal distension, PND, orthopnea. Has not been screened for GAETANO. Has a few drinks a week. PAST MEDICAL HISTORY Diagnosis Date Allergic rhinitis, cause unspecified Allergic rhinitis Dysphagia, unspecified(787.20) Essential hypertension, benign Migraine, unspecified, without mention of intractable migraine without mention of status migrainosus History of Migraines Mitral valve disorders(424.0) PAST SURGICAL HISTORY Procedure Laterality Date DELIVERY ONLY , low cervical COLONOSCOPY FLX DX W/COLLJ SPEC WHEN PFRMD 02/08/2018 Colonoscopy EGD TRANSORAL BIOPSY SINGLE/MULTIPLE 03/30/09 GASTROESOPHAG REFLX TEST W/TELEMTRY PH ELTRD 03/30/09 pyloritek negative HEART SURGERY HX HYSTEROSCOPY WBX WWO D AND C ANDOR POLYPECTOMY 01/20/2019 INSERTION OF IUD 06/10/2011 PAST SURGICAL HISTORY OF 2000 Mitral valve repair-1999 SCOPE, PLANTAR FASCIOTOMY 06/2012 THYROID LEFT FINE NEEDLE ASPIRATION 03/26/09 U/S FNA left lobe thyroid TONSILLECTOMY PRIMARY/SECONDARY <AGE 13 Tonsillectomy SOCIAL HISTORY Social History Tobacco Use Smoking status: Former Packs/day: 1.50 Years: 6.00 Pack years: 9.00 Types: Cigarettes Quit date: 11/08/1988 Years since quittin.1 Smokeless tobacco: Never Vaping Use Vaping Use: Never used Substance Use Topics Alcohol use: Yes Alcohol/week: 1.7 standard drinks Comment: OCCASIONALLY Drug use: No FAMILY HISTORY Problem Relation Age of Onset Osteoporosis Mother Asthma Mother Heart Mother 71 Hypertension Father ALLERGIES: ALLERGIES Allergen Reactions Environmental [Othe* MEDICATIONS: triamcinolone acetonide (KENALOG) 0.1 % cream^Apply 1 application to affected area three times daily. Apply to affected area.^Disp: 80 g^Rfl: 0 acetaminophen (TYLENOL) 325 mg tablet^Take 2 tablets by mouth every 6 hours as needed for pain.^Disp: ^Rfl: metoprolol succinate ER (TOPROL XL) 25 mg 24 hr tablet^Take 1 tablet by mouth twice daily.^Disp: 180 tablet^Rfl: 3 apixaban (ELIQUIS) 5 mg tab(s)^Take 1 tablet by mouth twice daily.^Disp: 180 tablet^Rfl: 3 cholecalciferol (VITAMIN D3) 50 mcg (2,000 unit) tablet^Take 2,000 Units by mouth once daily.^Disp: ^Rfl: amoxicillin (AMOXIL) 500 mg capsule^TAKE 4 CAPSULES BY MOUTH 1/2 TO 1 HOUR PRIOR TO DENTAL APPOINTMENT^Disp: ^Rfl: REVIEW OF SYSTEMS: GENERAL: Negative for: Weight loss or gain, Fever or Chills, Weakness and Sleep difficulties. HEENT: Negative for: Headache, Impaired Vision, Glasses, Hearing Impairment, Ringing in Ears, Nosebleeds, Poor dental care, Bleeding Gums, Dentures NECK: Negative for: Swelling, Pain, Stiffness RESPIRATORY: Negative for: Cough, Blood in Sputum, Shortness of breath, Wheezing, Apnea GASTROINTESTINAL: Negative for: Trouble swallowing, Heartburn, Change in bowel habits, Blood in stool, Dark black stools MUSCULOSKELETAL: Negative for: Muscle or joint pain, Stiffness , Joint swelling NEUROLOGIC/PSYCHIATRIC: Negative for: Weakness, Paralysis, Numbness, Tingling, Tremor, Nervousness, Depressed mood, Memory loss SKIN: Negative for: Rashes, Itching HEMATOLOGICAL/LYMPHATIC: Negative for: Easy bruising , Easy bleeding ENDOCRINE: Negative for: Heat or cold intolerance, Excessive sweating, Frequent urination, Frequent thirst PHYSICAL EXAMINATION: BP 122/74 Pulse 88 Resp 12 Ht 163.8 cm (5' 4.5) Wt 83.5 kg (184 lb) LMP 06/07/2011 SpO2 98% BMI 31.10 kg/m General: Well appearing, in no acute distress. Skin: No clubbing, no cyanosis. Eyes: Extra ocular movements intact Neck: No jugular venous distention, no carotid bruits, carotids have a normal upstroke Lungs: Clear to auscultation bilaterally, no wheezing or rhonchi. Heart: Regular rhythm, PMI not displaced, S1, S2 normal, no S3, no S4, no heaves, no rub and no murmur. Abdomen: Soft, nontender, bowel sounds normal, no palpable organomegaly, no bruits. Extremities: No peripheral edema . Grade 2/4 distal pulses bilaterally. Neuro: Oriented to person, place and time, alert, cooperative, gait coordinated. CARDIOVASCULAR MEDICINE TESTING: Electrocardiogram: Today Echocardiogram: - The left ventricle is mildly dilated. There is mild left ventricular hypertrophy. Left ventricular systolic function is mildly decreased. EF = 53 5% (visual est.) Left ventricular diastolic function was not evaluated due to mitral valve surgery. - The right ventricle is normal in size. Right ventricular systolic function is normal. - The left atrial cavity is dilated. - Post mitral valve repair. mitral valve annuloplasty ring. There is mild (1+ - 2+) mitral valve regurgitation. Regurgitant orifice area (PISA) is 0.08 cm . The peak gradient is 11 mmHg and the mean gradient is 4 mmHg. Prior peak/mean MV gradients 11/5 mmHg. Today's gradients obtained at a HR of 81 bpm. Last ECHO Result Conclusion ECHO Collected: 04/03/2022 11:24 AM (Edited Result - FINAL) Impression: CONCLUSIONS: - Exam indication: Re-evaluation of known heart failure with a change in clinical status without change in med/diet - The left ventricle is mildly dilated. Left ventricular systolic function is mildly decreased. EF = 48 5% (2D 4-ch.) Left ventricular diastolic function was not evaluated due to mitral valve surgery. - The right ventricle is normal in size. RV not well seen - The left atrial cavity is moderately dilated. - The right atrial cavity is dilated. - Mitral valve annuloplasty ring. There is mild (1+ - 2+) mitral valve regurgitation. The peak gradient is 11 mmHg and the mean gradient is 5 mmHg. Prior peak/mean gradients of 10/4 mmHg. Today's gradients measured at 110 bpm. - TR not well seen, may be underestimated. - Exam was compared with the prior CC echocardiographic exam performed on 11/17/2019. Patient tachycardi today, worse images * * * Final (Updated) * * * Last ANGELA Result Conclusion ECHO TRANSESOPHAGEAL Collected: 04/03/2022 3:15 PM (Final result) Impression: CONCLUSIONS: - Exam indication: Pre Cardioversion, Pre AF Ablation - The left ventricle is dilated. Left ventricular systolic function is moderately decreased. EF = 35 5% (visual est.) Left ventricular diastolic function was not evaluated due to mitral valve surgery and AF. - The right ventricle is dilated. Right ventricular systolic function is moderately to severely decreased. - The left atrial cavity is dilated. There is no left atrial appendage thrombus. - The right atrial cavity is dilated. - Post mitral valve repair. mitral valve annuloplasty ring. There is mild (1+ - 2+) mitral valve regurgitation. Mitral valve opens well. - Exam was compared with the prior CC echocardiographic exam performed on 11/17/2019. Interval AF and decrease in biventricular function. * * * Final * * * Last EKG Result Conclusion ECG COMPLETE Collected: 12/18/2022 8:06 AM (Preliminary result) Impression: NORMAL SINUS RHYTHM NONSPECIFIC ST ABNORMALITY PROLONGED QT INTERVAL OR TU FUSION, CONSIDER HYPOKALEMIA ABNORMAL ECG Last MRI Result Conclusion MRI CARDIAC VELOCITY FLOW MAP Exam End: 03/31/2022 3:23 PM (Final result) Impression: IMPRESSION: - During the MRI examination, the patient was noted to be tachycardic and ECG confirmed a narrow complex tachycardia (SVT), and so the examination was terminated. No accurate assessment of biventricular function or valvular function possible. This was a very limited MRI examination, terminated prematurely due to development of SVT. - Moderate left atrial enlargement and mild right atrial enlargement. - The thoracic aorta is normal in course, caliber and contour. - The patient has not had a prior CC cardiac MR exam for comparison. Note that the patient has been referred to the ED for evaluation. Institution Librarian: [facility] Transcribe Date/Time: Mar 31 2022 3:12P Dictated by : JOEL MOSER MD This examination was interpreted and the report reviewed and electronically signed by: JOEL MOSER MD on Mar 31 2022 5:52PM EST I have personally reviewed the Electrocardiogram, Echocardiogram, and Cardiac MRI. IMPRESSION: Ms. Jorge is a 57 year old female PMH of MVP s/p Mvr (1999), paroxsymal afib/AFL s/p ablation (03/2022) on DOAC who presents today for a cardiovascular medicine follow-up visit. She appears euvolemic on exam. EKG with NSR. STOP-BANG score 2. EF decreased during setting of new onset AF/AFL to 48%. TTE today with EF 53% with 1-2+MR. PLAN AND RECOMMENDATIONS: - continue metoprolol succ 25mg every day - continue Eliquis 5mg BID - f/u with EP Altagracia Mckay MD PGY-6 Clerk To Justice [facility] STAFF PHYSICIAN NOTE OF PERSONAL INVOLVEMENT IN CARE IMPRESSION: Patient is a 57 year old female whom I have seen since 2013. 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 She was found to have atypical atrial flutter and underwent successful ablation 04/03/2022. Today she is doing well in normal rhythm and echo showed improvement in EF with stable MV repair. PLAN: She can continue with yearly echocardiographic follow up I have reviewed the documentation obtained and documented by Dr Mckay and I have personally performed a face to face assessment of the patient and have personally participated in the pineda components of the visit which includes medical decision making.. I have discussed the case and management of the patient's care. STAFF PHYSICIAN: Geovanni Serrato MD DATE OF SERVICE: December 18, 2022 TIME OF SERVICE: 5:16 PM documented in this encounter [facility] [facility] 07-30-2022 History of Present illness Narrative Reason for Visit Patient presents with: Physical: physical Aron Jorge is a 56 year old female who presents here today for CPE. Health Maintenance HEPATITIS B(1 of 3 - 3-dose series) PAP TESTING HPV TESTING MAMMOGRAM HPI After ablation of the heart for arrythmia, she has gained 5/6 pounds. 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 She has begun watching what she is eating, but is very stressed as she has 2 dept to manage. She tries to eat healthy. Lunch is soups, salad. Dinner is usually a hamburger and corn which is not the best. She is cutting down on dessert. Is doing her yoga and trying to do daily exercise. She does have her meal plans that she likes and can do that again. Sleeping- she is mostly sleeping well More stress right now. She is taking the lexapro 5 mgs and debating not to take it. She is taking the protonix only once a day. And it controls symptoms, but also noticed, changes in diet and lifestyle really help her. Afib - she has been doing well on the eliquis and metoprolol Has noted some dry pathches that look like dermatitis on her elbow area. She has had dermatitis in the past Also noted one in the cleft of her buttock No problem-specific Assessment & Plan notes found for this encounter. PAST MEDICAL HISTORY Diagnosis Date Allergic rhinitis, cause unspecified Allergic rhinitis Dysphagia, unspecified(787.20) Essential hypertension, benign Migraine, unspecified, without mention of intractable migraine without mention of status migrainosus History of Migraines Mitral valve disorders(424.0) PAST SURGICAL HISTORY Procedure Laterality Date DELIVERY ONLY , low cervical COLONOSCOPY FLX DX W/COLLJ SPEC WHEN PFRMD 02/08/2018 Colonoscopy EGD TRANSORAL BIOPSY SINGLE/MULTIPLE 03/30/09 GASTROESOPHAG REFLX TEST W/TELEMTRY PH ELTRD 03/30/09 pyloritek negative HEART SURGERY HX HYSTEROSCOPY WBX WWO D AND C ANDOR POLYPECTOMY 01/20/2019 INSERTION OF IUD 06/10/2011 PAST SURGICAL HISTORY OF 1999 Mitral valve repair-1999 SCOPE, PLANTAR FASCIOTOMY 06/2012 THYROID LEFT FINE NEEDLE ASPIRATION 03/26/09 U/S FNA left lobe thyroid TONSILLECTOMY PRIMARY/SECONDARY <AGE 12 Tonsillectomy FAMILY HISTORY Problem Relation Age of Onset Osteoporosis Mother Asthma Mother Heart Mother 71 Hypertension Father Social History Tobacco Use Smoking status: Former Packs/day: 1.50 Years: 6.00 Pack years: 9.00 Types: Cigarettes Quit date: 11/08/1988 Years since quittin.7 Smokeless tobacco: Never Vaping Use Vaping Use: Never used Substance Use Topics Alcohol use: Yes Alcohol/week: 1.7 standard drinks Comment: OCCASIONALLY Drug use: No Past medical history, appointments, medications, allergies reviewed. Pertinent Lab/Diagnostic Studies are reviewed and discussed today Current Outpatient Medications: pantoprazole DR (PROTONIX) 20 mg tablet acetaminophen (TYLENOL) 325 mg tablet metoprolol succinate ER (TOPROL XL) 25 mg 24 hr tablet apixaban (ELIQUIS) 5 mg tab(s) iv contrast (will be provided with radiology test) cholecalciferol (VITAMIN D3) 50 mcg (2,000 unit) tablet escitalopram oxalate (LEXAPRO) 5 mg tablet Current Facility-Administered Medications: perflutren lipid microspheres 1.3 mL in NaCl (PF) 0.9% 10 mL injection (DEFINITY) sodium chloride 0.9 % (flush) 10 mL (BD POSIFLUSH) Review of Systems CONSTITUTIONAL: No fevers, chills, nightsweats, unintended weight loss HEENT: Denies frequent or severe heaches, nasal congestion/sinus symptoms, problematic allergy problems. EYES: No diplopia or blurry vision. CARDIOVASCULAR: No chest pain, dyspnea, palpitations, orthopnea, PND, ankle edema. PULM: No dyspnea, unexplained cough. GI: No dysphagia/odynophagia, problematic reflux, constipation, diarrhea, changes in stool habits, hematochezia, melena. : No new urinary complaints, including dysuria, gross hematuria or pyuria. NEURO: No new balance problems, peripheral weakness/paresthesias or numbness of concern. MUSC-SKEL: No new joint pain, swelling, or erythema. PSY: No concerns regarding depression, anxiety or panic. INTEGUMENTARY: No new skin changes (rash, new or changing mole, new growth) Physical Exam BP 140/76 (BP Site: Left Arm, BP Position: Sitting, BP Cuff Size: Large Adult) Pulse 94 Temp 36.8 C (98.3 F) Resp 12 Ht 167.6 cm (5' 6) Wt 82.1 kg (181 lb) LMP 06/07/2011 SpO2 100% BMI 29.21 kg/m General appearance: Well appearing, alert, in no acute distress, well-hydrated, well nourished. Skin: 1 cm patch on the extensor area of the elbow that looks like dermatitis. She also has dry skin in the part of buttock cleft . Head: Normocephalic, no masses, lesions, tenderness or abnormalities Eyes: Anicteric sclera. Pupils are equally round and reactive to light. Extraocular movements are intact. Ears: External ears normal, canals clear Nose/Sinuses: Nares normal, septum midline, mucosa normal, no drainage or sinus tenderness Oropharynx: Lips, mucosa, and tongue normal, teeth and gums normal, oropharynx normal Neck: Supple, no adenopathy; thyroid symmetric, normal size, no bruits Back: Normal exam Lungs: Lungs clear to auscultation. No wheezing, rhonchi, rales Heart: RRR without murmur, gallop, or rubs. No ectopy Abdomen: Normal abdominal exam, Abdomen soft, non-tender. Bowel sounds normal. No masses, organomegaly Extremities: No deformities, edema, skin discoloration, clubbing or cyanosis. Good capillary refill. Musculoskeletal: No joint swelling, deformity, or tenderness Peripheral pulses: Normal Neuro: Gait normal. Reflexes normal and symmetric. Sensation grossly intact. ASSESSMENT/PLAN: 1. Annual physical exam - ICD9: V70.0, ICD10: Z00.00 (primary diagnosis) - Counseled on healthy diet and regular exercise - Calcium intake with supplements or by diet of 1000 mg/day for under 50, 4161-6087 mg/day for 50+ 2. Essential hypertension, benign - ICD9: 401.1, ICD10: I10 - good control - Recommended regular aerobic exercise. - Recommend home blood pressure monitoring, to bring results in on next visit - Goal of BP <130/80 3. Typical atrial flutter (HCC) - ICD9: 427.32, ICD10: I48.3 Discussed that she may need the eliquis for halfway and not short time 4. Gastroesophageal reflux disease without esophagitis - ICD9: 530.81, ICD10: K21.9 - Discussed lifestyle modifications including losing weight, limiting caffeine, no meals three hours before sleep, and head of bed elevation 5. Depression with anxiety - ICD9: 300.4, ICD10: F41.8 Taper and stop the lexapro as she is afraid of weight gain and thinks her symptoms are not very concerning at this point Marvel Edwards MD documented in this encounter [facility] 04-09-2022 Miscellaneous Notes Shaila Rivera States she feels like she has fluid in her abdomen Lasix 20 mg daily for 3 days with Kdur 10 meq She iwll c documented in this encounter [facility] 04-09-2022 Miscellaneous Notes Behavioral Health Social Work Progress Note Patient identified for [facility] from: PCP Reason for referral: Resources Behavioral Health Resources: Psychology - talk therapy [facility] encounter type: Jammithart Message Attempts to Outreach: 2 attempts Referral made: Psychology - Internal;Psychology - External Psychology-Internal referral type: Therapy Psychology-External referral type: Therapy Reason for external referral: Wait times at [facility] too long Final Disposition: Resources given Patient Discharged?: Yes Patient reported that caregiver was able to meet their needs today?: N/A [facility] will send therapy resources to patient through [employer]. ANN MARIE Thomas April 09, 2022 documented in this encounter [facility] 04-08-2022 Miscellaneous Notes [facility] Contact Center Inbound Phone Encounter DATE of SERVICE: 04/08/2022 TIME of SERVICE: 1:44 PM Status: Service/Provider: EP/FER Razo M.D. Reason for call: FY Contact information: [phone] Resolution: Reinforced education Comments:Aron called and stated that her weight is up 5 lbs. since discharge and her stomach and chest still feels swollen but better since yesterday, but still has some sob. This nurse repeated that it may take several days which she was advised yesterday by the MINING ANALYST. Aron did say she had a BM today. Suggested to go to ED if she had any increase of the sob or pain worsens. Fela Major RN Date of Resolution: 04/08/2022 Time of Resolution 1:44 PM documented in this encounter [facility] 04-08-2022 History of Present illness Narrative POPULATION HEALTH NAVIGATION OUTREACH Action/ attempt: Left voicemail and sent [facility] to schedule hospital follow up, prefers afternoons the week of the but not the . TCM eligible through 04/18. Pt identified by name and : NO Outreach Outcome/Action Unable to reach patient: Left message Jammithart message sent Did you use a PCP flex slot to schedule this appointment? N/A Reason for Outreach [facility] Payer: Payor: AET[employer] / Plan: [employer] CHOICE POS II / Product Type: POS / Care Gap Reviewed:: Follow-up appointment Reminder: Reminder note to check Health Maintenance for items below Health Maintenance items due: HEPATITIS B(1 of 3 - 3-dose series) Never done BP CONTROLLED (<130/80) due on 02/02/2019 PAP TESTING due on 06/22/2022 HPV TESTING due on 06/22/2022 Message Sent to Practice: No Navigation Signature: Violeta Ash Population Health Navigator April 08, 2022 12:30 PM TCM Home Visit Referral Source of Stratification: [facility] Admission Status: Discharged Readmission Risk Score: 11 JUSTIN Score: 3 Patient meets program referral criteria: No TRANSITIONAL CARE MANAGEMENT (TCM) COMMUNITY MONITORING PROGRAM Provider Action/FYI: Routed message to [facility] for appointment with PCP, prefers Afternoons, during the of , not the afternoons. Patient is eligible for TCM through 04-18-22. TCM Initial Hospital Discharge [facility] on 04-04-22. PCP Dr Edwards Patient doing okay, feeling bloated and tightness around her abdomen As for her heart rates, feels improved, feeling more like normal now Has some sob, sitting straight up helps, and some FONSECA Appetite is not rosie, because of feeling bloated and not much of an appetite Encouraged smaller more frequent meals Feels very thirsty, mouth always dry, staying well hydrated, including vitamin water No heavy lifting of more than 10 pounds for one week No bath tubs or hot tubs for one week. Ok to shower. - If you have questions or concerns related to this hospitalization please call: Resource Nurse at or Dr Razo's office Dr Vikram Razo's Office - To schedule an appointment please call --[phone] Reviewed medications SUMMARY: Pt discharged from [facility] on 04-04-22. Admitted for: Atrial fibrillation, Atrial flutter Contact made with patient: Yes Hi my name is Roxana Isaac RN and I am calling from the [facility] on behalf of your PCP, Marvel Edwards MD I understand you were recently in the hospital so I am calling to check in with you to ensure you are feeling well now that you're home. May I ask you a few questions related to your hospital stay and well-being? Yes Contact with patient post discharge, spoke to patient. Patient identified by name and . Do you feel your health is BETTER, WORSE, or the SAME since leaving the hospital? Better ACTION TAKEN: Patient indicated symptoms are better or same, no action required. Continue outreach. MEDICATIONS: Many patients have questions or concerns about their medications once they are home. Do you have any questions about taking your medications or which medication you should be on? No Do you need any medication refills at this time, including any of the medications you might take only when needed? No ACTION TAKEN: No action required For RNs or Pharmacy completing outreach ONLY, was a medication review completed? Yes SOCIAL: We would like to make sure you have what you need so that your basics needs are met - including your personal safety, food, housing and medications. Would you like to speak with a social work manufacturing team leader to help give you support for any of these needs? No It can be normal to feel anxious or down during a time like this. Would you like to talk to a mental health professional about how you have been feeling? No ACTION TAKEN: No action taken DISCHARGE INTRUCTIONS: Your discharge instructions / After Visit Summary (AVS) are important in guiding you through the recovery process. Do you have any questions related to your discharge instructions? No Do you have all the necessary equipment and supplies at home? N/a ACTION TAKEN: No action required I would like to help you schedule a hospital follow-up virtual or telephone visit with your PCP. This is a great way for you to connect with your provider to ensure you have safely transitioned home. If you are agreeable, I will send your request to a care team coordinator scheduler who will contact and assist you with that appointment. This will give you an opportunity to ask any questions or address any concerns you may have with your PCP. Inform the patient that if they have any questions or concerns prior to that appointment, to call their PCP's office right away. ACTION TAKEN: Patient desires an appointment - Routed to [facility] [[id number]] for scheduling telehealth visit (telephonic, virtual visit, or Facetime) within 7 days of discharge with PCP care team. Indicate hospital follow-up appointment needed within 7 days in Provider/FYI box. End Outreach. Your doctor would like us to remind you of the recommendations regarding the coronavirus (Covid19) outbreak: Avoid public places as much as possible. Avoid close contact (within 6 feet) with others you don t live with, especially if they are sick. Stay home if you are sick. Wash your hands regularly for at least 20 seconds with soap and water. Wear a cloth mask in public places to help reduce community spread. Do not go to your Doctor s office unless instructed to do so. For any non-emergency symptoms, call your Doctor s office to get instructions on how to manage (we might recommend a telephone or virtual visit). For emergency symptoms, proceed to Emergency Department as usual but inform them of cough and fever symptoms COTY if present (or call on the way if possible). Roxana Isaac RN Fountain Waitress/Waiter TCM Home Visit Referral Source of Stratification: [facility] Admission Status: Discharged Readmission Risk Score: 11 JUSTIN Score: 3 Patient meets program referral criteria: No TRANSITIONAL CARE MANAGEMENT (TCM) COMMUNITY MONITORING PROGRAM Provider Action/FYI: Attempted outreach to patient for hospital discharge initial outreach first attempt. No answer, left a voicemail to call PCP if symptoms have gotten worse, or call with any questions or concerns. Will attempt to outreach to patient again on 04-08-22. TCM Initial Hospital Discharge [facility] on 04-04-22. PCP Dr Valerie pepper fast heart rate while attempting a cardiac MRI No heavy lifting of more than 10 pounds for one week No bath tubs or hot tubs for one week. Ok to shower. - If you have questions or concerns related to this hospitalization please call: Resource Nurse at or Dr Razo's office Dr Vikram Razo's Office - To schedule an appointment please call --[phone] Reviewed medications SUMMARY: Pt discharged from [facility] on 04-04-22. Admitted for: Atrial fibrillation, Atrial flutter Contact made with patient: No - next outreach attempt will be on next day Outreach ended Roxana Isaac RN [employer] Waitress/Waiter documented in this encounter [facility] 04-07-2022 Miscellaneous Notes Called patient after recent discharge left voice message with nurse resource number. documented in this encounter [facility] 04-07-2022 Miscellaneous Notes Called patient to discuss. She is feeling better now, but yesterday felt like chest spasm. She has been going to the grocery store and felt OK. I explained to her that this is common after the ablation due to inflammation. Patient was advised to use Ibuprofen PRN if needed and to to take it easy. Advised to call the office of Dr. Razo if no improvement in several days. Kadie Escamilla APRN.CNP [facility] Contact Center Inbound Phone Encounter DATE of SERVICE: 04/07/2022 TIME of SERVICE: 8:08 AM Status: Urgent Service/Provider: EP/EPS Vikram Razo M.D. Reason for call: Patient has concerns with feelings of a tight band around diaphagm. States that pain was severe last night as it spasmed. However, this morning, it still feels very tight. Denies difficulty breathing at this time. Patient denies any other associated symptoms. She can be reached at [phone] to discuss Resolution: Urgent referral to to [facility]PD Lali Taylor RN Date of Resolution: 04/07/2022 Time of Resolution 8:08 AM documented in this encounter [facility] 03-31-2022 History of Present illness Narrative Radiology Service Progress Note PATIENT NAME: Aron Jorge DATE OF SERVICE: March 31, 2022 TIME: 3:26 PM PATIENT IDENTITY VERIFICATION COMPLETED USING TWO (2) IDENTIFIERS: Name and Date of confirmed by patient verbally and Name and Date of confirmed by identification band. FALL SCREENING: Has the patient had 2 falls in the last year or 1 fall with injury or currently using an Ambulatory Assistive Device (Walker, Cane, Wheelchair, Crutches, etc.)? No PATIENT GENDER DATA: Female. status: : No status: NO. PATIENT RELEVANT IMPLANT DATA REVIEWED: Yes RADIOLOGY DEPARTMENT: MR; Exam(s) Completed: Cardiac: Cardiac PERIPHERAL IV DATA: Site assessment: Clean,Dry and Intact, Site disposition Discontinued SIGNED BY: RT Ginger(R) March 31, 2022 3:26 PM Radiology Service Progress Note DATE OF SERVICE: March 31, 2022 TIME: 1:47 PM PATIENT WEIGHT: 173LBS PATIENT IDENTITY VERIFICATION COMPLETED USING TWO (2) STANDARD IDENTIFIERS: Name and Date of confirmed by patient verbally and Name and Date of confirmed by identification band. FALL SCREENING: Has the patient had 2 falls in the last year or 1 fall with injury or currently using an Ambulatory Assistive Device (Walker, Cane, Wheelchair, Crutches, etc.)? No PATIENT GENDER DATA: Female. status: : No status: NO. ALLERGIES: Reviewed and unchanged CONTRAST ALLERGY: No EXAM: MRI - CONTRAST TYPE: GROUP II IV SITE: Ambulatory: A peripheral IV was started in the Right antecubital site with a Angio cath: 20 gauge. and A Saline lock was inserted per protocol IV SITE APPEARANCE: Clean,Dry and Intact SIGNATURE: La Velasquez RN PATIENT NAME: Aron Jorge DATE: March 31, 2022 TIME: 1:47 PM CANCELLED IMAGING EXAM The patient came to Imaging for MRI. The exam could not be completed. Reason:Ms. Jorge HR 230 had to send patient to the ED The cancellation has been communicated with the ordering provider/service. If this exam needs to be performed urgently, please contact the radiology department to facilitate triage. documented in this encounter [facility] 03-31-2022 Miscellaneous Notes Encounter addended by: RT Mino(Estefanía) on: 03/31/2022 2:27 PM Actions taken: Flowsheet accepted Encounter addended by: NORIS Ponce) on: 03/31/2022 4:15 PM Actions taken: Clinical Note Signed, Check Out activity completed Encounter addended by: NOEL PonceR) on: 03/31/2022 4:21 PM Actions taken: Clinical Note Signed documented in this encounter [facility] 03-28-2022 Miscellaneous Notes Behavioral Health Social Work Progress Note Patient identified for [facility] from: PCP Reason for referral: Resources Behavioral Health Resources: Psychology - talk therapy [facility] encounter type: Telephone Encounter Attempts to Outreach: 1 attempt Final Disposition: Unable to reach Patient Discharged?: No Patient reported that caregiver was able to meet their needs today?: N/A Referral made to engage patient experiencing grief, and to provide therapy resources. [facility] reviewed patient's chart and insurance to identify resources. Patient did not answer phone and [facility] left a voicemail for patient. [facility] will continue to reach out to patient. ANN MARIE Thomas March 28, 2022 documented in this encounter [facility] 03-27-2022 History of Present illness Narrative Reason for Visit Patient presents with: Hospital F/U: A-fib incident- reports she has a cardiac MRI scheduled for Thursday @ [facility]. Aron Jorge is a 56 year old female who presents here today for Above Complaints.. 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 She thought she was fine, she went to [facility] for vacation, did not feel the best at the highest altitude, she walked for miles on the vacation. 2 weeks ago [place], walked 5 miles And after that she bent over to tie shoes laces, and since then she did not feel well. Went to er. Heart rate was 240 beats, give cardizem, was found to have afib, echos showed ef of 35 percent. Was put on bblock, eloy and eliquis. She is scheduled for a cardiac mri at [facility] in a couple days Echo showed global hypokinesis. With ef of 35 percent. 22 years ago she had a mitral valve issues that was repaired with a ring. She does relaxation yoga. Patient felt like she totally over did it at work. She enjoys her work No problem-specific Assessment & Plan notes found for this encounter. PAST MEDICAL HISTORY Diagnosis Date Allergic rhinitis, cause unspecified Allergic rhinitis Dysphagia, unspecified(787.20) Essential hypertension, benign Migraine, unspecified, without mention of intractable migraine without mention of status migrainosus History of Migraines Mitral valve disorders(424.0) PAST SURGICAL HISTORY Procedure Laterality Date DELIVERY ONLY , low cervical COLONOSCOPY FLX DX W/COLLJ SPEC WHEN PFRMD 02/08/2018 Colonoscopy EGD TRANSORAL BIOPSY SINGLE/MULTIPLE 03/30/09 GASTROESOPHAG REFLX TEST W/TELEMTRY PH ELTRD 03/30/09 pyloritek negative HEART SURGERY HX HYSTEROSCOPY WBX WWO D AND C ANDOR POLYPECTOMY 01/20/2019 INSERTION OF IUD 06/10/2011 PAST SURGICAL HISTORY OF 1999 Mitral valve repair-1999 SCOPE, PLANTAR FASCIOTOMY 06/2012 THYROID LEFT FINE NEEDLE ASPIRATION 03/26/09 U/S FNA left lobe thyroid TONSILLECTOMY PRIMARY/SECONDARY <AGE 12 Tonsillectomy FAMILY HISTORY Problem Relation Age of Onset Osteoporosis Mother Asthma Mother Heart Mother 71 Hypertension Father Social History Tobacco Use Smoking status: Former Packs/day: 1.50 Years: 6.00 Pack years: 9.00 Types: Cigarettes Quit date: 11/08/1988 Years since quittin.4 Smokeless tobacco: Never Vaping Use Vaping Use: Never used Substance Use Topics Alcohol use: Yes Alcohol/week: 1.7 standard drinks Comment: OCCASIONALLY Drug use: No Past medical history, appointments, medications, allergies reviewed. Pertinent Lab/Diagnostic Studies are reviewed and discussed today Current Outpatient Medications: apixaban (ELIQUIS) 5 mg tab(s) metoprolol tartrate, short acting, (LOPRESSOR) 25 mg tablet lisinopril (ZESTRIL, PRINIVIL) 10 mg tablet cholecalciferol (D3 DOTS) 50 mcg (2,000 unit) tablet Ascorbic Acid (VITAMIN C) 500 mg chew escitalopram oxalate (LEXAPRO) 5 mg tablet hydroCHLOROthiazide (HYDRODIURIL, ESIDRIX) 25 mg tablet Review of Systems CONSTITUTIONAL: No fevers, chills night sweats, unintended weight loss CARDIOVASCULAR: No chest pain, dyspnea, palpitations, orthopnea, PND, ankle edema. PULM: No dyspnea, unexplained cough. GI: No dysphagia/odynophagia, problematic reflux, constipation, diarrhea, changes in stool habits, hematochezia, melena. : No new urinary complaints, including dysuria, gross hematuria or pyuria. NEURO: No new balance problems, peripheral weakness/paresthesias or numbness of concern. Physical Exam BP 128/80 Pulse 94 Resp 16 Wt 78.7 kg (173 lb 6.4 oz) LMP 06/07/2011 SpO2 96% BMI 29.30 kg/m General appearance: Well appearing, alert, in no acute distress, well nourished. Skin: Skin color, texture, turgor normal, no suspicious rashes or lesions Head: Normocephalic, no masses, lesions, tenderness or abnormalities Eyes: Anicteric sclera. Pupils are equally round and reactive to light. Extraocular movements are intact. Lungs: Lungs clear to auscultation. No wheezing, rhonchi, rales Heart: RRR without murmur, gallop, or rubs. Extremities: No deformities, edema, skin discoloration, clubbing or cyanosis. Good capillary refill. ASSESSMENT/PLAN: 1. Grief reaction - ICD9: 309.0, ICD10: F43.21 (primary diagnosis) - CONSULT TO [facility]IMARY [facility]ULT 2. Atrial fibrillation, unspecified type (HCC) - ICD9: 427.31, ICD10: I48.91 Rate controlled 3. Cardiomyopathy, unspecified type (HCC) - ICD9: 425.4, ICD10: I42.9 Cardiomypathy. 4. Essential hypertension, benign - ICD9: 401.1, ICD10: I10 Currently controlled Marvel dEwards MD documented in this encounter [facility] 02-21-2022 Miscellaneous Notes Patient has been identified by name and date of : Yes Patient phones for refill(s): Requested Prescriptions Pending Prescriptions Disp Refills hydroCHLOROthiazide (HYDRODIURIL, ESIDRIX) 25 mg tablet 90 tablet 3 Sig: Take 1 tablet by mouth once daily. Date of last office visit in primary care: 12/13/2021 Last 2 Encounter Wt Readings: Date: Wt: 10/11/2021 76.7 kg (169 lb) 07/16/2021 78 kg (172 lb) Previous labs/tests for medication: Blood Pressure: BUN (mg/dL) Date Value 09/27/2021 11 10/05/2020 13 Sodium (mmol/L) Date Value 09/27/2021 137 10/05/2020 141 Last 1 Encounter BP Readings: Date: BP: 10/11/2021 135/87[BPTru[ Please advise. Thank you. Ladi Knapp LPN documented in this encounter [facility] 02-10-2022 History of Present illness Narrative null (CCF:Not available AMW:[id number]) Visit Summary for Aron Jorge - Gender: Female - Date of : 1965 ( ) Date: - Duration: 13 minutes Patient: Aron Jorge Provider: Dima Coulter Patient Contact Information Address [address] [facility] [id number] [phone] Visit Topics Sinuses due to covid [Added By: Self - 2022-02-10] Triage Questions REQUIRED: Do you have Medicare or Medicaid Insurance?Answer [No] Do you have a cough, shortness of breath, difficulty breathing, fever, chills, headache, sore throat, muscles aches, acute change in smell or taste?Answer [Sore Throat, Sinuses] Have you been in contact with anyone confirmed with COVID 19 or suspected of having COVID 19 within the past 14 days?Answer [Yes] Do you have any vulnerable family members in the home (, , weak immune system, lung disease, active cancer, elderly)?Answer [Yed] Do you have any of the following: weak immune system, asthma or chronic lung disease, kidney problems and on dialysis, active cancer, diabetes or heart disease or high blood pressure, HIV or organ transplant?Answer [High Blood Pressure ] Are you currently working in a healthcare facility?Answer [No] What is the address where you are currently located? This is important in case of a medical emergency.Answer [[address]] Please enter a number I can contact you in the event we are disconnected.Answer [[phone]] Conversation Transcripts [Notification] Sury Kulkarni, Global Staff, will help you prepare for your visit. She is assisting Dima Coulter Family Physician.[Sury Kulkarni] Jen, and thank you for connecting. While you are waiting for the doctor, are there any questions I can answer for you about our service? Please contact customer service if you have questions about billing, insurance, or technical issues. Visits work best with a stable WIFI connection, so please make sure you are connected before we begin.[Notification] Otiliaelliott Cayla has left the room.[Notification] You are connected with Family Chris Physician.[Notification] Aron Jorge is located in [place].[Notification] Aron Jorge has shared health history... Diagnosis COVID-19 Value: U07.1 Code: ICD-10-CM Procedures Value: [id number] Code: CPT-4 OFFICE O/P EST SF 10-19 MIN Medications Prescribed hydrochlorothiazide Frequency : Provider Notes We strongly encourage you to share the following record oftoday's visit with your primary care physician.Contact phonenumber:Mode ofCommunication: Video Chiefcomplaint/HPI: Sinus symptoms due to COVID. Onset of symptoms and positive COVID test 4 days ago. Feels like has a sinus infection--sinus pain and pressure, severe nasal congestion, b/l ear discomfort that has not responded to Neti pot.Pertinent symptoms:During this illness, did the patient experience any of the followingsymptoms (yes or no, describe)?Fever>100.4 F (38 C)-NSubjective fever (felt feverish)-YCough (describe, if yes)-Y. Dry. Paroxysmal.Shortness of breath (describe, if yes)-NChest pain or tightness-Y. Chest discomfort with coughingSore throat-YLost sense of smell or taste (anosmia or ageusia)-NRunny nose/Congestion-Y/YSneezing-NMuscle nbisx-RDzeszmlo-WZhhbsg or sfsowaly-MSrqooqoz-TUxhhz, specify- COVID-19 Risks:Does the patient have any of the following medicalconditions (yes or no, describe)? Asthma-NCOPD or emphysema-NChronic heart disease-NRecurrent pneumonia-NAdvanced or poorly controlled diabetes-NActive or recent cancer-NSignificant immune suppression-NCurrently taking immunosuppressant medications-NAge over 65?-N Does the patient live with a chronically ill,immunosuppressed or household member over 65 (yes or no, describe)?-N COVID-19 ExposureRisk:Does the patient suspect they have been in close contactwith a person with COVID-19 (yes, no describe)?-Y. Exposure/contact at work last week. COVID-19 TestResults:Has the patient been tested within the last 3 months ohhDZHC-IdN-4 virus (yes, no, results if yes)?-Y. Positive home test 4 days ago. Previous COVID-19Infection:(yes or no?)-N COVID-19Vaccination Status:Vaccinated (yes or no)?-Y. Fully vaccinated + 1 booster. Past MedicalHistory: HTN, Valve repair (30 years ago)Medications: HCTZAllergies: NKDAPast SurgicalHistory:Smoking History:If female,currently or nursing (yes, no, N/A)?:N Physical Exam:BMI = 29.0Yxisgee-Mkjk-mupupvsqp,non-toxic , NAD. HEENT-NCAT.Eyes and Ears-Normal appearance. Nose-Congested. Sinuses-Mildly tender over paranasal and maxillary sinuses. MMM and pink.Neck/lymph-Supple.Resp-Norespir atory distress. Dry, paroxysmal cough.Tblomce-Vhuw-Pepnvbbeyhcvibv of visible skin.Other exam- Assessment:COVID-19 (U07.1) Plan:You have been diagnosed with aviral respiratory infection that is due to coronavirus (Covid-19). At thistime, your provider has determined that you do not require an emergencyevaluation. If your symptoms progress or worsen, it may be necessary to seekadditional care in person. Go to the ER if you develop chest pain or difficultybreathing. Your sinus symptoms are COVID-related with very low likelihood of bacterial sinus infection.If You Test Positive for COVID-19 -- Isolate Everyone,regardless of vaccination status. Stayhome for 5 days. Ifyou have no symptoms or your symptoms are resolving after 5 days, you can leaveyour house. Continueto wear a mask around others for 5 additional days. Ifyou have a fever, continue to stay home until your fever resolves. If you are told toself-isolate, please do the following:Stay at home except to receive medical careSeparate yourself from other people and animals in the homeand if possible, use separate bathroomsCall ahead before visiting any health facilityWear a facemask if around othersCover your coughs and sneezesClean your hands oftenClean high touch surfaces every dayMonitor your symptoms for worsening and seek medicalattention immediately if your illness worsens (for example difficultybreathing, dizziness, dark colored urine). Before seeking care, call ahead tothe facility and tell them that you may have Covid-19. Put on a facemask (orbandana) before entering the facility. Other PatientInstructions:1. Symptom reliefYou have a viral upper respiratory infection that is due toCOVID-19. Antibiotics are not effectiveagainst viruses, and nothing will make it go away more quickly. Treatment isaimed at helping reduce the symptoms. Cold medicines will not get rid of yoursymptoms entirely; however, the following treatments can be tried:Nasal Congestion: 3-5 days of anoral over the counter decongestant (i.e. pseudoephedrine or phenylephrine) maybe helpful, use as directed on the package. Decongestants help reduce swelling and drain mucus in the nose andsinuses. They may help you breathe easier. Use a sinus rinsedevice to rinse your nasal passages with a saline (salt water) solution ordistilled water. You can buy saline nose drops at a pharmacy, or you can makeyour own at home by adding 1 teaspoon of salt and 1 teaspoon of baking soda to2 cups of distilled water. Do not use tap water. This will help thin the mucusin your nose and rinse away pollen and dirt. It will also help reduce swellingso you can breathe normally. Begin over thecounter (OTC) nasal steroid (i.e. fluticasone propionate or mometasone) and useas directed on the package. Nasal Steroids may help decrease inflammation inyour nose and sinuses and decrease runny nose as well. Guaifenesin (immediate release) 200-400 mgorally every 4 hours when required, max 2400 mg/day may help break up mucousand may be helpful If you choose touse a nasal decongestant (i.e. oxymetazoline or phenylephrine), use it onlysparingly and do not use it for more than 48 hours, as it can cause a reboundworsening of nasal congestion.Runny nose: If you haveallergic symptoms, including runny nose, itchy watery eyes or sneezing, you cantake an antihistamine, (i.e. cetirizine, - Take a non-drowsy 24 hr antihistamines, available OTC, each morning asneeded for itching, sneezing, runny nose or itchy watery eyes. Examples are:Shelley (fexofenadine), Claritin (loratadine), Zyrtec (cetirizine), and Xyzal(levocetirizine). You can also takeBenadryl (diphenhydramine) every 6 hours, but it can cause drowsiness, so avoiddriving/working/supervising children, etc. while taking. It may be better totake only before bed.Sore Throat: Gargle saltwater. Mix teaspoon salt in a glass of warm water and gargle. This may helpreduce swelling in your throat. Drink moreliquids. Cold or warm drinks may help soothe your sore throat. Tea with honeymay help. Drinking liquids can also help prevent dehydration. Humidify yourroom. Use a cool-steam humidifier to help moisten the air in your room and calmyour cough. Soothe yourthroat. Cough drops, ice, soft foods, or popsicles may help soothe your throat. Rest your throatas much as possible. Try not to use your voice. This may irritate your throatand worsen your symptoms.Cough: A coughsuppressant such as dextromethorphan 30 mg every 6-8 hours may help reducecoughing, max dose 120mg/24 hrs, also tea with honey, hot steamy showers, useof a humidifier in the room where you sleep and smoking cessation may helpreduce coughing. Breathe warm,moist air from a steamy shower, a hot bath, or a sink filled with hot water.Avoid cold, dry air. Using a humidifier in your home may help. Follow thedirections for cleaning the machine.Fever, Body and JointAches, Headache: Take 600 mg ofibuprofen (3 x 200 mg generic pills) with food four times per day as needed forpain or fever (maximum 2400 mg in 24 hours) and/or take 1000 mg ofacetaminophen four times per day (maximum 4000 mg in 24 hours) as needed forpain or fever. If pain or fever is notrelieved with one of these medications, you can take both medicationsalternating them every 3 hours as needed for pain or fever. 2. Prescriptions(if any): Patient opts to decline antivral treatment. Discussed risks and benefits of antiviral medicine (Paxlovid). Factors taken into consideration include: patient at some risk for progression to severe illness (HTN and h/o valve repair) but is otherwise healthy,; patient already on day 4 of illness; patient without severe symptoms. 3. PreventInfection:Please help prevent the spread of respiratory diseases bydoing the following:Avoid close contact with people who are sick.Avoid touching your eyes, nose, and mouth.Stay home when you are sick.Cover your cough or sneeze with a tissue, then throw thetissue in the trash.Clean and disinfect frequently touched objects and surfacesusing a regular household cleaning spray or wipe.Wear a facemask when in public to protect yourself andothersWash your hands often with soap and water for at least 20seconds, especially after going to the bathroom; before eating; and afterblowing your nose, coughing, or sneezing. 4. Follow up:Please reconnect for another online visit or see your PCP orurgent care provider if symptoms worsen or new symptoms appear at any point, orif still with fever or additional symptoms after a 3-4 more days.If you received a prescription at this visit and have anyquestions or problems with the prescription, call [phone] for assistance.Patient indicates understanding and agrees with plan.Please print a copy of this note and send it to your regulardoctor or take it to your next visit so it may be included in your medicalrecord. Please see your PCP on a regular basis for preventionservices, sooner for follow up of chronic medical conditions. Electronically signed by: Dima Coulter( ) Electronically signed by Faroese [facility] Provider at 02/10/2022 8:21 AM EDT documented in this encounter [facility] 12-30-2021 Miscellaneous Notes Patient has been identified by name and date of : Yes Patient phones for refill(s): Pending Prescriptions Disp Refills ESCITALOPRAM 5 MG TABLET 90 tablet 1 Sig: Take 1 tablet by mouth once daily. NIDHI: No Date of last office visit in primary care: 12/13/21 Last 2 Encounter Wt Readings: Date: Wt: 10/11/2021 76.7 kg (169 lb) 07/16/2021 78 kg (172 lb) Previous labs/tests for medication: Not applicable Please advise. Thank you. Ladi Knapp LPN documented in this encounter [facility] 12-13-2021 History of Present illness Narrative This Team Access Model visit is a virtual encounter. It required patient-provider interaction for the medical decision making as documented below. Patient agrees to the visit: Yes Patient Location: [place] CC: Patient presents with: Medication Follow-up HPI Aron Jorge is a 56 year old female who is contacted today for a virtual visit. This is an established patient of Dr. Marvel Edwards MD. Patient was seen 1 month ago and started on Lexapro 5 mg daily. Patient reports significant improvement in anxiety, mood and sleep. She is able to deal with stress at work better now. She was also prescribed Lunesta. She only needed two doses and worked reasonably well. Persistent/bothersome symptoms include: none Side effects: None Denies suicidal thoughts or plan. REVIEW OF SYSTEMS See HPI PAST MEDICAL HISTORY Diagnosis Date Allergic rhinitis, cause unspecified Allergic rhinitis Dysphagia, unspecified(787.20) Essential hypertension, benign Migraine, unspecified, without mention of intractable migraine without mention of status migrainosus History of Migraines Mitral valve disorders(424.0) PAST SURGICAL HISTORY Procedure Laterality Date DELIVERY ONLY , low cervical COLONOSCOPY FLX DX W/COLLJ SPEC WHEN PFRMD 02/08/2018 Colonoscopy EGD TRANSORAL BIOPSY SINGLE/MULTIPLE 03/30/09 GASTROESOPHAG REFLX TEST W/TELEMTRY PH ELTRD 03/30/09 pyloritek negative HEART SURGERY HX HYSTEROSCOPY WBX WWO D AND C ANDOR POLYPECTOMY 01/20/2019 INSERTION OF IUD 06/10/2011 PAST SURGICAL HISTORY OF 1999 Mitral valve repair-1999 SCOPE, PLANTAR FASCIOTOMY 06/2012 THYROID LEFT FINE NEEDLE ASPIRATION 03/26/09 U/S FNA left lobe thyroid TONSILLECTOMY PRIMARY/SECONDARY <AGE 13 Tonsillectomy ALLERGIES Environmental [Other] MEDICATIONS escitalopram oxalate (LEXAPRO) 5 mg tablet Take 1 tablet by mouth once daily. hydroCHLOROthiazide (HYDRODIURIL, ESIDRIX) 25 mg tablet Take 1 tablet by mouth once daily. FAMILY HISTORY Problem Relation Age of Onset Osteoporosis Mother Asthma Mother Heart Mother 71 Hypertension Father Social History Tobacco Use Smoking status: Former Smoker Packs/day: 1.50 Years: 6.00 Pack years: 9.00 Types: Cigarettes Quit date: 11/08/1988 Years since quittin.1 Smokeless tobacco: Never Used Vaping Use Vaping Use: Never used Substance Use Topics Alcohol use: Yes Alcohol/week: 1.7 standard drinks Comment: OCCASIONALLY Drug use: No EXAM: Virtual visit completed using video, limited exam completed. Appearance: well dressed well groomed, cooperative and pleasant Behavior: good eye contact and relaxed Speech: fluent and coherent Mood: euthymic Affect: appropriate Insight: good Judgment: good ASSESSMENT/PLAN: 1. Adjustment disorder with anxious mood - ICD9: 309.24, ICD10: F43.22 (primary diagnosis) Doing really well on current dose of Lexapro. Continue with same dose for now. - Reviewed concept of neurochemical imbalance wth depression/anxiety, treatment options and benefits of counseling in combination with medication. Also reviewed benefits of sleep hygeine, diet and exercise - Instructed patient to contact office or tcxha-cq-agvj after-hours promptly should condition worsen or any new symptoms appear. 2. Adjustment insomnia - ICD9: 307.41, ICD10: F51.02 As above Prescription instructions reviewed with patient as applicable. Potential red flag symptoms discussed with the patient. Reviewed appropriate action plan to take if red flag symptoms occur. Patient agreeable to treatment plan. Jennifer Carrillo APRN.CNP documented in this encounter [facility] 11-15-2021 History of Present illness Narrative This Team Access Model visit is a virtual encounter. It required patient-provider interaction for the medical decision making as documented below. Patient agrees to the visit: Yes Patient Location: [place] CC: Patient presents with: Sleep Problem HPI Aron Jorge is a 56 year old female who is contacted today for a virtual visit. This is an established patient of Dr. Marvel Edwards MD. Patient presents today for insomnia. States she recently changed positions in her current job and so far it has been very stressful adjusting to this. Her mother last March and she is still dealing with a lot of grief as well. Reports anxiety and difficulty staying asleep. Denies feeling down, depressed, hopeless, anhedonia, panic attacks. Treatments: OTC Tylenol PM which helps but makes her feel groggy which interferes with work on the days she starts early. Also does yoga and meditation which helps sometimes. Suicidal Thoughts: No suicidal ideation, intent or plan Counseling: No Personal mental health hx: None. Medication history: None REVIEW OF SYSTEMS See HPI PAST MEDICAL HISTORY Diagnosis Date Allergic rhinitis, cause unspecified Allergic rhinitis Dysphagia, unspecified(787.20) Essential hypertension, benign Migraine, unspecified, without mention of intractable migraine without mention of status migrainosus History of Migraines Mitral valve disorders(424.0) PAST SURGICAL HISTORY Procedure Laterality Date DELIVERY ONLY , low cervical COLONOSCOPY FLX DX W/COLLJ SPEC WHEN PFRMD 02/08/2018 Colonoscopy EGD TRANSORAL BIOPSY SINGLE/MULTIPLE 03/30/09 GASTROESOPHAG REFLX TEST W/TELEMTRY PH ELTRD 03/30/09 pyloritek negative HEART SURGERY HX HYSTEROSCOPY WBX WWO D AND C ANDOR POLYPECTOMY 01/20/2019 INSERTION OF IUD 06/10/2011 PAST SURGICAL HISTORY OF 1999 Mitral valve repair-1999 SCOPE, PLANTAR FASCIOTOMY 06/2012 THYROID LEFT FINE NEEDLE ASPIRATION 03/26/09 U/S FNA left lobe thyroid TONSILLECTOMY PRIMARY/SECONDARY <AGE 13 Tonsillectomy ALLERGIES Environmental [Other] MEDICATIONS hydroCHLOROthiazide (HYDRODIURIL, ESIDRIX) 25 mg tablet Take 1 tablet by mouth once daily. FAMILY HISTORY Problem Relation Age of Onset Osteoporosis Mother Asthma Mother Heart Mother 71 Hypertension Father Social History Tobacco Use Smoking status: Former Smoker Packs/day: 1.50 Years: 6.00 Pack years: 9.00 Types: Cigarettes Quit date: 11/08/1988 Years since quittin.0 Smokeless tobacco: Never Used Vaping Use Vaping Use: Never used Substance Use Topics Alcohol use: Yes Alcohol/week: 1.7 standard drinks Comment: OCCASIONALLY Drug use: No EXAM: Psych: Attitude - cooperative, easily engaged in conversation Affect - depressed Behavior- tearful Mental status: Alert. Speech is clear and fluent with good repetition, comprehension ASSESSMENT/PLAN: 1. Adjustment disorder with anxious mood - ICD9: 309.24, ICD10: F43.22 (primary diagnosis) Secondary to stress and grief - Discussed treatment options and benefits of counseling in combination with medication. Also reviewed benefits diet and exercise - Start Lexapro. Risks/benefits of antidepressants reviewed including common side effects. - Follow-up in 3-4 weeks or sooner as needed - Instructed patient to contact office or grkit-yc-hikh after-hours promptly should condition worsen or any new symptoms appear. 2. Adjustment insomnia - ICD9: 307.41, ICD10: F51.02 Start Lunesta, see orders. Advised patient this is not indicated for halfway or daily. PDMP website checked and validated. All prescriptions have been APPROPRIATELY filled. No suspicious activity was identified. 11/15/2021 by Jennifer Carrillo APRN.CNP Reviewed good sleep hygiene Prescription instructions reviewed with patient as applicable. Potential red flag symptoms discussed with the patient. Reviewed appropriate action plan to take if red flag symptoms occur. Patient agreeable to treatment plan. During this patient visit I have spent approximately 20 minutes in counseling regarding treatment options, medications and coordinating care. Jennifer Carrillo APRN.CNP documented in this encounter [facility] 10-11-2021 History of Present illness Narrative CC: Patient presents with: Physical: Annual, review labs HPI Aron Jorge is a 56 year old female who presents today for annual exam. Denies any concerns or complaints. Exercise: yoga and pilates 3-4 times a week and starting to walk some nights. Did why weight program at [facility] over the past few year and has lost 15-16 pounds. Continues to adhere to a healthy low fat low salt diet. HTN: Ms. Jorge indicates that she is feeling well and denies any symptoms referable to elevated blood pressure. Specifically denies headache, chest pain, palpitations, dyspnea and peripheral edema. Patient denies any side effects of her medication(s) and is compliant with their regimen. She does not check BP's generally. She watches her diet for sodium, low fat and low cholesterol most of the time. Last 3 Encounter BP Readings: Date: BP: 10/11/2021 140/94 06/25/2021 134/70 10/05/2020 132/76 REVIEW OF SYSTEMS General: no fevers, no chills, no night sweats, no recurrent infections, no change in appetite, no change in energy and no significant changes in weight Respiratory: no cough, no wheezing, no shortness of breath, no hemoptysis Cardiovascular: no chest pain, no chest pressure, no palpitations and no swelling GI: No nausea, vomiting, or diarrhea : No history of dysuria, frequency or incontinence MEDICAL SOCIOLOGIST: Negative for abnormal vaginal bleeding, abnormal vaginal discharge Musculoskeletal: Negative for joint pain or swelling, back pain or muscle pain Psych: PHQ2 is 0 Endocrine: no fatigue, no cold intolerance, no heat intolerance, no polyuria, no polyphagia and no polydipsia Neurologic: No headache, weakness, numbness, tingling, dizziness, syncope. PAST MEDICAL HISTORY Diagnosis Date Allergic rhinitis, cause unspecified Allergic rhinitis Dysphagia, unspecified(787.20) Essential hypertension, benign Migraine, unspecified, without mention of intractable migraine without mention of status migrainosus History of Migraines Mitral valve disorders(424.0) PAST SURGICAL HISTORY Procedure Laterality Date DELIVERY ONLY , low cervical COLONOSCOPY FLX DX W/COLLJ SPEC WHEN PFRMD 02/08/2018 Colonoscopy EGD TRANSORAL BIOPSY SINGLE/MULTIPLE 03/30/09 GASTROESOPHAG REFLX TEST W/TELEMTRY PH ELTRD 03/30/09 pyloritek negative HEART SURGERY HX HYSTEROSCOPY WBX WWO D AND C ANDOR POLYPECTOMY 01/20/2019 INSERTION OF IUD 06/10/2011 PAST SURGICAL HISTORY OF 1999 Mitral valve repair-1999 SCOPE, PLANTAR FASCIOTOMY 06/2012 THYROID LEFT FINE NEEDLE ASPIRATION 03/26/09 U/S FNA left lobe thyroid TONSILLECTOMY PRIMARY/SECONDARY <AGE 13 Tonsillectomy ALLERGIES Environmental [Other] MEDICATIONS hydroCHLOROthiazide (HYDRODIURIL, ESIDRIX) 25 mg tablet Take 1 tablet by mouth once daily. FAMILY HISTORY Problem Relation Age of Onset Osteoporosis Mother Asthma Mother Heart Mother 71 Hypertension Father Social History Tobacco Use Smoking status: Former Smoker Packs/day: 1.50 Years: 6.00 Pack years: 9.00 Types: Cigarettes Quit date: 11/08/1988 Years since quittin.9 Smokeless tobacco: Never Used Vaping Use Vaping Use: Never used Substance Use Topics Alcohol use: Yes Alcohol/week: 1.7 standard drinks Comment: OCCASIONALLY Drug use: No PHYSICAL EXAM BP 140/94 Pulse 80 Resp 16 Wt 76.7 kg (169 lb) LMP 06/07/2011 BMI 28.56 kg/m General Appearance: well appearing, in no acute distress, alert Pysch: mood and affect broad and appropriate Skin: Skin color, texture, turgor normal for age; Eyes: conjunctiva pink and moist, no icterus, sclera white, non-injected Neck: Thyroid slightly enlarged on left side without palpable nodules, No adenopathy. Per patient she has had her thyroid checked before and it has been fine. Lymph nodes: No cervical lymphadenopathy and No supraclavicular lymphadenopathy Lungs: Lungs clear to auscultation. No wheezing, rhonchi, rales. Heart: RRR without murmur, gallop, or rubs. No ectopy BUE Extremities: No deformities, edema, skin discoloration, clubbing or cyanosis. Good capillary refill. Health maintenance reviewed with patient: HEPATITIS C SCREENING Never done HIV SCREENING Never done BP CONTROLLED (<130/80) due on 02/02/2019 DTAP,TDAP,TD(2 - Td or Tdap) due on 08/19/2020 DEPRESSION SCREENING due on 10/03/2021 ANNUAL PCP TEAM CHRONIC DISEASE VISIT due on 10/05/2021 INFLUENZA(Season Ended) due on 02/20/2022 PAP TESTING due on 06/22/2022 HPV TESTING due on 06/22/2022 MAMMOGRAM due on 07/10/2022 DIABETES SCREEN due on 09/27/2024 LIPID SCREEN due on 09/27/2026 COLORECTAL CANCER SCREENING due on 02/09/2028 SHINGRIX VACCINE Completed COVID-19 VACCINE Completed MENINGOCOCCAL CONJUGATE Aged Out DATA REVIEWED: Most recent labs ASSESSMENT/PLAN: 1. Annual physical exam - ICD9: V70.0, ICD10: Z00.00 (primary diagnosis) - Counseled on healthy diet and regular exercise - Calcium intake with supplements or by diet of 1000 mg/day for under 50, 0970-1694 mg/day for 50+ - Discussed need and benefit for weight loss. BMI 28.56 kg/(m^2) - Depression screening tool completed and reviewed with patient. Based on score and interview, patient is not at risk for depression and recommended no further intervention at this time. - Follow up for annual exam in one year 2. Essential hypertension, benign - ICD9: 401.1, ICD10: I10 - good control - Continue current medication(s) - Encouraged dietary sodium restriction/DASH diet - Recommended regular aerobic exercise. - Recommend home blood pressure monitoring, to bring results in on next visit - Goal of BP <130/80 - HYDROCHLOROTHIAZIDE 25 MG TABLET - Follow up in 6 months 3. Hyperlipidemia, unspecified hyperlipidemia type - ICD9: 272.4, ICD10: E78.5 - suboptimal control The 10-year ASCVD risk score (Archer MOR Jr., et al., 2013) is: 3.4% Values used to calculate the score: Age: 56 years Sex: Female Is Non- : No Diabetic: No Tobacco smoker: No Systolic Blood Pressure: 135 mmHg Is BP treated: Yes HDL Cholesterol: 56 mg/dL Total Cholesterol: 231 mg/dL - Encouraged following a low fat, low cholesterol diet. - Discussed the benefits of regular aerobic exercise and weight loss. 4. Nontoxic uninodular goiter - ICD9: 241.0, ICD10: E04.1 - Left side feels enlarged in comparison to previous documented assessments. Last US or CT was in 2008 - US THYROID/PARATHYROID Prescription instructions reviewed with patient as applicable. Potential red flag symptoms discussed with the patient. Reviewed appropriate action plan to take if red flag symptoms occur. Patient agreeable to treatment plan. Maddison Carrillo APRN.CNP documented in this encounter [facility] Evaluation note Diagnosis Essential hypertension, benign [facility] Diagnosis Annual physical exam- Primary Routine general medical examination at a health care facility Essential hypertension, benign Hyperlipidemia, unspecified hyperlipidemia type Nontoxic uninodular goiter [facility] Diagnosis Adjustment disorder with anxious mood- Primary Adjustment disorder with anxiety Adjustment insomnia Transient disorder of initiating or maintaining sleep [facility] Diagnosis Essential hypertension, benign [facility] Diagnosis Onset Date Resolution Status Gastritis acute Atrial fibrillation, new onset acute H/O mitral valve repair acut e HTN (hypertension) [facility] Work Phone: Evaluation note* Diagnosis Grief reaction- Primary Adjustment disorder with depressed mood Atrial fibrillation, unspecified type (HCC) Cardiomyopathy, unspecified type (HCC) Essential hypertension, benign [facility] Diagnosis Cardiomyopathy, unspecified type (HCC) [facility] Diagnosis Acute idiopathic myocarditis Cardiomyopathy, unspecified type (HCC) [facility] Diagnosis Persistent atrial fibrillation (HCC)- Primary Atrial fibrillation [facility] Diagnosis Gastroesophageal reflux disease without esophagitis Esophageal reflux [facility] Diagnosis Essential hypertension, benign- Primary [facility] Diagnosis Annual physical exam- Primary Routine general medical examination at a health care facility Essential hypertension, benign Typical atrial flutter (HCC) Atrial flutter Gastroesophageal reflux disease without esophagitis Esophageal reflux Depression with anxiety Dysthymic disorder Dermatitis Contact dermatitis and other eczema, due to unspecified cause [facility] noteNo assessment information availableWProvidence [facility] Work Phone: Evaluation note* Diagnosis S/P MVR (mitral valve repair)- Primary Other postprocedural status [facility] Diagnosis Upper respiratory tract infection, unspecified type- Primary ETD (Eustachian tube dysfunction), bilateral Essential hypertension, benign S/P MVR (mitral valve repair) Other postprocedural status Weight gain Abnormal weight gain Screening for lipid disorders [facility] Diagnosis Otitis media, unspecified laterality, unspecified otitis media type- Primary [facility]* Diagnosis Essential hypertension, benign- Primary S/P MVR (mitral valve repair) Other postprocedural status Typical atrial flutter (HCC) Atrial flutter [facility] Diagnosis Encounter for screening mammogram for breast cancer [facility] Diagnosis Essential hypertension, benign- Primary [facility] Diagnosis S/P MVR (mitral valve repair)- Primary Other postprocedural status [facility] Diagnosis S/P mitral valve repair- Primary Other postprocedural status Mixed hyperlipidemia Essential hypertension Unspecified essential hypertension [facility]* Diagnosis Essential hypertension, benign- Primary Encounter for immunization Need for other specified prophylactic vaccination against single bacterial disease Hyperlipidemia, unspecified hyperlipidemia type Need for hepatitis C screening test Special screening examination for other specified viral diseases Encounter for screening for HIV Class 1 obesity without serious comorbidity with body mass index (BMI) of 31.0 to 31.9 in adult, unspecified obesity type [facility] Diagnosis Medication management Encounter for long-term (current) use of other medications documented in this encounter [facility] note* Diagnosis Primary hypertension- Primary Unspecified essential hypertension Class 1 obesity with serious comorbidity and body mass index (BMI) of 31.0 to 31.9 in adult, unspecified obesity type [facility]* Diagnosis Encounter for screening mammogram for breast cancer documented in this encounter [facility] note* Diagnosis Essential hypertension, benign- Primary Obesity (BMI 30.0-34.9) Obesity, unspecified Encounter for screening examination for other mental health and behavioral disorders [facility] Diagnosis Anal itching- Primary Pruritus ani [facility]* Diagnosis Class 1 obesity with serious comorbidity and body mass index (BMI) of 33.0 to 33.9 in adult, unspecified obesity type- Primary Essential hypertension, benign Paroxysmal atrial fibrillation (HCC) Atrial fibrillation Anal itching Pruritus ani Worm infection Helminth infection, unspecified documented in this encounter [facility] for referral (narrative)* Diagnostic Procedure Only (Routine) - Authorized Specialty Diagnoses / Procedures Referred By Contvangie t Referred To Contact US IMAGING Diagnoses Nontoxic uninodular goiter Procedures US THYROID/PARATHYROID US SOFT TISSUE HEAD & NECK REAL TIME IMGE Maddison Powers APRN.MINING ANALYST [address] [place] [address] Us Imaging Referral ID Status Reason Start Date Expiration Date Visits Requested Visits Authorized [id number] Authorized Auto-Generat ed Referral 10/11/2021 11/10/2022 1 1 [facility] for referral (narrative)* Outpatient Procedure (Routine) - Pending Review Specialty Diagnoses / Procedures Referred By Contac t Referred To Contact [facility] Diagnoses Persistent atrial fibrillation (HCC) Procedures ECG COMPLETE ECG ROUTINE ECG W/LEAST 12 LDS W/I&R Roxana Becerra APRN.CNP [address] [place] [address] [place] [address] [place] [id number] Referral ID Status Reason Start Date Expiration Date Visits Requested Visits Authorized [id number] Pending Review Auto-Generat ed Referral 2 04/14/2023 1 1 [facility] for referral (narrative)* Outpatient Procedure (Routine) - Pending Review Specialty Diagnoses / Procedures Referred By Contac t Referred To Contact [facility] Diagnoses Essential hypertension, benign Procedures ECHO ECHO TTHRC R-T 2D W/WOM-MODE COMPL SPEC&COLR D Wilber Serrato MD [address] [place] [address] [place] [id number] [place] [address] Referral ID Status Reason Start Date Expiration Date Visits Requested Visits Authorized [id number] Pending Review Auto-Generat ed Referral 07/24/2022 07/24/2023 1 1 [facility] for referral (narrative)* Diagnostic Procedure Only (Routine) - Pending Review Specialty Diagnoses / Procedures Referred By Corwin t Referred To Contact [facility] Diagnoses Encounter for screening mammogram for breast cancer Procedures NAZANIN SCREENING SCREENING MAMMOGRAPHY BI 2-VIEW BREAST INC CAD Marvel Edwards MD [address] [place] [address] [facility] [address] [place] [address] Referral ID Status Reason Start Date Expiration Date Visits Requested Visits Authorized [id number] Pending Review Auto-Generat ed Referral 09/02/2023 10/01/2024 1 1 [facility] for referral (narrative)* Outpatient Procedure (Routine) - Pending Review Specialty Diagnoses / Procedures Referred By Corwin roberts Referred To Contact [facility] Diagnoses S/P MVR (mitral valve repair) Procedures ECHO ECHO TTHRC R-T 2D W/WOM-MODE COMPL SPEC&COLR D Wilber Serrato MD [address] [address] [facility] [place] [address] [place] [address] Referral ID Status Reason Start Date Expiration Date Visits Requested Visits Authorized [id number] Pending Review Auto-Generat ed Referral 10/01/2023 09/30/2024 1 1 * Outpatient Procedure (Routine) - Pending Review Specialty Diagnoses / Procedures Referred By Corwin roberts Referred To Contact [facility] Diagnoses S/P MVR (mitral valve repair) Procedures ECG COMPLETE ECG ROUTINE ECG W/LEAST 12 LDS W/I&R Wilber Serrato MD [address] [address] [place] [address] [place] [address] Referral ID Status Reason Start Date Expiration Date Visits Requested Visits Authorized [id number] Pending Review Auto-Generat ed Referral 10/01/2023 09/30/2024 1 1 [facility] for referral (narrative)* Outpatient Procedure (Routine) - New Request Specialty Diagnoses / Procedures Referred By Contac t Referred To Contact [facility] Diagnoses Mixed hyperlipidemia Procedures ECG COMPLETE ECG ROUTINE ECG W/LEAST 12 LDS W/I&R Wilber Serrato MD [address] [address] [facility] [place] [address] [address] [place] [id number] Referral ID Status Reason Start Date Expiration Date Visits Requested Visits Authorized [id number] New Request Auto-Generat ed Referral 03/03/2024 03/03/2025 1 1 * Outpatient Procedure (Routine) - New Request Specialty Diagnoses / Procedures Referred By Contac t Referred To Contact [facility] Diagnoses Mixed hyperlipidemia Procedures ECHO ECHO TTHRC R-T 2D W/WOM-MODE COMPL SPEC&COLR D Wilber Serrato MD [address] [address] [place] [address] [place] [address] Referral ID Status Reason Start Date Expiration Date Visits Requested Visits Authorized [id number] New Request Auto-Generat ed Referral 03/03/2024 03/03/2025 1 1 * Transition of Care (Routine) - Ref Not Required Specialty Diagnoses / Procedures Referred By Contac t Referred To Contact [facility] Procedures CARDIOVASCULAR MEDICINE OP FOLLOW UP APPT ORDER Wilber Serrato MD [address] [address] [facility] [place] [address] [place] [address] Referral ID Status Reason Start Date Expiration Date Visits Requested Visits Authorized [id number] Ref Not Required PCP Requested Referral 03/03/2025 06/01/2025 [address] 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 Advance Directive(s) 02/08/2018 9:59 AM Advance Directive Response Recorded Date/ Time Name of Medical Power of Preflight Inspector March 15, 2022 10:22am Living Will Yes March 15, 2022 10:22am Power of Preflight Inspector Yes February 10:22am Advance Directive Response Recorded Date/ Time Name of Medical Power of Preflight Inspector Jonathon Jorge March 15, 2022 2:15pm Living Will Yes March 15, 2022 2:15pm Power of Preflight Inspector Yes February 2:15pm Latest Code Status on File Code Status Date Activated Date Inactivated Comments Full Code 03/31/2022 6:19 PM Full Code Order Discussed With: Patient Latest Code Status on File Code Status Date Activated Date Inactivated Comments Full Code 03/31/2022 6:19 PM 04/04/2022 3:29 PM Latest Code Status on File Code Status Date Activated Date Inactivated Comments Full Code 03/31/2022 6:19 PM 04/04/2022 3:29 PM Advance Directive Response Recorded Date/ Time Living Will Yes March 15, 2022 1:15pm Power of Preflight Inspector Yes February 1:15pm Latest Code Status on File Code Status Date Activated Date Inactivated Comments Full Code 03/31/2022 6:19 PM 04/04/2022 3:29 PM Question Answer Comments Full Code Order Discussed With: Patient Date Activated Date Inactivated Comments 03/31/2022 6:19 PM 04/04/2022 3:29 PM Question Answer Comments Full Code Order Discussed With: Patient Date Activated Date Inactivated Comments 03/31/2022 6:19 PM 04/04/2022 3:29 PM Question Answer Comments Full Code Order Discussed With: Patient Advance Directive Response Recorded Date/ Time Living Will Yes March 15, 2022 2:15pm Power of Preflight Inspector Yes February 2:15pm Chief Complaint and Reason for Visit Chief Complaint ABD DISCOMFORT/DIARR HEA AFIB RVR Reason for Visit Gastritis Atrial fibrillation, new onset H/O mitral valve repair HTN (hypertension) Chief Complaint ABD DISCOMFORT/DIARR HEA NEW ONSET AFIB NEW ONSET AFIB Reason for Visit Gastritis Atrial fibrillation, new onset H/O mitral valve repair HTN (hypertension) Chief Complaint SCREENING Family History No Family History Records Found Relationship Condition Age at Onset Recorded Date/T herb mother Cardiac disease Unknown Unknown grandfather Malignant neoplasm Unknown grandmother Malignant neoplasm of breast Unknown Reason for Referral Specialty Diagnoses / Procedures Referred By Contac t Referred To Contact MR IMAGING Diagnoses Cardiomyopathy, unspecified type (HCC) Procedures MRI CARDIAC VELOCITY FLOW MAP CARDIAC MRI FOR VELOCITY FLOW MAPPING Wilber Serrato MD [address] [place] [address] Mr Imaging Referral ID Status Reason Start Date Expiration Date Visits Requested Visits Authorized [id number] Pending Review Auto-Generat ed Referral 03/28/2022 04/27/2023 1 1 Specialty Diagnoses / Procedures Referred By Contac t Referred To Contact MR IMAGING Diagnoses Cardiomyopathy, unspecified type (HCC) Procedures MRI CARDIAC MORPH FUNC WO/W IVCON CARDIAC MRI W/WO CONTRAST & FURTHER SEQ Wilber Serrato MD [address] [place] [id number] Mr Imaging Referral ID Status Reason Start Date Expiration Date Visits Requested Visits Authorized [id number] Pending Review Auto-Generat ed Referral 03/28/2022 04/27/2023 1 1 Referral ID Status Reason Start Date Expiration Date V isits Requested Visits Authorized [id number] Closed Auto-Generate d Referral 03/28/2022 04/27/2023 1 1 Referral ID Status Reason Start Date Expiration Date V isits Requested Visits Authorized [id number] Closed Auto-Generate d Referral 03/28/2022 04/27/2023 1 1 Specialty Diagnoses / Procedures Referred By Contac t Referred To Contact Diagnoses Class 1 obesity without serious comorbidity with body mass index (BMI) of 31.0 to 31.9 in adult, unspecified obesity type Marvel Edwards MD [address] [place] [address] Referral ID Status Reason Start Date Expiration Date Visits Re quested Visits Authorized [id number] Closed 03/28/2024 05/27/2024 1 1 Summary Purpose Additional Source Comments Source Comments (unrecognize d section and content) In the event this informatio n is protected by the Federal Confidentiality of Alcohol and Drug Abuse Patient Records regulations: The Federal rules restrict any use of the information to criminally investigate or prosecute any alcohol or drug abuse patient.[facility] the event this information is protected by the Federal Confidentiality of Alcohol and Drug Abuse Patient Records regulations: The Federal rules restrict any use of the information to criminally investigate or prosecute any alcohol or drug abuse patient.[facility] the event this information is protected by the Federal Confidentiality of Alcohol and Drug Abuse Patient Records regulations: The Federal rules restrict any use of the information to criminally investigate or prosecute any alcohol or drug abuse patient.[facility] the event this information is protected by the Federal Confidentiality of Alcohol and Drug Abuse Patient Records regulations: The Federal rules restrict any use of the information to criminally investigate or prosecute any alcohol or drug abuse patient.[facility] the event this information is protected by the Federal Confidentiality of Alcohol and Drug Abuse Patient Records regulations: The Federal rules restrict any use of the information to criminally investigate or prosecute any alcohol or drug abuse patient.[facility] the event this information is protected by the Federal Confidentiality of Alcohol and Drug Abuse Patient Records regulations: The Federal rules restrict any use of the information to criminally investigate or prosecute any alcohol or drug abuse patient.[facility] Center[facility] the event this information is protected by the Federal Confidentiality of Alcohol and Drug Abuse Patient Records regulations: The Federal rules restrict any use of the information to criminally investigate or prosecute any alcohol or drug abuse patient.[facility] Center[facility] the event this information is protected by the Federal Confidentiality of Alcohol and Drug Abuse Patient Records regulations: The Federal rules restrict any use of the information to criminally investigate or prosecute any alcohol or drug abuse patient.[facility] Center[facility] the event this information is protected by the Federal Confidentiality of Alcohol and Drug Abuse Patient Records regulations: The Federal rules restrict any use of the information to criminally investigate or prosecute any alcohol or drug abuse patient.[facility] Center[facility] the event this information is protected by the Federal Confidentiality of Alcohol and Drug Abuse Patient Records regulations: The Federal rules restrict any use of the information to criminally investigate or prosecute any alcohol or drug abuse patient.[facility] Center[facility] the event this information is protected by the Federal Confidentiality of Alcohol and Drug Abuse Patient Records regulations: The Federal rules restrict any use of the information to criminally investigate or prosecute any alcohol or drug abuse patient.[facility] Center[facility] the event this information is protected by the Federal Confidentiality of Alcohol and Drug Abuse Patient Records regulations: The Federal rules restrict any use of the information to criminally investigate or prosecute any alcohol or drug abuse patient.[facility] CenterIn the event this information is protected by the Federal Confidentiality of Alcohol and Drug Abuse Patient Records regulations: The Federal rules restrict any use of the information to criminally investigate or prosecute any alcohol or drug abuse patient.[facility] CenterIn the event this information is protected by the Federal Confidentiality of Alcohol and Drug Abuse Patient Records regulations: The Federal rules restrict any use of the information to criminally investigate or prosecute any alcohol or drug abuse patient.[facility] CenterIn the event this information is protected by the Federal Confidentiality of Alcohol and Drug Abuse Patient Records regulations: The Federal rules restrict any use of the information to criminally investigate or prosecute any alcohol or drug abuse patient.[facility] CenterIn the event this information is protected by the Federal Confidentiality of Alcohol and Drug Abuse Patient Records regulations: The Federal rules restrict any use of the information to criminally investigate or prosecute any alcohol or drug abuse patient.[facility] CenterIn the event this information is protected by the Federal Confidentiality of Alcohol and Drug Abuse Patient Records regulations: The Federal rules restrict any use of the information to criminally investigate or prosecute any alcohol or drug abuse patient.[facility] CenterIn the event this information is protected by the Federal Confidentiality of Alcohol and Drug Abuse Patient Records regulations: The Federal rules restrict any use of the information to criminally investigate or prosecute any alcohol or drug abuse patient.[facility] CenterIn the event this information is protected by the Federal Confidentiality of Alcohol and Drug Abuse Patient Records regulations: The Federal rules restrict any use of the information to criminally investigate or prosecute any alcohol or drug abuse patient.[facility] CenterIn the event this information is protected by the Federal Confidentiality of Alcohol and Drug Abuse Patient Records regulations: The Federal rules restrict any use of the information to criminally investigate or prosecute any alcohol or drug abuse patient.[facility] CenterIn the event this information is protected by the Federal Confidentiality of Alcohol and Drug Abuse Patient Records regulations: The Federal rules restrict any use of the information to criminally investigate or prosecute any alcohol or drug abuse patient.[facility] CenterIn the event this information is protected by the Federal Confidentiality of Alcohol and Drug Abuse Patient Records regulations: The Federal rules restrict any use of the information to criminally investigate or prosecute any alcohol or drug abuse patient.[facility] CenterIn the event this information is protected by the Federal Confidentiality of Alcohol and Drug Abuse Patient Records regulations: The Federal rules restrict any use of the information to criminally investigate or prosecute any alcohol or drug abuse patient.[facility] CenterIn the event this information is protected by the Federal Confidentiality of Alcohol and Drug Abuse Patient Records regulations: The Federal rules restrict any use of the information to criminally investigate or prosecute any alcohol or drug abuse patient.[facility] CenterIn the event this information is protected by the Federal Confidentiality of Alcohol and Drug Abuse Patient Records regulations: The Federal rules restrict any use of the information to criminally investigate or prosecute any alcohol or drug abuse patient.[facility] CenterIn the event this information is protected by the Federal Confidentiality of Alcohol and Drug Abuse Patient Records regulations: The Federal rules restrict any use of the information to criminally investigate or prosecute any alcohol or drug abuse patient.[facility] CenterIn the event this information is protected by the Federal Confidentiality of Alcohol and Drug Abuse Patient Records regulations: The Federal rules restrict any use of the information to criminally investigate or prosecute any alcohol or drug abuse patient.[facility] CenterIn the event this information is protected by the Federal Confidentiality of Alcohol and Drug Abuse Patient Records regulations: The Federal rules restrict any use of the information to criminally investigate or prosecute any alcohol or drug abuse patient.[facility] CenterIn the event this information is protected by the Federal Confidentiality of Alcohol and Drug Abuse Patient Records regulations: The Federal rules restrict any use of the information to criminally investigate or prosecute any alcohol or drug abuse patient.[facility] CenterIn the event this information is protected by the Federal Confidentiality of Alcohol and Drug Abuse Patient Records regulations: The Federal rules restrict any use of the information to criminally investigate or prosecute any alcohol or drug abuse patient.[facility] CenterIn the event this information is protected by the Federal Confidentiality of Alcohol and Drug Abuse Patient Records regulations: The Federal rules restrict any use of the information to criminally investigate or prosecute any alcohol or drug abuse patient.[facility] CenterIn the event this information is protected by the Federal Confidentiality of Alcohol and Drug Abuse Patient Records regulations: The Federal rules restrict any use of the information to criminally investigate or prosecute any alcohol or drug abuse patient.[facility] CenterIn the event this information is protected by the Federal Confidentiality of Alcohol and Drug Abuse Patient Records regulations: The Federal rules restrict any use of the information to criminally investigate or prosecute any alcohol or drug abuse patient.[facility] CenterIn the event this information is protected by the Federal Confidentiality of Alcohol and Drug Abuse Patient Records regulations: The Federal rules restrict any use of the information to criminally investigate or prosecute any alcohol or drug abuse patient.[facility] CenterIn the event this information is protected by the Federal Confidentiality of Alcohol and Drug Abuse Patient Records regulations: The Federal rules restrict any use of the information to criminally investigate or prosecute any alcohol or drug abuse patient.[facility] CenterIn the event this information is protected by the Federal Confidentiality of Alcohol and Drug Abuse Patient Records regulations: The Federal rules restrict any use of the information to criminally investigate or prosecute any alcohol or drug abuse patient.[facility] CenterIn the event this information is protected by the Federal Confidentiality of Alcohol and Drug Abuse Patient Records regulations: The Federal rules restrict any use of the information to criminally investigate or prosecute any alcohol or drug abuse patient.[facility] CenterIn the event this information is protected by the Federal Confidentiality of Alcohol and Drug Abuse Patient Records regulations: The Federal rules restrict any use of the information to criminally investigate or prosecute any alcohol or drug abuse patient.[facility] CenterIn the event this information is protected by the Federal Confidentiality of Alcohol and Drug Abuse Patient Records regulations: The Federal rules restrict any use of the information to criminally investigate or prosecute any alcohol or drug abuse patient.[facility] CenterIn the event this information is protected by the Federal Confidentiality of Alcohol and Drug Abuse Patient Records regulations: The Federal rules restrict any use of the information to criminally investigate or prosecute any alcohol or drug abuse patient.[facility] CenterIn the event this information is protected by the Federal Confidentiality of Alcohol and Drug Abuse Patient Records regulations: The Federal rules restrict any use of the information to criminally investigate or prosecute any alcohol or drug abuse patient.[facility] CenterIn the event this information is protected by the Federal Confidentiality of Alcohol and Drug Abuse Patient Records regulations: The Federal rules restrict any use of the information to criminally investigate or prosecute any alcohol or drug abuse patient.[facility] CenterIn the event this information is protected by the Federal Confidentiality of Alcohol and Drug Abuse Patient Records regulations: The Federal rules restrict any use of the information to criminally investigate or prosecute any alcohol or drug abuse patient.[facility] CenterIn the event this information is protected by the Federal Confidentiality of Alcohol and Drug Abuse Patient Records regulations: The Federal rules restrict any use of the information to criminally investigate or prosecute any alcohol or drug abuse patient.[facility] CenterIn the event this information is protected by the Federal Confidentiality of Alcohol and Drug Abuse Patient Records regulations: The Federal rules restrict any use of the information to criminally investigate or prosecute any alcohol or drug abuse patient.[facility] Care Teams (unrecognized sec tion and content) Protection Manager Relationship Specialty Start Date End Date Marvel Edwards MD [address] [place] [address] PCP - General Internal Medicine 10/22/16 Wilber Serrato MD [address] [place] [address] Primary Staff Physician Cardiology 09/07/18 Protection Manager Relationship Specialty Start Date End Date Marvel Edwards MD [address] [place] [address] PCP - General Internal Medicine 10/22/16 Wilber Serrato MD [address] [address] Primary Staff Physician Cardiology 09/07/18 Protection Manager Relationship Specialty Start Date End Date Marvel Edwards MD [address] [place] [address] PCP - General Internal Medicine 10/22/16 Wilber Serrato MD [address] [address] Primary Staff Physician Cardiology 09/07/18 Protection Manager Relationship Specialty Start Date End Date Marvel Edwards MD [address] [place] [address] PCP - General Internal Medicine 10/22/16 Wilber Serrato MD [address] [address] Primary Staff Physician Cardiology 09/07/18 Protection Manager Relationship Specialty Start Date End Date Marvel Edwards MD [address] [place] [address] PCP - General Internal Medicine 10/22/16 Wilber Serrato MD [address] [address] Primary Staff Physician Cardiology 09/07/18 Protection Manager Relationship Specialty Start Date End Date Marvel Edwards MD [address] [place] [address] PCP - General Internal Medicine 10/22/16 Wilber Serrato MD [address] [address] Primary Staff Physician Cardiology 09/07/18 Protection Manager Relationship Specialty Start Date End Date Marvel Edwards MD [address] [place] [address] PCP - General Internal Medicine 10/22/16 Wilber Serrato MD [address] [address] Primary Staff Physician Cardiology 09/07/18 Protection Manager Relationship Specialty Start Date End Date Marvel Edwards MD [address] [place] [address] PCP - General Internal Medicine 10/22/16 Wilber Serrato MD [address] [address] Primary Staff Physician Cardiology 09/07/18 Protection Manager Relationship Specialty Start Date End Date Marvel Edwards MD [address] [place] [address] PCP - General Internal Medicine 10/22/16 Wilber Serrato MD [address] [address] Primary Staff Physician Cardiology 09/07/18 Protection Manager Relationship Specialty Start Date End Date Marvel Edwards MD [address] [place] [address] PCP - General Internal Medicine 10/22/16 Wilber Serrato MD [address] [address] Primary Staff Physician Cardiology 09/07/18 Protection Manager Relationship Specialty Start Date End Date Marvel Edwards MD [address] [place] [address] PCP - General Internal Medicine 10/22/16 Wilber Serrato MD [address] [address] Primary Staff Physician Cardiology 09/07/18 Protection Manager Relationship Specialty Start Date End Date Marvel Edwards MD [address] [place] [address] PCP - General Internal Medicine 10/22/16 Wilber Serrato MD [address] [address] Primary Staff Physician Cardiology 09/07/18 Protection Manager Relationship Specialty Start Date End Date Marvel Edwards MD [address] [place] [address] PCP - General Internal Medicine 10/22/16 Wilber Serrato MD [address] [address] Primary Staff Physician Cardiology 09/07/18 Protection Manager Relationship Specialty Start Date End Date Marvel Edwards MD [address] [place] [address] PCP - General Internal Medicine 10/22/16 Wilber Serrato MD [address] [address] Primary Staff Physician Cardiology 09/07/18 Protection Manager Relationship Specialty Start Date End Date Marvel Edwards MD [address] [place] [address] PCP - General Internal Medicine 10/22/16 Wilber Serrato MD [address] [address] Primary Staff Physician Cardiology 09/07/18 Team Status: Active Member Role Status Dates Dr. Marvel Edwards MD Family Provider Active Dr. Marvel Edwards MD Primary Care Provider Active Team Status: Inactive Member Role Status Dates Dr. Marvel Edwards MD Primary Care Provider Active Dr. Rachna Kelly MD Attending Provider Active Protection Manager Relationship Specialty Start Date End Date Marvel Edwards MD [address] [place] [address] PCP - General Internal Medicine 10/22/16 Wilber Serrato MD [address] [place] [address] Primary Staff Physician Cardiology 09/07/18 Protection Manager Relationship Specialty Start Date End Date Marvel Edwards MD [address] [place] [address] PCP - General Internal Medicine 10/22/16 Wilber Serrato MD [address] [address] Primary Staff Physician Cardiology 09/07/18 Protection Manager Relationship Specialty Start Date End Date Marvel Edwards MD [address] [place] [address] PCP - General Internal Medicine 10/22/16 Wilber Serrato MD [address] [place] [address] Primary Staff Physician Cardiology 09/07/18 Protection Manager Relationship Specialty Start Date End Date Marvel Edwards MD [address] [place] [address] PCP - General Internal Medicine 10/22/16 Wilber Serrato MD [address] [place] [address] Primary Staff Physician Cardiology 09/07/18 Protection Manager Relationship Specialty Start Date End Date Marvel Edwards MD [address] [place] [address] PCP - General Internal Medicine 10/22/16 Wilber Serrato MD [address] [place] [address] Primary Staff Physician Cardiology 09/07/18 Protection Manager Relationship Specialty Start Date End Date Marvel Edwards MD [address] [place] [address] PCP - General Internal Medicine 10/22/16 Wilber Serrato MD [address] [place] [address] Primary Staff Physician Cardiology 09/07/18 Protection Manager Relationship Specialty Start Date End Date Marvel Edwards MD [address] [place] [address] PCP - General Internal Medicine 10/22/16 Wilbre Serrato MD [address] [place] [address] Primary Staff Physician Cardiology 09/07/18 Team Status: Inactive Member Role Status Dates Dr. Marvel Edwards MD Primary Care Provider Active Dr. Rachna Kelly MD Attending Provider, Referr ing Provider Active Protection Manager Relationship Specialty Start Date End Date Marvel Edwards MD [address] [place] [address] PCP - General Internal Medicine 10/22/16 Wilber Serrato MD [address] [place] [address] Primary Staff Physician Cardiology 09/07/18 Protection Manager Relationship Specialty Start Date End Date Marvel Edwards MD [address] [place] [address] PCP - General Internal Medicine 10/22/16 Wilber Serrato MD [address] [address] Primary Staff Physician Cardiology 09/07/18 Protection Manager Relationship Specialty Start Date End Date Marvel Edwards MD [address] [place] [address] PCP - General Internal Medicine 10/22/16 Wilber Serrato MD [address] [address] Primary Staff Physician Cardiology 09/07/18 Protection Manager Relationship Specialty Start Date End Date Marvel Edwards MD [address] [place] [address] PCP - General Internal Medicine 10/22/16 Wilber Serrato MD [address] [address] Primary Staff Physician Cardiology 09/07/18 Protection Manager Relationship Specialty Start Date End Date Marvel Edwards MD [address] [place] [address] PCP - General Internal Medicine 10/22/16 Wilber Serrato MD [address] [address] Primary Staff Physician Cardiology 09/07/18 Korina Orellana PA-C [address] [place] [address] [facility] 05/29/24 Maddison Carrillo, [place].MINING ANALYST [address] [place] [address] [facility] Internal Medicine 05/29/24 Fransisca Rust PA-C [address] [place] [address] [facility] 05/29/24 Protection Manager Relationship Specialty Start Date End Date Marvel Edwards MD [address] [place] [address] PCP - General Internal Medicine 10/22/16 Wilber Serrato MD [address] [place] [address] Primary Staff Physician Cardiology 09/07/18 Korina Orellana PA-C [address] [place] [address] [facility] 05/29/24 Maddison Carrillo, PAINT STRIPPER.MINING ANALYST [address] [place] [address] [facility] Internal Medicine 05/29/24 Fransisca Rust PA-C [address] [place] [address] [facility] Family Medicine 05/29/24 Protection Manager Relationship Specialty Start Date End Date Marvel Edwards MD [address] [place] [address] PCP - General Internal Medicine 10/22/16 Wilber Serrato MD [address] [place] [address] Primary Staff Physician Cardiology 09/07/18 Korina Orellana PA-C [address] [place] [address] [facility] 05/29/24 Maddison Carrillo APRN.MINING ANALYST [address] [place] [address] [facility] 05/29/24 Fransisca Rust PA-C [address] [place] [address] [facility] 05/29/24 Protection Manager Relationship Specialty Start Date End Date Marvel Edwards MD [address] [place] [address] PCP - General Internal Medicine 10/22/16 Wilber Serrato MD [address] [place] [address] Primary Staff Physician Cardiology 09/07/18 Korina Orellana PA-C [address] [place] [address] [facility] 05/29/24 Maddison Carrillo APRN.MINING ANALYST [address] [place] [address] [facility] 05/29/24 Fransisca Rust PA-C [address] [place] [address] [facility] Family [facility] 05/29/24 Protection Manager Relationship Specialty Start Date End Date Marvel Edwards MD [address] [place] [address] PCP - General Internal Medicine 10/22/16 Wilber Serrato MD [address] [place], [place] [id number] Primary Staff Physician Cardiology 09/07/18 Maddison Carrillo APRN.MINING ANALYST [address] [place] [address] [facility] Internal Medicine 05/29/24 Protection Manager Relationship Specialty Start Date End Date Marvel Edwards MD [address] [place] [address] PCP - General Internal Medicine 10/22/16 Wilber Serrato MD [address] [place] [address] Primary Staff Physician Cardiology 09/07/18 Maddison Carrillo, [place].MINING ANALYST [address] [place] [address] [facility] Internal Medicine 05/29/24 Protection Manager Relationship Specialty Start Date End Date Marvel Edwards MD [address] [place] [address] PCP - General Internal Medicine 10/22/16 Wilber Serrato MD [address] [place] [address] Primary Staff Physician Cardiology 09/07/18 Maddison Carrillo APRN.MINING ANALYST [address] [place] [address] [facility] 05/29/24 Protection Manager Relationship Specialty Start Date End Date Marvel Edwards MD [address] [place] [address] PCP - General Internal Medicine 10/22/16 Wilber Serrato MD [address] [place], [place] [id number] Primary Staff Physician Cardiology 09/07/18 Maddison Carrillo APRN.MINING ANALYST [address] [place] [address] [facility] 05/29/24 Protection Manager Relationship Specialty Start Date End Date Marvel Edwards MD [address] [place] [address] PCP - General Internal Medicine 10/22/16 Wilber Serrato MD [address] [place] [address] Primary Staff Physician Cardiology 09/07/18 Maddison Carrillo APRN.MINING ANALYST [address] [place] [address] [facility] Internal [facility] 05/29/24 Reason for Visit (unrecogniz ed section and content) Reason Comments Physical Annual, review labs Reason Comments Sleep Problem Reason Comments Medication Follow-up Reason Onset Date Comments Refill Request 12/29/2021 Reason Onset Date Comments Refill Request 02/21/2022 Reason Comments Hospital F/U A-fib incident- repo rts she has a cardiac MRI scheduled for Thursday @ [facility]. Reason Comments Consult Patient Outreach [facility] Reason Comments Radiology MRI Specialty Diagnoses / Procedures Referred By Corwin roberts Referred To Contact MR IMAGING Diagnoses Acute idiopathic myocarditis Procedures MRI CARDIAC MORPH FUNC WO IVCON CARDIAC MRI MORPHOLOGY & FUNCTION W/O CONTRAST Wilber Serrato MD [address] [place] [address] Mr Imaging Referral ID Status Reason Start Date Expiration Date V isits Requested Visits Authorized [id number] Closed Auto-Generate d Referral 03/17/2022 04/16/2023 1 1 Reason Comments Medication Problem Reason Comments Post Dc Program Call - Urgent Reason Comments Follow Up Phone Call [facility] atte mpt Reason Onset Date Comments Transition Of Care 04/07/2022 TCM Initial H ospital Discharge [facility] on 04-04-22, 2nd Attempt Reason Comments Abstract Patient Outreach [facility] Reason Comments Med Change Request Reason Comments Physical physical Reason Comments URI c/o ear pain x 1 day and throat drng, coughing ,sneezing. h/o sinus infections Reason Onset Date Comments Refill Request 04/05/2023 Reason Onset Date Comments Refill Request 05/24/2023 Reason Comments Follow Up wants covid vaccineH [place] Reason Comments Follow Up elevated blood press ures Reason Onset Date Comments Refill Request 02/09/2024 Reason Comments 6 mo followup Reason Onset Date Comments Refill Request 03/03/2024 Reason Comments F/U HTN 3 Month and weight loss med Reason Comments F/U 3 Month Reason Onset Date Comments Refill Request 10/03/2024 Reason Comments Patient Update Patient Question Orders Reason Comments Refill Request Reason Comments Follow Up 7 week follow up Goals (unrecognized section and content) Goals may be documented in a n alternate sectionGoals may be documented in an alternate sectionGoals may be documented in an alternate section INFORMATION SOURCE (unrecogn ized section and content) DATE CREATED AUTHOR [facility]/20[facility] DATE CREATED AUTHOR AUTHOR'S ORGANIZ ATION 04/02/2025 [facility] FOR RECORDS PERTAINING TO PATIENTS WHO ARE OR HAVE BEEN ENROLLED IN A CHEMICAL DEPENDENCY/SUBSTANCEABUSE PROGRAM, SOME INFORMATION MAY BE OMITTED. This clinical summary was aggregated from multiple sources. Caution should be exercised in using it in the provision of clinical care. This summary normalizes information from multiple sources, and as a consequence, information in this document may materially change the coding, format and clinical context of patient data. In addition, data may be omitted in some cases. CLINICAL DECISIONS SHOULD BE BASED ON THE PRIMARY CLINICAL RECORDS. [facility]. provides no warranty or guarantee of the accuracy or completeness of information in this document.
== END | disposition home or self-care (01) ==
PROVIDERS: PCP Internal Medicine; Referring Provider Nurse Practitioner Family; Visit Provider Nurse Practitioner Family
DX: Z12.31 Encounter for screening mammogram for malignant neoplasm of breast (principal)
CPT/HCPCS: 77063; 77067

== ENCOUNTER → 2025-06-19 | Outpatient (CLI) | payer OTHER, SELFPAY ==
[2025-06-20 21:07] LABS: HPV APTIMA, High Risk Negative (Negative)
== END | disposition home or self-care (01) ==
LOC: LABSPEC 12:08
PROVIDERS: PCP Internal Medicine; Visit Provider Nurse Practitioner Family
DX: Z12.4 Encounter for screening for malignant neoplasm of cervix (principal)
CPT/HCPCS: 87624; 88175; G0145